=== PATIENT | female | born 1930 | race Caucasian/White ===

== ENCOUNTER 2018-01-15 10:01 | Inpatient (IN) | payer OTHER ==
--- NOTE | 2018-01-15 10:30 | PDOC ---
History of Present Illness - General History Source: Patient Exam Limitations: No Limitations - History of Present Illness Initial Comments: 01/15/18 12:36 The patient is a 87 year old female, with a significant PMH of lung cancer ( right lung removal 6 years ago) and HTN, who presents to the emergency department via EMS for evaluation of a fall that occurred this morning. The patient states she went to the bathroom when she hit a cart and fell forward landing on her right leg. The patient reports pain to the right leg and pain is exacerbated with movement. The patient denies hitting her head and LOC. She denies syncope, blurring vision, neck pain, numbness and tingling. Denies chest pain, shortness of breath, headache and dizziness. Denies fever, chills, nausea , vomit, diarrhea and constipation. Allergies: NKDA Past surgical history: Lung surgery Social history: None reported PCP: Magda Diaz <Temo Powers - Last Filed: 01/15/18 12:36> <Kings Singh - Last Filed: 01/15/18 14:14> - General Chief Complaint: Injury Stated Complaint: FALL Time Seen by Provider: 01/15/18 10:30 Past History <Temo Powers - Last Filed: 01/15/18 12:36> - Past Medical History Anemia: No Asthma: No Cancer: Yes (lung) Cardiac Disorders: No CVA: No COPD: No CHF: No Dementia: No Diabetes: No GI Disorders: Yes (loose stool) Disorders: No HTN: Yes Hypercholesterolemia: No Liver Disease: No Seizures: No Thyroid Disease: No - Surgical History Abdominal Surgery: No Appendectomy: No Cardiac Surgery: No Cholecystectomy: No Lung Surgery: Yes (right lung removal, 6 years ago) Neurologic Surgery: No Orthopedic Surgery: No - Suicide/Smoking/Psychosocial Hx Smoking History: Unknown if ever smoked Have you smoked in the past 12 months: No Number of Cigarettes Smoked Daily: 30 If you are a former smoker, when did you quit?: over 10 yrs ago Cigars Per Day: 0 Hx Alcohol Use: No Drug/Substance Use Hx: No Substance Use Type: None Hx Substance Use Treatment: No <Kings Singh - Last Filed: 01/15/18 14:14> - Past Medical History Allergies/Adverse Reactions: Allergies Allergy/AdvReac Type Severity Reaction Status Date / Time No Known Allergies Allergy Verified 01/15/18 10:36 Home Medications: Ambulatory Orders Losartan Potassium 50 mg PO DAILY 10/27/15 Zolpidem Tartrate [Ambien] 10 mg PO HS 10/27/15 Review of Systems - Review of Systems Able to Perform ROS?: Yes Comments:: 01/15/18 12:37 CONSTITUTIONAL: No fever, no chills, no fatigue EYES: No visual changes ENT: No ear pain, no sore throat CARDIOVASCULAR: No chest pain, no palpitations RESPIRATORY: No cough, no SOB GI: No abdominal pain, no nausea, no vomiting, no constipation, no diarrhea GENITOURINARY: No dysuria, no frequency, no hematuria MUSCULOSKELETAL: +Right leg pain SKIN: No rash NEURO: No headache <Temo Powers - Last Filed: 01/15/18 12:36> *Physical Exam - Vital Signs Last Vital Signs Temp Pulse Resp BP Pulse Ox 97.4 F L 87 17 124/79 99 01/15/18 10:25 01/15/18 10:25 01/15/18 10:25 01/15/18 10:25 01/15/18 10:25 <Temo Powers - Last Filed: 01/15/18 12:36> - Physical Exam Comments: 01/15/18 14:06 EXAMINATION CONSTITUTIONAL: Awake and alert, well-nourished; in no apparent distress HEAD: Normocephalic; atraumatic EYES: PERRL; EOM intact ENMT: External appears normal; normal oropharynx NECK: Supple; non-tender; no cervical lymphadenopathy CARD: Normal S1, S2; 2/6 syst murmurs, no rubs, or gallops RESP: Normal chest excursion with respiration; breath sounds clear and equal bilaterally; no wheezes, rhonchi, or rales ABD: Soft, non-distended; non-tender; no palpable organomegaly, no palpable hernias EXT: Right lower extremity is shortened and externally rotated; there is pain upon palpation of the proximal femur; there is large soft tissue swelling to the anterior and medial aspect of the right thigh, mildly tender to palpation; tibialis posterior is +1; unable to palpate dorsalis pedis; left lower extremity : no obvious deformity, full range of motion at the foot/ankle/knee/hip; tibialis posterior is +1; unable to palpate dorsalis pedis; SKIN: Warm, dry, no rash NEURO: Cranial nerves II through XII are grossly intact; motor is 5 of 54; no pronation drift; gait-deferred. <Kings Singh - Last Filed: 01/15/18 14:14> ED Treatment Course - LABORATORY CBC & Chemistry Diagram: 01/15/18 11:07 01/15/18 11:07 - ADDITIONAL ORDERS Additional order review: Laboratory Results 01/15/18 01/15/18 11:07 11:07 PT with INR 12.20 INR 1.03 Sodium 137 Potassium 4.6 Chloride 106 Carbon Dioxide 23 Anion Gap 8 BUN 22 H Creatinine 1.1 Creat Clearance w eGFR 47.21 Random Glucose 110 H Calcium 9.3 Total Bilirubin 0.9 AST 32 ALT 20 Alkaline Phosphatase 54 Total Protein 7.0 Albumin 3.5 01/15/18 11:07 RBC 3.74 MCV 89.8 MCHC 34.0 RDW 14.2 MPV 7.5 Neutrophils % 88.1 H D Lymphocytes % 6.4 L D Monocytes % 4.7 Eosinophils % 0.4 Basophils % 0.4 - Medications Given in the ED: ED Medications Discontinued Medications Generic Name Dose Route Start Last Admin Trade Name Freq PRN Reason Stop Dose Admin Morphine Sulfate 2 mg 01/15/18 10:46 01/15/18 11:17 Morphine Sulfate IVPUSH 01/15/18 10:47 2 mg ONCE ONE Administration <Temo Powers - Last Filed: 01/15/18 12:36> - LABORATORY CBC & Chemistry Diagram: 01/15/18 11:07 01/15/18 11:07 <Kings Singh - Last Filed: 01/15/18 14:14> *DC/Admit/Observation/Transfer - Attestations Scribe Attestion: 01/15/18 12:39 Documentation prepared by Temo Powers, acting as pesticide use medical coordinator for Kings Singh MD. <Temo Powers - Last Filed: 01/15/18 12:36> - Discharge Dispostion Decision to Admit order: Yes - Attestations Physician Attestion: 01/15/18 14:06 The documentation was prepared by the scribe under my direct supervision. I have reviewed the documentation which correctly represents the findings, medical decision-making and critical action taken by me. <Kings Singh - Last Filed: 01/15/18 14:14> Diagnosis at time of Disposition: Hip fracture, right Qualifiers: Encounter type: initial encounter Fracture type: closed Qualified Code(s): S72.001A - Fracture of unspecified part of neck of right femur, initial encounter for closed fracture - Discharge Dispostion Condition at time of disposition: Fair - Referrals Referrals: Magda Diaz MD [Primary Care Provider] - - Patient Instructions - Post Discharge Activity
[2018-01-15] MEDS ORDERED: MORPHINE SULFATE 2 MG/ML VIAL IVPUSH ONE ×2 (10:46→13:15)
[2018-01-15] MEDS ORDERED: MORPHINE SULFATE 2 MG/ML VIAL ONE ×2 (10:57→13:55)
[2018-01-15 11:19] LABS: BASO % 0.4 % (0-2.0); EOS % 0.4 % (0-4.5); HEMATOCRIT 33.6 % (32.4-45.2); HEMOGLOBIN 11.4 GM/dL (10.7-15.3); LYMPH % 6.4 % (8-40); MCH 30.6 pg (25.7-33.7); MEAN CELL VOLUME 89.8 fl (80-96); MEAN PLT VOLUME 7.5 fl (7.5-11.1); MONO % 4.7 % (3.8-10.2); NEUT % 88.1 % (42.8-82.8); PLATELET COUNT 184 K/MM3 (134-434); RBC 3.74 M/mm3 (3.60-5.2); RDW 14.2 % (11.6-15.6); WHITE BLOOD COUNT 8.9 K/mm3 (4.0-10.0)
[2018-01-15 11:30] LABS: INR 1.03 (0.83-1.09); PROTHROMBIN TIME (PATIENT) 12.2 SEC (9.7-13.0)
[2018-01-15 11:50] LABS: ALBUMIN 3.5 g/dl (3.4-5.0); ALK PHOS 54 U/L (45-117); ANION GAP 8 MMOL/L (8-16); BILIRUBIN,TOTAL 0.9 mg/dL (0.2-1); BLOOD UREA NITROGEN 22 mg/dL (7-18); CALCIUM 9.3 mg/dL (8.5-10.1); CHLORIDE 106 mmol/L (98-107); CO2 23 mmol/L (21-32); CREATININE 1.1 mg/dL (0.55-1.3); GLUCOSE,RANDOM 110 mg/dL (74-106); POTASSIUM 4.6 mmol/L (3.5-5.1); SGOT/AST 32 U/L (15-37); SGPT/ALT 20 U/L (13-61); SODIUM 137 mmol/L (136-145)
[2018-01-15] MEDS ORDERED: SODIUM CHLORIDE 500 ML IV STA (12:13)
[2018-01-15] MEDS ORDERED: morphine SULFATE 4 MG/ML VIAL IVPUSH ONE (13:20)
[2018-01-15] MEDS ORDERED: morphine SULFATE 4 MG/ML VIAL ONE (13:20)
[2018-01-15] MEDS ORDERED: SODIUM CHLORIDE 1,000 ML IV SCH (13:30)
[2018-01-15 13:59] LABS: URINE APPEARANCE CLEAR; URINE BILIRUBIN NEGATIVE (<2.0 mg/dL); URINE COLOR LTYELLOW; URINE GLUCOSE (UA) 1+ (NEGATIVE); URINE KETONE NEGATIVE (NEGATIVE); URINE LEUK ESTERASE NEGATIVE (NEGATIVE); URINE NITRITE NEGATIVE (NEGATIVE); URINE PROTEIN NEGATIVE (NEGATIVE); URINE UROBILINOGEN NEGATIVE mg/dL (0.2-1.0)
[2018-01-15 14:03] LABS: EPI CELLS RARE /HPF (FEW); URINE MUCUS RARE
--- NOTE | 2018-01-15 14:18 | PN ---
Progress Note (short form) - Note Progress Note: Pt seen and examined in ER. She is an 87 year old female pt who fell at home last night, c/o pain in the right hip and an inability to ambulate. She states she only has HTN, denies being on any anticoagulants. Her PMD is Dr Diaz. AVSS H/H stable PE RLE is mildly shortened and externally rotated + pain in the right hip and thigh with log rolling and axial load. RLE appears to be grossly NVI, good ROM at the right ankle, foot, toes Xrays Show a displaced 3 part right femur inter trochanteric hip fracture Imp 87 yo healthy female with an acute right hip IT fx Rec Admission. Medical clearance NPO after midnight tonight Surgery likely tomorrow, right IM/Gamma Nail Then DC planning
[2018-01-15] MEDS ORDERED: oxyCODONE HCL 5 MG TABLET PO PRN (14:24)
[2018-01-15] MEDS: ACETAMINOPHEN 325 MG TABLET (FP) PO SCH ×2 (14:41→21:30)
--- NOTE | 2018-01-15 15:22 | HP ---
CHIEF COMPLAINT: Right hip pain after fall. PCP: Dr. Magda Diaz HISTORY OF PRESENT ILLNESS: 87 year old female with a PMH significant for HTN, AAA, lung ca, presented to the ED s/p fall in her home. Patient reports tripped on a piece of furniture in her apartment this morning after using the restroom. She did not hit or head or lose consciousness. She managed to drag herself across the floor to the telephone to call the ambulance. Denies lightheadedness, dizzyness, chest pain, palpitations, n/v/d. Upon admission to the ED, patient was given Morphine 2 mg IVP. X-ray showed displaced, 3 part, right femur intertrochanteric hip fracture. Patient was seen by orthopedist Dr. Gaston who scheduled surgery for tomorrow. Recent Travel: No PAST MEDICAL HISTORY: Lung ca (s/p total resection of her right lung) HTN AAA PAST SURGICAL HISTORY: Right lung total resection Social History: , lives alone in an apartment in a building with an elevator in [place] Smoking: Former, quit over 10 years ago when diagnosed with cancer. Alcohol: None Drugs: Denies Family History: Mother: Emphysema, age 80 Father: [place], Brother: [place] Allergies No Known Allergies Allergy (Verified 01/15/18 10:36) HOME MEDICATIONS: Home Medications Medication Instructions Recorded Losartan Potassium 50 mg PO DAILY 10/27/15 Zolpidem Tartrate [Ambien] 10 mg PO HS 10/27/15 REVIEW OF SYSTEMS CONSTITUTIONAL: (+) loss of appetite, weight loss over the past 3 months, unsure of how many lbs Absent: fever, chills, diaphoresis, generalized weakness, malaise, HEENT: Absent: rhinorrhea, nasal congestion, throat pain, throat swelling, difficulty swallowing, mouth swelling, ear pain, eye pain, visual changes CARDIOVASCULAR: Absent: chest pain, syncope, palpitations, irregular heart rate, lightheadedness , peripheral edema RESPIRATORY: (+) shortness of breath chronic/intermittent s/p right lung resection, dyspnea with exertion Absent: cough, orthopnea, wheezing, stridor, hemoptysis GASTROINTESTINAL: (+) Constipation Absent: abdominal pain, abdominal distension, nausea, vomiting, diarrhea, melena , hematochezia GENITOURINARY: Absent: dysuria, frequency, urgency, hesitancy, hematuria, flank pain, genital pain MUSCULOSKELETAL: (+) ++++Right hip pain, lower back pain, chronic Absent: myalgia, arthralgia, joint swelling, neck pain SKIN: Absent: rash, itching, pallor HEMATOLOGIC/IMMUNOLOGIC: Absent: easy bleeding, easy bruising, lymphadenopathy, frequent infections ENDOCRINE: Absent: unexplained weight gain, unexplained weight loss, heat intolerance, cold intolerance NEUROLOGIC: Absent: headache, focal weakness or paresthesias, dizziness, unsteady gait, seizure, mental status changes, bladder or bowel incontinence PSYCHIATRIC: Absent: anxiety, depression, suicidal or homicidal ideation, hallucinations. PHYSICAL EXAMINATION Vital Signs - 24 hr 01/15/18 01/15/18 01/15/18 10:25 13:53 14:03 Temperature 97.4 F L Pulse Rate 87 Pulse Rate [ 82 Left] Respiratory 17 17 Rate Blood Pressure 124/79 Blood Pressure 135/75 [Right Arm] O2 Sat by Pulse 99 99 Oximetry (%) GENERAL: Awake, alert, and fully oriented, thin, appears uncomfortable d/t right hip pain. HEAD: Normal with no signs of trauma. EYES: Pupils equal, round and reactive to light, extraocular movements intact, sclera anicteric, conjunctiva clear. No lid lag. EARS, NOSE, THROAT: Nares patent, oropharynx clear without exudates. Moist mucous membranes. NECK: Normal range of motion, supple without lymphadenopathy, JVD, or masses. LUNGS: Breath sounds equal, clear to auscultation bilaterally. No wheezes, and no crackles. No accessory muscle use. HEART: Regular rate and rhythm, normal S1 and S2 without murmur, rub or gallop. ABDOMEN: Soft, nontender, not distended, normoactive bowel sounds, no guarding, no rebound, no masses. No hepatomegaly or splenomegaly. UPPER EXTREMITIES: 2+ pulses, warm, well-perfused. No cyanosis. No clubbing. No peripheral edema. LOWER EXTREMITIES: Right leg externally rotated, extremely TTP NEUROLOGICAL: No facial droop, tongue midline, normal speech. Normal gait. PSYCHIATRIC: Cooperative. Good eye contact. Appropriate mood and affect. SKIN: Warm, dry, normal turgor, no rashes or lesions noted, normal capillary refill. Laboratory Results - last 24 hr 01/15/18 01/15/18 01/15/18 11:07 11:07 11:07 WBC 8.9 RBC 3.74 Hgb 11.4 Hct 33.6 MCV 89.8 MCH 30.6 MCHC 34.0 RDW 14.2 Plt Count 184 MPV 7.5 Absolute Neuts (auto) 7.8 Neutrophils % 88.1 H D Lymphocytes % 6.4 L D Monocytes % 4.7 Eosinophils % 0.4 Basophils % 0.4 Nucleated RBC % 0 PT with INR 12.20 INR 1.03 Sodium 137 Potassium 4.6 Chloride 106 Carbon Dioxide 23 Anion Gap 8 BUN 22 H Creatinine 1.1 Creat Clearance w eGFR 47.21 Random Glucose 110 H Calcium 9.3 Total Bilirubin 0.9 AST 32 ALT 20 Alkaline Phosphatase 54 Total Protein 7.0 Albumin 3.5 Urine Color Urine Appearance Urine pH Ur Specific [place] Urine Protein Urine Glucose (UA) Urine Ketones Urine Blood Urine Nitrite Urine Bilirubin Urine Urobilinogen Ur Leukocyte Esterase Urine WBC (Auto) Urine RBC (Auto) Ur Epithelial Cells Urine Mucus Blood Type Antibody Screen 01/15/18 01/15/18 11:07 13:50 WBC RBC Hgb Hct MCV MCH MCHC RDW Plt Count MPV Absolute Neuts (auto) Neutrophils % Lymphocytes % Monocytes % Eosinophils % Basophils % Nucleated RBC % PT with INR INR Sodium Potassium Chloride Carbon Dioxide Anion Gap BUN Creatinine Creat Clearance w eGFR Random Glucose Calcium Total Bilirubin AST ALT Alkaline Phosphatase Total Protein Albumin Urine Color Ltyellow Urine Appearance Clear Urine pH 5.0 Ur Specific [place] 1.047 H Urine Protein Negative Urine Glucose (UA) 1+ H Urine Ketones Negative Urine Blood 1+ H Urine Nitrite Negative Urine Bilirubin Negative Urine Urobilinogen Negative Ur Leukocyte Esterase Negative Urine WBC (Auto) <1 Urine RBC (Auto) 1 Ur Epithelial Cells Rare Urine Mucus Rare Blood Type A POSITIVE Antibody Screen Negative CXR No acute change since last study on 10/27/15 CTA -Right intertrochanteric hip fracture extending to the proximal femoral shaft with extensive swelling of the right thigh muscles likely secondary to hematoma in the intermuscular planes but with no evidence of active extravasation of contrast or pseudoaneurysm to suggest arterial injury. -Fusiform AAA measuring up to 5.5 cm extending from the level of the renal arteries to the aortic bifurcation with normal caliber iliac arteries. Markedly tortuous and ectatic thoracic and suprarenal abdominal aorta measuring up to 3.8 cm. X-ray Right hip intertrochanteric fracture with avulsion of the lesser trochanter, normal relationship of the femoral head to the acetabulum. ASSESSMENT/PLAN: 87 year old female with a PMH significant for HTN, AAA, lung ca, presented to the ED s/p fall in her home. She was admitted for ORIF of right hip fracture. Right Hip Fracture -Seen by orthopedist Dr. Gaston -Scheduled for ORIF with Gamma nail tomorrow -NPO after midnight. -Pain management -Tylenol 650 mg q 6 hrs -Oxycodone 5 mg q 4 hrs PRN for pain 1 - 5 -Morphine 2 mg IVP q 4 hrs PRN for pain 6 -10 HTN -Continue home Losartan 50 mg -Monitor BP Insomnia -Hold home Ambien 10 mg while on narcotic pain medications. Constipation -Senna FEN -NS @ 42 cc/hr -Replete electrolytes as indicated -Regular diet, NPO after midnight DVT Prophylaxis -Mechanical only: SCD's. -Chemical: Consider starting post op Dispo: pt currently requires further inpatient care. FULL CODE Visit type - Emergency Visit Emergency Visit: Yes ED Registration Date: 01/15/18 Care time: The patient presented to the Emergency Department on the above date and was hospitalized for further evaluation of their emergent condition. - New Patient This patient is new to me today: No - Critical Care Critical Care patient: No
--- NOTE | 2018-01-15 15:36 | EKG ---
Test Reason : Blood Pressure : / mmHG Vent. Rate : 089 BPM Atrial Rate : 089 BPM P-R Int : 166 ms QRS Dur : 078 ms QT Int : 362 ms P-R-T Axes : 055 050 044 degrees QTc Int : 440 ms SINUS RHYTHM WITH PREMATURE VENTRICULAR COMPLEXES OR FUSION COMPLEXES NONSPECIFIC ST ABNORMALITY ABNORMAL ECG WHEN COMPARED WITH ECG OF 27-JUL-2014 10:51, FUSION COMPLEXES ARE NOW PRESENT PREMATURE VENTRICULAR COMPLEXES ARE NOW PRESENT PREMATURE ATRIAL COMPLEXES ARE NO LONGER PRESENT Confirmed by SARAH SAGE MD ([id number]) on 01/15/2018 3:36:33 PM Referred By: Confirmed By:SARAH SAGE MD
[2018-01-15] MEDS: SODIUM CHLORIDE 1,000 ML IV SCH (17:22)
[2018-01-15] MEDS ORDERED: SENNOSIDES 8.6MG TABLET (FP) PO SCH (22:00)
[2018-01-15 22:33] VITALS: BMI 21.1
[2018-01-15] MEDS: MORPHINE SULFATE 2 MG/ML VIAL IVPUSH PRN (22:48)
[2018-01-16] MEDS: ACETAMINOPHEN 325 MG TABLET (FP) PO SCH ×4 (02:59→21:00)
[2018-01-16] MEDS: MORPHINE SULFATE 2 MG/ML VIAL IVPUSH PRN ×2 (06:47→10:49)
[2018-01-16] MEDS ORDERED: LOSARTAN POTASSIUM 50 MG TABLET (FP) PO SCH (10:00)
--- NOTE | 2018-01-16 10:32 | PN ---
Progress Note (short form) - Note Progress Note: Pt seen, comfortable. NPO. The plan is to do the right hip Gamma Nail surgery today, pending final medical clearance. Keep NPO. Surgery scheduled for 3pm
[2018-01-16] MEDS: SODIUM CHLORIDE 1,000 ML IV SCH (14:04)
[2018-01-16] MEDS ORDERED: BUPIVACAINE HCL/PF 0.5% (5MG/ML) 10 ML VIAL ONE (16:00)
[2018-01-16] MEDS ORDERED: MIDAZOLAM HCL 2 MG/2 ML SINGLE DOSE VIAL ONE (16:07)
[2018-01-16] MEDS ORDERED: SODIUM CHLORIDE 0.9% P/F 10 ML VIAL IJ ONE ×2 (16:11→17:10)
[2018-01-16] MEDS ORDERED: ceFAZolin SODIUM 1 GM VIAL IVPB ONE ×2 (16:55)
[2018-01-16] MEDS ORDERED: KETAMINE HCL 200 MG/20 ML VIAL ONE (17:01)
[2018-01-16] MEDS ORDERED: PHENYLEPHRINE HCL 10 MG/1 ML SINGLE DOSE VIAL ONE (17:10)
--- NOTE | 2018-01-16 17:43 | OP ---
Operative Note - Note: Operative Date: 01/16/18 Pre-Operative Diagnosis: right femur inter trochanteric fracture Operation: right femur IM nail/Gamma Nail Implants: [place] G-3 Gamma Nail, 125 D, 85mm lag screw, 37.5 distal locking screw Surgeon: Ian Gaston Anesthesiologist/ROLLER INSPECTOR: Miguel A Mcnally Anesthesia: Spinal, MAC Estimated Blood Loss (mls): 100 Drains, Volume Out (mls): 0 Blood Volume Replaced (mls): 0 Fluid Volume Replaced (mls): 700 Operative Report Dictated: Yes
[2018-01-16] MEDS ORDERED: SODIUM CHLORIDE 1,000 ML IV SCH (18:01)
[2018-01-16] MEDS ORDERED: MORPHINE SULFATE 2 MG/ML VIAL IVPUSH PRN (18:01)
--- NOTE | 2018-01-16 19:22 | PN ---
Physical Exam: SUBJECTIVE: Patient seen and examined in her room. Patient reports her pain is better, though she was not able to sleep and has barely been able to eat. OBJECTIVE: Vital Signs Period Temp Pulse Resp BP Sys/Aguirre Pulse Ox Last 24 Hr 97.6 F-98.4 F 86-98 13-20 81-138/60-87 96-100 GENERAL: Awake, alert, and fully oriented, thin, appears uncomfortable d/t right hip pain, though slightly improved from yesterday. HEAD: Normal with no signs of trauma. EYES: Pupils equal, round and reactive to light, extraocular movements intact, sclera anicteric, conjunctiva clear. No lid lag. EARS, NOSE, THROAT: Nares patent, oropharynx clear without exudates. Moist mucous membranes. NECK: Normal range of motion, supple without lymphadenopathy, JVD, or masses. LUNGS: Breath sounds equal, clear to auscultation bilaterally. No wheezes, and no crackles. No accessory muscle use. HEART: Regular rate and rhythm, normal S1 and S2 without murmur, rub or gallop. ABDOMEN: Soft, nontender, not distended, normoactive bowel sounds, no guarding, no rebound, no masses. No hepatomegaly or splenomegaly. UPPER EXTREMITIES: 2+ pulses, warm, well-perfused. No cyanosis. No clubbing. No peripheral edema. LOWER EXTREMITIES: Right leg externally rotated, TTP NEUROLOGICAL: No facial droop, tongue midline, normal speech. Normal gait. PSYCHIATRIC: Cooperative. Good eye contact. Appropriate mood and affect. SKIN: Warm, dry, normal turgor, no rashes or lesions noted, normal capillary refill. Active Medications Generic Name Dose Route Start Last Admin Trade Name Freq PRN Reason Stop Dose Admin Acetaminophen 650 mg 01/16/18 20:30 Tylenol - PO Q6H [facility] Enoxaparin Sodium 30 mg 01/17/18 12:00 Lovenox - SQ DAILY [facility] Fentanyl 25 mcg 01/16/18 17:47 Sublimaze Injection - IVPUSH [id number] PRN PAIN-PACU ORDER X 4 DOSES ONLY Cefazolin Sodium 1 gm/ 50 mls @ 100 mls/hr 01/16/18 23:00 Dextrose IVPB 01/17/18 07:29 Q8H [facility] Sodium Chloride 1,000 mls @ 42 mls/hr 01/16/18 18:01 Normal Saline - IV ASDIR [facility] Losartan Potassium 50 mg 01/17/18 10:00 Cozaar - PO DAILY [facility] Morphine Sulfate 2 mg 01/16/18 18:01 Morphine Sulfate IVPUSH Q4H PRN PAIN LEVEL 6-10 Oxycodone HCl 5 mg 01/16/18 18:01 Roxicodone - PO Q4H PRN PAIN LEVEL 1-5 Senna 2 tab 01/16/18 22:00 Senna - PO HS [facility] ASSESSMENT/PLAN: 87 year old female with a PMH significant for HTN, AAA, lung ca, presented to the ED s/p fall in her home. She was admitted for ORIF of right hip fracture. Right Hip Fracture -Seen by orthopedist Dr. Gaston -Went for for ORIF with Gamma nail this afternoon -Pain management -Tylenol 650 mg q 6 hrs -Oxycodone 5 mg q 4 hrs PRN for pain 1 - 5 -Morphine 2 mg IVP q 4 hrs PRN for pain 6 -10 -PT -Will to be d/marga to subacute rehab. HTN -Continue home Losartan 50 mg -Monitor BP Insomnia -Hold home Ambien 10 mg while on narcotic pain medications. Constipation -Senna FEN -NS @ 42 cc/hr -Replete electrolytes as indicated -Regular diet DVT Prophylaxis -Mechanical only: SCD's. Dispo: pt currently requires further inpatient care. FULL CODE Visit type - Emergency Visit Emergency Visit: No - New Patient This patient is new to me today: No - Critical Care Critical Care patient: No
[2018-01-16] MEDS: SENNOSIDES 8.6MG TABLET (FP) PO SCH (21:14)
[2018-01-16] MEDS ORDERED: DEXTROSE 5%-WATER - 50 ML IVPB ONE (22:08)
[2018-01-16] MEDS ORDERED: ceFAZolin SODIUM 1 GM VIAL ONE (22:08)
[2018-01-16] MEDS: CEFAZOLIN 1 GM in DEXTROSE 5%-WATER - 50 ML IVPB SCH (22:45)
[2018-01-16] MEDS ORDERED: CEFAZOLIN 1 GM in DEXTROSE 5%-WATER - 50 ML IVPB SCH (23:00)
[2018-01-17] MEDS: oxyCODONE HCL 5 MG TABLET PO PRN ×2 (02:56→09:22)
[2018-01-17] MEDS: ACETAMINOPHEN 325 MG TABLET (FP) PO SCH ×4 (02:57→20:34)
[2018-01-17] MEDS ORDERED: DEXTROSE 5%-WATER - 50 ML IVPB ONE (05:30)
[2018-01-17] MEDS ORDERED: ceFAZolin SODIUM 1 GM VIAL ONE (05:30)
[2018-01-17] MEDS: CEFAZOLIN 1 GM in DEXTROSE 5%-WATER - 50 ML IVPB SCH (06:09)
--- NOTE | 2018-01-17 06:25 | SPEC ---
DATE OF OPERATION: DATE OF DICTATION: 01/16/2018 PREOPERATIVE DIAGNOSIS: Right hip intertrochanteric hip fracture. POSTOPERATIVE DIAGNOSIS: Right hip intertrochanteric hip fracture. PROCEDURE: Right hip intramedullary nail/Gamma nail. SURGEON: Ian Gaston MD ASSISTANTS: None. CLINIC SCHEDULER: Miguel A Mcnally CRNA ANESTHESIOLOGIST: Micah Grimaldo MD ANESTHESIA: Spinal anesthesia with sedation. DRAINS: None. COMPLICATIONS: None. BLOOD LOSS: 100 mL. BLOOD GIVEN: None. FLUID REPLACEMENT: PlasmaLyte, 1000 mL. INDICATIONS: This patient is an 87-year-old female with a preoperative diagnosis of a displaced right hip intertrochanteric fracture. After understanding the potential risks, complications, alternatives, and benefits of surgery versus nonsurgical treatment, the patient and the family elected to undergo this procedure. DESCRIPTION OF PROCEDURE: Patient was brought to the operating room. Peripheral IV placed, IV sedation given. One gram of IV Ancef was given. General anesthesia was induced. The patient had ample Webril placed around the peroneal post in both ankles. The patient was placed onto the fracture table with a slight longitudinal traction and internal rotation. X-rays were taken documenting excellent reduction of the fracture in the AP and lateral planes. Next, an incision was made over the proximal aspect of the greater trochanter. Subcutaneous hemostasis was achieved with a Bovie cautery, dissection done through the lateral fascia to the top of the greater trochanter. A Andrews elevator was used to take off the soft tissue from the starting point. Under direct visualization a partially threaded guide-wire was placed through the standard starting position, into the proximal femur, passed the fracture fragment into the medullary canal. It was documented to be in excellent position in AP, lateral and multiple oblique planes. Next, we used the proximal 17 mm cannulated reamer and put in a standard titanium Yoni titanium Gamma G3 125 degree, 180 mm trochanteric nail. This was put in cannulated fashion to appropriate depth and using the external guide in a standard fashion, first using external jig, using a threaded guide-wire, replaced the lag screw, guide pin to the lateral aspect of the femur. The prosthesis and up to the femoral neck and head, looked to be in excellent position in a center central position, perhaps slightly posterior and slightly inferior in both AP and lateral planes. We measured it at an 85 mm screw. The cannulated drill was used to drill it to this leg and then we put in an 85 mm titanium lag screw. We achieved excellent compression and overall the position of the hardware in the fracture fragments looked excellent. We locked it in place with a proximal set screw, we altered the external jig to the static position and using the standard technique put in a distal interlocking screw under direct visualization of 37.5 mm in length. This locked the nail distally. We removed the external jig. We repeated x-rays in AP, lateral and multiple oblique planes and overall I was quite happy with the position of the fracture reduction, the length of the screw, the position of the hardware. Final x-rays were taken. The area was copiously irrigated and washed out. The deep fascial layer was closed with 0 Vicryl sutures. The deep dermal layer was closed with 2-0 Vicryl. Final skin approximation was done with rafa. The area was then washed and dried, covered with Xeroform gauze, 4 x 4 gauze, ABD and tape. Patient was taken down off the fracture table in stable condition. There were no complications during the case. Total operative time was about 30 minutes. Tamiko [id number]
[2018-01-17] MEDS: LOSARTAN POTASSIUM 50 MG TABLET (FP) PO SCH (09:22)
[2018-01-17 09:50] LABS: ANION GAP 10 MMOL/L (8-16); BLOOD UREA NITROGEN 24 mg/dL (7-18); CALCIUM 8.2 mg/dL (8.5-10.1); CHLORIDE 108 mmol/L (98-107); CO2 21 mmol/L (21-32); GLUCOSE,RANDOM 88 mg/dL (74-106); SODIUM 138 mmol/L (136-145)
--- NOTE | 2018-01-17 10:10 | PN ---
Progress Note (short form) - Note Progress Note: Ortho Pt seen and examined s/p right IM gamma nail pod #1 Selected Entries 01/17/18 06:35 Temperature 98.4 F Pulse Rate 90 Respiratory 20 Rate Blood Pressure 103/61 Laboratory Tests 01/17/18 06:50 WBC Pending Hgb Pending Hct Pending Plt Count Pending dressing saturated, calf soft, nt nvi a/p dressing changed PT eval PWB dvt ppx pain control d/c planning
[2018-01-17 10:44] LABS: HEMATOCRIT 16.9 % (32.4-45.2); MCH 30.1 pg (25.7-33.7); MCHC 33.4 g/dl (32.0-36.0); MEAN CELL VOLUME 90.3 fl (80-96); MEAN PLT VOLUME 8.3 fl (7.5-11.1); PLATELET COUNT 127 K/MM3 (134-434); RBC 1.87 M/mm3 (3.60-5.2); RDW 14.4 % (11.6-15.6); WHITE BLOOD COUNT 8.2 K/mm3 (4.0-10.0)
[2018-01-17 10:57] LABS: HEMOGLOBIN 5.6 GM/dL (10.7-15.3)
[2018-01-17 11:38] LABS: HEMATOCRIT 16.1 % (32.4-45.2); MCHC 33.4 g/dl (32.0-36.0); MEAN CELL VOLUME 89.9 fl (80-96); MEAN PLT VOLUME 7.7 fl (7.5-11.1); PLATELET COUNT 108 K/MM3 (134-434); RDW 14.6 % (11.6-15.6); WHITE BLOOD COUNT 6.9 K/mm3 (4.0-10.0)
[2018-01-17 11:44] LABS: HEMOGLOBIN 5.4 GM/dL (10.7-15.3)
[2018-01-17] MEDS ORDERED: ENOXAPARIN NA (PORCINE) 40 MG/0.4 ML DISP.SYRIN SQ SCH (12:00)
[2018-01-17] MEDS ORDERED: ENOXAPARIN NA (PORCINE) 30 MG/0.3 ML DISP.SYRIN SQ SCH (12:00)
[2018-01-17] MEDS ORDERED: SODIUM CHLORIDE 0.9% 500 ML INFUS.BAG IV ONE ×2 (14:00→15:15)
--- NOTE | 2018-01-17 16:30 | PN ---
Physical Exam: SUBJECTIVE: Patient seen and examined in her room. Patient reports her pain is improved and she was able to eat some breakfast. OBJECTIVE: Vital Signs Period Temp Pulse Resp BP Sys/Aguirre Pulse Ox Last 24 Hr 97.6 F-98.4 F 76-101 13-20 76-131/47-79 96-100 GENERAL: Frail, thin, pale, fatigued, more confused than yesterday HEAD: Normal with no signs of trauma. EYES: Pupils equal, round and reactive to light, extraocular movements intact, sclera anicteric, conjunctiva clear. No lid lag. EARS, NOSE, THROAT: Nares patent, oropharynx clear without exudates. Moist mucous membranes. NECK: Normal range of motion, supple without lymphadenopathy, JVD, or masses. LUNGS: Breath sounds equal, clear to auscultation bilaterally. No wheezes, and no crackles. No accessory muscle use. HEART: Regular rate and rhythm, normal S1 and S2 without murmur, rub or gallop. ABDOMEN: Soft, nontender, not distended, normoactive bowel sounds, no guarding, no rebound, no masses. No hepatomegaly or splenomegaly. UPPER EXTREMITIES: 2+ pulses, warm, well-perfused. No cyanosis. No clubbing. No peripheral edema. LOWER EXTREMITIES: Surgicel along lateral hip no strike through, gauze clean dry intact, minor swelling to thigh NEUROLOGICAL: No facial droop, tongue midline, normal speech. Normal gait. PSYCHIATRIC: Cooperative. Good eye contact. Appropriate mood and affect. SKIN: Generalized warm, dry, normal turgor, no rashes or lesions noted, normal capillary refill. Laboratory Results - last 24 hr 01/15/18 01/17/18 01/17/18 11:07 06:50 06:50 WBC 8.2 RBC 1.87 L Hgb 5.6 L* Hct 16.9 L D MCV 90.3 MCH 30.1 MCHC 33.4 RDW 14.4 Plt Count 127 L D MPV 8.3 D Sodium 138 Potassium 4.0 Chloride 108 H Carbon Dioxide 21 Anion Gap 10 BUN 24 H Creatinine 1.0 Creat Clearance w eGFR 52.69 Random Glucose 88 Calcium 8.2 L Blood Type A POSITIVE Antibody Screen Negative Crossmatch See Detail 01/17/18 11:27 WBC 6.9 RBC 1.80 L Hgb 5.4 L* Hct 16.1 L MCV 89.9 MCH 30.0 MCHC 33.4 RDW 14.6 Plt Count 108 L MPV 7.7 Sodium Potassium Chloride Carbon Dioxide Anion Gap BUN Creatinine Creat Clearance w eGFR Random Glucose Calcium Blood Type Antibody Screen Crossmatch Active Medications Generic Name Dose Route Start Last Admin Trade Name Freq PRN Reason Stop Dose Admin Acetaminophen 650 mg 01/16/18 20:30 01/17/18 13:54 Tylenol - PO 650 mg Q6H EDMOND Administration Enoxaparin Sodium 30 mg 01/17/18 12:00 01/17/18 11:14 Lovenox - SQ Not Given DAILY [facility] Sodium Chloride 1,000 mls @ 100 mls/hr 01/17/18 13:41 Normal Saline - IV ASDIR EDMOND Losartan Potassium 50 mg 01/17/18 10:00 01/17/18 09:22 Cozaar - PO 50 mg DAILY EDMOND Administration Morphine Sulfate 2 mg 01/16/18 18:01 Morphine Sulfate IVPUSH Q4H PRN PAIN LEVEL 6-10 Oxycodone HCl 5 mg 01/16/18 18:01 01/17/18 09:22 Roxicodone - PO 5 mg Q4H PRN Administration PAIN LEVEL 1-5 Senna 2 tab 01/16/18 22:00 01/16/18 21:14 Senna - PO 2 tab HS EDMOND Administration ASSESSMENT/PLAN: 87 year old female with a PMH significant for HTN, AAA, lung ca, presented to the ED s/p fall in her home. She was admitted for ORIF of right hip fracture. Right Hip Fracture -1 day p/o ORIF with Gamma nail -Hgb 5.4 -2 units RPBC ordered -Left message with Dr. Gaston's answering service. -Pain management -Tylenol 650 mg q 6 hrs -Oxycodone 5 mg q 4 hrs PRN for pain 1 - 5 -Morphine 2 mg IVP q 4 hrs PRN for pain 6 -10 -PT -Will to be d/marga to subacute rehab. HTN -Improving since starting transfusion, but was very low in the 70s-80s/40s in the afternoon -NS 500 ml bolus x 3 -Continue to closely monitor BP -Hold Losartan 50 mg Insomnia -Hold home Ambien 10 mg while on narcotic pain medications. Constipation -Senna FEN -NS @ 100 cc/hr -Replete electrolytes as indicated -Regular diet DVT Prophylaxis --Hold Lovenox d/t low hemoglobin -Restart once Hgb normalized, will need to be on for 1 month post op Dispo: pt currently requires further inpatient care. FULL CODE Visit type - Emergency Visit Emergency Visit: No - New Patient This patient is new to me today: No - Critical Care Critical Care patient: No - Discharge Referral Referred to [facility] Med P.C.: No
[2018-01-17] MEDS: ZOLPIDEM TARTRATE 5 MG TABLET PO PRN (21:52)
[2018-01-17] MEDS: SENNOSIDES 8.6MG TABLET (FP) PO SCH (21:52)
[2018-01-18] MEDS: SODIUM CHLORIDE 1,000 ML IV SCH ×3 (01:45→20:00)
[2018-01-18] MEDS: ACETAMINOPHEN 325 MG TABLET (FP) PO SCH ×4 (02:17→21:19)
[2018-01-18 08:46] LABS: HEMATOCRIT 27.9 % (32.4-45.2); HEMOGLOBIN 10.1 GM/dL (10.7-15.3); MCH 32.5 pg (25.7-33.7); MCHC 36.2 g/dl (32.0-36.0); MEAN CELL VOLUME 89.7 fl (80-96); PLATELET COUNT 121 K/MM3 (134-434); RBC 3.11 M/mm3 (3.60-5.2); RDW 15.3 % (11.6-15.6); WHITE BLOOD COUNT 8.9 K/mm3 (4.0-10.0)
--- NOTE | 2018-01-18 09:39 | PN ---
Physical Exam: SUBJECTIVE: Patient seen and examined, denies chest pain or shortness of breath. in no acute distress. OBJECTIVE: s/p 2 units of prbc, hmg/hct stable POD #2 Vital Signs Period Temp Pulse Resp BP Sys/Aguirre Pulse Ox Last 24 Hr 97.9 F-98.7 F 88-101 16-20 76-137/47-69 96 GENERAL: awake, alert, in no acute distress. some pain of right hip relieved with oxycodone. HEAD: Normal with no signs of trauma. EYES: Pupils equal, round and reactive to light, extraocular movements intact, sclera anicteric, conjunctiva clear. No lid lag. EARS, NOSE, THROAT: Nares patent, oropharynx clear without exudates. Moist mucous membranes. NECK: Normal range of motion, supple without lymphadenopathy, JVD, or masses. LUNGS: Breath sounds equal, clear to auscultation bilaterally HEART: Regular rate and rhythm, normal S1 and S2 without murmur, rub or gallop. ABDOMEN: Soft, nontender, not distended, normoactive bowel sounds UPPER EXTREMITIES: 2+ pulses, warm, well-perfused. No cyanosis. No clubbing. No peripheral edema. LOWER EXTREMITIES: Surgicel along lateral hip, gauze cdi, minor swelling to thigh NEUROLOGICAL: normal speech. PSYCHIATRIC: Cooperative. Good eye contact. Appropriate mood and affect. Laboratory Results - last 24 hr 01/15/18 01/17/18 01/17/18 11:07 06:50 06:50 WBC 8.2 RBC 1.87 L Hgb 5.6 L* Hct 16.9 L D MCV 90.3 MCH 30.1 MCHC 33.4 RDW 14.4 Plt Count 127 L D MPV 8.3 D Sodium 138 Potassium 4.0 Chloride 108 H Carbon Dioxide 21 Anion Gap 10 BUN 24 H Creatinine 1.0 Creat Clearance w eGFR 52.69 Random Glucose 88 Calcium 8.2 L Blood Type A POSITIVE Antibody Screen Negative Crossmatch See Detail 01/17/18 01/18/18 11:27 08:00 WBC 6.9 8.9 RBC 1.80 L 3.11 L Hgb 5.4 L* 10.1 L Hct 16.1 L 27.9 L D MCV 89.9 89.7 MCH 30.0 32.5 MCHC 33.4 36.2 H RDW 14.6 15.3 Plt Count 108 L 121 L MPV 7.7 8.0 Sodium Potassium Chloride Carbon Dioxide Anion Gap BUN Creatinine Creat Clearance w eGFR Random Glucose Calcium Blood Type Antibody Screen Crossmatch Active Medications Generic Name Dose Route Start Last Admin Trade Name Freq PRN Reason Stop Dose Admin Acetaminophen 650 mg 01/16/18 20:30 01/18/18 02:17 Tylenol - PO 650 mg Q6H EDMOND Administration Enoxaparin Sodium 30 mg 01/17/18 12:00 01/17/18 11:14 Lovenox - SQ Not Given DAILY EDMOND Sodium Chloride 1,000 mls @ 100 mls/hr 01/17/18 13:41 01/18/18 01:45 Normal Saline - IV 100 mls/hr ASDIR EDMOND Administration Losartan Potassium 50 mg 01/17/18 10:00 01/17/18 09:22 Cozaar - PO 50 mg DAILY EDMOND Administration Morphine Sulfate 2 mg 01/16/18 18:01 Morphine Sulfate IVPUSH Q4H PRN PAIN LEVEL 6-10 Oxycodone HCl 5 mg 01/16/18 18:01 01/17/18 09:22 Roxicodone - PO 5 mg Q4H PRN Administration PAIN LEVEL 1-5 Senna 2 tab 01/16/18 22:00 01/17/18 21:52 Senna - PO 2 tab HS EDMOND Administration Zolpidem Tartrate 5 mg 01/17/18 20:14 01/17/18 21:52 Ambien - PO 5 mg HS PRN Administration INSOMNIA ASSESSMENT/PLAN: patient is a 87 year old female admitted on 01/15/2018 for ORIF of right hip fracture s/p fall at home (operative date 01/16/2018). Her past medical history include htn, AAA, lung cancer and insomnia. problem list: HTN AAA Lung cancer Insomnia s/p ORIF of right hip Right Hip Fracture, POD #2 with Gamma nail hmg 5.4 on 01/17, s/p 2 units of prbc, hmg/hct now stable. Pain managed with oxycodone stool softners incentive spirometer monitor daily labs d/c to sub acute rehab likely saturday HTN hypotensive yesterday 2/2 to acute blood loss. now stable. start Losartan 50mg daily with parameters fen oral intake sufficient monitor electrolytes encourage hydration, regular diet prophy lovenox x 1 month full code incentive spirometer disposition: d/c to rehab likely on saturday. will need repeat CBC outpatient @ facility. Visit type - Emergency Visit Emergency Visit: Yes ED Registration Date: 01/15/18 Care time: The patient presented to the Emergency Department on the above date and was hospitalized for further evaluation of their emergent condition. - New Patient This patient is new to me today: Yes Date on this admission: 01/18/18 - Critical Care Critical Care patient: No - Discharge Referral Referred to [facility] Med P.C.: No
[2018-01-18 09:51] LABS: ALBUMIN 2.4 g/dl (3.4-5.0); ALK PHOS 40 U/L (45-117); ANION GAP 9 MMOL/L (8-16); BILIRUBIN,TOTAL 2.3 mg/dL (0.2-1); BLOOD UREA NITROGEN 20 mg/dL (7-18); CALCIUM 7.9 mg/dL (8.5-10.1); CHLORIDE 110 mmol/L (98-107); CO2 21 mmol/L (21-32); CREATININE 0.7 mg/dL (0.55-1.3); GLUCOSE,RANDOM 79 mg/dL (74-106); POTASSIUM 4.1 mmol/L (3.5-5.1); SGOT/AST 36 U/L (15-37); SGPT/ALT 15 U/L (13-61); SODIUM 140 mmol/L (136-145); TOT PROT 4.9 g/dl (6.4-8.2)
[2018-01-18] MEDS: oxyCODONE HCL 5 MG TABLET PO PRN (10:26)
[2018-01-18] MEDS: LOSARTAN POTASSIUM 50 MG TABLET (FP) PO SCH (10:28)
[2018-01-18] MEDS: ENOXAPARIN NA (PORCINE) 30 MG/0.3 ML DISP.SYRIN SQ SCH (11:00)
[2018-01-18] MEDS ORDERED: ENOXAPARIN NA (PORCINE) 30 MG/0.3 ML DISP.SYRIN SQ SCH (12:00)
[2018-01-18 12:23] LABS: ANISOCYTOSIS 1+; MACROCYTOSIS 0; PLATELET ESTIMATE DECREASED
[2018-01-18] MEDS: DOCUSATE SODIUM 100 MG CAPSULE (FP) PO SCH ×2 (13:32→21:19)
[2018-01-18] MEDS: POLYETHYLENE GLYCOL 3350 119 GM BTL PO SCH (13:33)
[2018-01-18] MEDS: ZOLPIDEM TARTRATE 5 MG TABLET PO PRN (21:18)
[2018-01-18] MEDS: SENNOSIDES 8.6MG TABLET (FP) PO SCH (21:19)
[2018-01-19] MEDS: ACETAMINOPHEN 325 MG TABLET (FP) PO SCH ×4 (02:36→21:18)
[2018-01-19] MEDS: SODIUM CHLORIDE 1,000 ML IV SCH (05:48)
[2018-01-19] MEDS: DOCUSATE SODIUM 100 MG CAPSULE (FP) PO SCH ×3 (05:49→21:18)
[2018-01-19] MEDS: LOSARTAN POTASSIUM 50 MG TABLET (FP) PO SCH (09:03)
[2018-01-19] MEDS: POLYETHYLENE GLYCOL 3350 119 GM BTL PO SCH (09:03)
[2018-01-19 09:15] LABS: BASO % 0.3 % (0-2.0); EOS % 0.3 % (0-4.5); HEMATOCRIT 30.3 % (32.4-45.2); HEMOGLOBIN 10.8 GM/dL (10.7-15.3); LYMPH % 5.2 % (8-40); MCH 32.4 pg (25.7-33.7); MCHC 35.6 g/dl (32.0-36.0); MEAN CELL VOLUME 90.8 fl (80-96); MEAN PLT VOLUME 7.7 fl (7.5-11.1); MONO % 4.3 % (3.8-10.2); NEUT % 89.9 % (42.8-82.8); PLATELET COUNT 185 K/MM3 (134-434); RBC 3.33 M/mm3 (3.60-5.2); RDW 15.6 % (11.6-15.6); WHITE BLOOD COUNT 12.1 K/mm3 (4.0-10.0)
[2018-01-19 09:38] LABS: ALBUMIN 2.4 g/dl (3.4-5.0); ALK PHOS 54 U/L (45-117); ANION GAP 9 MMOL/L (8-16); BILIRUBIN,TOTAL 1.8 mg/dL (0.2-1); BLOOD UREA NITROGEN 13 mg/dL (7-18); CALCIUM 7.8 mg/dL (8.5-10.1); CHLORIDE 108 mmol/L (98-107); CO2 21 mmol/L (21-32); CREATININE 0.6 mg/dL (0.55-1.3); GLUCOSE,RANDOM 108 mg/dL (74-106); MAGNESIUM 1.6 mg/dL (1.8-2.4); POTASSIUM 3.6 mmol/L (3.5-5.1); SGOT/AST 46 U/L (15-37); SGPT/ALT 22 U/L (13-61); SODIUM 138 mmol/L (136-145); TOT PROT 5.2 g/dl (6.4-8.2)
[2018-01-19] MEDS ORDERED: MAGNESIUM OXIDE 400 MG TABLET (FP) PO ONE (09:41)
[2018-01-19] MEDS: ENOXAPARIN NA (PORCINE) 30 MG/0.3 ML DISP.SYRIN SQ SCH (10:33)
[2018-01-19] MEDS ORDERED: BISACODYL 10 MG SUPP.RECT PR PRN (12:41)
[2018-01-19] MEDS: oxyCODONE HCL 5 MG TABLET PO PRN ×2 (13:12→22:46)
--- NOTE | 2018-01-19 18:06 | PN ---
Physical Exam: SUBJECTIVE: Patient seen and examined at the bedside. Feels well in no acute distress. had PT today. OBJECTIVE: Vital Signs Period Temp Pulse Resp BP Sys/Aguirre Pulse Ox Last 24 Hr 97.7 F-98.2 F 77-90 16-18 107-136/70-78 95-96 GENERAL: awake, alert, in no acute distress. some pain of right hip relieved with oxycodone. HEAD: Normal with no signs of trauma. EYES: Pupils equal, round and reactive to light, extraocular movements intact, sclera anicteric, conjunctiva clear. No lid lag. EARS, NOSE, THROAT: Nares patent, oropharynx clear without exudates. Moist mucous membranes. NECK: Normal range of motion, supple without lymphadenopathy, JVD, or masses. LUNGS: Breath sounds equal, clear to auscultation bilaterally HEART: Regular rate and rhythm, normal S1 and S2 without murmur, rub or gallop. ABDOMEN: Soft, nontender, not distended, normoactive bowel sounds UPPER EXTREMITIES: 2+ pulses, warm, well-perfused. No cyanosis. No clubbing. No peripheral edema. LOWER EXTREMITIES: Surgicel along lateral hip, gauze cdi, minor swelling to thigh NEUROLOGICAL: normal speech. PSYCHIATRIC: Cooperative. Good eye contact. Appropriate mood and affect. Laboratory Results - last 24 hr 01/19/18 01/19/18 08:56 08:56 WBC 12.1 H RBC 3.33 L Hgb 10.8 Hct 30.3 L MCV 90.8 MCH 32.4 MCHC 35.6 RDW 15.6 Plt Count 185 D MPV 7.7 Absolute Neuts (auto) 10.9 H Neutrophils % 89.9 H Lymphocytes % 5.2 L Monocytes % 4.3 Eosinophils % 0.3 Basophils % 0.3 Nucleated RBC % 0 Sodium 138 Potassium 3.6 Chloride 108 H Carbon Dioxide 21 Anion Gap 9 BUN 13 Creatinine 0.6 Creat Clearance w eGFR > 60 Random Glucose 108 H Calcium 7.8 L Magnesium 1.6 L Total Bilirubin 1.8 H AST 46 H ALT 22 Alkaline Phosphatase 54 Total Protein 5.2 L Albumin 2.4 L Active Medications Generic Name Dose Route Start Last Admin Trade Name Freq PRN Reason Stop Dose Admin Acetaminophen 650 mg 01/16/18 20:30 01/19/18 14:30 Tylenol - PO Not Given Q6H EDMOND Bisacodyl 10 mg 01/19/18 12:41 Dulcolax Suppository - NM PRN PRN CONSTIPATION Docusate Sodium 100 mg 01/18/18 14:00 01/19/18 13:12 Colace - PO 100 mg TID EDMOND Administration Enoxaparin Sodium 30 mg 01/18/18 11:00 01/19/18 10:33 Lovenox - SQ 30 mg DAILY EDMOND Administration Losartan Potassium 50 mg 01/19/18 10:00 01/19/18 09:03 Cozaar - PO 50 mg DAILY EDMOND Administration Morphine Sulfate 2 mg 01/16/18 18:01 Morphine Sulfate IVPUSH Q4H PRN PAIN LEVEL 6-10 Oxycodone HCl 5 mg 01/16/18 18:01 01/19/18 13:12 Roxicodone - PO 5 mg Q4H PRN Administration PAIN LEVEL 1-5 Polyethylene Glycol 17 gm 01/18/18 13:15 01/19/18 09:03 Miralax (For Daily Use) - PO 17 gm DAILY EDMOND Administration Senna 2 tab 01/16/18 22:00 01/18/18 21:19 Senna - PO 2 tab HS EDMOND Administration Zolpidem Tartrate 5 mg 01/17/18 20:14 01/18/18 21:18 Ambien - PO 5 mg HS PRN Administration INSOMNIA ASSESSMENT/PLAN: patient is a 87 year old female admitted on 01/15/2018 for ORIF of right hip fracture s/p fall at home (operative date 01/16/2018). Her past medical history include htn, AAA, lung cancer and insomnia. problem list: HTN AAA Lung cancer Insomnia s/p ORIF of right hip Right Hip Fracture, POD #3 with Gamma nail hmg 5.4 on 01/17, s/p 2 units of prbc, hmg/hct now stable. Pain managed with oxycodone stool softners incentive spirometer monitor daily labs d/c to sub acute rehab likely saturday HTN hypotension, resolved. stop ivf start Losartan 50mg daily with parameters fen oral intake sufficient monitor electrolytes encourage hydration, regular diet prophy lovenox x 1 month full code incentive spirometer disposition: d/c to rehab likely on saturday. will need repeat CBC outpatient @ facility. Visit type - Emergency Visit Emergency Visit: Yes ED Registration Date: 01/15/18 Care time: The patient presented to the Emergency Department on the above date and was hospitalized for further evaluation of their emergent condition. - New Patient This patient is new to me today: No - Critical Care Critical Care patient: No - Discharge Referral Referred to [facility] Med P.C.: No
[2018-01-19] MEDS: SENNOSIDES 8.6MG TABLET (FP) PO SCH (21:18)
[2018-01-19] MEDS: ZOLPIDEM TARTRATE 5 MG TABLET PO PRN (22:46)
[2018-01-20] MEDS: ACETAMINOPHEN 325 MG TABLET (FP) PO SCH ×2 (02:39→08:30)
[2018-01-20 05:37] VITALS: BP 135/78; PULSE 76; TEMP 98.1
[2018-01-20] MEDS: DOCUSATE SODIUM 100 MG CAPSULE (FP) PO SCH (06:11)
--- NOTE | 2018-01-20 08:31 | PN ---
Progress Note (short form) - Note Progress Note: Ortho Pt seen and examined s/p right IM gamma nail Selected Entries 01/20/18 05:00 Temperature 98.1 F Pulse Rate 76 Respiratory 20 Rate Blood Pressure 135/78 Laboratory Tests 01/19/18 08:56 WBC 12.1 H Hgb 10.8 Hct 30.3 L Plt Count 185 D dressing with slight saturation in distal aquacel but not to borders, calf soft , nt nvi a/p PT PWB dvt ppx pain control d/c planning
[2018-01-20] MEDS ORDERED: PT OWN MED DRAWER 7, Y5N ONE (10:20)
[2018-01-20] MEDS: ENOXAPARIN NA (PORCINE) 30 MG/0.3 ML DISP.SYRIN SQ SCH (10:37)
[2018-01-20] MEDS: LOSARTAN POTASSIUM 50 MG TABLET (FP) PO SCH (10:37)
[2018-01-20] MEDS: POLYETHYLENE GLYCOL 3350 119 GM BTL PO SCH (10:38)
[2018-01-20 10:47] LABS: BASO % 0.3 % (0-2.0); EOS % 0.5 % (0-4.5); HEMATOCRIT 28.4 % (32.4-45.2); HEMOGLOBIN 10.2 GM/dL (10.7-15.3); LYMPH % 7.3 % (8-40); MCH 32.4 pg (25.7-33.7); MCHC 35.7 g/dl (32.0-36.0); MEAN CELL VOLUME 90.6 fl (80-96); MEAN PLT VOLUME 7.6 fl (7.5-11.1); NEUT % 85.9 % (42.8-82.8); PLATELET COUNT 224 K/MM3 (134-434); RBC 3.14 M/mm3 (3.60-5.2); RDW 15.7 % (11.6-15.6)
[2018-01-20] MEDS: oxyCODONE HCL 5 MG TABLET PO PRN (10:48)
[2018-01-20 11:19] LABS: ALBUMIN 2.4 g/dl (3.4-5.0); ALK PHOS 55 U/L (45-117); ANION GAP 11 MMOL/L (8-16); BILIRUBIN,TOTAL 1.5 mg/dL (0.2-1); BLOOD UREA NITROGEN 13 mg/dL (7-18); CALCIUM 8.1 mg/dL (8.5-10.1); CHLORIDE 104 mmol/L (98-107); CO2 23 mmol/L (21-32); CREATININE 0.6 mg/dL (0.55-1.3); GLUCOSE,RANDOM 106 mg/dL (74-106); POTASSIUM 3.7 mmol/L (3.5-5.1); SGOT/AST 39 U/L (15-37); SGPT/ALT 21 U/L (13-61); SODIUM 138 mmol/L (136-145); TOT PROT 5.2 g/dl (6.4-8.2)
--- NOTE | 2018-01-20 11:24 | DS ---
Physical Exam: SUBJECTIVE: Patient seen and examined at the bedside. feels well. no discomfort. OBJECTIVE: for rehab today. Vital Signs Period Temp Pulse Resp BP Sys/Aguirre Pulse Ox Last 24 Hr 98.1 F-98.4 F 76-90 16-20 107-135/74-78 96 PHYSICAL EXAM GENERAL: awake, alert, in no acute distress. some pain of right hip relieved with oxycodone. HEAD: Normal with no signs of trauma. EYES: Pupils equal, round and reactive to light, extraocular movements intact, sclera anicteric, conjunctiva clear. No lid lag. EARS, NOSE, THROAT: Nares patent, oropharynx clear without exudates. Moist mucous membranes. NECK: Normal range of motion, supple without lymphadenopathy, JVD, or masses. LUNGS: Breath sounds equal, clear to auscultation bilaterally HEART: Regular rate and rhythm, normal S1 and S2 without murmur, rub or gallop. ABDOMEN: Soft, nontender, not distended, normoactive bowel sounds UPPER EXTREMITIES: 2+ pulses, warm, well-perfused. No cyanosis. No clubbing. No peripheral edema. LOWER EXTREMITIES: Surgicel along lateral hip, gauze stained and intact. NEUROLOGICAL: normal speech. PSYCHIATRIC: Cooperative. Good eye contact. Appropriate mood and affect. LABS Laboratory Results - last 24 hr 01/20/18 01/20/18 09:40 09:40 WBC 8.0 RBC 3.14 L Hgb 10.2 L Hct 28.4 L MCV 90.6 MCH 32.4 MCHC 35.7 RDW 15.7 H Plt Count 224 D MPV 7.6 Absolute Neuts (auto) 6.9 Neutrophils % 85.9 H Lymphocytes % 7.3 L D Monocytes % 6.0 Eosinophils % 0.5 Basophils % 0.3 Nucleated RBC % 0 Sodium 138 Potassium 3.7 Chloride 104 Carbon Dioxide 23 Anion Gap 11 BUN 13 Creatinine 0.6 Creat Clearance w eGFR > 60 Random Glucose 106 Calcium 8.1 L Total Bilirubin 1.5 H AST 39 H ALT 21 Alkaline Phosphatase 55 Total Protein 5.2 L Albumin 2.4 L HOSPITAL COURSE: Patient is a 87 year old female admitted on 01/15/2018 for ORIF of right hip fracture s/p fall at home (operative date 01/16/2018). Her past medical history include htn, AAA, lung cancer and insomnia. She is s/p right hip surgical/ gamma nail on 01/16/2018. Hospitalization complicated when patient developed acute blood loss anemia and has been transfused with 2 units of prbc. Right Hip Fracture, POD #4 with Gamma nail hmg 5.4 on 01/17, s/p 2 units of prbc, hmg/hct now stable @ 10.2/28 Pain managed with oxycodone stool softners incentive spirometer monitor daily labs d/c to sub acute rehab today continue Lovenox 30mg until February 15, 2018. Heme: Acute blood loss anemia. s/p 2 units of prbc on 01/17/2018. hmg/hct stable. Repeat CBC as an outpatient. HTN hypotension, resolved. prophy lovenox x 1 month full code incentive spirometer disposition: d/c to rehab today. Date of Admission:01/15/18 Date of Discharge: 01/20/18 Minutes to complete discharge: 60 Discharge Summary Reason For Visit: FRACTURE OF RIGHT HIP Condition: Guarded - Instructions Diet, Activity, Other Instructions: Mrs Ordoñez: You were admitted on 01/15/2018 for right hip fracture and will be discharged to rehab today. Here are our recommendations. Right Hip Fracture with Gamma nail repair on January 16, 2018 continue to manage your pain with oxycodone Maintain bowel regimen continue incentive spirometer Monitor hmg/hct while on Lovenox Continue lovenox 30mg daily until February 15, 2018 continue physical therapy Please call with any questions that you may have. Referrals: Magda Diaz MD [Primary Care Provider] - Disposition: [facility]ILITY - Home Medications Comprehensive Discharge Medication List: Ambulatory Orders Losartan Potassium 50 mg PO DAILY 10/27/15 Zolpidem Tartrate [Ambien] 10 mg PO HS 10/27/15 This patient is new to me today: No Emergency Visit: Yes ED Registration Date: 01/15/18 Care time: The patient presented to the Emergency Department on the above date and was hospitalized for further evaluation of their emergent condition. Critical Care patient: No - Discharge Referral Referred to [facility] Med P.C.: No
== END 2018-01-20 15:26 | DRG 481 ==
LOC: JER 10:01 → JERBED 14:14 → J6S 21:31
PROVIDERS: ADMIT Internal Medicine; ATTEND Nurse Practitioner Family
PROC: 0QS606Z Reposition Right Upper Femur with Intramedullary Internal Fixation Device, Open Approach (ICD-10-PCS; principal; 2018-01-16 15:00)
PROC: 30233N1 Transfusion of Nonautologous Red Blood Cells into Peripheral Vein, Percutaneous Approach (ICD-10-PCS; 2018-01-17)
DX: S72.141A Displaced intertrochanteric fracture of right femur, initial encounter for closed fracture (principal); D62 Acute posthemorrhagic anemia; I10 Essential (primary) hypertension; Z85.118 Personal history of other malignant neoplasm of bronchus and lung; K59.00 Constipation, unspecified; G47.00 Insomnia, unspecified; W01.0XXA Fall on same level from slipping, tripping and stumbling without subsequent striking against object, initial encounter; Y93.89 Activity, other specified; Y92.098 Other place in other non-institutional residence as the place of occurrence of the external cause; Y99.8 Other external cause status; I95.81 Postprocedural hypotension
CPT/HCPCS: 36415; 36430; 71045-TC-FY; 73523-TC-FY; 73552-TC-RT-FY; 75635-TC; 76000-TC-FY; 80048; 80053; 81003; 81015; 83735; 85025; 85027; 85610; 86850; 86900; 86901; 86922; 87086; 93005; 93010; 94760; 97116-GP; 97162-GP; 99284-25; J7030; P9038; P9058

== ENCOUNTER 2018-08-14 11:33 | Inpatient (IN) | payer OTHER ==
--- NOTE | 2018-08-14 12:06 | PDOC ---
History of Present Illness - General Stated Complaint: Injury Time Seen by Provider: 08/14/18 12:06 - History of Present Illness Initial Comments: Kellee Ordoñez is an 88yo woman with a PMH of HTN, rt lung CA s/p resection who was BIBA from home following an unwitnessed fall. She reports that she was trying to replace the clock on the bathroom wall and fell onto the sink. Ms Ordoñez states that she was on the ground for only 30 minutes then got up to get an ice pack. However, she was noted to be soaked in urine and have several pressure ulcers on her left side on arrival, inconsistent with a down time of less than an hour. She reports that her neighbor called EMS. She denies any symptoms or pain currently. Past History - Past Medical History Allergies/Adverse Reactions: Allergies Allergy/AdvReac Type Severity Reaction Status Date / Time No Known Allergies Allergy Verified 01/15/18 10:36 Home Medications: Ambulatory Orders Losartan Potassium 50 mg PO DAILY 10/27/15 Zolpidem Tartrate [Ambien] 10 mg PO HS 10/27/15 Bisacodyl Suppository [Dulcolax Suppository -] 10 mg [place] PRN PRN supp.rect 01/20 Docusate Sodium [Colace -] 100 mg PO TID capsule 01/20/18 Enoxaparin [Lovenox -] 30 mg SQ DAILY disp.syrin 01/20/18 Polyethylene Glycol 3350 [Miralax 119 gm Btl -] 17 gm PO DAILY bottle 01/20/18 Sennosides [Senna -] 2 tab PO HS tablet 01/20/18 Anemia: No Asthma: No Cancer: Yes (lung) Cardiac Disorders: No CVA: No COPD: No CHF: No Dementia: No Diabetes: No GI Disorders: Yes (loose stool) Disorders: No HTN: Yes Hypercholesterolemia: No Liver Disease: No Seizures: No Thyroid Disease: No - Surgical History Abdominal Surgery: No Appendectomy: No Cardiac Surgery: No Cholecystectomy: No Lung Surgery: Yes (right lung removal, 6 years ago) Neurologic Surgery: No Orthopedic Surgery: No - Immunization History Immunization Up to Date: Yes - Suicide/Smoking/Psychosocial Hx Smoking History: Former smoker Have you smoked in the past 12 months: No Number of Cigarettes Smoked Daily: 30 If you are a former smoker, when did you quit?: over 12yrs ago Cigars Per Day: 0 Hx Alcohol Use: No Drug/Substance Use Hx: No Substance Use Type: None Hx Substance Use Treatment: No Review of Systems - Review of Systems Comments:: General: No fevers, no chills, no weight or appetite change, no malaise HEENT: No changes in vision, no changes in hearing, no congestion, no sore throat CV: No chest pain, no palpitations, no LE edema Pulm: No SOB, no cough, no wheezing. h/o lung CA s/p resection GI: No nausea or vomiting, no change in bowel habits, no melena : No frequency, no urgency, no dysuria Musc: See HPI, +fall, no current pain. h/o hip surgery Skin: No rash, no lesions, no erythema Endo: No excessive thirst, no heat/cold intolerance Heme: No unusual bruising or bleeding, no swollen glands Neuro: No syncope, no numbness/tingling, no focal weakness Vasc: No claudication Psych: No recent change in mood, no SI or HI *Physical Exam - Physical Exam Comments: General: Disheveled, smells of urine, appears stated age HEENT: Left face w/ significant bruising around eye, depressed wound v pressure ulcer measuring approximately 2x4cm on left mandaeism w/ imbedded hair. No active bleeding, wounds appear several days old. PERRL, EOMI. No wounds apparent on scalp or neck, no neck TTP Cards: RRR, no murmur appreciated Pulm: Comfortable on room air, clear to auscultation on left, no breath sounds on right Back: No midline or bony TTP. Yellow and purple bruise on left posterior thorax over ribs Abd: Soft, nontender, nondistended Rectal: No blood noted, no perianal lesions Ext: Left anterior shoulder with red-purple bruising. LUE with scattered bruising, severeal small abrasions with dried blood on left hand. Left superior iliac crest with 2x4cm stage 2 ulcer with surrounding erythema. Left knee with swelling, bruising, erythema. Moves all extremities Vasc: Distal extremities cool Neuro: A&Ox3, answers questions consistently but answers not compatible with observed injuries. CN grossly intact, mumbling and difficult to understand speech. Psych: Down-playing injuries, denies any significant problems or injuries ED Treatment Course - LABORATORY CBC & Chemistry Diagram: 08/14/18 13:09 08/14/18 13:09 Medical Decision Making - Medical Decision Making 08/14/18 12:50 Kellee Ordoñez is an 88yo woman with a PMH of HTN, rt lung CA s/p resection who was BIBA from home with multiple left-sided injuries following an unwitnessed fall. She was noted to smell strongly of urine, and her injuries are consistent with several days down on the floor. However, Ms Ordoñez maintains that she was only down for 30 minutes prior to being found by a neighbor. She report a mechanical fall. - Despite report of mechanical fall, pt's story does not match observed wounds or general condition on arrival. Likely to have been laying on the floor for at least 2-3 days - Hypotensive to 80/Hypothermic to 94.8 rectally, concerning for sepsis vs exposure. Malodorous strong urine smell, may have UTI. Sepsis set ordered including CBC, CMP, UA, UCx, blood Cx, lactate, trop - CPK to evaluate for rhabdo - Obvious injuries to left face, left shoulder, left arm/wrist/hand, left hip, left knee. CT head, c-spine, face, chest/abd/pelvis. Xrays of shoulder, wrist, hip, and knee - Alayna hugger for hypothermia - Glez catheter for I/O - Likely significantly dehydrated; 1L NS bolus then reassess - Empiric vanc/zosyn 08/14/18 15:06 - Labs reviewed. Notable for trop 10.5, CK 1779, lactate 3.8. - Also note WBC 13.8, Na 132, BUN/Cr 41/1.3 (baseline 10-13, 0.6), mildly elevated LFTs - EKG not yet completed. Asked to obtain immediately; will call cardiology when available - Needs to complete CTs to assess for injury 08/14/18 16:02 - Spoke to Dr Anglin, will come to evaluate. As trop may be elevated from an NC several days ago, will repeat troponin before any decision to anticoagulate - Repeat trop ordered - CT's completed. Large calcified AAA noted. No intracranial bleed, no intra- abdominal bleeding or acute injury. CT facial bones not yet uploaded. 08/14/18 17:54 - CT reads completed. Note acute left hip fracture. AAA increased from 5.5 to 5.7cm - Call placed to Dr Gaston regarding fracture 08/14/18 19:04 - Trop decreased to 9.49 - Dr Gaston called back, spoke to Dr Sosa, will see pt tomorrow - ICU paged; will come to evaluate - Hospitalist team paged. Waiting for page back 08/14/18 19:28 - Spoke to Dr Cardenas. Will admit to hospital on Dr service. ICU v telemetry to be determined after evaluation Seen and discussed with Dr Sosa. Jocelyn Stallings PGY1 *DC/Admit/Observation/Transfer Diagnosis at time of Disposition: Unwitnessed fall, Hypothermia, Hypotension, Hip fracture, left, Lactic acid acidosis, CHUY (acute kidney injury) - Discharge Dispostion Condition at time of disposition: Fair - Referrals - Patient Instructions - Post Discharge Activity
[2018-08-14] MEDS ORDERED: VANCOMYCIN 1 GM in D5W (PRE-DOCKED) 1,000 MG/250 ML IVPB ONE (12:48)
[2018-08-14] MEDS ORDERED: PIPERACILLIN/TAZOB 3.375 GM 3.375 GM in DEXTROSE 5%-WATER - 50 ML IVPB ONE (12:48)
[2018-08-14] MEDS ORDERED: SODIUM CHLORIDE 0.9% 500 ML INFUS.BAG IV ONE (12:48)
[2018-08-14 13:33] LABS: BASO % 0.2 % (0-2.0); HEMATOCRIT 36.5 % (32.4-45.2); HEMOGLOBIN 12.2 GM/dL (10.7-15.3); MCH 30.9 pg (25.7-33.7); MCHC 33.4 g/dl (32.0-36.0); MEAN CELL VOLUME 92.6 fl (80-96); MEAN PLT VOLUME 8.5 fl (7.5-11.1); MONO % 6.5 % (3.8-10.2); NEUT % 89.3 % (42.8-82.8); PLATELET COUNT 153 K/MM3 (134-434); RBC 3.94 M/mm3 (3.60-5.2); RDW 13.3 % (11.6-15.6); WHITE BLOOD COUNT 13.8 K/mm3 (4.0-10.0)
[2018-08-14 13:46] LABS: INR 1.09 (0.83-1.09); PROTHROMBIN TIME (PATIENT) 12.9 SEC (9.7-13.0)
[2018-08-14 13:49] LABS: ACTIVATED PTT 30.2 SECONDS (25.2-36.5)
[2018-08-14] MEDS ORDERED: PIPERACILLIN/TAZOB 4.5 GM 4.5 GM in DEXTROSE 5%-WATER 100 ML IVPB ONE (13:55)
[2018-08-14 14:33] LABS: BILIRUBIN,TOTAL 1.8 mg/dL (0.2-1); CALCIUM 10.4 mg/dL (8.5-10.1); CREATININE 1.3 mg/dL (0.55-1.3); POTASSIUM 4.3 mmol/L (3.5-5.1); TOT PROT 7.4 g/dl (6.4-8.2)
--- NOTE | 2018-08-14 14:38 | PDOC ---
Documentation entered by Trina Montejo SCRIBE, acting as scribe for Cuong Sosa MD. Cuong Sosa MD: This documentation has been prepared by the scribe, Trina Montejo SCRIBE, under my direction and personally reviewed by me in its entirety. I confirm that the documentation accurately reflects all work, treatment, procedures, and medical decision making performed by me. Attending Attestation - Resident Resident Name: HaylieJocelyn - ED Attending Attestation I have performed the following: I have examined & evaluated the patient, The case was reviewed & discussed with the resident, I agree w/resident's findings & plan, Exceptions are as noted - HPI HPI: 08/14/18 12:59 The patient is a 88 year old female with a past medical history significant for HTN and Lung CA s/p total right lung resection presents to the emergency department s/p an unwitnessed fall. The patient reports she was putting the bathroom clock back up on the wall when she suffered a fall. The patient reports hitting the sink during the fall. The patient reports loss of conscious for half an hour, before being found by her neighbor, who called EMS. Per the nurse, the patient was also noted to have urine-soaked clothing. Patient denies the use of AC or blood thinners. History is limited as pt seems confused. Medications: Losartan (50 mg x1 daily), Ferrous Sulfate Iron (325 mg BID), Ambien (10 mg x1 daily) (confirmed with pharmacy) Allergies: NKA Social history: Former smoker, no alcohol or drug use reported Surgical history: Right hip surgery (s/p a fall) and Lung Resection. PCP: Dr. Diaz. - Physicial Exam PE: 08/14/18 13:10 GENERAL: Awake, alert, oriented to name and hospital, in no acute distress HEAD: L face with dry pressure ulcer over temporal bone EYES: +No raccoon eyes. PERRLA, EOMI, sclera anicteric, conjunctiva clear ENT: Auricles normal inspection, hearing grossly normal, nares patent, oropharynx clear without exudates. Moist mucosa NECK: c-collar in place LUNGS: Clear BS to L lung, diminished R sided breath sounds. No wheezes, and no crackles HEART: Regular rate and rhythm, normal S1 and S2, no murmurs, rubs or gallops ABDOMEN: Soft, nontender, non distended. No guarding, no rebound. No masses : rectal temp 94.8 EXTREMITIES: +2x4 pressure ulcer to ASIS. +bruises to the left knee, with no open wound. +bruises to the wrist, shoulder and anterior axilla of the left upper extremity. Normal range of motion, no significant deformities noted. 2+ radial pulses and DP pulses b/l. BACK: +older appearing bruising to the left thoracic spine. No midline spinal tenderness in cervical/thoracic/lumbar region. No step offs or deformities NEUROLOGICAL: Normal speech, cranial nerves intact, moving all extremities spontaneously - Critical Care Time Total Critical Care Time: 90 Critical Care Statement: The care of this patient involved high complexity decision making to prevent further life threatening deterioration of the patient 's condition and/or to evaluate & treat vital organ system(s) failure or risk of failure. - Medical Decision Making 08/14/18 13:27 Call placed to [facility] at 12:35 pm. Med list confirmed 08/14/18 14:36 88yo F hx HTN, lung ca presents to the ED after a fall Pt states she was down for 30 mins with LOC, however the pressure ulcers on her exam are more consistent with a much longer down time Pt is hypotensive, likely due to minimal PO over the last day or so Unclear syncope or mechanical fall Pt is hypothermic to 94.8 - exposure vs sepsis Plan to due full sepsis and trauma work up, and admit HR 88, BP 100/68, 02 sat 99% 08/14/18 15:00 EKG with diffuse TWI in II, III, avf, V3 with TW flattening V4-V6. No AYANA Compared to EKG from 12/2017, TW changes are all new. 08/14/18 15:13 Trop 10.5, Call placed to Dr. Anglin ([phone]). EKG with AYANA Pt denies CP, SOB, dizziness Will hold off on ASA or other anticoagulation pending trauma w/u BP 104/80 after 1.5L NS 08/14/18 15:[address] Anglin, recommends 2nd trop for trend and he will eval pt Recommends we hold off on AC as trop likely 2/[address] 08/14/18 15:53 CT head on my read with no evidence of ICH CT reads pending 08/14/18 18:22 HR 77, BP 111/84, rectal temp 97 now Trauma w/u significant for acute L intertrochanteric fracture Otherwise, CTH, c-spine, chest, abd, pelvis w/ no acute findings Pt given 600mg rectal ASA Rpt trop pending Rpt EKG stable, NSR rate 80, normal axis, TWI II, III, avf, V3 and TW flattening V3-V6 Per Dr[address] Anglin, he believes first trop is 2/2 sepsis but if second trop is much higher, will consider further cardiac intervention 08/14/18 18:56 Second trop 9.49, downtrending. WIll admit pt here Case discussed with , ICU resident who will evaluate pt With regards to L hip fracture, case discussed with Dr. Gaston who will see pt tomorrow Hospitalist team has been microblogged for admission, awaiting call back
[2018-08-14] MEDS ORDERED: VANCOMYCIN 1 GRAM (PRE-DOCKED) 1,000 MG/250 ML BAG IVPB ONE (15:03)
[2018-08-14] MEDS ORDERED: PIPERACILLIN/TAZOB 4.5 GM 4.5 GM/100 ML BAG IVPB ONE (15:03)
[2018-08-14 15:38] LABS: EPI CELLS 19.4 /HPF (0-5/HPF); HYALINE CASTS 148 /lpf (0-8); URINE APPEARANCE TURBID; URINE BACTERIA 23.5 /hpf (NEGATIVE); URINE BILIRUBIN 2+ (NEGATIVE); URINE COLOR DK YELLOW; URINE GLUCOSE (UA) NEGATIVE (NEGATIVE); URINE KETONE TRACE (NEGATIVE); URINE LEUK ESTERASE TRACE (NEGATIVE); URINE NITRITE NEGATIVE (NEGATIVE); URINE PROTEIN 2+ (NEGATIVE); URINE RBC 2 /hpf (0-4); URINE WBC 6 /hpf (0-5)
--- NOTE | 2018-08-14 16:07 | CON.CARD ---
Consult Consult Specialty:: cardio - History of Present Illness Chief Complaint: fall, syncope History of Present Illness: 88 year old female here with unwitnessed fall/syncope. appears confused in ER. per her report to ER physician: she was putting the bathroom clock back up on the wall when she suffered a fall. The patient reports hitting the sink during the fall. The patient reports loss of conscious for half an hour, ultimately found by a neighbor--called EMS. pressure ulcers noted on exam in ER raising possibility she was on floor for prolonged period of time. Per the nurse, the patient was also noted to have urine-soaked clothing. in ER, noted to be hypotensive (80s syst), hypothermic. CK elevated, trop 10.--she c/o'd no cp or sob. CHUY, elevated LFTs, hyponatremia, lactic acidosis. + dirty UA CT spine/head/chest/abdomen ordered--pending PRESENTLY: pt states she cannot recall details of if she passed out or fell, and how. she states she used to see dr quintero as her pmd but thinks it's been a while-- has been seeing dr lopez (ortho) only for a while now. she denies any cp at home or here. feels her breathing is off, ? short, for "probably a couple weeks now". PMH: HTN lung Ca s/p right lung resectino - Alcohol/Substance Use Hx Alcohol Use: No - Smoking History Smoking history: Former smoker Have you smoked in the past 12 months: No Aproximately how many cigarettes per day: 30 If you are a former smoker, when did you quit?: over 12yrs ago Home Medications - Allergies Allergies/Adverse Reactions: Allergies Allergy/AdvReac Type Severity Reaction Status Date / Time No Known Allergies Allergy Verified 01/15/18 10:36 - Home Medications Home Medications: Ambulatory Orders Losartan Potassium 50 mg PO DAILY 10/27/15 Zolpidem Tartrate [Ambien] 10 mg PO HS 10/27/15 Bisacodyl Suppository [Dulcolax Suppository -] 10 mg NV PRN PRN supp.rect 01/20 Docusate Sodium [Colace -] 100 mg PO TID capsule 01/20/18 Enoxaparin [Lovenox -] 30 mg SQ DAILY disp.syrin 01/20/18 Polyethylene Glycol 3350 [Miralax 119 gm Btl -] 17 gm PO DAILY bottle 01/20/18 Sennosides [Senna -] 2 tab PO HS tablet 01/20/18 Review of Systems - Review of Systems Constitutional: denies: Chills, Fever Eyes: denies: Eye Pain HENT: denies: Nasal Congestion Neck: denies: Stiffness Cardiovascular: denies: Palpitations Respiratory: denies: Orthopnea, PND Gastrointestinal: denies: Diarrhea, Rectal Bleeding Genitourinary: denies: Burning, Hematuria Musculoskeletal: denies: Muscle Pain Integumentary: denies: Rash Neurological: denies: Numbness, Seizure Endocrine: denies: Excessive Sweating Hematology/Lymphatic: denies: Excessive Bleeding Vital Signs: Vital Signs Temperature 94.8 F L 08/14/18 12:39 Pulse Rate 82 08/14/18 12:39 Respiratory Rate 24 H 08/14/18 12:39 Blood Pressure 87/72 L 08/14/18 12:39 O2 Sat by Pulse Oximetry (%) 94 L 08/14/18 12:39 Constitutional: Yes: Well Nourished, No Distress, Other (ecchymosis L temporal region, L shoulder region) Eyes: No: Sclera Icterus HENT: No: Nasal Congestion Neck: No: Decreased ROM Respiratory: Yes: CTA Bilaterally. No: Accessory Muscle Use, Rales, Wheezes Gastrointestinal: Yes: Normal Bowel Sounds. No: Distention, Hepatomegaly, Palpable Mass, Tenderness Cardiovascular: Yes: Regular Rate and Rhythm JVD: No Carotid Bruit: No PMI: Non-Displaced Heart Sounds: Yes: S1 (distant sounds but audible), S2. No: Gallop Murmur: No: Systolic Murmur, Diastolic Murmur Musculoskeletal: Yes: Other (No kyphosis) Extremities: No: Cool Edema: No Peripheral Pulses: 2+ Left Carotid, 2+ Right Carotid, 2+ Left Doralis Pedis, 2+ Right Dorsalis Pedis Integumentary: No: Jaundice Neurological: Yes: Alert. No: Seizure Psychiatric: No: Agitated - Other Data Labs, Other Data: CBC, BMP 08/14/18 13:09 08/14/18 13:09 INR, PTT INR 1.09 (0.83-1.09) 08/14/18 13:09 Troponin, BNP 08/14/18 13:09 Troponin I 10.50 H* Troponin, BNP 08/14/18 13:09 Troponin I 10.50 H* Laboratory Tests 08/14/18 08/14/18 08/14/18 13:09 13:09 13:09 WBC 13.8 H Hgb 12.2 Plt Count 153 D INR 1.09 Sodium 132 L Potassium 4.3 Carbon Dioxide 23 BUN 41 H Creatinine 1.3 Est GFR (CKD-EPI)NonAf 37.12 Lactic Acid AST 305 H ALT 202 H Creatine Kinase 1779 H Troponin I 08/14/18 08/14/18 13:09 13:09 WBC Hgb Plt Count INR Sodium Potassium Carbon Dioxide BUN Creatinine Est GFR (CKD-EPI)NonAf Lactic Acid 3.8 H* AST ALT Creatine Kinase Troponin I 10.50 H* Assessment/Plan ECG: NSR, long QT. 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 new, diffuse/deep TWIs CT head: no acute pathology CT chest/abdomen: pending syncope, hypotension, NSTEMI, septic shock: -first troponin 10 -new diffuse/deep TWIs with long QT without ST elevation or depression, and no new Qs vs 01/02--probably ischemic given the troponin, though these changes can be seen in setting of incr ICP as well (e.g. post-seizure, [employer] bleed) -CT head pending -no heart block here--monitor tele -no signs CHF, JVD -check echo -trend troponins -if she remains entirely asymptomatic from angina standpoint, with no chf, will not treat with intensive anti-thrombotic/AC meds given murky clinical picture with multiple other active problems (e.g. this may all be Type II MN sec to supply/demand or sepsis) and unknown timing of event -defer BB given hyoptension presently -will plan ischemia evaluation (pharm MPI vs cath) at some point prior to discharge--TBD by clinical course -cont aggressive fluid repletion for now, monitor BP--if MAP <60, will plan to start vasopressors. in that case, would avoid positive chronotropes/inotropes given possibility of high risk myocardial ischemic substrate--prefer vasopressin -suspect septic shock with hypothermia, leucocytosis, elev lactate, dirty UA-- follow up urine cx, blood cx and clement-CT imaging CHUY: -likely prerenal, ? UTI -IVF as doing abnormal LFTs: -? shock liver -per hospitalist est time spent in data review, pt exam, formulating mgmt plan of potentially life threatening medical problems = 38 min
--- NOTE | 2018-08-14 19:45 | CONSULT ---
Consultation: REQUESTING PROVIDER:ED team Dr Eladio Melissa CONSULT REQUEST: We have been asked to medically evaluate this patient for ( sepsis ). HISTORY OF PRESENT ILLNESS: pt is poor historian , history is taking from medical records Kellee Ordoñez is an 88yo woman with a PMH of HTN, rt lung CA s/p resection who was BIBA from home following an unwitnessed fall. She reports that she was trying to replace the clock on the bathroom wall and fell onto the sink. Ms Ordoñez states that she was on the ground for only 30 minutes then got up to get an ice pack. However, she was noted to be soaked in urine and have several pressure ulcers on her left side on arrival, inconsistent with a down time of less than an hour. She reports that her neighbor called EMS. She denies any symptoms or pain currently. Recent Travel: No PAST MEDICAL HISTORY: Lung ca (s/p total resection of her right lung) HTN AAA PAST SURGICAL HISTORY: Right lung total resection Social History: , lives alone in an apartment in a building with an elevator in [place] Smoking: Former, quit over 10 years ago when diagnosed with cancer. Alcohol: None Drugs: Denies Family History: Mother: Emphysema, age 80 Father: RI, Brother: RI REVIEW OF SYSTEMS: not able to obtain PHYSICAL EXAMINATION Vital Signs - 24 hr 08/14/18 08/14/18 08/14/18 12:00 12:36 12:39 Temperature 94.8 F L Pulse Rate 90 78 Pulse Rate [ 82 Left Radial] Respiratory 28 H 24 H 24 H Rate Blood Pressure 87/72 L Blood Pressure 87/72 L [Left Arm] O2 Sat by Pulse 92 L 94 L Oximetry (%) 08/14/18 08/14/18 17:35 18:33 Temperature 97.7 F Pulse Rate Pulse Rate [ 83 Left Radial] Respiratory 21 H Rate Blood Pressure Blood Pressure 111/84 [Left Arm] O2 Sat by Pulse Oximetry (%) GENERAL: AAOx1 to person only , did not know place or year HEAD: left facial deep ulcer on zigomatic bone area EYES: RYDER on left , non reactive on right , extraocular movements intact, sclera anicteric, EARS, NOSE, THROAT: Ears normal, nares patent, oropharynx clear without exudates. dry mucous membranes.poor dentition. NECK: Normal range of motion, supple. LUNGS: decrease breath sound at right side . cleat to auscultation on left side , No wheezes, and no crackles. No accessory muscle use. HEART: Regular rate and rhythm, normal S1 and S2 without murmur, rub or gallop. ABDOMEN: Soft, nontender, not distended, normoactive bowel sounds, LOWER EXTREMITIES: 2+ pulses, warm, well-perfused. No calf tenderness. No peripheral edema. left leg limited ROM due to pain NEUROLOGICAL: Cranial nerves II-XII intact. Normal speech. strenth 5/5 upper ext , sensation intact , LLE sensation intact +2 DP, limited ROM due to pain , RLE sensation intact , + DP, FROM . PSYCHIATRIC: Cooperative. SKIN: Warm, dry, left arm echymosis , left hip stage 2 ulcer , left eye echymosis , left facial bone stage 2 ulcer without fx Laboratory Results - last 24 hr 08/14/18 08/14/18 08/14/18 13:09 13:09 13:09 WBC 13.8 H RBC 3.94 Hgb 12.2 Hct 36.5 D MCV 92.6 MCH 30.9 MCHC 33.4 RDW 13.3 D Plt Count 153 D MPV 8.5 D Absolute Neuts (auto) 12.3 H Neutrophils % 89.3 H Lymphocytes % 4.0 L D Monocytes % 6.5 Eosinophils % 0.0 D Basophils % 0.2 Nucleated RBC % 0 PT with INR 12.90 INR 1.09 PTT (Actin FS) 30.2 Sodium 132 L Potassium 4.3 Chloride 96 L Carbon Dioxide 23 Anion Gap 13 BUN 41 H Creatinine 1.3 Est GFR (CKD-EPI)AfAm 43.02 Est GFR (CKD-EPI)NonAf 37.12 Random Glucose 127 H Lactic Acid Calcium 10.4 H Total Bilirubin 1.8 H AST 305 H ALT 202 H Alkaline Phosphatase 66 Creatine Kinase 1779 H Creatine Kinase Index 6.4 H* CK-MB (CK-2) 114.2 H Troponin I Total Protein 7.4 Albumin 4.0 Urine Color Urine Appearance Urine pH Ur Specific [place] Urine Protein Urine Glucose (UA) Urine Ketones Urine Blood Urine Nitrite Urine Bilirubin Urine Urobilinogen Ur Leukocyte Esterase Urine WBC (Auto) Urine RBC (Auto) Urine Casts (Auto) U Epithel Cells (Auto) Urine Bacteria (Auto) Blood Type Antibody Screen 08/14/18 08/14/18 08/14/18 13:09 13:09 13:09 WBC RBC Hgb Hct MCV MCH MCHC RDW Plt Count MPV Absolute Neuts (auto) Neutrophils % Lymphocytes % Monocytes % Eosinophils % Basophils % Nucleated RBC % PT with INR INR PTT (Actin FS) Sodium Potassium Chloride Carbon Dioxide Anion Gap BUN Creatinine Est GFR (CKD-EPI)AfAm Est GFR (CKD-EPI)NonAf Random Glucose Lactic Acid 3.8 H* Calcium Total Bilirubin AST ALT Alkaline Phosphatase Creatine Kinase Creatine Kinase Index CK-MB (CK-2) Troponin I 10.50 H* Total Protein Albumin Urine Color Urine Appearance Urine pH Ur Specific [place] Urine Protein Urine Glucose (UA) Urine Ketones Urine Blood Urine Nitrite Urine Bilirubin Urine Urobilinogen Ur Leukocyte Esterase Urine WBC (Auto) Urine RBC (Auto) Urine Casts (Auto) U Epithel Cells (Auto) Urine Bacteria (Auto) Blood Type Cancelled Antibody Screen Cancelled 08/14/18 08/14/18 08/14/18 15:26 17:04 17:42 WBC RBC Hgb Hct MCV MCH MCHC RDW Plt Count MPV Absolute Neuts (auto) Neutrophils % Lymphocytes % Monocytes % Eosinophils % Basophils % Nucleated RBC % PT with INR INR PTT (Actin FS) Sodium Potassium Chloride Carbon Dioxide Anion Gap BUN Creatinine Est GFR (CKD-EPI)AfAm Est GFR (CKD-EPI)NonAf Random Glucose Lactic Acid 1.3 Calcium Total Bilirubin AST ALT Alkaline Phosphatase Creatine Kinase Creatine Kinase Index CK-MB (CK-2) Troponin I 9.49 H* Total Protein Albumin Urine Color Dk yellow Urine Appearance Turbid Urine pH 5.0 Ur Specific [place] 1.022 Urine Protein 2+ H Urine Glucose (UA) Negative Urine Ketones Trace H Urine Blood 3+ H Urine Nitrite Negative Urine Bilirubin 2+ H Urine Urobilinogen 1.0 Ur Leukocyte Esterase Trace Urine WBC (Auto) 6 Urine RBC (Auto) 2 Urine Casts (Auto) 148 U Epithel Cells (Auto) 19.4 Urine Bacteria (Auto) 23.5 Blood Type Antibody Screen CBC, BMP 08/14/18 13:09 08/14/18 13:09 CT Cervical spine No acute fracture is identified. Moderate chronic T4 vertebral body compression fracture with minimal bony retropulsion. Advanced multilevel degenerative disc and facet joint changes. There appears to be subcutaneous edema along the left posterolateral aspect of the mid to lower neck. Possible subcutaneous edema is seen within the left supraclavicular fossa. CT A/P acute left hip fracture is seen. In comparison to a previous CT exam of 2014 there is equivocal interval development of minimal subtle minimal to mild interstitial pulmonary vascular congestion. No CT evidence of acute intrathoracic injury. There appears to be interval development of subcutaneous edema along the left supraclavicular region. Interval development of several bilateral rib fractures is noted which appear to be chronic at this time. Status post right pneumonectomy as on the prior exam. A moderate amount of right-sided pleural fluid is again seen within the pneumonectomy space. A fusiform infrarenal aortic aneurysm is noted with a 5.7 cm maximum diameter, previously 5.5 cm. Surgical consultation is suggested. Mild bilateral flank subcutaneous edema which may be mildly increased ASSESSMENT/PLAN: # Sepsis # lactic acidosis , resolved # hypotension in term of sepsis , resolved with fluids , hold BP meds for now # ELevated trop , : peaked , tred , repeat EKG , Dr Anglin consulted , Echocardiogram in AM # Rhabdomyolysis , repeat CK till below 1000 , cont IV fluids #S.P FAll , fall precautions # Intratrocuar fx , images reviwed , orthopedics Dr Gaston consulted , recommendation appreciated # CHUY from sepsis- pre renal , repeat lab after hydration , avoid nephrotoxic agents # Hyponatremia , mild started on NS , repeat BMP in AM # malnuriched , high calorie diet , diet consult # Intrarenal AA 5.7 cm compare to 5.5 cm in previous visit , consider consult vascular surgery # T4 compression fx, chronic # transaminities , trend , likely due to hypoperfusion . Plan * BP, secured entrance monitor * clement cx * IV fluids bolus and maintenance * maintain Bp , Map > 65 * maintain o2 sat > 90 * Abx started in ED cont Vanc/zosyn * skeletal survey * Rehab inpatient and upon DC * ABG * Head Ct negative for acute pathology , no acute fx * ct chest with chronic rib fx , 5.7 cm #FEN * NS @ 75 CC /hr * Replete electrolytes as indicated * Regular diet, NPO after midnight #DVT Prophylaxis * Mechanical only: SCD's. * Chemical: Consider starting post op # Dispo : monitor icu Dispo: We will continue to follow the patient. Thank you for this consultative opportunity. Visit type - Emergency Visit Emergency Visit: Yes ED Registration Date: 08/14/18 Care time: The patient presented to the Emergency Department on the above date and was hospitalized for further evaluation of their emergent condition. - New Patient This patient is new to me today: Yes Date on this admission: 08/14/18 - Critical Care Critical Care patient: Yes Total Critical Care Time (in minutes): 45 Critical Care Statement: The care of this patient involved high complexity decision making to prevent further life threatening deterioration of the patient 's condition and/or to evaluate & treat vital organ system(s) failure or risk of failure.
--- NOTE | 2018-08-14 20:11 | PN ---
Teaching Attending Note Name of Resident: Merrill Cardenas ATTENDING PHYSICIAN STATEMENT I saw and evaluated the patient. I reviewed the resident's note and discussed the case with the resident. I agree with the resident's findings and plan as documented. SUBJECTIVE: Patient is a 88 year old woman with PMH of HTN, right hip surgery (s/p fall) and Lung CA s/p total right lung resection brought to the ER after an unwitnessed fall. The patient reports she was putting the bathroom clock back up on the wall when she suffered a fall. The patient reports hitting the sink during the fall with loss of conscious for half an hour, before being found by her neighbor, who called EMS. On arrival in the ER she was noted to have urine- soaked clothing, was hypotensive and hypothermic. Patient denies the use of any blood thinners. Patient is a former smoker, but denies alcohol use or use of illicit drugs. OBJECTIVE: Alert Vital Signs Period Temp Pulse Resp BP Sys/Aguirre Pulse Ox Last 24 Hr 94.8 F-97.7 F 78-90 21-28 87-111/72-84 92-94 HEENT: No Jaundice, eye redness or discharge, PERRLA, EOMI. Left face with bruising around eye; wound on left temble with embedded hair. Normocephalic. External ears are normal and hearing is grossly intact. No nasal discharge. Neck: Supple, nontender. No palpable adenopathy or thyromegaly. No JVD Chest: Good effort. Bruising on left posterior chest wall. Clear to auscultation and percussion. Heart: Regular. No S3, rub or murmur Abdomen: Not distended, soft, nontender and no HSM. No rebound or guarding. Normal bowel sounds. Ext: Peripheral pulses intact. No leg edema. Bruising on left anterior shoulder , LUE; abrasions on left hand. Left superior iliac crest stage 2 ulcer with surrounding erythema. Left knee with swelling, bruising, erythema. Skin: Warm and dry. No petechiae, rash or ecchymosis. Neuro: Alert. Oriented to person and time. Moves all limbs. CN 2-12 grossly intact. Sensation grossly intact in all four extremities and DTR are symmetric. Psych: Appropriate mood and affect. Good insight. Current Medications Generic Name Dose Route Start Last Admin Trade Name Freq PRN Reason Stop Dose Admin Docusate Sodium 100 mg 08/14/18 22:00 Colace - PO TID [facility] Heparin Sodium (Porcine) 5,000 unit 08/14/18 22:00 Heparin - SQ TID EDMOND Sodium Chloride 500 mls @ 500 mls/hr 08/14/18 20:51 08/14/18 21:13 Normal Saline - IV 08/14/18 21:50 500 mls/hr ASDIR STA Administration Sodium Chloride 1,000 mls @ 75 mls/hr 08/14/18 21:00 08/14/18 21:13 Normal Saline - IV 75 mls/hr ASDIR EDMOND Administration Losartan Potassium 50 mg 08/15/18 10:00 Cozaar - PO DAILY [facility] Polyethylene Glycol 17 gm 08/15/18 10:00 Miralax (For Daily Use) - PO DAILY [facility] Senna 2 tab 08/14/18 22:00 Senna - PO HS [facility] Home Medications Medication Instructions Recorded Losartan Potassium 50 mg PO DAILY 10/27/15 Zolpidem Tartrate [Ambien] 10 mg PO HS 10/27/15 Bisacodyl Suppository [Dulcolax 10 mg [place] PRN PRN supp.rect 01/20/18 Suppository -] Docusate Sodium [Colace -] 100 mg PO TID capsule 01/20/18 Enoxaparin [Lovenox -] 30 mg SQ DAILY disp.syrin 01/20/18 Polyethylene Glycol 3350 [Miralax 17 gm PO DAILY bottle 01/20/18 119 gm Btl -] Sennosides [Senna -] 2 tab PO HS tablet 01/20/18 Abnormal Lab Results 08/14/18 08/14/18 08/14/18 13:09 13:09 13:09 WBC 13.8 H Absolute Neuts (auto) 12.3 H Neutrophils % 89.3 H Lymphocytes % 4.0 L D Sodium 132 L Chloride 96 L BUN 41 H Random Glucose 127 H Lactic Acid 3.8 H* Calcium 10.4 H Total Bilirubin 1.8 H AST 305 H ALT 202 H Creatine Kinase 1779 H Creatine Kinase Index 6.4 H* CK-MB (CK-2) 114.2 H Troponin I Urine Protein Urine Ketones Urine Blood Urine Bilirubin 08/14/18 08/14/18 08/14/18 13:09 15:26 17:42 WBC Absolute Neuts (auto) Neutrophils % Lymphocytes % Sodium Chloride BUN Random Glucose Lactic Acid Calcium Total Bilirubin AST ALT Creatine Kinase Creatine Kinase Index CK-MB (CK-2) Troponin I 10.50 H* 9.49 H* Urine Protein 2+ H Urine Ketones Trace H Urine Blood 3+ H Urine Bilirubin 2+ H ASSESSMENT AND PLAN: 1. Fall and Sequelae of fall - Unclear is she had a syncopal episode. CT head and facial bone didnot show any acute abnormality. CT chest/abdomen/pelvis showed left hip fracture, pulmonary vascular congestion, bilateral ?old rib fractures, right pneumonectomy, right pleural effusion and an infrarenal aortic aneurysm. Patient is on lovenox at home - will repeat head CT in 24 hours or get brain MRI if she fails to return to her baseline. Ortho consult for left hip fracture. Patient has findings consistent with sepsis, but there is no obvious source of sepsis. Sepsis workup done and her BP responded to the initial treatment with IV saline. Patient is being treated with IV vancomycin and zosyn; will continue IV NS for sepsis and rhabdomyolysis. Elevated LFTs likely due to hypotension and mild hypercalcemia likely associated with rhabdomyolysis. Will trend CPK, LFTs, calcium and lactic acid and monitor her overnight in the ICU. Diagnostic tap of right pleural effusion. Troponin is elevated and EKG shows T-wave inversion in II, III, avf, V1, V3 with T-wave flattening in V4-V6, suggesting NSTEMI. Cardiology was consulted and the recommendation is to withhold anticoagulation for now since findings may signal demand ischemia. Will trend troponin, monitor EKG and get ECHO. 2. CHUY and Hematuria - Likely related to rhabdomyolysis. Being hydrated. Will monitor BMP, UA and urine output. Check phosphate level. Adjust subsequent doses of vancomycin or discontinue vancomycin propmtly once blood cultures are negative. Will avoid nephrotoxic agents such as NSAIDS, aminoglycosides, contrast dyes and certain Alternative medicine products. 3. Hypertension - Restart outpatient antihypertensive drugs when clinically appropriate. Nonpharmacologic measures to control hypertension like weight loss , salt restriction and exercise discussed. 4. DVT prophylaxis - Heparin 5000u sq tid. 5. Advance directives - Full code
[2018-08-14] MEDS ORDERED: SODIUM CHLORIDE 1,000 ML IV SCH ×2 (20:30→21:00)
[2018-08-14] MEDS ORDERED: SODIUM CHLORIDE 500 ML IV STA (20:51)
--- NOTE | 2018-08-14 21:09 | HP ---
CHIEF COMPLAINT: s/p fall HISTORY OF PRESENT ILLNESS: 88 year old female with a past medical history of hypertension and right sided lung cancer status post resection, AAA was brought in by ambulance after being found on the ground allegedly by the neighbor. Patient stated to the emergency room that she was down for 30 minutes, however she reported to me that she fell 2 days ago in her bathroom. Patient is unable to tell me the nature of her fall and whether there was any loss of consciousness. She states that she has a mild pain on her right hip but denies chest pain and shortness of breath, nausea, vomiting, diarrhea, fevers, chills. Patient is unable to provide any more of a detailed history due to poor mental status. ER course was notable for: (1) Trop 10 (2) Hypotensive 87/72 (3) elevated AST/ALT (4) Abd Pelvis CT showing acute L hip fracture and increasing size of AAA (5) Lactate 3.8 (6) Ca 10.4 Recent Travel: unknown PAST MEDICAL HISTORY: HTN, Lung Ca s/p resection, AAA PAST SURGICAL HISTORY: R lung CA resection, R hip repair after fracture Social History: Smoking: former, quit 11 years ago Alcohol: unknown Drugs: none Family History: mother with emphysema, father and brothers with [place] Allergies No Known Allergies Allergy (Verified 01/15/18 10:36) HOME MEDICATIONS: Home Medications Medication Instructions Recorded Losartan Potassium 50 mg PO DAILY 10/27/15 Zolpidem Tartrate [Ambien] 10 mg PO HS 10/27/15 Bisacodyl Suppository [Dulcolax 10 mg [place] PRN PRN supp.rect 01/20/18 Suppository -] Docusate Sodium [Colace -] 100 mg PO TID capsule 01/20/18 Enoxaparin [Lovenox -] 30 mg SQ DAILY disp.syrin 01/20/18 Polyethylene Glycol 3350 [Miralax 17 gm PO DAILY bottle 01/20/18 119 gm Btl -] Sennosides [Senna -] 2 tab PO HS tablet 01/20/18 REVIEW OF SYSTEMS CONSTITUTIONAL: Absent: fever, chills, diaphoresis, generalized weakness, malaise, loss of appetite, weight change HEENT: Absent: rhinorrhea, nasal congestion, throat pain, throat swelling, difficulty swallowing, mouth swelling, ear pain, eye pain, visual changes CARDIOVASCULAR: Absent: chest pain, syncope, palpitations, irregular heart rate, lightheadedness , peripheral edema RESPIRATORY: Absent: cough, shortness of breath, dyspnea with exertion, orthopnea, wheezing, stridor, hemoptysis GASTROINTESTINAL: Absent: abdominal pain, abdominal distension, nausea, vomiting, diarrhea, constipation, melena, hematochezia GENITOURINARY: Absent: dysuria, frequency, urgency, hesitancy, hematuria, flank pain, genital pain MUSCULOSKELETAL: Absent: myalgia, arthralgia, joint swelling, back pain, neck pain SKIN: Absent: rash, itching, pallor HEMATOLOGIC/IMMUNOLOGIC: Absent: easy bleeding, easy bruising, lymphadenopathy, frequent infections ENDOCRINE: Absent: unexplained weight gain, unexplained weight loss, heat intolerance, cold intolerance NEUROLOGIC: Absent: headache, focal weakness or paresthesias, dizziness, unsteady gait, seizure, mental status changes, bladder or bowel incontinence PSYCHIATRIC: Absent: anxiety, depression, suicidal or homicidal ideation, hallucinations. PHYSICAL EXAMINATION Vital Signs - 24 hr 08/14/18 08/14/18 08/14/18 12:00 12:36 12:39 Temperature 94.8 F L Pulse Rate 90 78 Pulse Rate [ 82 Left Radial] Respiratory 28 H 24 H 24 H Rate Blood Pressure 87/72 L Blood Pressure 87/72 L [Left Arm] O2 Sat by Pulse 92 L 94 L Oximetry (%) 08/14/18 08/14/18 17:35 18:33 Temperature 97.7 F Pulse Rate Pulse Rate [ 83 Left Radial] Respiratory 21 H Rate Blood Pressure Blood Pressure 111/84 [Left Arm] O2 Sat by Pulse Oximetry (%) GENERAL: A&Ox2, no acute distress, smells of urine, patient is cachectic EYES: PERRLA, EOMI ENT: Dry mucus membranes NECK: No JVD noted on exam LUNGS: CTA L side, diminished/absent on R side, no wheezes or rhales HEART: tachycardic, no murmurs ABDOMEN: Soft, nontender, BS present MUSCULOSKELETAL: patient has multiple ecchymosis and ulcerations: b/l anterior knees, L eye, L maxillary process, L hip, L shoulder and arm EXTREMITIES: 2+ pulses, no edema. NEUROLOGICAL: Unable to fully assess due to mental status Laboratory Results - last 24 hr 08/14/18 08/14/18 08/14/18 13:09 13:09 13:09 WBC 13.8 H RBC 3.94 Hgb 12.2 Hct 36.5 D MCV 92.6 MCH 30.9 MCHC 33.4 RDW 13.3 D Plt Count 153 D MPV 8.5 D Absolute Neuts (auto) 12.3 H Neutrophils % 89.3 H Lymphocytes % 4.0 L D Monocytes % 6.5 Eosinophils % 0.0 D Basophils % 0.2 Nucleated RBC % 0 PT with INR 12.90 INR 1.09 PTT (Actin FS) 30.2 Sodium 132 L Potassium 4.3 Chloride 96 L Carbon Dioxide 23 Anion Gap 13 BUN 41 H Creatinine 1.3 Est GFR (CKD-EPI)AfAm 43.02 Est GFR (CKD-EPI)NonAf 37.12 Random Glucose 127 H Lactic Acid Calcium 10.4 H Total Bilirubin 1.8 H AST 305 H ALT 202 H Alkaline Phosphatase 66 Creatine Kinase 1779 H Creatine Kinase Index 6.4 H* CK-MB (CK-2) 114.2 H Troponin I Total Protein 7.4 Albumin 4.0 Urine Color Urine Appearance Urine pH Ur Specific [place] Urine Protein Urine Glucose (UA) Urine Ketones Urine Blood Urine Nitrite Urine Bilirubin Urine Urobilinogen Ur Leukocyte Esterase Urine WBC (Auto) Urine RBC (Auto) Urine Casts (Auto) U Epithel Cells (Auto) Urine Bacteria (Auto) Blood Type Antibody Screen 08/14/18 08/14/18 08/14/18 13:09 13:09 13:09 WBC RBC Hgb Hct MCV MCH MCHC RDW Plt Count MPV Absolute Neuts (auto) Neutrophils % Lymphocytes % Monocytes % Eosinophils % Basophils % Nucleated RBC % PT with INR INR PTT (Actin FS) Sodium Potassium Chloride Carbon Dioxide Anion Gap BUN Creatinine Est GFR (CKD-EPI)AfAm Est GFR (CKD-EPI)NonAf Random Glucose Lactic Acid 3.8 H* Calcium Total Bilirubin AST ALT Alkaline Phosphatase Creatine Kinase Creatine Kinase Index CK-MB (CK-2) Troponin I 10.50 H* Total Protein Albumin Urine Color Urine Appearance Urine pH Ur Specific [place] Urine Protein Urine Glucose (UA) Urine Ketones Urine Blood Urine Nitrite Urine Bilirubin Urine Urobilinogen Ur Leukocyte Esterase Urine WBC (Auto) Urine RBC (Auto) Urine Casts (Auto) U Epithel Cells (Auto) Urine Bacteria (Auto) Blood Type Cancelled Antibody Screen Cancelled 08/14/18 08/14/18 08/14/18 15:26 17:04 17:42 WBC RBC Hgb Hct MCV MCH MCHC RDW Plt Count MPV Absolute Neuts (auto) Neutrophils % Lymphocytes % Monocytes % Eosinophils % Basophils % Nucleated RBC % PT with INR INR PTT (Actin FS) Sodium Potassium Chloride Carbon Dioxide Anion Gap BUN Creatinine Est GFR (CKD-EPI)AfAm Est GFR (CKD-EPI)NonAf Random Glucose Lactic Acid 1.3 Calcium Total Bilirubin AST ALT Alkaline Phosphatase Creatine Kinase Creatine Kinase Index CK-MB (CK-2) Troponin I 9.49 H* Total Protein Albumin Urine Color Dk yellow Urine Appearance Turbid Urine pH 5.0 Ur Specific [place] 1.022 Urine Protein 2+ H Urine Glucose (UA) Negative Urine Ketones Trace H Urine Blood 3+ H Urine Nitrite Negative Urine Bilirubin 2+ H Urine Urobilinogen 1.0 Ur Leukocyte Esterase Trace Urine WBC (Auto) 6 Urine RBC (Auto) 2 Urine Casts (Auto) 148 U Epithel Cells (Auto) 19.4 Urine Bacteria (Auto) 23.5 Blood Type Antibody Screen ASSESSMENT/PLAN: 88 year old female with a past medical history of hypertension and right sided lung cancer status post resection, AAA was brought in by ambulance after being found on the ground allegedly by the neighbor. #Fall: Based on the history that the patient provided, it is unclear as of yet whether this fall was mechanical in nature vs. syncopal/seizure related. From her physical exam, we pieced together the story of her falling onto her knees ( given the ecchymoses on the anterior knees b/l) and hitting her left side (with the diffuse patchy L sided ecchymotic and ulcerated areas on her arms, hip and face) and not being able to get up for what appears to be multiple days given the severity of her skin abnormalities -will need cardiac monitoring to assess for overt arrhythmias -echocardiogram to examine cardiac function and valvular abnormalities -carotid dopplers -head CT was negative for any acute abnormalities -EKG did show new T wave inversions compared to the EKG from December 2017 -patient had a troponinemia of 10.5, trended to 9.5 -elevated CK likely from the fall and prolonged state of being down on the ground -Lactic acidosis #Hypovolemic Vs. Septic Shock: patient likely has hypovolemic shock vs septic shock given rapid improvement in BP from 87/72 to 111/84 after fluid resuscitation. However, patient did present hypothermic with a lactic acidosis, and so sepsis workup was initiated -blood/urine cultures drawn -UA without signs of urinary tract infection -chest CT did not elucidate pneumonia as a source of sepsis -vancomycin/zosyn was given in the ED -will start antibiotic therapy -> re-evaluate need for antibiotics in the AM -continue fluid resuscitation with normal saline -monitor fluid status -will place in ICU overnight for hemodynamic monitoring #Troponinemia: initial troponin of 10.5 that trended down to 9.5, concerning for NSTEMI initially given the new EKG changes of T wave inversions -EKG showed T wave inversions in leads II, III, aVF, aVR, aVL, V3-V6 -since troponins trended down, will repeat 1 more -cardiology consultation #Transaminitis: LFTs were elevated, could be a result of hypotension and shock liver -will get RUQ US -will trend CMP -will get direct bili #Hyperbilirubinemia: 1.8 on admission, questionable heme lysis vs shock -will get RUQ US -will trend CMP -will get direct bili #Lactic Acidemia: likely secondary to hypovolemic shock and peripheral hypoperfusion, lactic acid 3.8 on admission, improved to 1.3 on repeat after fluid resuscitation -no need to trend lactate any longer -continue fluids #Elevated CK/Early Rhabdomyolysis: patient had an elevated CK ~1700 on admission with a UA showing 3+ blood and 2 RBCs, however creatinine remained normal. There was an elevated BUN/Creatinine ratio likely secondary to prerenal azotemia, but no overt signs of kidney injury secondary to a rhabdomyolysis -continue fluid resuscitation -monitor BMP in the morning #Hyponatremia: possibly secondary to poor PO intake from being on the ground -continue fluids -monitor BMP in AM #L Hip Fracture: found on CT abdomen/pelvis -Dr. Gaston consulted, will evaluate patient in AM #Abdominal Aortic Aneurysm: current size on CT is 5.7cm, up from 5.3 -unlikely a surgical candidate at the moment given comorbidities -will consult Dr. Mejia for evaluation #Hypercalcemia: likely 2/2 to her being immobile on the ground, albumin normal -will get CMP in the morning #FEN -continue fluids with normal saline at 100cc/hr -replete lytes as necessary -full liquid diet and reassess mental status in the morning #Prophylaxis -heparin prophylaxis #Disposition -admit to ICU for hemodynamic monitoring Visit type - Emergency Visit Emergency Visit: Yes ED Registration Date: 08/14/18 Care time: The patient presented to the Emergency Department on the above date and was hospitalized for further evaluation of their emergent condition. - New Patient This patient is new to me today: Yes Date on this admission: 08/14/18 - Critical Care Critical Care patient: Yes Total Critical Care Time (in minutes): 80 Critical Care Statement: The care of this patient involved high complexity decision making to prevent further life threatening deterioration of the patient 's condition and/or to evaluate & treat vital organ system(s) failure or risk of failure.
[2018-08-14 21:32] LABS: ARTERIAL BLOOD GAS BASE EXCESS -3.6 meq/l (-2-2); ARTERIAL BLOOD GAS PCO2 30.1 mmHg (35-45); ARTERIAL BLOOD GAS pH 7.43 (7.35-7.45); CARBOXYHEMOGLOBIN 1.2 % (0-2)
[2018-08-14 21:38] LABS: ALLENS TEST POSITIVE
[2018-08-14] MEDS ORDERED: VANCOMYCIN 1,000 MG in DEXTROSE 5%-WATER - 250 ML IVPB SCH (22:00)
[2018-08-14] MEDS ORDERED: SENNOSIDES 8.6MG TABLET (FP) PO SCH (22:00)
[2018-08-14] MEDS ORDERED: VANCOMYCIN 1 GRAM (PRE-DOCKED) 1,000 MG/250 ML BAG IVPB SCH (22:15)
[2018-08-14] MEDS: DOCUSATE SODIUM 100 MG CAPSULE (FP) PO SCH (22:50)
[2018-08-14] MEDS: HEPARIN NA (PORCINE) 5,000 UNITS/ML 1ML VIAL SQ SCH (22:50)
[2018-08-14] MEDS ORDERED: DOCUSATE SODIUM 100 MG CAPSULE (FP) PO ONE (23:06)
[2018-08-14] MEDS ORDERED: HEPARIN NA (PORCINE) 5,000 UNITS/ML 1ML VIAL ONE (23:07)
[2018-08-14 23:54] LABS: VENOUS PC02 40.1 mmHg (41-51); VENOUS PH 7.35 (7.31-7.41); VENOUS PO2 22.5 mmHg (30-40)
[2018-08-15] MEDS ORDERED: VANCOMYCIN 1 GRAM (PRE-DOCKED) 1,000 MG/250 ML BAG IVPB ONE (00:40)
[2018-08-15 00:41] LABS: BILIRUBIN,DIRECT 0.4 mg/dL (0.0-0.2); MAGNESIUM 2.2 mg/dL (1.8-2.4)
[2018-08-15] MEDS ORDERED: DOCUSATE SODIUM 100 MG CAPSULE (FP) PO ONE (00:56)
[2018-08-15] MEDS ORDERED: DEXTROSE 5%-WATER - 50 ML IVPB ONE ×4 (03:31→22:11)
[2018-08-15] MEDS ORDERED: PIPERACILLIN/TAZOBACTAM 2.25 GM VIAL IVPB ONE ×4 (03:31→22:11)
[2018-08-15] MEDS: PIPERACILLIN/TAZOB 2.25 GM 2.25 GM in DEXTROSE 5%-WATER - 50 ML IVPB SCH ×5 (03:35→22:13)
[2018-08-15] MEDS ORDERED: ADENOSINE 6 MG/2 ML VIAL IVPUSH ONE (05:50)
[2018-08-15] MEDS ORDERED: VASOPRESSIN 20 UNITS/ML VIAL IV ONE (05:56)
[2018-08-15] MEDS ORDERED: VASOPRESSIN 50 UNITS in SODIUM CHLORIDE 97.5 ML IVPB SCH (06:00)
[2018-08-15] MEDS ORDERED: DEXMEDETOMIDINE HCL 200 MCG in SODIUM CHLORIDE 48 ML IVPB SCH (06:00)
--- NOTE | 2018-08-15 06:01 | RAPID ---
Physical Examination Vital Signs: Vital Signs Temperature 97.8 F 08/15/18 02:30 Pulse Rate 89 08/15/18 02:30 Respiratory Rate 23 H 08/15/18 05:10 Blood Pressure 112/90 08/15/18 02:30 O2 Sat by Pulse Oximetry (%) 100 08/15/18 05:10 Findings/Remarks: Code 99 called at 5:28. Patient became bradycardic and then went to asystole. Compressions started. Rosc achieved, patient in SVT, adenosine given 3 x. Patient in Vtach, shocked once. Intubated and on vent. Please see code sheet for further details. Plan; discuss with ED for line placement, differ to day team Vasopressin for pressure Versed for sedation f/u ekg, r/u repeat troponin f/u CXR Labs: CBC, BMP 08/14/18 13:09 08/14/18 13:09
[2018-08-15] MEDS ORDERED: MIDAZOLAM HCL 2 MG/2 ML SINGLE DOSE VIAL ONE ×2 (06:07→07:05)
--- NOTE | 2018-08-15 06:13 | PN ---
Progress Note (short form) - Note Progress Note: Anesthesia note, CODE 99 Called for code 99. ACLS on going. Bag mask. Non responsive. DL stanford 3 ,cords seen, suctioned clear intra tracheal. ETT#7. BBS. + ETCO2. Secured at 22 cm at lips. continued care by ICU team.
[2018-08-15] MEDS ORDERED: PROPOFOL 1,000,000 MCG/100 ML VIAL IVPB SCH (06:30)
[2018-08-15] MEDS: MIDAZOLAM HCL 5 MG/1 ML Single Dose Vial IVPUSH ONE ×2 (06:30→12:53)
[2018-08-15 06:42] LABS: BASO % 0.3 % (0-2.0); EOS % 0.1 % (0-4.5); HEMATOCRIT 35.4 % (32.4-45.2); LYMPH % 4.4 % (8-40); MCH 31.4 pg (25.7-33.7); MCHC 33.9 g/dl (32.0-36.0); MEAN CELL VOLUME 92.6 fl (80-96); MEAN PLT VOLUME 8.6 fl (7.5-11.1); MONO % 7.2 % (3.8-10.2); PLATELET COUNT 159 K/MM3 (134-434); RBC 3.83 M/mm3 (3.60-5.2); RDW 13.8 % (11.6-15.6); WHITE BLOOD COUNT 16.4 K/mm3 (4.0-10.0)
[2018-08-15 07:05] LABS: ALBUMIN 3.3 g/dl (3.4-5.0); BILIRUBIN,TOTAL 1.3 mg/dL (0.2-1); CALCIUM 9.1 mg/dL (8.5-10.1); POTASSIUM 4.3 mmol/L (3.5-5.1); TOT PROT 6.4 g/dl (6.4-8.2)
[2018-08-15] MEDS ORDERED: NOREPINEPHRINE BITARTRATE 4 MG/4 ML ML IV ONE ×2 (07:23→14:47)
--- NOTE | 2018-08-15 07:29 | PDOC ---
*Physical Exam - Vital Signs Last Vital Signs Temp Pulse Resp BP Pulse Ox 98.2 F 102 H 17 98/78 100 08/15/18 06:00 08/15/18 06:00 08/15/18 06:02 08/15/18 06:00 08/15/18 05:10 ED Treatment Course - LABORATORY CBC & Chemistry Diagram: 08/15/18 05:20 08/15/18 05:20 - ADDITIONAL ORDERS Additional order review: 08/14/18 13:09 RBC 3.94 MCV 92.6 MCHC 33.4 RDW 13.3 D MPV 8.5 D Neutrophils % 89.3 H Lymphocytes % 4.0 L D Monocytes % 6.5 Eosinophils % 0.0 D Basophils % 0.2 - Medications Given in the ED: ED Medications Discontinued Medications Generic Name Dose Route Start Last Admin Trade Name Freq PRN Reason Stop Dose Admin Piperacillin Sod/Tazobactam 50 mls @ 100 mls/hr 08/14/18 12:48 08/14/18 16:37 Sod 3.375 gm/ Dextrose IVPB 08/14/18 13:17 Not Given ONCE ONE Protocol Piperacillin Sod/Tazobactam 100 mls @ 200 mls/hr 08/14/18 13:55 08/14/18 15: 20 Sod 4.5 gm/ Dextrose IVPB 08/14/18 14:24 200 mls/hr ONCE ONE Administration Protocol Sodium Chloride 1,000 mls @ 83 mls/hr 08/14/18 20:30 08/14/18 21:14 Normal Saline - IV 08/16/18 08:33 Not Given ASDIR EDMOND Sodium Chloride 500 mls @ 500 mls/hr 08/14/18 20:51 08/14/18 21:13 Normal Saline - IV 08/14/18 21:50 500 mls/hr ASDIR STA Administration Sodium Chloride 1,000 ml 08/14/18 12:48 08/14/18 13:51 Normal Saline - IV 08/14/18 12:49 1,000 ml ONCE ONE Administration Vancomycin HCl 1,000 mg 08/14/18 12:48 08/14/18 15:30 Vancomycin (Pre-Docked) IVPB 08/14/18 12:49 1,000 mg ONCE ONE Administration Protocol Medical Decision Making - Medical Decision Making 08/15/18 07:28 Called for stat central line done under sterile technique. Pt tolerated procedure well. L IJ triple lumen placed with good blood flow and return. CXR pending. *DC/Admit/Observation/Transfer Diagnosis at time of Disposition: Unwitnessed fall, Hypothermia, Hypotension, Hip fracture, left, Lactic acid acidosis, CHUY (acute kidney injury) - Discharge Dispostion Condition at time of disposition: Fair - Referrals - Patient Instructions - Post Discharge Activity Procedures - Central Line Central Line Lumen: triple Central Line Position: internal jugular (L) Anesthesia: 1% Lidocaine Amount of anesthesia (ccs): 1 Complications: none Post Central Line Insertion: sutured, good blood return
--- NOTE | 2018-08-15 07:53 | PN ---
Physical Exam: SUBJECTIVE: Patient seen and examined at bedside. Overnight, code 99 called, patient was unresponsive and bradycardic she then went into asystole. Compressions were started 0528, given 3 rounds of epi, patient went into SVT, given 6mg adenosine then 12mg then another 12 mg. Anesthesia intubated patient. Patient went into Vtach, shocked with 200J and converted into sinus rhythm with low BP. Central line placed by ED resident in L IJ. Please see nursing note. Patient may have achieved ROSC at 0534 but became pulseless again. Pulses palpated and sinus tachycardia after approximately 20 minutes of resuscitation. OBJECTIVE: Vital Signs Period Temp Pulse Resp BP Sys/Aguirre Pulse Ox Last 24 Hr 94.8 F-99.5 F 78-102 15-28 87-112/72-90 92-100 GENERAL: The patient is sedated. HEAD: 4cm pressure ulcer on L cheek, no skull trauma. EYES: PERRL, sclera anicteric, conjunctiva clear. LUNGS: Rhonchi and wheezing, mechanically ventilated. HEART: Tachycardic, S1, S2 without murmur, rub or gallop. ABDOMEN: Soft, nontender, nondistended, normoactive bowel sounds, no guarding, no rebound, no hepatosplenomegaly, no masses. EXTREMITIES: 1+ pulses, cold, no edema. NEUROLOGICAL: Sedated. SKIN: Multiple eccymosis, cold to the touch, dry. Laboratory Results - last 24 hr 08/14/18 08/14/18 08/14/18 13:09 13:09 13:09 WBC 13.8 H RBC 3.94 Hgb 12.2 Hct 36.5 D MCV 92.6 MCH 30.9 MCHC 33.4 RDW 13.3 D Plt Count 153 D MPV 8.5 D Absolute Neuts (auto) 12.3 H Neutrophils % 89.3 H Lymphocytes % 4.0 L D Monocytes % 6.5 Eosinophils % 0.0 D Basophils % 0.2 Nucleated RBC % 0 PT with INR 12.90 INR 1.09 PTT (Actin FS) 30.2 Anticoagulation Therapy Puncture Site ABG pH ABG pCO2 at Pt Temp ABG pO2 at Pt Temp ABG HCO3 ABG O2 Sat (Measured) ABG O2 Content ABG Base Excess Jeevan Test VBG pH POC VBG pCO2 POC VBG pO2 VBG HCO3 VBG O2 Sat (Gwendolyn) VBG Base Excess Carboxyhemoglobin Methemoglobin O2 Delivery Device Oxygen Flow Rate Vent Mode Vent Rate Mechanical Rate Pressure Support Vent Sodium 132 L Potassium 4.3 Chloride 96 L Carbon Dioxide 23 Anion Gap 13 BUN 41 H Creatinine 1.3 Est GFR (CKD-EPI)AfAm 43.02 Est GFR (CKD-EPI)NonAf 37.12 Random Glucose 127 H Hemoglobin A1c % Lactic Acid Calcium 10.4 H Magnesium Total Bilirubin 1.8 H Direct Bilirubin AST 305 H ALT 202 H Alkaline Phosphatase 66 Creatine Kinase 1779 H Creatine Kinase Index 6.4 H* CK-MB (CK-2) 114.2 H Troponin I Total Protein 7.4 Albumin 4.0 Triglycerides Cholesterol Total LDL Cholesterol HDL Cholesterol TSH Urine Color Urine Appearance Urine pH Ur Specific [place] Urine Protein Urine Glucose (UA) Urine Ketones Urine Blood Urine Nitrite Urine Bilirubin Urine Urobilinogen Ur Leukocyte Esterase Urine WBC (Auto) Urine RBC (Auto) Urine Casts (Auto) U Epithel Cells (Auto) Urine Bacteria (Auto) Blood Type Antibody Screen 08/14/18 08/14/18 08/14/18 13:09 13:09 13:09 WBC RBC Hgb Hct MCV MCH MCHC RDW Plt Count MPV Absolute Neuts (auto) Neutrophils % Lymphocytes % Monocytes % Eosinophils % Basophils % Nucleated RBC % PT with INR INR PTT (Actin FS) Anticoagulation Therapy Puncture Site ABG pH ABG pCO2 at Pt Temp ABG pO2 at Pt Temp ABG HCO3 ABG O2 Sat (Measured) ABG O2 Content ABG Base Excess Jeevan Test VBG pH POC VBG pCO2 POC VBG pO2 VBG HCO3 VBG O2 Sat (Gwendolyn) VBG Base Excess Carboxyhemoglobin Methemoglobin O2 Delivery Device Oxygen Flow Rate Vent Mode Vent Rate Mechanical Rate Pressure Support Vent Sodium Potassium Chloride Carbon Dioxide Anion Gap BUN Creatinine Est GFR (CKD-EPI)AfAm Est GFR (CKD-EPI)NonAf Random Glucose Hemoglobin A1c % Lactic Acid 3.8 H* Calcium Magnesium Total Bilirubin Direct Bilirubin AST ALT Alkaline Phosphatase Creatine Kinase Creatine Kinase Index CK-MB (CK-2) Troponin I 10.50 H* Total Protein Albumin Triglycerides Cholesterol Total LDL Cholesterol HDL Cholesterol TSH Urine Color Urine Appearance Urine pH Ur Specific [place] Urine Protein Urine Glucose (UA) Urine Ketones Urine Blood Urine Nitrite Urine Bilirubin Urine Urobilinogen Ur Leukocyte Esterase Urine WBC (Auto) Urine RBC (Auto) Urine Casts (Auto) U Epithel Cells (Auto) Urine Bacteria (Auto) Blood Type Cancelled Antibody Screen Cancelled 08/14/18 08/14/18 08/14/18 15:26 17:04 17:42 WBC RBC Hgb Hct MCV MCH MCHC RDW Plt Count MPV Absolute Neuts (auto) Neutrophils % Lymphocytes % Monocytes % Eosinophils % Basophils % Nucleated RBC % PT with INR INR PTT (Actin FS) Anticoagulation Therapy Puncture Site ABG pH ABG pCO2 at Pt Temp ABG pO2 at Pt Temp ABG HCO3 ABG O2 Sat (Measured) ABG O2 Content ABG Base Excess Jeevan Test VBG pH POC VBG pCO2 POC VBG pO2 VBG HCO3 VBG O2 Sat (Gwendolyn) VBG Base Excess Carboxyhemoglobin Methemoglobin O2 Delivery Device Oxygen Flow Rate Vent Mode Vent Rate Mechanical Rate Pressure Support Vent Sodium Potassium Chloride Carbon Dioxide Anion Gap BUN Creatinine Est GFR (CKD-EPI)AfAm Est GFR (CKD-EPI)NonAf Random Glucose Hemoglobin A1c % Lactic Acid 1.3 Calcium Magnesium Total Bilirubin Direct Bilirubin AST ALT Alkaline Phosphatase Creatine Kinase 1707 H Creatine Kinase Index 6.1 H* CK-MB (CK-2) 105.6 H Troponin I 9.49 H* Total Protein Albumin Triglycerides Cholesterol Total LDL Cholesterol HDL Cholesterol TSH Urine Color Dk yellow Urine Appearance Turbid Urine pH 5.0 Ur Specific [place] 1.022 Urine Protein 2+ H Urine Glucose (UA) Negative Urine Ketones Trace H Urine Blood 3+ H Urine Nitrite Negative Urine Bilirubin 2+ H Urine Urobilinogen 1.0 Ur Leukocyte Esterase Trace Urine WBC (Auto) 6 Urine RBC (Auto) 2 Urine Casts (Auto) 148 U Epithel Cells (Auto) 19.4 Urine Bacteria (Auto) 23.5 Blood Type Antibody Screen 08/14/18 08/14/18 08/14/18 21:10 23:33 23:33 WBC RBC Hgb Hct MCV MCH MCHC RDW Plt Count MPV Absolute Neuts (auto) Neutrophils % Lymphocytes % Monocytes % Eosinophils % Basophils % Nucleated RBC % PT with INR INR PTT (Actin FS) Anticoagulation Therapy No Result Required. Puncture Site Right radial ABG pH 7.43 ABG pCO2 at Pt Temp 30.1 L ABG pO2 at Pt Temp 86.0 ABG HCO3 19.4 L ABG O2 Sat (Measured) 97.0 ABG O2 Content 16.3 ABG Base Excess -3.6 L Jeevan Test Positive VBG pH 7.35 POC VBG pCO2 40.1 L POC VBG pO2 22.5 L VBG HCO3 21.5 L VBG O2 Sat (Gwendolyn) 29.6 L VBG Base Excess -3.3 L Carboxyhemoglobin 1.2 Methemoglobin 0.3 O2 Delivery Device No Result Required. Oxygen Flow Rate Room air Vent Mode No Result Required. Vent Rate No Result Required. Mechanical Rate No Result Required. Pressure Support Vent No Result Required. Sodium Potassium Chloride Carbon Dioxide Anion Gap BUN Creatinine Est GFR (CKD-EPI)AfAm Est GFR (CKD-EPI)NonAf Random Glucose Hemoglobin A1c % Lactic Acid Calcium Magnesium 2.2 Total Bilirubin Direct Bilirubin 0.4 H AST ALT Alkaline Phosphatase Creatine Kinase Cancelled Creatine Kinase Index CK-MB (CK-2) Troponin I 8.95 H* Total Protein Albumin Triglycerides Cholesterol Total LDL Cholesterol HDL Cholesterol TSH Urine Color Urine Appearance Urine pH Ur Specific [place] Urine Protein Urine Glucose (UA) Urine Ketones Urine Blood Urine Nitrite Urine Bilirubin Urine Urobilinogen Ur Leukocyte Esterase Urine WBC (Auto) Urine RBC (Auto) Urine Casts (Auto) U Epithel Cells (Auto) Urine Bacteria (Auto) Blood Type Antibody Screen 08/15/18 08/15/18 08/15/18 05:20 05:20 05:20 WBC 16.4 H RBC 3.83 Hgb 12.0 Hct 35.4 MCV 92.6 MCH 31.4 MCHC 33.9 RDW 13.8 Plt Count 159 MPV 8.6 Absolute Neuts (auto) 14.4 H Neutrophils % 88.0 H Lymphocytes % 4.4 L Monocytes % 7.2 Eosinophils % 0.1 D Basophils % 0.3 Nucleated RBC % 0 PT with INR INR PTT (Actin FS) Anticoagulation Therapy Puncture Site ABG pH ABG pCO2 at Pt Temp ABG pO2 at Pt Temp ABG HCO3 ABG O2 Sat (Measured) ABG O2 Content ABG Base Excess Jeevan Test VBG pH POC VBG pCO2 POC VBG pO2 VBG HCO3 VBG O2 Sat (Gwendolyn) VBG Base Excess Carboxyhemoglobin Methemoglobin O2 Delivery Device Oxygen Flow Rate Vent Mode Vent Rate Mechanical Rate Pressure Support Vent Sodium 134 L Potassium 4.3 Chloride 103 Carbon Dioxide 19 L Anion Gap 12 BUN 38 H Creatinine 1.0 Est GFR (CKD-EPI)AfAm 59.08 Est GFR (CKD-EPI)NonAf 50.97 Random Glucose 114 H Hemoglobin A1c % 5.2 Lactic Acid Calcium 9.1 Magnesium Total Bilirubin 1.3 H Direct Bilirubin AST 217 H ALT 141 H Alkaline Phosphatase 59 Creatine Kinase Creatine Kinase Index CK-MB (CK-2) Troponin I Total Protein 6.4 Albumin 3.3 L Triglycerides 77 Cholesterol 161 Total LDL Cholesterol 72 HDL Cholesterol 66 H TSH 2.29 Urine Color Urine Appearance Urine pH Ur Specific [place] Urine Protein Urine Glucose (UA) Urine Ketones Urine Blood Urine Nitrite Urine Bilirubin Urine Urobilinogen Ur Leukocyte Esterase Urine WBC (Auto) Urine RBC (Auto) Urine Casts (Auto) U Epithel Cells (Auto) Urine Bacteria (Auto) Blood Type Antibody Screen Active Medications Generic Name Dose Route Start Last Admin Trade Name Freq PRN Reason Stop Dose Admin Docusate Sodium 100 mg 08/14/18 22:00 08/14/18 22:50 Colace - PO 100 mg TID EDMOND Administration Heparin Sodium (Porcine) 5,000 unit 08/14/18 22:00 08/14/18 22:50 Heparin - SQ 5,000 unit TID EDMOND Administration Sodium Chloride 1,000 mls @ 75 mls/hr 08/14/18 21:00 08/14/18 21:13 Normal Saline - IV 75 mls/hr ASDIR EDMOND Administration Vancomycin HCl 1,000 mg/ 250 mls @ 166.667 mls/hr 08/14/18 22:00 Dextrose IVPB Q12H EDMOND Protocol Piperacillin Sod/Tazobactam 50 mls @ 100 mls/hr 08/15/18 03:00 Sod 2.25 gm/ Dextrose IVPB Q6H-IV EDMOND Protocol Vancomycin HCl 1,000 mg in 250 mls @ 166.667 mls/hr 08/14/18 22:15 08/15/18 00:39 Vancomycin (Pre-Docked) IVPB 08/15/18 11:44 166.667 mls/hr Q12H EDMOND Administration Protocol Piperacillin Sod/Tazobactam 50 mls @ 100 mls/hr 08/15/18 03:00 08/15/18 03:35 Sod 2.25 gm/ Dextrose IVPB 08/15/18 21:29 100 mls/hr Q6H-IV EDMOND Administration Protocol Dexmedetomidine HCl 200 mcg/ 50 mls @ 2.41 mls/hr 08/15/18 06:00 Sodium Chloride IVPB TITR EDMOND 0.2 MCG/KG/HR Vasopressin 50 units/ Sodium 100 mls @ 4 mls/hr 08/15/18 06:00 Chloride IVPB ASDIR EDMOND Protocol 2 UNITS/HR Propofol 1,000,000 mcg in 100 mls @ 1.447 mls/hr 08/15/18 06:00 Diprivan - IVPB TITR EDMOND Protocol 5 MCG/KG/MIN Propofol 1,000,000 mcg in 100 mls @ 2.893 mls/hr 08/15/18 06:30 Diprivan - IVPB TITR EDMOND Protocol 10 MCG/KG/MIN Polyethylene Glycol 17 gm 08/15/18 10:00 Miralax (For Daily Use) - PO DAILY EDMOND Senna 2 tab 08/14/18 22:00 08/15/18 01:11 Senna - PO 2 tab HS EDMOND Administration ASSESSMENT/PLAN: 88yo F with PMH of R Lung Ca s/p R pneumonectomy, HTN presenting to ED s/p fall , found to be hypothermic, hypotensive with pressure ulcers and multiple bruises. #NEURO -S/p unwitnessed fall; syncope v. seizure v. CT -Down time for multiple days based on pressure ulcers -CT head and facial bones negative for bleed and fractures -Per previous notes, patient was awake and alert -Now intubated and sedated, try weaning tomorrow if stable -Propofol gtt #CARDIO/VASC -H/o HTN, AAA, atherosclerotic disease -S/p cardiac arrest with bradycardia to asystole to SVT to Vtach to sinus tach after approximately 20min -Trop 10 on admission, trending down -New diffuse/deep TWIs with long QT without ST elevation or depression -Ischemia > demand; trop trending down -Evidence of multiple atherosclerotic changes in vasculature on previous CTA -AAA 5.7 cm (from 5.5cm); 5.8 on US with extensive thrombus, vascular consulted -Not ruptured, will monitor BP and for signs of hemodynamic instability -Not on any statins -Home med list includes Lovenox and losartan, cannot confirm if patient had been taking meds -Will start heparin gtt, will monitor for signs of bleeding -TTM -Echo today -Cardiology consulting (Dr. Anlgin) -Hold BP meds for now -Levophed gtt and vasopressin gtt (will titer down) -MAP goal >65 -CVP 8-12 #PULM -H/o Lung Ca s/p R pneumonectomy -Intubated, day 1 -Vent settings: 14/350/100/5 -CT showing R sided small effusion which was seen on previous CT -Duonebs -SpO2 >90 #ID -WBC 13 upon arrival, hypothermic, hypotensive -Lactic acid elevated, was trending down, now elevated -ABG shows acidosis likely metabolic 2/2 lactic acid -BP intially responded to fluids -Vanc, Zosyn day 2 -ID consulting -Blood culture pending #MSK -H/o multiple falls, multiple vertebral compression fractures, R hip fracture -New L intertrochanteric hip fracture -Dr. Gaston consulted -Rhabdomyolysis, getting fluids -CPK trending down #RENAL -CHUY likely 2/2 rhabdo, dehydration -Standing fluids @75ml/hr -Monitor function -I's/O's #GI -Elevated LFTs likely 2/2 hypotension -Monitor function -Abdominal US #WOUND CARE -Ulcerations and bruising on face and left side of body -Does not appear to be infected -ID consulting -Wound care consulted #FEN -NPO -Standing fluids -Monitor and replete lytes as necessary #PPX -Heparin gtt -Protonix IV Dispo: Will continue to monitor in ICU. Next of kin (sister in law) notified wants everything to be done. Full code. Visit type - Emergency Visit Emergency Visit: Yes ED Registration Date: 08/14/18 Care time: The patient presented to the Emergency Department on the above date and was hospitalized for further evaluation of their emergent condition. - New Patient This patient is new to me today: Yes Date on this admission: 08/15/18 - Critical Care Critical Care patient: Yes Total Critical Care Time (in minutes): 40 Critical Care Statement: The care of this patient involved high complexity decision making to prevent further life threatening deterioration of the patient 's condition and/or to evaluate & treat vital organ system(s) failure or risk of failure.
[2018-08-15 07:56] LABS: MAGNESIUM 2.3 mg/dL (1.8-2.4); PHOSPHOROUS 3.7 mg/dL (2.5-4.9)
[2018-08-15 08:10] LABS: HEMATOCRIT 34.2 % (32.4-45.2); HEMOGLOBIN 11.3 GM/dL (10.7-15.3); MCH 31.3 pg (25.7-33.7); MCHC 32.9 g/dl (32.0-36.0); MEAN CELL VOLUME 95.3 fl (80-96); PLATELET COUNT 138 K/MM3 (134-434); RBC 3.59 M/mm3 (3.60-5.2); RDW 13.9 % (11.6-15.6); WHITE BLOOD COUNT 13.2 K/mm3 (4.0-10.0)
--- NOTE | 2018-08-15 08:11 | CON.ID ---
Consult Consult Specialty:: infectious disease Referred by:: hospitalist service Reason for Consultation:: possible sepsis - History of Present Illness Chief Complaint: loss of consciousness and fall at home History of Present Illness: 88 yo female lives alone brought in by EMS SHe apparently felll when replacing the clock in her bathroom, unclear down time neighbor called EMS she had multiple brusises and was hypothermic alert and speaking but a little confused in the ED unclear how long she was on the ground at home she had multiple ct scans notable for moderate right pleural effusion ( she is s /p right total lung resection), chronic right rib fractures, multelevel vertebral body compression fractures, AAA, acute left hip fracture she had elevated troponin, lactic acid, and cpk she was started on vanco/zosyn for possible sepsis this am she became asystolic and code 99 was called- she was resuscitated and intubated currently on vasopressin - History Source History Provided By: Patient Limitations to Obtaining History: Clinical Condition - Past Medical History Cardio/Vascular: Yes: Aneurysm, HTN ...: No Heme/Onc: Yes: Cancer (lung cancer) Musculoskeletal: Yes: Other (right hip fracture 2018) - Past Surgical History Additional Surgical History: gamma nail right hip 2018, right lung resection for lung cancer - Alcohol/Substance Use Hx Alcohol Use: No - Smoking History Smoking history: Former smoker Have you smoked in the past 12 months: No Aproximately how many cigarettes per day: 30 If you are a former smoker, when did you quit?: over 12yrs ago - Social History Usual Living Arrangement: Alone ADL: Support Services Place of : [facility] History of Recent Travel: No Home Medications - Allergies Allergies/Adverse Reactions: Allergies Allergy/AdvReac Type Severity Reaction Status Date / Time No Known Allergies Allergy Verified 01/15/18 10:36 - Home Medications Home Medications: Ambulatory Orders Losartan Potassium 50 mg PO DAILY 10/27/15 Zolpidem Tartrate [Ambien] 10 mg PO HS 10/27/15 Bisacodyl Suppository [Dulcolax Suppository -] 10 mg MI PRN PRN supp.rect 01/20 Docusate Sodium [Colace -] 100 mg PO TID capsule 01/20/18 Enoxaparin [Lovenox -] 30 mg SQ DAILY disp.syrin 01/20/18 Polyethylene Glycol 3350 [Miralax 119 gm Btl -] 17 gm PO DAILY bottle 01/20/18 Sennosides [Senna -] 2 tab PO HS tablet 01/20/18 Family Disease History - Family Disease History Family History: Unable to Obtain Review of Systems Unable to obtain ROS, reason: unable to obtain Physical Exam Vital Signs: Vital Signs Temperature 98.2 F 08/15/18 06:00 Pulse Rate 116 H 08/15/18 06:04 Respiratory Rate 08/15/18 06:04 Blood Pressure 117/85 08/15/18 06:04 O2 Sat by Pulse Oximetry (%) 100 08/15/18 05:10 Constitutional: Yes: Thin HENT: Yes: Other ( large chronic wound left side of face- 4 by 1 .5 cm- left zygoma-no erythema) Neck: Yes: Supple, Trachea Midline Cardiovascular: Yes: Regular Rate and Rhythm Respiratory: Yes: Diminished Gastrointestinal: Yes: Other (firm, nt +BA) ...Rectal Exam: Yes: Deferred Edema: No Peripheral Pulses WNL: No (toes are cyanotic) Integumentary: Yes: Bruising (both knees, 3 by 3 cm ulcer left groin-clean no erythema) Labs: CBC, BMP 08/15/18 05:20 08/15/18 05:20 blood cultures pending Imaging - Results Chest X-ray: Report Reviewed, Image Reviewed Cat Scan: Report Reviewed (per HPI--ct scan findings noted) Problem List - Problems (1) Sudden cardiac arrest Code(s): I46.9 - CARDIAC ARREST, CAUSE UNSPECIFIED (2) Unwitnessed fall Code(s): R29.6 - REPEATED FALLS (3) Hip fracture, left Code(s): S72.002A - FRACTURE OF UNSP PART OF NECK OF LEFT FEMUR, INIT (4) Sepsis Code(s): A41.9 - SEPSIS, UNSPECIFIED ORGANISM (5) Rhabdomyolysis Code(s): M62.82 - RHABDOMYOLYSIS (6) Elevated troponin Code(s): R74.8 - ABNORMAL LEVELS OF OTHER SERUM ENZYMES Assessment/Plan s/p arrest cannot r/o sepsis but suspect this is a cardiac event s/p fall (unwitnessed) acute hip fracture positive troponins overall prognosis is guarded agree with broad spectrum antibiotics continue vancomycin and zosyn f/u cultures f/u with cardiology ICU management d/w ICU service overall 40 minutes spent in the care of this critically ill ICU patient
[2018-08-15 08:17] LABS: CREATININE 1.2 mg/dL (0.55-1.3); POTASSIUM 3.8 mmol/L (3.5-5.1)
[2018-08-15 08:18] LABS: ALBUMIN 2.9 g/dl (3.4-5.0); BILIRUBIN,TOTAL 1.1 mg/dL (0.2-1); CALCIUM 8.2 mg/dL (8.5-10.1); MAGNESIUM 2.3 mg/dL (1.8-2.4); PHOSPHOROUS 5.2 mg/dL (2.5-4.9); TOT PROT 5.7 g/dl (6.4-8.2)
[2018-08-15 08:21] LABS: ARTERIAL BLOOD GAS pH 7.27 (7.35-7.45)
[2018-08-15 08:22] LABS: ALLENS TEST POSITIVE; ARTERIAL BLD GAS O2 SATURATION 99.4 % (95-98); ARTERIAL BLOOD GAS BASE EXCESS -10.8 meq/l (-2-2); ARTERIAL BLOOD GAS PO2 260 mmHg (80-105)
[2018-08-15] MEDS: NOREPINEPHRINE BITARTRATE 8,000 MCG in DEXTROSE 5%-WATER - 492 ML IV SCH ×2 (08:40→22:18)
[2018-08-15] MEDS: PROPOFOL 1,000,000 MCG/100 ML VIAL IVPB SCH ×2 (08:40→09:55)
[2018-08-15 09:05] LABS: INR 1.16 (0.83-1.09); PROTHROMBIN TIME (PATIENT) 13.7 SEC (9.7-13.0)
--- NOTE | 2018-08-15 09:05 | PN ---
Progress Note, Physician Chief Complaint: events noted. TELE: strips reviewed. Now on vasopressin and intubated. Pupild reactive TELE: Currently NSR - Current Medication List Current Medications: Active Medications Docusate Sodium (Colace -) 100 mg PO TID EDMOND Last Admin: 08/14/18 22:50 Dose: 100 mg Heparin Sodium (Porcine) (Heparin -) 5,000 unit SQ TID EDMOND Last Admin: 08/14/18 22:50 Dose: 5,000 unit Sodium Chloride (Normal Saline -) 1,000 mls @ 75 mls/hr IV ASDIR EDMOND Last Admin: 08/14/18 21:13 Dose: 75 mls/hr Piperacillin Sod/Tazobactam (Sod 2.25 gm/ Dextrose) 50 mls @ 100 mls/hr IVPB Q6H-IV EDMOND; Protocol Piperacillin Sod/Tazobactam (Sod 2.25 gm/ Dextrose) 50 mls @ 100 mls/hr IVPB Q6H-IV EDMOND; Protocol Stop: 08/15/18 21:29 Last Admin: 08/15/18 03:35 Dose: 100 mls/hr Dexmedetomidine HCl 200 mcg/ (Sodium Chloride) 50 mls @ 2.41 mls/hr IVPB TITR EDMOND Vasopressin 50 units/ Sodium (Chloride) 100 mls @ 4 mls/hr IVPB ASDIR EDMOND; Protocol Propofol (Diprivan -) 1,000,000 mcg in 100 mls @ 1.447 mls/hr IVPB TITR EDMOND; Protocol Propofol (Diprivan -) 1,000,000 mcg in 100 mls @ 2.893 mls/hr IVPB TITR EDMOND; Protocol Vancomycin HCl 1,000 mg/ (Dextrose) 250 mls @ 200 mls/hr IVPB Q24H EDMOND; Protocol Polyethylene Glycol (Miralax (For Daily Use) -) 17 gm PO DAILY EDMOND Senna (Senna -) 2 tab PO HS EDMOND Last Admin: 08/15/18 01:11 Dose: 2 tab - Objective Vital Signs: Vital Signs Temperature 98.2 F 08/15/18 06:00 Pulse Rate 116 H 08/15/18 06:04 Respiratory Rate 28 H 08/15/18 08:36 Blood Pressure 117/85 08/15/18 06:04 O2 Sat by Pulse Oximetry (%) 100 08/15/18 05:10 Constitutional: Yes: Other (intubated) Eyes: Yes: Conjunctiva Clear Cardiovascular: Yes: Regular Rate and Rhythm Respiratory: Yes: Rhonchi Gastrointestinal: Yes: Soft Edema: No Neurological: Yes: Other (on vent) Labs: CBC, BMP 08/15/18 06:25 08/15/18 07:47 INR, PTT INR 1.09 (0.83-1.09) 08/14/18 13:09 - ....Imaging Chest X-ray: Image Reviewed EKG: Image Reviewed Assessment/Plan IMP: NSTEMI Cardiac arrest ?Sepsis Left hip fracture AAA REC: 1. Pressors to maintain MAP 60, tele in ICU 2. ASA 3. Cultures and abx as per ID 4. Vent support. 5. Echo 6. Attempts to reach family by ICU staff have not been successful. Goals of care to be determined. At this time, patient's baseline functional status, compliance with medical f/u and social support unknown. Advanced Directives also unclear. Will need to clarify above prior to any decision re transfer or cath etc. D/W ICU team
[2018-08-15] MEDS ORDERED: LOSARTAN POTASSIUM 50 MG TABLET (FP) PO SCH (10:00)
[2018-08-15] MEDS ORDERED: HEPARIN NA (PORCINE) 5,000 UNITS/ML 1ML VIAL IVPUSH PRN ×2 (10:23)
--- NOTE | 2018-08-15 10:45 | PN ---
Teaching Attending Note Name of Resident: Nona Robles ATTENDING PHYSICIAN STATEMENT I saw and evaluated the patient. I reviewed the resident's note and discussed the case with the resident. I agree with the resident's findings and plan as documented. SUBJECTIVE: Patient seen and examined in the ICU. Events noted. CP arrest with ROSC apparently after 20 minutes (?). Intubated and poorly responsive but withdraws to pain. Vasopressin @ 6 units per hour for hemodynamic support. Remains in shock despite pressors. CXR: ETT in the right mainstem. NOK was reached and wants all efforts to continue. Intake & Output 08/12/18 08/13/18 08/14/18 08/15/18 23:59 23:59 23:59 23:59 Weight 106 lb 4.8 oz 106 lb 4.8 oz Last Vital Signs Temp Pulse Resp BP Pulse Ox 98.2 F 84 28 H 116/92 100 08/15/18 06:00 08/15/18 09:30 08/15/18 08:36 08/15/18 09:30 08/15/18 05:10 Active Medications Albuterol/Ipratropium (Duoneb -) 1 amp NEB RQID EDMOND Docusate Sodium (Colace -) 100 mg PO TID EDMOND Last Admin: 08/14/18 22:50 Dose: 100 mg Heparin Sodium (Porcine) (Heparin -) 1,000 unit IVPUSH PRN PRN PRN Reason: Heparin Heparin Sodium (Porcine) (Heparin -) 5,000 unit IVPUSH PRN PRN PRN Reason: Heparin Sodium Chloride (Normal Saline -) 1,000 mls @ 75 mls/hr IV ASDIR EDMOND Last Admin: 08/14/18 21:13 Dose: 75 mls/hr Piperacillin Sod/Tazobactam (Sod 2.25 gm/ Dextrose) 50 mls @ 100 mls/hr IVPB Q6H-IV EDMOND; Protocol Last Admin: 08/15/18 10:05 Dose: 100 mls/hr Dexmedetomidine HCl 200 mcg/ (Sodium Chloride) 50 mls @ 2.41 mls/hr IVPB TITR EDMOND Vasopressin 50 units/ Sodium (Chloride) 100 mls @ 4 mls/hr IVPB ASDIR EDMOND; Protocol Last Titration: 08/15/18 09:30 Dose: 2 units/hr, 4 mls/hr Propofol (Diprivan -) 1,000,000 mcg in 100 mls @ 1.447 mls/hr IVPB TITR EDMOND; Protocol Last Admin: 08/15/18 09:55 Dose: 5 mcg/kg/min, 1.447 mls/hr Propofol (Diprivan -) 1,000,000 mcg in 100 mls @ 2.893 mls/hr IVPB TITR EDMOND; Protocol Vancomycin HCl (Vancomycin (Pre-Docked)) 1,000 mg in 250 mls @ 200 mls/hr IVPB Q24H EDMOND; Protocol Heparin Sodium (Porcine) 25, (000 unit/ Sodium Chloride) 500 mls @ 16 mls/hr IV TITR EDMOND; Protocol Norepinephrine Bitartrate 8, (000 mcg/ Dextrose) 500 mls @ 18.75 mls/hr IV TITR EDMOND; Protocol Pantoprazole Sodium (Protonix Iv) 40 mg IVPUSH DAILY EDMOND Polyethylene Glycol (Miralax (For Daily Use) -) 17 gm PO DAILY EDMOND Senna (Senna -) 2 tab PO HS EDMOND Last Admin: 08/15/18 01:11 Dose: 2 tab GENERAL: Intubated, poorly responsive, withdraws all 4 extremities to pain HEAD: left facial hematoma on zygomatic area EYES: reactive pupil on the left , non reactive on right , sclera anicteric, EARS, NOSE, THROAT: orally intubated NECK: Normal range of motion, supple. LUNGS: intubated, vented, decrease breath sound at right side, (+) expiratory wheeze and scattered rhonchi on the left. HEART: Regular rate and rhythm, normal S1 and S2 without murmur, rub or gallop. ABDOMEN: Soft, not distended, (+) bowel sounds, LOWER EXTREMITIES: (+) pulses, warm, well-perfused. NEUROLOGICAL: poorly responsive, withdraws to pain LLE sensation intact +2 DP, limited ROM due to pain , RLE sensation intact , + DP, FROM . SKIN: Warm, echymosis , left hip stage 2 ulcer Laboratory Results - last 24 hr 08/14/18 08/14/18 08/14/18 13:09 13:09 13:09 WBC 13.8 H RBC 3.94 Hgb 12.2 Hct 36.5 D MCV 92.6 MCH 30.9 MCHC 33.4 RDW 13.3 D Plt Count 153 D MPV 8.5 D Absolute Neuts (auto) 12.3 H Neutrophils % 89.3 H Lymphocytes % 4.0 L D Monocytes % 6.5 Eosinophils % 0.0 D Basophils % 0.2 Nucleated RBC % 0 PT with INR 12.90 INR 1.09 PTT (Actin FS) 30.2 Sodium 132 L Potassium 4.3 Chloride 96 L Carbon Dioxide 23 Anion Gap 13 BUN 41 H Creatinine 1.3 Est GFR (CKD-EPI)AfAm 43.02 Est GFR (CKD-EPI)NonAf 37.12 Random Glucose 127 H Lactic Acid Calcium 10.4 H Total Bilirubin 1.8 H AST 305 H ALT 202 H Alkaline Phosphatase 66 Creatine Kinase 1779 H Creatine Kinase Index 6.4 H* CK-MB (CK-2) 114.2 H Troponin I Total Protein 7.4 Albumin 4.0 Urine Color Urine Appearance Urine pH Ur Specific [place] Urine Protein Urine Glucose (UA) Urine Ketones Urine Blood Urine Nitrite Urine Bilirubin Urine Urobilinogen Ur Leukocyte Esterase Urine WBC (Auto) Urine RBC (Auto) Urine Casts (Auto) U Epithel Cells (Auto) Urine Bacteria (Auto) Blood Type Antibody Screen 08/14/18 08/14/18 08/14/18 13:09 13:09 13:09 WBC RBC Hgb Hct MCV MCH MCHC RDW Plt Count MPV Absolute Neuts (auto) Neutrophils % Lymphocytes % Monocytes % Eosinophils % Basophils % Nucleated RBC % PT with INR INR PTT (Actin FS) Sodium Potassium Chloride Carbon Dioxide Anion Gap BUN Creatinine Est GFR (CKD-EPI)AfAm Est GFR (CKD-EPI)NonAf Random Glucose Lactic Acid 3.8 H* Calcium Total Bilirubin AST ALT Alkaline Phosphatase Creatine Kinase Creatine Kinase Index CK-MB (CK-2) Troponin I 10.50 H* Total Protein Albumin Urine Color Urine Appearance Urine pH Ur Specific [place] Urine Protein Urine Glucose (UA) Urine Ketones Urine Blood Urine Nitrite Urine Bilirubin Urine Urobilinogen Ur Leukocyte Esterase Urine WBC (Auto) Urine RBC (Auto) Urine Casts (Auto) U Epithel Cells (Auto) Urine Bacteria (Auto) Blood Type Cancelled Antibody Screen Cancelled 08/14/18 08/14/18 08/14/18 15:26 17:04 17:42 WBC RBC Hgb Hct MCV MCH MCHC RDW Plt Count MPV Absolute Neuts (auto) Neutrophils % Lymphocytes % Monocytes % Eosinophils % Basophils % Nucleated RBC % PT with INR INR PTT (Actin FS) Sodium Potassium Chloride Carbon Dioxide Anion Gap BUN Creatinine Est GFR (CKD-EPI)AfAm Est GFR (CKD-EPI)NonAf Random Glucose Lactic Acid 1.3 Calcium Total Bilirubin AST ALT Alkaline Phosphatase Creatine Kinase Creatine Kinase Index CK-MB (CK-2) Troponin I 9.49 H* Total Protein Albumin Urine Color Dk yellow Urine Appearance Turbid Urine pH 5.0 Ur Specific [place] 1.022 Urine Protein 2+ H Urine Glucose (UA) Negative Urine Ketones Trace H Urine Blood 3+ H Urine Nitrite Negative Urine Bilirubin 2+ H Urine Urobilinogen 1.0 Ur Leukocyte Esterase Trace Urine WBC (Auto) 6 Urine RBC (Auto) 2 Urine Casts (Auto) 148 U Epithel Cells (Auto) 19.4 Urine Bacteria (Auto) 23.5 Blood Type Antibody Screen ASSESSMENT/PLAN: Cardiopulmonary arrest (?) Etiology primary cardiac R/O Sepsis: No clear source of infection R/O PNA Acute Bronchospasm Lactic acidosis Shock: most likely cardiogenic Elevated CPK 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
[2018-08-15] MEDS: DOCUSATE SODIUM 100 MG CAPSULE (FP) PO SCH ×2 (11:04→18:42)
[2018-08-15] MEDS: POLYETHYLENE GLYCOL 3350 119 GM BTL PO SCH (11:07)
[2018-08-15] MEDS: HEPARIN NA (PORCINE) 5,000 UNITS/ML 1ML VIAL SQ SCH (11:10)
[2018-08-15] MEDS: ALBUTEROL SO4 2.5/IPRATROPIUM 0.5 INH SOL 3 ML VIAL.NEB. NEB SCH ×3 (11:15→21:08)
[2018-08-15] MEDS ORDERED: PT OWN MED DRAWER 7, Y5N ONE ×2 (11:59→18:13)
[2018-08-15] MEDS: PANTOPRAZOLE SODIUM 40 MG VIAL IVPUSH SCH (12:09)
[2018-08-15] MEDS: HEPARIN - 25,000 UNIT in SODIUM CHLORIDE 495 ML IV SCH (12:18)
[2018-08-15] MEDS ORDERED: MIDAZOLAM HCL 2 MG/2 ML SINGLE DOSE VIAL IVPUSH ONE (13:04)
--- NOTE | 2018-08-15 13:51 | PN ---
Progress Note (short form) - Note Progress Note: Vascular Surgery CT abd and pelvis reviewed from this admission. CT done in [address] done on this admission shows 5.7cm. Not a big change. Medical management. Richardson Mejia DO
--- NOTE | 2018-08-15 14:28 | PN ---
Teaching Attending Note Name of Resident: Ronnell Joyner ATTENDING PHYSICIAN STATEMENT I saw and evaluated the patient. I reviewed the resident's note and discussed the case with the resident. I agree with the resident's findings and plan as documented. SUBJECTIVE: Cardiac arrest on events last night OBJECTIVE: NAD, sedated , intubated, responds to pain. round equal reactive pupils. scabbed lesion on L face CV: RRR Lungs: CTAB anteriorly Abd: soft , NT, ND , hypoactive BS Ext: bruises on L upper and lower extremities. and knees. ASSESSMENT AND PLAN: 88 y/o lady with h/o HTN, Lung carcinoma s/p R lung resection who presented after a fall/? syncope . she was found to have L hip Fx ,hypothermia, NSTEMI, and rhabdo. hospital course was cmplicated with cardiac arrest on day of admission 1- NSTEMI 2- Shock, likely cardiogentic shock 3- CArdiac arrest, likely due to NSTEMI 4- L hip Fx 5- AAA 5.8 c, 6- Rhabdo 7- T4 compression fx 8-Transaminitis : likely due to shock 9- Possible syncope Plan: - cont vent management, sedation and pressors - Abx pending cultures - heparin gtt - will d/w cardiology - follow renal and liver function - when acute issues resolve, will address L hip Fx and AAA - CT scans , abd US , CUS all reviewed. - IV PPI - hold home BP meds Dispo : ICU level of care. will address goals of care with family if reachable Critical Care Total Critical Care Time (in minutes): 50 Critical Care Statement: The care of this patient involved high complexity decision making to prevent further life threatening deterioration of the patient 's condition and/or to evaluate & treat vital organ system(s) failure or risk of failure.
--- NOTE | 2018-08-15 14:37 | CON.ORTH ---
Consult Reason for Consultation:: left hip fx - Past Medical History Cardio/Vascular: Yes: Aneurysm, HTN ...: No Musculoskeletal: Yes: Other (right hip fracture 2018) - Past Surgical History Additional Surgical History: gamma nail right hip 2018, right lung resection for lung cancer - Alcohol/Substance Use Hx Alcohol Use: No - Smoking History Smoking history: Former smoker Have you smoked in the past 12 months: No Aproximately how many cigarettes per day: 30 If you are a former smoker, when did you quit?: over 12yrs ago - Social History Usual Living Arrangement: Alone ADL: Support Services History of Recent Travel: No Home Medications - Allergies Allergies/Adverse Reactions: Allergies Allergy/AdvReac Type Severity Reaction Status Date / Time No Known Allergies Allergy Verified 01/15/18 10:36 - Home Medications Home Medications: Ambulatory Orders Losartan Potassium 50 mg PO DAILY 10/27/15 Zolpidem Tartrate [Ambien] 10 mg PO HS 10/27/15 Bisacodyl Suppository [Dulcolax Suppository -] 10 mg PA PRN PRN supp.rect 01/20 Docusate Sodium [Colace -] 100 mg PO TID capsule 01/20/18 Enoxaparin [Lovenox -] 30 mg SQ DAILY disp.syrin 01/20/18 Polyethylene Glycol 3350 [Miralax 119 gm Btl -] 17 gm PO DAILY bottle 01/20/18 Sennosides [Senna -] 2 tab PO HS tablet 01/20/18 Ferrous Sulfate 325 mg PO BID 08/15/18 Physical Exam for Ortho Vital Signs: Vital Signs Temperature 97.9 F 08/15/18 08:00 Pulse Rate 85 08/15/18 11:45 Respiratory Rate 20 08/15/18 11:50 Blood Pressure 105/71 08/15/18 11:45 O2 Sat by Pulse Oximetry (%) 100 08/15/18 11:20 Labs: CBC, BMP 08/15/18 06:25 08/15/18 07:47 INR, PTT INR 1.16 (0.83-1.09) H 08/15/18 06:25 - Lower Extremity Hip: Yes: Left, Leg Externally Rotated, Leg Shortened, Pain Imaging - Results X-ray: Report Reviewed, Image Reviewed Cat Scan: Report Reviewed, Image Reviewed Assessment/Plan 88yo woman with a PMH of HTN, rt lung CA s/p resection who was BIBA from home following an unwitnessed fall. She reported that she was trying to replace the clock on the bathroom wall and fell onto the sink. Ms Ordoñez stated that she was on the ground for only 30 minutes then got up to get an ice pack. However, she was noted to be soaked in urine and have several pressure ulcers on her left side on arrival, inconsistent with a down time of less than an hour. She reported that her neighbor called EMS. She denied any symptoms or pain currently. Pt coded earlier today and is currently intubated and on pressors. a/p- left IT fx Pt is currently intubated and on pressors If pt becomes medically stable will proceed with surgery otherwise, pain control, nwb re-consult if pt becomes medically stable d/w Dr. Quinteros
--- NOTE | 2018-08-15 14:51 | PN ---
Physical Exam: SUBJECTIVE: Patient seen and examined this AM. Cardiac arrest noted overnight, Intubated and sedated OBJECTIVE: Vital Signs Period Temp Pulse Resp BP Sys/Aguirre Pulse Ox Last 24 Hr 97.7 F-99.5 F 80-154 15-28 49-117/26-104 92-100 GEN: Intubated and sedated HEENT: Dry mucus membranes, ET tube in place, Crusted over ulcer on left face 3cm X 6 cm, non draining HEART: RRR, no murmurs noted LUNGS: Diffuse wheezes, mechanical breath sounds ABDOMEN: Mildly distended, normoactive bowel sounds EXTREMITIES: diffuse petechiae worse on LUE and LLE, LLE shortened and externally rotated, erythema/purpura around left shoulder NEURO: pupillary reflex in tact, gag reflex, hyper reflexive UEs b/l Laboratory Results - last 24 hr 08/14/18 08/14/18 08/14/18 13:09 13:09 13:09 WBC RBC Hgb Hct MCV MCH MCHC RDW Plt Count MPV Absolute Neuts (auto) Neutrophils % Lymphocytes % Monocytes % Eosinophils % Basophils % Nucleated RBC % PT with INR INR Anticoagulation Therapy Puncture Site ABG pH ABG pCO2 at Pt Temp ABG pO2 at Pt Temp ABG HCO3 ABG O2 Sat (Measured) ABG O2 Content ABG Base Excess Jeevan Test VBG pH POC VBG pCO2 POC VBG pO2 VBG HCO3 VBG O2 Sat (Gwendolyn) VBG Base Excess Carboxyhemoglobin Methemoglobin O2 Delivery Device Oxygen Flow Rate Vent Mode Vent Rate Mechanical Rate Pressure Support Vent Sodium Potassium Chloride Carbon Dioxide Anion Gap BUN Creatinine Est GFR (CKD-EPI)AfAm Est GFR (CKD-EPI)NonAf Random Glucose Hemoglobin A1c % Lactic Acid 3.8 H* Calcium Phosphorus Magnesium Total Bilirubin Direct Bilirubin AST ALT Alkaline Phosphatase Creatine Kinase Creatine Kinase Index 6.4 H* CK-MB (CK-2) 114.2 H Troponin I 10.50 H* Total Protein Albumin Triglycerides Cholesterol Total LDL Cholesterol HDL Cholesterol TSH Urine Color Urine Appearance Urine pH Ur Specific [place] Urine Protein Urine Glucose (UA) Urine Ketones Urine Blood Urine Nitrite Urine Bilirubin Urine Urobilinogen Ur Leukocyte Esterase Urine WBC (Auto) Urine RBC (Auto) Urine Casts (Auto) U Epithel Cells (Auto) Urine Bacteria (Auto) 08/14/18 08/14/18 08/14/18 15:26 17:04 17:42 WBC RBC Hgb Hct MCV MCH MCHC RDW Plt Count MPV Absolute Neuts (auto) Neutrophils % Lymphocytes % Monocytes % Eosinophils % Basophils % Nucleated RBC % PT with INR INR Anticoagulation Therapy Puncture Site ABG pH ABG pCO2 at Pt Temp ABG pO2 at Pt Temp ABG HCO3 ABG O2 Sat (Measured) ABG O2 Content ABG Base Excess Jeevan Test VBG pH POC VBG pCO2 POC VBG pO2 VBG HCO3 VBG O2 Sat (Gwendolyn) VBG Base Excess Carboxyhemoglobin Methemoglobin O2 Delivery Device Oxygen Flow Rate Vent Mode Vent Rate Mechanical Rate Pressure Support Vent Sodium Potassium Chloride Carbon Dioxide Anion Gap BUN Creatinine Est GFR (CKD-EPI)AfAm Est GFR (CKD-EPI)NonAf Random Glucose Hemoglobin A1c % Lactic Acid 1.3 Calcium Phosphorus Magnesium Total Bilirubin Direct Bilirubin AST ALT Alkaline Phosphatase Creatine Kinase 1707 H Creatine Kinase Index 6.1 H* CK-MB (CK-2) 105.6 H Troponin I 9.49 H* Total Protein Albumin Triglycerides Cholesterol Total LDL Cholesterol HDL Cholesterol TSH Urine Color Dk yellow Urine Appearance Turbid Urine pH 5.0 Ur Specific [place] 1.022 Urine Protein 2+ H Urine Glucose (UA) Negative Urine Ketones Trace H Urine Blood 3+ H Urine Nitrite Negative Urine Bilirubin 2+ H Urine Urobilinogen 1.0 Ur Leukocyte Esterase Trace Urine WBC (Auto) 6 Urine RBC (Auto) 2 Urine Casts (Auto) 148 U Epithel Cells (Auto) 19.4 Urine Bacteria (Auto) 23.5 08/14/18 08/14/18 08/14/18 21:10 23:33 23:33 WBC RBC Hgb Hct MCV MCH MCHC RDW Plt Count MPV Absolute Neuts (auto) Neutrophils % Lymphocytes % Monocytes % Eosinophils % Basophils % Nucleated RBC % PT with INR INR Anticoagulation Therapy No Result Required. Puncture Site Right radial ABG pH 7.43 ABG pCO2 at Pt Temp 30.1 L ABG pO2 at Pt Temp 86.0 ABG HCO3 19.4 L ABG O2 Sat (Measured) 97.0 ABG O2 Content 16.3 ABG Base Excess -3.6 L Jeevan Test Positive VBG pH 7.35 POC VBG pCO2 40.1 L POC VBG pO2 22.5 L VBG HCO3 21.5 L VBG O2 Sat (Gwendolyn) 29.6 L VBG Base Excess -3.3 L Carboxyhemoglobin 1.2 Methemoglobin 0.3 O2 Delivery Device No Result Required. Oxygen Flow Rate Room air Vent Mode No Result Required. Vent Rate No Result Required. Mechanical Rate No Result Required. Pressure Support Vent No Result Required. Sodium Potassium Chloride Carbon Dioxide Anion Gap BUN Creatinine Est GFR (CKD-EPI)AfAm Est GFR (CKD-EPI)NonAf Random Glucose Hemoglobin A1c % Lactic Acid Calcium Phosphorus Magnesium 2.2 Total Bilirubin Direct Bilirubin 0.4 H AST ALT Alkaline Phosphatase Creatine Kinase Cancelled Creatine Kinase Index CK-MB (CK-2) Troponin I 8.95 H* Total Protein Albumin Triglycerides Cholesterol Total LDL Cholesterol HDL Cholesterol TSH Urine Color Urine Appearance Urine pH Ur Specific [place] Urine Protein Urine Glucose (UA) Urine Ketones Urine Blood Urine Nitrite Urine Bilirubin Urine Urobilinogen Ur Leukocyte Esterase Urine WBC (Auto) Urine RBC (Auto) Urine Casts (Auto) U Epithel Cells (Auto) Urine Bacteria (Auto) 08/15/18 08/15/18 08/15/18 05:20 05:20 05:20 WBC 16.4 H RBC 3.83 Hgb 12.0 Hct 35.4 MCV 92.6 MCH 31.4 MCHC 33.9 RDW 13.8 Plt Count 159 MPV 8.6 Absolute Neuts (auto) 14.4 H Neutrophils % 88.0 H Lymphocytes % 4.4 L Monocytes % 7.2 Eosinophils % 0.1 D Basophils % 0.3 Nucleated RBC % 0 PT with INR INR Anticoagulation Therapy Puncture Site ABG pH ABG pCO2 at Pt Temp ABG pO2 at Pt Temp ABG HCO3 ABG O2 Sat (Measured) ABG O2 Content ABG Base Excess Jeevan Test VBG pH POC VBG pCO2 POC VBG pO2 VBG HCO3 VBG O2 Sat (Gwendolyn) VBG Base Excess Carboxyhemoglobin Methemoglobin O2 Delivery Device Oxygen Flow Rate Vent Mode Vent Rate Mechanical Rate Pressure Support Vent Sodium 134 L Potassium 4.3 Chloride 103 Carbon Dioxide 19 L Anion Gap 12 BUN 38 H Creatinine 1.0 Est GFR (CKD-EPI)AfAm 59.08 Est GFR (CKD-EPI)NonAf 50.97 Random Glucose 114 H Hemoglobin A1c % 5.2 Lactic Acid Calcium 9.1 Phosphorus 3.7 Magnesium 2.3 Total Bilirubin 1.3 H Direct Bilirubin AST 217 H ALT 141 H Alkaline Phosphatase 59 Creatine Kinase 1103 H Creatine Kinase Index 6.1 H* CK-MB (CK-2) 67.9 H Troponin I 7.64 H* Total Protein 6.4 Albumin 3.3 L Triglycerides 77 Cholesterol 161 Total LDL Cholesterol 72 HDL Cholesterol 66 H TSH 2.29 Urine Color Urine Appearance Urine pH Ur Specific [place] Urine Protein Urine Glucose (UA) Urine Ketones Urine Blood Urine Nitrite Urine Bilirubin Urine Urobilinogen Ur Leukocyte Esterase Urine WBC (Auto) Urine RBC (Auto) Urine Casts (Auto) U Epithel Cells (Auto) Urine Bacteria (Auto) 08/15/18 08/15/18 08/15/18 06:25 06:25 06:25 WBC 13.2 H RBC 3.59 L Hgb 11.3 Hct 34.2 MCV 95.3 MCH 31.3 MCHC 32.9 RDW 13.9 Plt Count 138 MPV 9.0 Absolute Neuts (auto) Neutrophils % Lymphocytes % Monocytes % Eosinophils % Basophils % Nucleated RBC % PT with INR 13.70 H INR 1.16 H Anticoagulation Therapy Puncture Site ABG pH ABG pCO2 at Pt Temp ABG pO2 at Pt Temp ABG HCO3 ABG O2 Sat (Measured) ABG O2 Content ABG Base Excess Jeevan Test VBG pH POC VBG pCO2 POC VBG pO2 VBG HCO3 VBG O2 Sat (Gwendolyn) VBG Base Excess Carboxyhemoglobin Methemoglobin O2 Delivery Device Oxygen Flow Rate Vent Mode Vent Rate Mechanical Rate Pressure Support Vent Sodium Potassium Chloride Carbon Dioxide Anion Gap BUN Creatinine Est GFR (CKD-EPI)AfAm Est GFR (CKD-EPI)NonAf Random Glucose Hemoglobin A1c % Lactic Acid 4.8 H* Calcium Phosphorus Magnesium Total Bilirubin Direct Bilirubin AST ALT Alkaline Phosphatase Creatine Kinase Creatine Kinase Index CK-MB (CK-2) Troponin I Total Protein Albumin Triglycerides Cholesterol Total LDL Cholesterol HDL Cholesterol TSH Urine Color Urine Appearance Urine pH Ur Specific [place] Urine Protein Urine Glucose (UA) Urine Ketones Urine Blood Urine Nitrite Urine Bilirubin Urine Urobilinogen Ur Leukocyte Esterase Urine WBC (Auto) Urine RBC (Auto) Urine Casts (Auto) U Epithel Cells (Auto) Urine Bacteria (Auto) 08/15/18 08/15/18 07:47 08:13 WBC RBC Hgb Hct MCV MCH MCHC RDW Plt Count MPV Absolute Neuts (auto) Neutrophils % Lymphocytes % Monocytes % Eosinophils % Basophils % Nucleated RBC % PT with INR INR Anticoagulation Therapy No Result Required. Puncture Site Left femoral ABG pH 7.27 L ABG pCO2 at Pt Temp 33.0 L ABG pO2 at Pt Temp 260 H ABG HCO3 14.7 L ABG O2 Sat (Measured) 99.4 H ABG O2 Content 13.3 L ABG Base Excess -10.8 L Jeevan Test Positive VBG pH POC VBG pCO2 POC VBG pO2 VBG HCO3 VBG O2 Sat (Gwendolyn) VBG Base Excess Carboxyhemoglobin Methemoglobin O2 Delivery Device No Result Required. Oxygen Flow Rate Yes Vent Mode No Result Required. Vent Rate No Result Required. Mechanical Rate No Result Required. Pressure Support Vent No Result Required. Sodium 136 Potassium 3.8 Chloride 106 Carbon Dioxide 17 L Anion Gap 13 BUN 38 H Creatinine 1.2 Est GFR (CKD-EPI)AfAm 47.39 Est GFR (CKD-EPI)NonAf 40.89 Random Glucose 190 H Hemoglobin A1c % Lactic Acid Calcium 8.2 L Phosphorus 5.2 H Magnesium 2.3 Total Bilirubin 1.1 H Direct Bilirubin AST 215 H ALT 144 H Alkaline Phosphatase 60 Creatine Kinase Creatine Kinase Index CK-MB (CK-2) Troponin I Total Protein 5.7 L Albumin 2.9 L Triglycerides Cholesterol Total LDL Cholesterol HDL Cholesterol TSH Urine Color Urine Appearance Urine pH Ur Specific [place] Urine Protein Urine Glucose (UA) Urine Ketones Urine Blood Urine Nitrite Urine Bilirubin Urine Urobilinogen Ur Leukocyte Esterase Urine WBC (Auto) Urine RBC (Auto) Urine Casts (Auto) U Epithel Cells (Auto) Urine Bacteria (Auto) Active Medications Generic Name Dose Route Start Last Admin Trade Name Freq PRN Reason Stop Dose Admin Albuterol/Ipratropium 1 amp 08/15/18 12:00 08/15/18 11:15 Duoneb - NEB 1 amp RQID EDMOND Administration Heparin Sodium (Porcine) 1,000 unit 08/15/18 10:23 Heparin - IVPUSH PRN PRN Heparin Heparin Sodium (Porcine) 5,000 unit 08/15/18 10:23 Heparin - IVPUSH PRN PRN Heparin Sodium Chloride 1,000 mls @ 75 mls/hr 08/14/18 21:00 08/14/18 21:13 Normal Saline - IV 75 mls/hr ASDIR EDMOND Administration Piperacillin Sod/Tazobactam 50 mls @ 100 mls/hr 08/15/18 09:30 08/15/18 10:05 Sod 2.25 gm/ Dextrose IVPB 100 mls/hr Q6H-IV EDMOND Administration Protocol Dexmedetomidine HCl 200 mcg/ 50 mls @ 2.41 mls/hr 08/15/18 06:00 08/15/18 12: 09 Sodium Chloride IVPB Not Given TITR EDMOND 0.2 MCG/KG/HR Vasopressin 50 units/ Sodium 100 mls @ 4 mls/hr 08/15/18 06:00 08/15/18 11:45 Chloride IVPB 0 units/hr ASDIR EDMOND 0 mls/hr Titration Protocol 2 UNITS/HR Propofol 1,000,000 mcg in 100 mls @ 1.447 mls/hr 08/15/18 06:00 08/15/18 12: 00 Diprivan - IVPB 10 mcg/kg/min TITR EDMOND 2.893 mls/hr Titration Protocol 5 MCG/KG/MIN Propofol 1,000,000 mcg in 100 mls @ 2.893 mls/hr 08/15/18 06:30 08/15/18 11: 06 Diprivan - IVPB Not Given TITR EDMOND Protocol 10 MCG/KG/MIN Vancomycin HCl 1,000 mg in 250 mls @ 200 mls/hr 08/16/18 00:00 Vancomycin (Pre-Docked) IVPB Q24H EDMOND Protocol Heparin Sodium (Porcine) 25, 500 mls @ 16 mls/hr 08/15/18 10:30 08/15/18 12: 18 000 unit/ Sodium Chloride IV 800 unit/hr TITR EDMOND 16 mls/hr Administration Protocol 800 UNIT/HR Norepinephrine Bitartrate 8, 500 mls @ 18.75 mls/hr 08/15/18 10:30 08/15/18 08:50 000 mcg/ Dextrose IV 20 mcg/min TITR EDMOND 75 mls/hr Titration Protocol 5 MCG/MIN Pantoprazole Sodium 40 mg 08/15/18 10:30 08/15/18 12:09 Protonix Iv IVPUSH 40 mg DAILY ED[facility] Administration Polyethylene Glycol 17 gm 08/15/18 10:00 08/15/18 11:07 Miralax (For Daily Use) - PO Not Given DAILY ED[facility]D Senna 8.8 mg 08/15/18 22:00 Senna Oral Solution - GT HS EDMOND ASSESSMENT/PLAN: 88 year old female with a past medical history of hypertension and right sided lung cancer status post resection, AAA was brought in by ambulance after being found on the ground allegedly by the neighbor, s/p Cardiac arrest overnight, intubated and sedated in ICU on pressors. Cardiogenic shock likely secondary to NSTEMI -s/p cardiac arrest -Currently on pressors -Cardiology consult appreciated and case discussed -remains intubated and sedated -avoid dopamine/dobutamine if possible as pt is very high risk for VT and cardiac arrest -Troponin downtrending -less likely septic shock with no signs of infectious etiology, cultures pending. Left Hip Fracture -Seen by ortho -no surgical management at this time, pt too unstable -will reconsult for possible repair if stabilizes AAA 5.7 cm -slight increase from prior records -Seen by vascular surgery who recommends f/u if pt becomes more stable HTN -currenty hypotensive on pressors Rhabdomyolysis -CK > 1000 -Fluid resuscitation, cautiously with shock primarily being cardiogenic with acute systolic failure noted on Echo Transaminitis -likely secondary to shock and cardiac arrest -Trend FEN -cautious fluid resuscitation, echo noted -monitor and replete -NPO DVT Prophylaxis -Heparin drip Disposition ICU, continue goals of care discussion with sister in law, remains full code at this time Visit type - Emergency Visit Emergency Visit: Yes ED Registration Date: 08/14/18 Care time: The patient presented to the Emergency Department on the above date and was hospitalized for further evaluation of their emergent condition. - New Patient This patient is new to me today: Yes Date on this admission: 08/15/18 - Critical Care Critical Care patient: Yes Total Critical Care Time (in minutes): 75 Critical Care Statement: The care of this patient involved high complexity decision making to prevent further life threatening deterioration of the patient 's condition and/or to evaluate & treat vital organ system(s) failure or risk of failure.
--- NOTE | 2018-08-15 14:55 | ECHO ---
Name: KRYSTLE BANKS Exam:Adult Echocardiogram Study Date: 08/15/2018 12:50 PM Age: 88 yrs Reason For Study: KS HX LOBECTOMY Height: 64 in Weight: 90 lb BSA: 1.4 m2 BP: 96/71 mmHg MMode/2D Measurements & Calculations IVSd: 0.99 cm Ao root diam: 2.6 cm LVIDd: 4.3 cm LA dimension: 2.4 cm LVIDs: 3.1 cm LVPWd: 0.82 cm EDV(Teich): 83.7 ml LVOT diam: 2.0 cm ESV(Teich): 39.2 ml Doppler Measurements & Calculations MV E max luis: 26.0 cm/sec Ao V2 max: 157.1 cm/sec MV A max luis: 79.7 cm/sec Ao max P.9 mmHg MV E/A: 0.33 Ao V2 mean: 105.4 cm/sec MV dec time: 0.14 sec Ao mean P.2 mmHg Ao V2 VTI: 25.2 cm DONTE(I,D): 2.1 cm2 AI P1/2t: 437.2 msec DONTE(V,D): 2.2 cm2 AI max luis: 300.2 cm/sec LV V1 max P.0 mmHg AI max P.2 mmHg LV V1 mean P.2 mmHg AI dec slope: 201.1 cm/sec2 LV V1 max: 111.3 cm/sec LV V1 mean: 68.6 cm/sec LV V1 VTI: 16.9 cm SV(LVOT): 53.4 ml TR max luis: 185.6 cm/sec TR max P.0 mmHg PI end-d luis: 112.1 cm/sec Med Peak E' Luis: 8.5 cm/sec Med E/e': 3.1 Lat Peak E' Luis: 1.9 cm/sec Lat E/e': 13.7 Left Ventricle Left ventricular systolic function is severely reduced. Ejection Fraction = 25-30%. The transmitral s pectral Doppler flow pattern is suggestive of impaired LV relaxation. There is akinesis of the mid anterosept um and apical anterior wall. There is severe global hypokinesis of the left ventricle. Right Ventricle The right ventricle is borderline dilated. The right ventricular systolic function is mildly reduced. Atria Normal left and right atrial size and function. Mitral Valve The mitral valve is normal in structure and function. There is moderate mitral annular calcification. There is no mitral valve stenosis. There is trace mitral regurgitation. Tricuspid Valve The tricuspid valve is normal in structure and function. There is mild tricuspid regurgitation. Aortic Valve There is mild to moderate aortic sclerosis.;. No hemodynamically significant valvular aortic stenosis . Mild aortic regurgitation. Pulmonic Valve The pulmonic valve is not well seen, but is grossly normal. There is no pulmonic valvular stenosis. M ild pulmonic valvular regurgitation. Great Vessels The aortic root is normal size. Pericardium/Pleura There is no pericardial effusion. Interpretation Summary Left ventricular systolic function is severely reduced. Ejection Fraction = 25-30%. There is akinesis of the mid anteroseptum and apical anterior wall. There is severe global hypokinesis of the left ventricle. The right ventricle is borderline dilated. The right ventricular systolic function is mildly reduced. There is moderate mitral annular calcification. There is mild tricuspid regurgitation. There is mild to moderate aortic sclerosis.; Mild aortic regurgitation. There is no pericardial effusion. MD Kessler *David 08/15/2018 02:55 PM
--- NOTE | 2018-08-15 15:04 | EKG ---
Test Reason : Blood Pressure : / mmHG Vent. Rate : 085 BPM Atrial Rate : 085 BPM P-R Int : 132 ms QRS Dur : 090 ms QT Int : 372 ms P-R-T Axes : 049 021 -57 degrees QTc Int : 442 ms SINUS RHYTHM WITH FUSION COMPLEXES POSSIBLE ANTEROLATERAL INFARCT (CITED ON OR BEFORE 14-AUG-2018) T WAVE ABNORMALITY, CONSIDER INFERIOR ISCHEMIA ABNORMAL ECG Confirmed by DESIRAE BURRELL MD ([id number]) on 08/15/2018 3:04:07 PM Referred By: BRIAN GILL Confirmed By:DESIRAE BURRELL MD
--- NOTE | 2018-08-15 15:10 | EKG ---
Test Reason : Blood Pressure : / mmHG Vent. Rate : 089 BPM Atrial Rate : 089 BPM P-R Int : 128 ms QRS Dur : 080 ms QT Int : 394 ms P-R-T Axes : 060 018 -70 degrees QTc Int : 479 ms SINUS RHYTHM WITH OCCASIONAL PREMATURE VENTRICULAR COMPLEXES AND PREMATURE ATRIAL COMPLEXES cannot CANNOT RULE OUT ANTERIOR INFARCT , AGE UNDETERMINED T WAVE ABNORMALITY, CONSIDER INFERIOR ISCHEMIA ABNORMAL ECG Confirmed by DESIRAE BURRELL MD ([id number]) on 08/15/2018 3:10:01 PM Referred By: Confirmed By:DESIRAE BURRELL MD
--- NOTE | 2018-08-15 15:19 | EKG ---
Test Reason : Blood Pressure : / mmHG Vent. Rate : 080 BPM Atrial Rate : 080 BPM P-R Int : 142 ms QRS Dur : 084 ms QT Int : 462 ms P-R-T Axes : 057 025 -76 degrees QTc Int : 532 ms SINUS RHYTHM WITH OCCASIONAL PREMATURE VENTRICULAR COMPLEXES ANTEROLATERAL INFARCT (CITED ON OR BEFORE 14-AUG-2018) T WAVE ABNORMALITY, CONSIDER INFERIOR ISCHEMIA PROLONGED QT ABNORMAL ECG WHEN COMPARED WITH ECG OF 14-AUG-2018 14:58, PREMATURE VENTRICULAR COMPLEXES ARE NOW PRESENT PREMATURE SUPRAVENTRICULAR COMPLEXES ARE NO LONGER PRESENT Confirmed by DESIRAE BURRELL MD ([id number]) on 08/15/2018 3:18:44 PM Referred By: Confirmed By:DESIRAE BURRELL MD
[2018-08-15] MEDS: SODIUM CHLORIDE 1,000 ML IV SCH ×2 (17:08→22:16)
[2018-08-15] MEDS ORDERED: DOPAMINE 400 MG/D5W - 400,000 MCG/250 ML INFUS.BAG IVPB SCH (18:00)
[2018-08-15] MEDS: SENNOSIDES 8.8 MG/5 ML BULK BOTTLE GT SCH (22:09)
[2018-08-16] MEDS: VANCOMYCIN 1 GRAM (PRE-DOCKED) 1,000 MG/250 ML BAG IVPB SCH (00:16)
[2018-08-16] MEDS: PIPERACILLIN/TAZOB 2.25 GM 2.25 GM in DEXTROSE 5%-WATER - 50 ML IVPB SCH ×4 (03:30→21:59)
[2018-08-16] MEDS ORDERED: PIPERACILLIN/TAZOBACTAM 2.25 GM VIAL IVPB ONE ×4 (04:08→21:58)
[2018-08-16] MEDS ORDERED: DEXTROSE 5%-WATER - 50 ML IVPB ONE ×4 (04:08→21:58)
[2018-08-16] MEDS: PROPOFOL 1,000,000 MCG/100 ML VIAL IVPB SCH ×2 (04:12→09:50)
[2018-08-16 06:10] LABS: BASO % 0.1 % (0-2.0); EOS % 0.1 % (0-4.5); HEMOGLOBIN 9.5 GM/dL (10.7-15.3); LYMPH % 4.8 % (8-40); MCH 31.3 pg (25.7-33.7); MCHC 33.8 g/dl (32.0-36.0); MEAN CELL VOLUME 92.7 fl (80-96); MEAN PLT VOLUME 8.6 fl (7.5-11.1); MONO % 6.6 % (3.8-10.2); NEUT % 88.4 % (42.8-82.8); PLATELET COUNT 127 K/MM3 (134-434); RBC 3.03 M/mm3 (3.60-5.2); RDW 13.5 % (11.6-15.6); WHITE BLOOD COUNT 15.7 K/mm3 (4.0-10.0)
[2018-08-16 06:53] LABS: ALBUMIN 2.4 g/dl (3.4-5.0); CALCIUM 7.8 mg/dL (8.5-10.1); MAGNESIUM 1.9 mg/dL (1.8-2.4); PHOSPHOROUS 2.4 mg/dL (2.5-4.9)
--- NOTE | 2018-08-16 07:33 | PN ---
Progress Note (short form) - Note Progress Note: Pulm/CCM SUBJECTIVE: Patient seen and examined in the ICU. Events noted. 24HR: -vasopressors down trending -Troponin downtrending -holding sedation this am to access mental status, on PS 12 taking good tidal volume. CXR: s/p R pneumonectomy, L without infiltrate, no pneumothorax NOK was reached and wants all efforts to continue at this time per report Vital Signs Temp 99.9 F H 08/16/18 02:00 Pulse 76 08/16/18 06:00 Resp 18 08/16/18 06:50 BP 86/62 L 08/16/18 06:00 Pulse Ox 100 08/15/18 21:07 Intake & Output 08/15/18 08/15/18 08/16/18 11:59 23:59 11:59 Intake Total 1714 1318 Output Total 550 450 Balance 1164 868 Weight 48.217 kg 52.163 kg Intake: IV 1714 1318 DIPRIVAN - 1,000,000 mcg 25 35 In 100 ml @ 10 MCG/KG/MIN 2.893 mls/hr IVPB TITR [facility]MON[facility] Rx#:[id number] Heparin - 25,000 Unit In 90 173 Normal Saline - 495 ml @ 800 UNIT/HR 16 mls/hr IV TITR [facility] Rx#:[id number] Levophed - 8,000 Mcg In 745 439 D5w - 492 ml @ 5 MCG/MIN 18.75 mls/hr IV TITR [facility] Rx#:[id number] Normal Saline - 1,000 ml 671 @ 42 mls/hr IV ASDIR [facility]MON[facility] Rx#:[id number] Pitressin - 50 Units In 48 Normal Saline - 97.5 ml @ 2 UNITS/HR 4 mls/hr IVPB ASDIR [facility]MOND Rx#: [id number] SL 806 Output: Urine 550 450 Glez 550 450 Other: Voiding Method Indwelling Catheter Indwelling Catheter Bowel Movement No No # Bowel Movements 0 Weight Measurement Method Built in Bedscale Built in Bedscale Active Medications Albuterol/Ipratropium (Duoneb -) 1 amp NEB RQID [facility] Last Admin: 08/15/18 21:08 Dose: 1 amp Heparin Sodium (Porcine) (Heparin -) 1,000 unit IVPUSH PRN PRN PRN Reason: Heparin Heparin Sodium (Porcine) (Heparin -) 5,000 unit IVPUSH PRN PRN PRN Reason: Heparin Piperacillin Sod/Tazobactam (Sod 2.25 gm/ Dextrose) 50 mls @ 100 mls/hr IVPB Q6H-IV EDMOND; Protocol Last Admin: 08/16/18 03:30 Dose: 100 mls/hr Propofol (Diprivan -) 1,000,000 mcg in 100 mls @ 1.447 mls/hr IVPB TITR [facility]MOND; Protocol Last Titration: 08/16/18 05:31 Dose: 20 mcg/kg/min, 5.786 mls/hr Vancomycin HCl (Vancomycin (Pre-Docked)) 1,000 mg in 250 mls @ 200 mls/hr IVPB Q24H [facility]MON[facility]; Protocol Last Admin: 08/16/18 00:16 Dose: 200 mls/hr Heparin Sodium (Porcine) 25, (000 unit/ Sodium Chloride) 500 mls @ 16 mls/hr IV TITR EDMOND; Protocol Last Titration: 08/16/18 07:10 Dose: 750 unit/hr, 15 mls/hr Norepinephrine Bitartrate 8, (000 mcg/ Dextrose) 500 mls @ 18.75 mls/hr IV TITR EDMOND; Protocol Last Titration: 08/16/18 05:30 Dose: 8 mcg/min, 30 mls/hr Sodium Chloride (Normal Saline -) 1,000 mls @ 42 mls/hr IV ASDIR [facility]MOND Last Admin: 08/15/18 22:16 Dose: 42 mls/hr Pantoprazole Sodium (Protonix Iv) 40 mg IVPUSH DAILY [facility]MOND Last Admin: 08/15/18 12:09 Dose: 40 mg Polyethylene Glycol (Miralax (For Daily Use) -) 17 gm PO DAILY EDMOND Last Admin: 08/15/18 11:07 Dose: Not Given Senna (Senna Oral Solution -) 8.8 mg GT HS EDMOND Last Admin: 08/15/18 22:09 Dose: Not Given GENERAL:lightly sedated, grimaces to noxious stimuli, HEAD: left facial hematoma on zygomatic area appears old, dry EYES: reactive pupil on the left , non reactive on right EARS, NOSE, THROAT: orally intubated NECK: Normal range of motion, supple. LUNGS: intubated, vented, near absent R, clear L HEART: Regular rate and rhythm, normal S1 and S2 without murmur, rub or gallop. ABDOMEN: Soft, not distended, (+) bowel sounds, LOWER EXTREMITIES: (+) pulses, cool, cap refill 2sec NEUROLOGICAL: poorly responsive, withdraws to pain SKIN: Warm, echymosis , left hip stage 2 ulcer CBC, BMP 08/16/18 05:30 08/16/18 05:30 ASSESSMENT/PLAN: Cardiopulmonary arrest (?) Etiology primary cardiac R/O Sepsis: No clear source of infection R/O PNA Acute Bronchospasm Lactic acidosis Shock: most likely cardiogenic Elevated CPK AAA 5.7 cm Left hip fracture Multiple ribs fractures: possibly old History of Lung CA S/P Right Pneumonectomy COPD Transaminitis hold sedation, push opiates for pain control not surgical candidate at this time for hip fx IVF Follow CVP Empiric ABX per ID Strict I & O f/u ECHO results Follow cultures Requires ICU monitoring Dedrick ACNP [id number]
[2018-08-16] MEDS ORDERED: NAPH,MB-DB/K PH,MBDB POWDER PACKET NGT ONE (07:34)
--- NOTE | 2018-08-16 08:22 | PN ---
Teaching Attending Note Name of Resident: Darwin Ponce ATTENDING PHYSICIAN STATEMENT I saw and evaluated the patient. I reviewed the resident's note and discussed the case with the resident. I agree with the resident's findings and plan as documented. SUBJECTIVE: unable to obtain hx. no events over night OBJECTIVE: NAD, intubated, awake, round equal reactive pupils. scabbed lesion on L face CV: RRR Lungs: CTAB anteriorly, minimal fine crackles at L base posteriorly Abd: soft, NT, ND, hypoactive BS Ext: bruises on L upper and lower extremities. and knees. eschar on L anterior hip ASSESSMENT AND PLAN: 88 y/o lady with h/o HTN, Lung carcinoma s/p R lung resection who presented after a fall/? syncope . she was found to have L hip Fx ,hypothermia, NSTEMI, and rhabdo. hospital course was cmplicated with cardiac arrest on day of admission 1- NSTEMI 2- Shock, likely cardiogentic shock 3- CArdiac arrest 4- L hip Fx 5- AAA 5.8 cm, 6- Rhabdo 7- T4 compression fx 8-Transaminitis : likely due to shock 9- Possible syncope 10- r/o sepsis 11- hypophosphatemia Plan: - weaning trial today. wean off sedation . d/w ICU staff - Abx pending cultures - vanco trough before 4th dose - cont levophed - Cont heparin gtt - follow renal and liver function - when acute issues resolve, will address L hip Fx - medical management of AAA - IV PPI - hold home BP meds Dispo : ICU level of care. Full code per sister in law ( only living relative )
[2018-08-16] MEDS: ALBUTEROL SO4 2.5/IPRATROPIUM 0.5 INH SOL 3 ML VIAL.NEB. NEB SCH ×4 (08:23→21:06)
[2018-08-16] MEDS ORDERED: MIDAZOLAM HCL 2 MG/2 ML SINGLE DOSE VIAL ONE ×2 (09:14→16:32)
[2018-08-16] MEDS ORDERED: AMIODARONE IN DEXTROSE,ISO-OSM 150 MG/100 ML BAG IVPB ONE (09:14)
[2018-08-16] MEDS ORDERED: MIDAZOLAM HCL 2 MG/2 ML SINGLE DOSE VIAL IVPUSH ONE ×2 (09:14→18:55)
[2018-08-16] MEDS ORDERED: AMIODARONE HCL 150 MG/3 ML VIAL ONE (09:17)
[2018-08-16] MEDS: PANTOPRAZOLE SODIUM 40 MG VIAL IVPUSH SCH (09:47)
[2018-08-16] MEDS ORDERED: AMIODARONE IN DEXTROSE,ISO-OSM 360 MG/200 ML BAG IVPB ONE (09:56)
[2018-08-16] MEDS ORDERED: AMIODARONE IN DEXTROSE,ISO-OSM 360 MG/200 ML BAG IVPB SCH ×2 (10:00→17:00)
--- NOTE | 2018-08-16 10:38 | PN ---
Progress Note (short form) - Note Progress Note: remains intubated Vital Signs Period Temp Pulse Resp BP Sys/Aguirre Pulse Ox Last 24 Hr 98.5 F-99.9 F 74-121 13-21 71-108/53-79 100-100 cor-rrr lungs decreased bs at bases abd soft,nt ext trace edema ecchymoses and wounds unchanged CBC, BMP 08/16/18 05:30 08/16/18 05:30 Microbiology 08/14/18 13:07 Blood - Peripheral Venous Blood Culture - Preliminary NO GROWTH OBTAINED AFTER 24 HOURS, INCUBATION TO CONTINUE FOR 4 DAYS. 08/14/18 13:09 Blood - Peripheral Venous Blood Culture - Preliminary NO GROWTH OBTAINED AFTER 24 HOURS, INCUBATION TO CONTINUE FOR 4 DAYS. 08/14/18 15:26 Urine - Urine Glez Urine Culture - Final NO GROWTH OBTAINED Current Medications Albuterol/Ipratropium (Duoneb -) 1 amp NEB RQID EDMOND Last Admin: 08/16/18 08:23 Dose: 1 amp Fentanyl (Sublimaze Injection -) 50 mcg IVPUSH Q1H PRN PRN Reason: PAIN Stop: 08/17/18 08:59 Last Admin: 08/16/18 09:04 Dose: 50 mcg Heparin Sodium (Porcine) (Heparin -) 1,000 unit IVPUSH PRN PRN PRN Reason: Heparin Heparin Sodium (Porcine) (Heparin -) 5,000 unit IVPUSH PRN PRN PRN Reason: Heparin Piperacillin Sod/Tazobactam (Sod 2.25 gm/ Dextrose) 50 mls @ 100 mls/hr IVPB Q6H-IV [facility]MON[facility]; Protocol Last Admin: 08/16/18 09:47 Dose: 100 mls/hr Propofol (Diprivan -) 1,000,000 mcg in 100 mls @ 1.447 mls/hr IVPB TITR [facility]; Protocol Last Admin: 08/16/18 09:50 Dose: Not Given Vancomycin HCl (Vancomycin (Pre-Docked)) 1,000 mg in 250 mls @ 200 mls/hr IVPB Q24H [facility]; Protocol Last Admin: 08/16/18 00:16 Dose: 200 mls/hr Heparin Sodium (Porcine) 25, (000 unit/ Sodium Chloride) 500 mls @ 16 mls/hr IV TITR [facility]; Protocol Last Admin: 08/16/18 11:47 Dose: 750 unit/hr, 15 mls/hr Norepinephrine Bitartrate 8, (000 mcg/ Dextrose) 500 mls @ 18.75 mls/hr IV TITR [facility]; Protocol Last Titration: 08/16/18 09:34 Dose: 10 mcg/min, 37.5 mls/hr Sodium Chloride (Normal Saline -) 1,000 mls @ 42 mls/hr IV ASDIR [facility] Last Admin: 08/15/18 22:16 Dose: 42 mls/hr Amiodarone HCl/Dextrose (Nexterone 360 Mg/200 Ml Bag) 360 mg in 200 mls @ 33.333 mls/hr IVPB ONCE ONE; Protocol Stop: 08/16/18 15:55 Last Admin: 08/16/18 10:52 Dose: 33.333 mls/hr Amiodarone HCl/Dextrose (Nexterone 360 Mg/200 Ml Bag) 360 mg in 200 mls @ 16.667 mls/hr IVPB ASDIR [facility]; Protocol Pantoprazole Sodium (Protonix Iv) 40 mg IVPUSH DAILY [facility] Last Admin: 08/16/18 09:47 Dose: 40 mg Polyethylene Glycol (Miralax (For Daily Use) -) 17 gm PO DAILY [facility] Last Admin: 08/15/18 11:07 Dose: Not Given Senna (Senna Oral Solution -) 8.8 mg GT HS [facility] Last Admin: 08/15/18 22:09 Dose: Not Given a/p s/p arrest GA ?sepsis continue antibiotics vancomycin/zosyn pending final culture results Problem List - Problems (1) Sudden cardiac arrest Code(s): I46.9 - CARDIAC ARREST, CAUSE UNSPECIFIED (2) Unwitnessed fall Code(s): R29.6 - REPEATED FALLS (3) Hip fracture, left Code(s): S72.002A - FRACTURE OF UNSP PART OF NECK OF LEFT FEMUR, INIT (4) Sepsis Code(s): A41.9 - SEPSIS, UNSPECIFIED ORGANISM (5) Rhabdomyolysis Code(s): M62.82 - RHABDOMYOLYSIS (6) Elevated troponin Code(s): R74.8 - ABNORMAL LEVELS OF OTHER SERUM ENZYMES
--- NOTE | 2018-08-16 10:39 | PN ---
Progress Note, Physician History of Present Illness: Episode of AFib with RVR Started on Amio with bolus and converted back to NSR - Current Medication List Current Medications: Active Medications Albuterol/Ipratropium (Duoneb -) 1 amp NEB RQID [facility] Last Admin: 08/16/18 08:23 Dose: 1 amp Fentanyl (Sublimaze Injection -) 50 mcg IVPUSH Q1H PRN PRN Reason: PAIN Stop: 08/17/18 08:59 Last Admin: 08/16/18 09:04 Dose: 50 mcg Heparin Sodium (Porcine) (Heparin -) 1,000 unit IVPUSH PRN PRN PRN Reason: Heparin Heparin Sodium (Porcine) (Heparin -) 5,000 unit IVPUSH PRN PRN PRN Reason: Heparin Piperacillin Sod/Tazobactam (Sod 2.25 gm/ Dextrose) 50 mls @ 100 mls/hr IVPB Q6H-IV [facility]; Protocol Last Admin: 08/16/18 09:47 Dose: 100 mls/hr Propofol (Diprivan -) 1,000,000 mcg in 100 mls @ 1.447 mls/hr IVPB TITR [facility]; Protocol Last Admin: 08/16/18 09:50 Dose: Not Given Vancomycin HCl (Vancomycin (Pre-Docked)) 1,000 mg in 250 mls @ 200 mls/hr IVPB Q24H [facility]; Protocol Last Admin: 08/16/18 00:16 Dose: 200 mls/hr Heparin Sodium (Porcine) 25, (000 unit/ Sodium Chloride) 500 mls @ 16 mls/hr IV TITR [facility]; Protocol Last Titration: 08/16/18 07:10 Dose: 750 unit/hr, 15 mls/hr Norepinephrine Bitartrate 8, (000 mcg/ Dextrose) 500 mls @ 18.75 mls/hr IV TITR [facility]; Protocol Last Titration: 08/16/18 09:34 Dose: 10 mcg/min, 37.5 mls/hr Sodium Chloride (Normal Saline -) 1,000 mls @ 42 mls/hr IV ASDIR [facility] Last Admin: 08/15/18 22:16 Dose: 42 mls/hr Amiodarone HCl/Dextrose (Nexterone 360 Mg/200 Ml Bag) 360 mg in 200 mls @ 16.667 mls/hr IVPB ASDIR [facility]; Protocol Amiodarone HCl/Dextrose (Nexterone 360 Mg/200 Ml Bag) 360 mg in 200 mls @ 33.333 mls/hr IVPB ONCE ONE; Protocol Stop: 08/16/18 15:55 Pantoprazole Sodium (Protonix Iv) 40 mg IVPUSH DAILY [facility] Last Admin: 08/16/18 09:47 Dose: 40 mg Polyethylene Glycol (Miralax (For Daily Use) -) 17 gm PO DAILY [facility] Last Admin: 08/15/18 11:07 Dose: Not Given Senna (Senna Oral Solution -) 8.8 mg GT HS [facility] Last Admin: 08/15/18 22:09 Dose: Not Given - Objective Vital Signs: Vital Signs Temperature 98.5 F 08/16/18 10:00 Pulse Rate 77 08/16/18 10:00 Respiratory Rate 13 08/16/18 10:00 Blood Pressure 92/62 08/16/18 10:00 O2 Sat by Pulse Oximetry (%) 100 08/16/18 08:22 Constitutional: Yes: Other (Intubated and sedated) Eyes: Yes: WNL Neck: Yes: Supple Cardiovascular: Yes: Regular Rate and Rhythm Respiratory: Yes: CTA Bilaterally Gastrointestinal: Yes: Normal Bowel Sounds Edema: No (Warm) Labs: CBC, BMP 08/16/18 05:30 08/16/18 05:30 INR, PTT INR 1.16 (0.83-1.09) H 08/15/18 06:25 Assessment/Plan NSTEMI Cardiac arrest ?Sepsis Left hip fracture AAA At this time seems to be stabalizing from CV perspective. Her Troponin and lactate are trending down She is requiring IV pressors for BP support which was chosen over inotropes with concerns for arrhythmia ECG today without ST elevations. Now on Amio for Afib and starting IV UFH for AF and ACS Echo with severe LV dysfunction worse in LAD territory Would start Asa 81mg daily and Atorva 80mg daily Continue to treat sepsis with IV abx as per critical care team Supportive care for now for hip fracture
[2018-08-16] MEDS: HEPARIN - 25,000 UNIT in SODIUM CHLORIDE 495 ML IV SCH (11:47)
--- NOTE | 2018-08-16 13:32 | PN ---
Physical Exam: SUBJECTIVE: Patient seen and examined. pt intubate. off sedation. awake and follows command on norepi of 8 on cpap spo2 100, fio2 40 peep 0f 5 and pressure support of 5 acevedo cath in situ have clear urine OBJECTIVE: Vital Signs Period Temp Pulse Resp BP Sys/Aguirre Pulse Ox Last 24 Hr 98.5 F-99.9 F 74-121 13-24 71-112/53-79 100-100 GENERAL: The patient is awake, HEAD: face has pressure ulcer of left side EYES: PERRL, ENT: ET tube present, on ventilator support NECK: Trachea midline, full range of motion, supple. LUNGS: Breath sounds equal, clear to auscultation bilaterally, no wheezes, HEART: Regular rate and rhythm, S1, S2 normal ABDOMEN: Soft, nontender, distended bs + EXTREMITIES: warm, well-perfused, no edema. NEUROLOGICAL: Cranial nerves II through XII grossly intact. Normal speech, gait not observed. PSYCH: Normal mood, normal affect. SKIN: Warm, dry, Laboratory Results - last 24 hr 08/15/18 08/15/18 08/15/18 14:10 14:10 18:25 WBC RBC Hgb Hct MCV MCH MCHC RDW Plt Count MPV Absolute Neuts (auto) Neutrophils % Lymphocytes % Monocytes % Eosinophils % Basophils % Nucleated RBC % PTT (Actin FS) 50.7 H Sodium Potassium Chloride Carbon Dioxide Anion Gap BUN Creatinine Est GFR (CKD-EPI)AfAm Est GFR (CKD-EPI)NonAf Random Glucose Lactic Acid 1.9 Calcium Phosphorus Magnesium Total Bilirubin AST ALT Alkaline Phosphatase Troponin I 5.37 H* Total Protein Albumin 08/16/18 08/16/18 08/16/18 05:30 05:30 05:30 WBC 15.7 H RBC 3.03 L Hgb 9.5 L Hct 28.0 L D MCV 92.7 MCH 31.3 MCHC 33.8 RDW 13.5 Plt Count 127 L MPV 8.6 Absolute Neuts (auto) 13.9 H Neutrophils % 88.4 H Lymphocytes % 4.8 L Monocytes % 6.6 Eosinophils % 0.1 Basophils % 0.1 Nucleated RBC % 0 PTT (Actin FS) 82.7 H Sodium 132 L Potassium 4.0 Chloride 103 Carbon Dioxide 19 L Anion Gap 10 BUN 29 H Creatinine 1.0 Est GFR (CKD-EPI)AfAm 59.08 Est GFR (CKD-EPI)NonAf 50.97 Random Glucose 171 H Lactic Acid Calcium 7.8 L Phosphorus 2.4 L Magnesium 1.9 Total Bilirubin 1.0 AST 103 H ALT 116 H Alkaline Phosphatase 55 Troponin I 2.44 H* Total Protein 5.0 L Albumin 2.4 L Active Medications Generic Name Dose Route Start Last Admin Trade Name Freq PRN Reason Stop Dose Admin Albuterol/Ipratropium 1 amp 08/15/18 12:00 08/16/18 11:15 Duoneb - NEB 1 amp RQID EDMOND Administration Fentanyl 50 mcg 08/16/18 08:54 08/16/18 09:04 Sublimaze Injection - IVPUSH 08/17/18 08:59 50 mcg Q1H PRN Administration PAIN Heparin Sodium (Porcine) 1,000 unit 08/15/18 10:23 Heparin - IVPUSH PRN PRN Heparin Heparin Sodium (Porcine) 5,000 unit 08/15/18 10:23 Heparin - IVPUSH PRN PRN Heparin Piperacillin Sod/Tazobactam 50 mls @ 100 mls/hr 08/15/18 09:30 08/16/18 09:47 Sod 2.25 gm/ Dextrose IVPB 100 mls/hr Q6H-IV [facility] Administration Protocol Propofol 1,000,000 mcg in 100 mls @ 1.447 mls/hr 08/15/18 06:00 08/16/18 09: 50 Diprivan - IVPB Not Given TITR EDMON[facility] Protocol 5 MCG/KG/MIN Vancomycin HCl 1,000 mg in 250 mls @ 200 mls/hr 08/16/18 00:00 08/16/18 00:16 Vancomycin (Pre-Docked) IVPB 200 mls/hr Q24H [facility] Administration Protocol Heparin Sodium (Porcine) 25, 500 mls @ 16 mls/hr 08/15/18 10:30 08/16/18 11: 47 000 unit/ Sodium Chloride IV 750 unit/hr TITR EDMON[facility] 15 mls/hr Administration Protocol 800 UNIT/HR Norepinephrine Bitartrate 8, 500 mls @ 18.75 mls/hr 08/15/18 10:30 08/16/18 12:45 000 mcg/ Dextrose IV 9 mcg/min TITR EDMON[facility] 33.75 mls/hr Titration Protocol 5 MCG/MIN Sodium Chloride 1,000 mls @ 42 mls/hr 08/15/18 16:42 08/15/18 22:16 Normal Saline - IV 42 mls/hr ASDIR EDMOND Administration Amiodarone HCl/Dextrose 360 mg in 200 mls @ 33.333 mls/hr 08/16/18 09:56 04/05 10:52 Nexterone 360 Mg/200 Ml Bag IVPB 08/16/18 15:55 33.333 mls/hr ONCE ONE Administration Protocol 1 MG/MIN Amiodarone HCl/Dextrose 360 mg in 200 mls @ 16.667 mls/hr 08/16/18 17:00 Nexterone 360 Mg/200 Ml Bag IVPB ASDIR EDMON[facility] Protocol 0.5 MG/MIN Pantoprazole Sodium 40 mg 08/15/18 10:30 08/16/18 09:47 Protonix Iv IVPUSH 40 mg DAILY EDMON[facility] Administration Polyethylene Glycol 17 gm 08/15/18 10:00 08/15/18 11:07 Miralax (For Daily Use) - PO Not Given DAILY EDMON[facility] Senna 8.8 mg 08/15/18 22:00 08/15/18 22:09 Senna Oral Solution - GT Not Given HS EMDOND ASSESSMENT/PLAN: 88 y/o lady with h/o HTN, Lung carcinoma s/p R lung resection who presented after a fall/? syncope . she was found to have L hip Fx , hypothermia, NSTEMI, and rhabdo. hospital course was cmplicated with cardiac arrest on day of admission Cardiogenic shock likely secondary to NSTEMI -s/p cardiac arrest -Currently on pressors nor epi of 8 -Cardiology consult appreciated -remains intubated off sedation -avoid dopamine/dobutamine if possible as pt is very high risk for VT and cardiac arrest -Troponin downtrending -pt has few runs of afib with rvr in icu pt got amio bolus and was started on amio drip - heparin drip - on antibiotics vanc and zosyn for emperic coverage. Left Hip Fracture - ortho consult: no surgical management at this time, pt too unstable -will reconsult for possible repair if stabilizes AAA 5.7 cm -slight increase from prior records -Seen by vascular surgery who recommends f/u if pt becomes more stable h/o HTN -currenty hypotensive on pressors Rhabdomyolysis -CK > 1000 getting better -Fluid resuscitation, cautiously with shock primarily being cardiogenic with acute systolic failure noted on Echo - on fluid 42 ml/hr Transaminitis -likely secondary to shock and cardiac arrest -Trend FEN -cautious fluid resuscitation, echo noted on fluid 42ml/hr -monitor and replete -npo DVT Prophylaxis -Heparin drip Disposition ICU, continue goals of care discussion with sister in law, remains full code at this time Visit type - Emergency Visit Emergency Visit: Yes ED Registration Date: 08/14/18 Care time: The patient presented to the Emergency Department on the above date and was hospitalized for further evaluation of their emergent condition. - New Patient This patient is new to me today: Yes Date on this admission: 08/17/18 - Critical Care Critical Care patient: No
[2018-08-16] MEDS: MIDAZOLAM HCL 2 MG/2 ML SINGLE DOSE VIAL IVPUSH ONE ×2 (16:30→19:01)
[2018-08-16] MEDS: NOREPINEPHRINE BITARTRATE 8,000 MCG in DEXTROSE 5%-WATER - 492 ML IV SCH (17:00)
[2018-08-16] MEDS ORDERED: levETIRAcetam 500 MG/5 ML INJECTION VIAL IVPB ONE (17:15)
[2018-08-16] MEDS ORDERED: ASPIRIN 300 MG SUPP.RECT PR ONE ×2 (17:25→19:15)
[2018-08-16] MEDS ORDERED: ASPIRIN 81 MG CHEWABLE TABLETS PO ONE (17:28)
--- NOTE | 2018-08-16 17:57 | CONSULT ---
Consult - text type - Consultation Consultation Note: NEUROLOGY CONSULTATION is greatly appreciated: Events reviewed and discussed with Chika Tse NP. Patient examined. This 88 yo woman apparently lives alone. in NH? PMH sig for HTN resection of lung CA, possible "dementia." On losartan, zolpidem. Admitted after fall with physical findings suggesting prolonged down time. Adm. [id number] IU. Was alert and communicative in the ER. Admission CT (reviewed): shows diffuse atrophy and microvascular changes. On Day #2 developed bradycardia, cardiorespiratory arrest. Intubated, resuscitated. Determined to have CT. Started on Heparin. This afternoon had witnessed seizure in the ICU. Repeat CT of head: unchanged. No heme. Exam: Diffuse bruises, especially left face and left side. Cor Reg. No bruits. NEURO: Lethargic. Poorly arousable. Opens eyes to sternal pressure. (Pt did not receive sedatives) + spontaneous respirations. Full EOM's to doll's head. Decreased left corneal suggesting left facial weakness. No response to visual threat. No limb mov'ts. Areflexic. B/L Bab[place]is. No limb response to pinch. IMP: Severe B/L cerebral dysfunction. Post-ictal. ? Anoxic. Possible right cerebral accentuation. New onset seizures. SUGGEST: Load with Levetiracetam IV 1 gm now. Then 500 mg IV q [address] of head (C-) tomorrow Avoid sedative-hypnotics. Prognosis guarded. Thank you very much, Gustavo Degroot MD
[2018-08-16] MEDS ORDERED: PROPOFOL 200 MG/20 ML VIAL IVPUSH ONE (18:54)
[2018-08-16] MEDS: POLYETHYLENE GLYCOL 3350 119 GM BTL PO SCH (19:03)
[2018-08-16] MEDS: SODIUM CHLORIDE 1,000 ML IV SCH (20:07)
[2018-08-16] MEDS: SENNOSIDES 8.8 MG/5 ML BULK BOTTLE GT SCH (22:00)
[2018-08-16] MEDS: ATORVASTATIN CA 80 MG TABLET (FP) PO SCH (22:00)
[2018-08-17] MEDS: VANCOMYCIN 1 GRAM (PRE-DOCKED) 1,000 MG/250 ML BAG IVPB SCH
[2018-08-17] MEDS ORDERED: DEXTROSE 5%-WATER - 50 ML IVPB ONE ×4 (03:22→21:39)
[2018-08-17] MEDS ORDERED: PIPERACILLIN/TAZOBACTAM 2.25 GM VIAL IVPB ONE ×4 (03:22→21:39)
[2018-08-17] MEDS: PIPERACILLIN/TAZOB 2.25 GM 2.25 GM in DEXTROSE 5%-WATER - 50 ML IVPB SCH ×4 (03:29→21:48)
[2018-08-17 05:59] LABS: RBC 2.93 M/mm3 (3.60-5.2); WHITE BLOOD COUNT 14.5 K/mm3 (4.0-10.0)
[2018-08-17 06:00] LABS: BASO % 0.1 % (0-2.0); HEMATOCRIT 26.9 % (32.4-45.2); HEMOGLOBIN 9.2 GM/dL (10.7-15.3); LYMPH % 4.2 % (8-40); MCH 31.4 pg (25.7-33.7); MCHC 34.2 g/dl (32.0-36.0); MEAN CELL VOLUME 91.8 fl (80-96); MEAN PLT VOLUME 8.4 fl (7.5-11.1); MONO % 6.7 % (3.8-10.2); PLATELET COUNT 148 K/MM3 (134-434); RDW 13.5 % (11.6-15.6)
[2018-08-17] MEDS: PROPOFOL 1,000,000 MCG/100 ML VIAL IVPB SCH (06:20)
[2018-08-17 07:14] LABS: ALBUMIN 2.2 g/dl (3.4-5.0); BILIRUBIN,TOTAL 0.9 mg/dL (0.2-1); CALCIUM 7.9 mg/dL (8.5-10.1); POTASSIUM 3.6 mmol/L (3.5-5.1); TOT PROT 4.8 g/dl (6.4-8.2)
--- NOTE | 2018-08-17 07:57 | PN ---
Progress Note (short form) - Note Progress Note: Pulm/CCM SUBJECTIVE: Patient seen and examined in the ICU. Events noted. 24HR: -extubated, did well initially, then sz and reintubated -CT head negative, loaded with keppra, no further sz -coming back down on pressors CXR: s/p R pneumonectomy, L without infiltrate, no pneumothorax NOK was reached and wants all efforts to continue at this time per report Vital Signs Temp 99.7 F H 08/17/18 06:00 Pulse 75 08/17/18 06:00 Resp 20 08/17/18 06:44 BP 102/70 08/17/18 06:00 Pulse Ox 100 08/16/18 22:50 Intake & Output 08/16/18 08/16/18 08/17/18 11:59 23:59 11:59 Intake Total 1318 1940 1615 Output Total 450 770 600 Balance 868 1170 1015 Weight 52.163 kg 52.163 kg 52.617 kg Intake: IV 1318 1640 1315 DIPRIVAN - 1,000,000 mcg 35 In 100 ml @ 10 MCG/KG/MIN 2.893 mls/hr IVPB TITR [facility] Rx#:[id number] Heparin - 25,000 Unit In 173 161 163 Normal Saline - 495 ml @ 800 UNIT/HR 16 mls/hr IV TITR [facility] Rx#:[id number] Levophed - 8,000 Mcg In 439 510 532 D5w - 492 ml @ 5 MCG/MIN 18.75 mls/hr IV TITR [facility] Rx#:[id number] Normal Saline - 1,000 ml 671 660 420 @ 42 mls/hr IV ASDIR [facility] Rx#:[id number] amiodarone- 200 ml @ 33. 309 200 33 mL/hr IV IVPB 300 300 Output: Urine 450 770 600 Glez 450 770 600 Other: Voiding Method Indwelling Catheter Indwelling Catheter Bowel Movement No No No Height 5 ft 4 in Body Mass Index (BMI) 19.7 Weight Measurement [facility] Current Medications Albuterol/Ipratropium (Duoneb -) 1 amp NEB RQID [facility] Last Admin: 08/16/18 21:06 Dose: 1 amp Aspirin (Asa -) 81 mg PO DAILY [facility] Atorvastatin Calcium (Lipitor -) 80 mg PO HS [facility] Last Admin: 08/16/18 22:00 Dose: Not Given Fentanyl (Sublimaze Injection -) 50 mcg IVPUSH Q1H PRN PRN Reason: PAIN Stop: 08/17/18 08:59 Last Admin: 08/16/18 20:01 Dose: 50 mcg Heparin Sodium (Porcine) (Heparin -) 1,000 unit IVPUSH PRN PRN PRN Reason: Heparin Heparin Sodium (Porcine) (Heparin -) 5,000 unit IVPUSH PRN PRN PRN Reason: Heparin Piperacillin Sod/Tazobactam (Sod 2.25 gm/ Dextrose) 50 mls @ 100 mls/hr IVPB Q6H-IV [facility]; Protocol Last Admin: 08/17/18 03:29 Dose: 100 mls/hr Propofol (Diprivan -) 1,000,000 mcg in 100 mls @ 1.447 mls/hr IVPB TITR [facility]MON[facility]; Protocol Last Admin: 08/17/18 06:20 Dose: Not Given Vancomycin HCl (Vancomycin (Pre-Docked)) 1,000 mg in 250 mls @ 200 mls/hr IVPB Q24H [facility]; Protocol Last Admin: 08/17/18 00:00 Dose: 200 mls/hr Heparin Sodium (Porcine) 25, (000 unit/ Sodium Chloride) 500 mls @ 16 mls/hr IV TITR [facility]MON[facility]; Protocol Last Titration: 08/16/18 18:24 Dose: 750 unit/hr, 15 mls/hr Norepinephrine Bitartrate 8, (000 mcg/ Dextrose) 500 mls @ 18.75 mls/hr IV TITR [facility]MON[facility]; Protocol Last Titration: 08/16/18 22:41 Dose: 13 mcg/min, 48.75 mls/hr Sodium Chloride (Normal Saline -) 1,000 mls @ 42 mls/hr IV ASDIR [facility] Last Admin: 08/16/18 20:07 Dose: 42 mls/hr Amiodarone HCl/Dextrose (Nexterone 360 Mg/200 Ml Bag) 360 mg in 200 mls @ 16.667 mls/hr IVPB ASDIR [facility]; Protocol Last Admin: 08/16/18 18:05 Dose: 16.667 mls/hr Levetiracetam (Keppra Injection -) 500 mg IVPB BID [facility] Pantoprazole Sodium (Protonix Iv) 40 mg IVPUSH DAILY [facility] Last Admin: 08/16/18 09:47 Dose: 40 mg Polyethylene Glycol (Miralax (For Daily Use) -) 17 gm PO DAILY [facility] Last Admin: 08/16/18 19:03 Dose: Not Given Senna (Senna Oral Solution -) 8.8 mg GT HS [facility] Last Admin: 08/16/18 22:00 Dose: Not Given GENERAL:lightly sedated, grimaces to noxious stimuli, HEAD: left facial hematoma on zygomatic area appears old, dry EYES: reactive bilaterally EARS, NOSE, THROAT: orally intubated NECK: Normal range of motion, supple. LUNGS: intubated, vented, near absent R, clear L HEART: Regular rate and rhythm, normal S1 and S2 without murmur, rub or gallop. ABDOMEN: Soft, not distended, (+) bowel sounds, LOWER EXTREMITIES: (+) pulses, cool, cap refill 2sec NEUROLOGICAL: some facial myoclonus but no further sz, withdraws bilaterally SKIN: Warm, echymosis , left hip stage 2 ulcer CBC, BMP 08/17/18 05:35 08/17/18 05:35 ASSESSMENT/PLAN: Cardiopulmonary arrest (?) Etiology primary cardiac R/O Sepsis: No clear source of infection R/O PNA Acute Bronchospasm Lactic acidosis Shock: most likely cardiogenic Elevated CPK AAA 5.7 cm Left hip fracture Multiple ribs fractures: possibly old History of Lung CA S/P Right Pneumonectomy COPD Transaminitis full vent support for now, mental status will have to improve if to be extubated fentanyl pushes for pain control wean pressors for MAP 60-65, diuresis once improved amio oral today, has been loaded. Though no furhter RVR, can discuss with cards if want to hold off keppra, consider EEG, repeat CT head today, Dr Degroot following, recs appreciated not surgical candidate at this time for hip fx IVF Follow CVP Empiric ABX per ID Strict I & O Follow cultures Requires ICU monitoring Will attempt to have Dedrick ACNP [phone]
[2018-08-17] MEDS: ALBUTEROL SO4 2.5/IPRATROPIUM 0.5 INH SOL 3 ML VIAL.NEB. NEB SCH ×4 (08:04→19:50)
--- NOTE | 2018-08-17 08:43 | PN ---
Progress Note (short form) - Note Progress Note: Subjective: No events over night. yesterday events notable for seizure and A fib with RVR. Extubationadn re-intubation Objective: Vital Signs: Last Vital Signs Temp Pulse Resp BP Pulse Ox 99.7 F H 74 20 99/69 100 08/17/18 06:00 08/17/18 08:02 08/17/18 08:25 08/17/18 08:00 08/17/18 08:25 Laboratory Results - last 24 hr 08/17/18 08/17/18 08/17/18 05:35 05:35 05:35 WBC 14.5 H RBC 2.93 L Hgb 9.2 L Hct 26.9 L MCV 91.8 MCH 31.4 MCHC 34.2 RDW 13.5 Plt Count 148 MPV 8.4 Absolute Neuts (auto) 12.9 H Neutrophils % 89.0 H Lymphocytes % 4.2 L Monocytes % 6.7 Eosinophils % 0.0 D Basophils % 0.1 Nucleated RBC % 0 PTT (Actin FS) 64.3 H Sodium 132 L Potassium 3.6 Chloride 103 Carbon Dioxide 19 L Anion Gap 11 BUN 20 H Creatinine 1.0 Est GFR (CKD-EPI)AfAm 59.08 Est GFR (CKD-EPI)NonAf 50.97 Random Glucose 206 H Calcium 7.9 L Total Bilirubin 0.9 AST 72 H ALT 99 H Alkaline Phosphatase 55 Troponin I 1.30 H* Total Protein 4.8 L Albumin 2.2 L Physical Exam: NAD, intubated, sedated. round equal reactive pupils. eschar on L face . twitching in L sided body CV: RRR Lungs: course breath sounds anteriorly Abd: soft, NT, ND, hypoactive BS Ext: bruises on L upper and lower extremities. and knees. eschar on L anterior hip ASSESSMENT AND PLAN: 88 y/o lady with h/o HTN, Lung carcinoma s/p R lung resection who presented after a fall/? syncope . she was found to have L hip Fx ,hypothermia, NSTEMI, and rhabdo. hospital course was complicated with cardiac arrest on day of admission, also A fib with RVR and new onset seizures 1- NSTEMI 2- Shock, likely cardiogentic shock 3- Cardiac arrest 4- Acute hypoxic resp failure 5- New onset Seizures 6- New onset A fib with RVR 7- T4 compression fx 8- Transaminitis : likely due to shock 9- Possible syncope 10- r/o sepsis 11- hypophosphatemia 12- Rhabdo 13- AAA 5.8 cm 14- L hip Fx 15- possible anoxic brain injury Plan: - cont mechanical ventilation and pressors - received amio infusion yesterday and over night ( 0.5 mg/min x 6 hr, then 0.5 mg/minx 18 hr). ? oral amio needed. card eval - Abx pending cultures - vanco trough this evenig - Cont heparin gtt - cont keppra. still having intermittent seizures ( 30 second L sided twitching witnessed during exam ) . defer to neuro - repeat head CT today - follow renal and liver function - when acute issues resolve, will address L hip Fx - medical management of AAA - IV PPI - hold home BP meds Dispo : ICU level of care. Full code Visit type - Emergency Visit Emergency Visit: Yes ED Registration Date: 08/14/18 Care time: The patient presented to the Emergency Department on the above date and was hospitalized for further evaluation of their emergent condition. - New Patient This patient is new to me today: No - Critical Care Critical Care patient: Yes Total Critical Care Time (in minutes): 30 Critical Care Statement: The care of this patient involved high complexity decision making to prevent further life threatening deterioration of the patient 's condition and/or to evaluate & treat vital organ system(s) failure or risk of failure.
[2018-08-17] MEDS ORDERED: INSULIN (NOVOLOG) ASPART 100 UNITS/ML 10ML VIAL ONE (08:57)
[2018-08-17] MEDS: PANTOPRAZOLE SODIUM 40 MG VIAL IVPUSH SCH (10:08)
[2018-08-17] MEDS: levETIRAcetam 500 MG/5 ML INJECTION VIAL IVPB SCH ×2 (10:08→21:48)
[2018-08-17] MEDS: POLYETHYLENE GLYCOL 3350 119 GM BTL PO SCH (10:09)
[2018-08-17] MEDS: ASPIRIN 81 MG CHEWABLE TABLETS PO SCH (10:14)
--- NOTE | 2018-08-17 11:47 | PN ---
Progress Note, Physician History of Present Illness: No CV events overnight Remains on pressors (weaning) and amio No further AF - Current Medication List Current Medications: Active Medications Albuterol/Ipratropium (Duoneb -) 1 amp NEB RQID EDMOND Last Admin: 08/17/18 08:04 Dose: 1 amp Aspirin (Asa -) 81 mg PO DAILY EDMOND Last Admin: 08/17/18 10:14 Dose: 81 mg Atorvastatin Calcium (Lipitor -) 80 mg PO HS EDMOND Last Admin: 08/16/18 22:00 Dose: Not Given Heparin Sodium (Porcine) (Heparin -) 1,000 unit IVPUSH PRN PRN PRN Reason: Heparin Heparin Sodium (Porcine) (Heparin -) 5,000 unit IVPUSH PRN PRN PRN Reason: Heparin Piperacillin Sod/Tazobactam (Sod 2.25 gm/ Dextrose) 50 mls @ 100 mls/hr IVPB Q6H-IV EDMOND; Protocol Last Admin: 08/17/18 08:43 Dose: 100 mls/hr Propofol (Diprivan -) 1,000,000 mcg in 100 mls @ 1.447 mls/hr IVPB TITR EDMOND; Protocol Last Admin: 08/17/18 06:20 Dose: Not Given Vancomycin HCl (Vancomycin (Pre-Docked)) 1,000 mg in 250 mls @ 200 mls/hr IVPB Q24H EDMOND; Protocol Last Admin: 08/17/18 00:00 Dose: 200 mls/hr Heparin Sodium (Porcine) 25, (000 unit/ Sodium Chloride) 500 mls @ 16 mls/hr IV TITR EDMOND; Protocol Last Titration: 08/16/18 18:24 Dose: 750 unit/hr, 15 mls/hr Norepinephrine Bitartrate 8, (000 mcg/ Dextrose) 500 mls @ 18.75 mls/hr IV TITR EDMOND; Protocol Last Titration: 08/17/18 07:00 Dose: 10 mcg/min, 37.5 mls/hr Sodium Chloride (Normal Saline -) 1,000 mls @ 42 mls/hr IV ASDIR EDMOND Last Admin: 08/16/18 20:07 Dose: 42 mls/hr Amiodarone HCl/Dextrose (Nexterone 360 Mg/200 Ml Bag) 360 mg in 200 mls @ 16.667 mls/hr IVPB ASDIR EDMOND; Protocol Last Admin: 08/16/18 18:05 Dose: 16.667 mls/hr Levetiracetam (Keppra Injection -) 500 mg IVPB BID [facility] Last Admin: 08/17/18 10:08 Dose: 500 mg Pantoprazole Sodium (Protonix Iv) 40 mg IVPUSH DAILY [facility] Last Admin: 08/17/18 10:08 Dose: 40 mg Polyethylene Glycol (Miralax (For Daily Use) -) 17 gm PO DAILY [facility] Last Admin: 08/17/18 10:09 Dose: Not Given Senna (Senna Oral Solution -) 8.8 mg GT HS [facility] Last Admin: 08/16/18 22:00 Dose: Not Given - Objective Vital Signs: Vital Signs Temperature 99.6 F 08/17/18 10:00 Pulse Rate 75 08/17/18 10:00 Respiratory Rate 26 H 08/17/18 10:22 Blood Pressure 98/67 08/17/18 10:00 O2 Sat by Pulse Oximetry (%) 100 08/17/18 08:25 Constitutional: Yes: No Distress (Intubated, open eyes) Eyes: Yes: WNL Cardiovascular: Yes: Regular Rate and Rhythm Respiratory: Yes: CTA Bilaterally Gastrointestinal: Yes: Normal Bowel Sounds Musculoskeletal: Yes: WNL Edema: No (Warm extremities) Labs: CBC, BMP 08/17/18 05:35 08/17/18 05:35 INR, PTT INR 1.16 (0.83-1.09) H 08/15/18 06:25 Assessment/Plan 88 yo female with prior right hip fx, hypertension presents after syncopal episode in ED with ?sepsis, left hip fracture and (+) troponin. 1) (+) troponin -Trop peaked to 4.8 now down and ECG without infarct pattern or ongoing ischemia -LV function is severe with akinetic anterospetal segment, unclear chronicity of this finding. She is perfusing on exam (warm extremities) and good UOP suggesting this may be a septic or mixed septic/cardiogenic picture -Given her other co-morbidities (hip fx and sepsis) would continue to treat this as a Type II MS (demand) -Continue Aspirin, now started on IV UFH, high intensity statin -Hold on Clopidogrel until determined if ortho wants to fix hip 2) Syncope -Unclear details surrounding this, but may be related to infectious process or arrhythmogenic given her LV -Would continue to treat sepsis with Abx and monitor on Tele 3) Sepsis -As per ICU care with ABX -Weaning pressors (levophed down to 10 today) 4) Afib -Transient episode and converted with Amio, LFTs trending down now -Could start Beta crispin once BP more stablized -On UFH
[2018-08-17] MEDS: NOREPINEPHRINE BITARTRATE 8,000 MCG in DEXTROSE 5%-WATER - 492 ML IV SCH (15:12)
[2018-08-17] MEDS: HEPARIN - 25,000 UNIT in SODIUM CHLORIDE 495 ML IV SCH (15:13)
[2018-08-17] MEDS: SODIUM CHLORIDE 1,000 ML IV SCH (15:14)
--- NOTE | 2018-08-17 15:15 | EKG ---
Test Reason : Blood Pressure : / mmHG Vent. Rate : 115 BPM Atrial Rate : 070 BPM P-R Int : 000 ms QRS Dur : 096 ms QT Int : 312 ms P-R-T Axes : 000 017 008 degrees QTc Int : 431 ms ATRIAL FIBRILLATION WITH RAPID VENTRICULAR RESPONSE POSSIBLE INFERIOR INFARCT , AGE UNDETERMINED POSSIBLE ANTEROLATERAL INFARCT (CITED ON OR BEFORE 14-AUG-2018) ABNORMAL ECG WHEN COMPARED WITH ECG OF 15-AUG-2018 09:49, ATRIAL FIBRILLATION HAS REPLACED SINUS RHYTHM NONSPECIFIC T WAVE ABNORMALITY HAS REPLACED INVERTED T WAVES IN INFERIOR LEADS Confirmed by RUDOLPH MUSTAFA MD ([id number]) on 08/17/2018 3:15:33 PM Referred By: Confirmed By:RUDOLPH MUSTAFA MD
--- NOTE | 2018-08-17 15:37 | EKG ---
Test Reason : Blood Pressure : / mmHG Vent. Rate : 085 BPM Atrial Rate : 085 BPM P-R Int : 136 ms QRS Dur : 086 ms QT Int : 444 ms P-R-T Axes : 055 024 -60 degrees QTc Int : 528 ms SINUS RHYTHM WITH PREMATURE SUPRAVENTRICULAR COMPLEXES ANTEROLATERAL INFARCT , AGE UNDETERMINED T WAVE ABNORMALITY, CONSIDER INFERIOR ISCHEMIA PROLONGED QT ABNORMAL ECG WHEN COMPARED WITH ECG OF 15-JAN-2018 13:20, PVC NO LONGER SEEN, INFERIOR T WAVE INVERSIONS NOW SEEN Confirmed by RUDOLPH MUSTAFA MD ([id number]) on 08/17/2018 3:37:10 PM Referred By: Confirmed By:RUDOLPH MUSTAFA MD
[2018-08-17] MEDS ORDERED: LORazepam 2 MG/ML SDV VIAL ONE (16:28)
[2018-08-17] MEDS ORDERED: LORazepam 2 MG/ML SDV VIAL IVPUSH PRN (16:34)
--- NOTE | 2018-08-17 17:15 | PN ---
Progress Note (short form) - Note Progress Note: remains intubated extubated yesterday, had seizure and reintubated remains on levophed Vital Signs Period Temp Pulse Resp BP Sys/Aguirre Pulse Ox Last 24 Hr 98.9 F-99.7 F 70-98 14-26 95-128/63-78 100-100 cor-rrr lungs decrased bs on right abd soft,nt ext no edema ecchymoses unchanged CBC, BMP 08/17/18 05:35 08/17/18 05:35 Microbiology 08/14/18 13:07 Blood - Peripheral Venous Blood Culture - Preliminary NO GROWTH OBTAINED AFTER 72 HOURS, INCUBATION TO CONTINUE FOR 2 DAYS. 08/14/18 13:09 Blood - Peripheral Venous Blood Culture - Preliminary NO GROWTH OBTAINED AFTER 72 HOURS, INCUBATION TO CONTINUE FOR 2 DAYS. 08/14/18 15:26 Urine - Urine Glez Urine Culture - Final NO GROWTH OBTAINED a/p s/p arrest [place] ?sepsis continue antibiotics zosyn will d/c vancomycin no MRSA isolated Problem List - Problems (1) Sudden cardiac arrest Code(s): I46.9 - CARDIAC ARREST, CAUSE UNSPECIFIED (2) Unwitnessed fall Code(s): R29.6 - REPEATED FALLS (3) Hip fracture, left Code(s): S72.002A - FRACTURE OF UNSP PART OF NECK OF LEFT FEMUR, INIT (4) Sepsis Code(s): A41.9 - SEPSIS, UNSPECIFIED ORGANISM (5) Rhabdomyolysis Code(s): M62.82 - RHABDOMYOLYSIS (6) Elevated troponin Code(s): R74.8 - ABNORMAL LEVELS OF OTHER SERUM ENZYMES
[2018-08-17] MEDS ORDERED: PT OWN MED DRAWER 7, Y5N ONE (21:40)
[2018-08-17] MEDS: ATORVASTATIN CA 80 MG TABLET (FP) PO SCH (21:48)
[2018-08-17] MEDS: SENNOSIDES 8.8 MG/5 ML BULK BOTTLE GT SCH (21:49)
[2018-08-18] MEDS ORDERED: VANCOMYCIN 1 GM in D5W (PRE-DOCKED) 1,000 MG/250 ML IVPB SCH ×2 (01:00→13:00)
[2018-08-18] MEDS ORDERED: DEXTROSE 5%-WATER - 50 ML IVPB ONE ×4 (01:45→21:01)
[2018-08-18] MEDS ORDERED: PIPERACILLIN/TAZOBACTAM 2.25 GM VIAL IVPB ONE ×4 (01:45→21:01)
[2018-08-18] MEDS: PIPERACILLIN/TAZOB 2.25 GM 2.25 GM in DEXTROSE 5%-WATER - 50 ML IVPB SCH ×4 (02:14→21:16)
[2018-08-18] MEDS ORDERED: NOREPINEPHRINE BITARTRATE 4 MG/4 ML ML IV ONE (03:27)
[2018-08-18 06:23] LABS: BASO % 0.2 % (0-2.0); EOS % 0.1 % (0-4.5); HEMATOCRIT 26.6 % (32.4-45.2); LYMPH % 5.7 % (8-40); MCHC 33.7 g/dl (32.0-36.0); MEAN CELL VOLUME 92.2 fl (80-96); MONO % 8.4 % (3.8-10.2); NEUT % 85.6 % (42.8-82.8); PLATELET COUNT 193 K/MM3 (134-434); RBC 2.89 M/mm3 (3.60-5.2); RDW 13.6 % (11.6-15.6); WHITE BLOOD COUNT 12.8 K/mm3 (4.0-10.0)
[2018-08-18 06:48] LABS: BILIRUBIN,TOTAL 1.2 mg/dL (0.2-1); MAGNESIUM 1.9 mg/dL (1.8-2.4); PHOSPHOROUS 1.9 mg/dL (2.5-4.9); POTASSIUM 3.7 mmol/L (3.5-5.1); TOT PROT 4.6 g/dl (6.4-8.2)
[2018-08-18] MEDS: PROPOFOL 1,000,000 MCG/100 ML VIAL IVPB SCH (07:41)
[2018-08-18] MEDS: ALBUTEROL SO4 2.5/IPRATROPIUM 0.5 INH SOL 3 ML VIAL.NEB. NEB SCH ×4 (08:18→21:10)
--- NOTE | 2018-08-18 08:22 | PN ---
Physical Exam: SUBJECTIVE: Patient seen and examined at bedside this morning. Currently off sedation, no acute distress. Moving both arms spontaneously. Currently in sinus rhythm, no Afib noted upon telemtery overnight. No seizure activity noted overnight. Discussed with sister in law at bedside who requests all resuscitative measures to be taken. OBJECTIVE: Vital Signs Period Temp Pulse Resp BP Sys/Aguirre Pulse Ox Last 24 Hr 98.7 F-99.6 F 60-98 13-26 73-128/48-80 100-100 GENERAL: The patient is currently off sedation. HEENT: Normocephalic, lesion noted along left sided face. PERRL, sclera anicteric, conjunctiva clear. Dry mucous membranes. NECK: Trachea midline, full range of motion, supple. LUNGS: Mechanical breath sounds equal, clear to auscultation bilaterally. no wheezes, no crackles. HEART: Regular rate and rhythm, S1, S2 without murmur, rub or gallop. ABDOMEN: Soft, nontender, nondistended, normoactive bowel sounds, no guarding, no rebound tenderness. EXTREMITIES: 1+ radial, dorsalis pedis pulses bilaterally, cool extremities. NEUROLOGICAL: Currently not sedated. Grimaces to sternal rub. SKIN: Cool skin at extremities. Left groin skin lesion. Left sided facial lesion. Laboratory Results - last 24 hr 08/17/18 08/18/18 08/18/18 23:30 05:30 05:30 WBC 12.8 H RBC 2.89 L Hgb 9.0 L Hct 26.6 L MCV 92.2 MCH 31.0 MCHC 33.7 RDW 13.6 Plt Count 193 D MPV 8.0 Absolute Neuts (auto) 11.0 H Neutrophils % 85.6 H Lymphocytes % 5.7 L D Monocytes % 8.4 Eosinophils % 0.1 D Basophils % 0.2 Nucleated RBC % 0 PTT (Actin FS) 48.6 H Sodium Potassium Chloride Carbon Dioxide Anion Gap BUN Creatinine Est GFR (CKD-EPI)AfAm Est GFR (CKD-EPI)NonAf Random Glucose Calcium Phosphorus Magnesium Total Bilirubin AST ALT Alkaline Phosphatase Total Protein Albumin Vancomycin Pre-Dose 8.5 L 08/18/18 05:30 WBC RBC Hgb Hct MCV MCH MCHC RDW Plt Count MPV Absolute Neuts (auto) Neutrophils % Lymphocytes % Monocytes % Eosinophils % Basophils % Nucleated RBC % PTT (Actin FS) Sodium 134 L Potassium 3.7 Chloride 103 Carbon Dioxide 22 Anion Gap 9 BUN 16 Creatinine 1.0 Est GFR (CKD-EPI)AfAm 59.08 Est GFR (CKD-EPI)NonAf 50.97 Random Glucose 146 H Calcium 8.0 L Phosphorus 1.9 L Magnesium 1.9 Total Bilirubin 1.2 H AST 57 H ALT 86 H Alkaline Phosphatase 70 Total Protein 4.6 L Albumin 2.0 L Vancomycin Pre-Dose Active Medications Generic Name Dose Route Start Last Admin Trade Name Freq PRN Reason Stop Dose Admin Albuterol/Ipratropium 1 amp 08/15/18 12:00 08/18/18 08:18 Duoneb - NEB 1 amp RQID EDMOND Administration Aspirin 81 mg 08/17/18 10:00 08/17/18 10:14 Asa - PO 81 mg DAILY EDMODN Administration Atorvastatin Calcium 80 mg 08/16/18 22:00 08/17/18 21:48 Lipitor - PO 80 mg HS EDMOND Administration Fentanyl 50 mcg 08/17/18 16:33 08/18/18 00:23 Sublimaze Injection - IVPUSH 50 mcg Q1H PRN Administration PAIN Heparin Sodium (Porcine) 1,000 unit 08/15/18 10:23 08/18/18 07:47 Heparin - IVPUSH 1,000 unit PRN PRN Administration Heparin Heparin Sodium (Porcine) 5,000 unit 08/15/18 10:23 Heparin - IVPUSH PRN PRN Heparin Piperacillin Sod/Tazobactam 50 mls @ 100 mls/hr 08/15/18 09:30 08/18/18 02:14 Sod 2.25 gm/ Dextrose IVPB 100 mls/hr Q6H-IV EDMOND Administration Protocol Propofol 1,000,000 mcg in 100 mls @ 1.447 mls/hr 08/15/18 06:00 08/18/18 07: 41 Diprivan - IVPB Not Given TITR EDMOND Protocol 5 MCG/KG/MIN Heparin Sodium (Porcine) 25, 500 mls @ 16 mls/hr 08/15/18 10:30 08/18/18 07: 48 000 unit/ Sodium Chloride IV 850 unit/hr TITR EDMOND 17 mls/hr Titration Protocol 800 UNIT/HR Norepinephrine Bitartrate 8, 500 mls @ 18.75 mls/hr 08/15/18 10:30 08/18/18 01:00 000 mcg/ Dextrose IV 12 mcg/min TITR EDMOND 45 mls/hr Titration Protocol 5 MCG/MIN Levetiracetam 500 mg 08/17/18 10:00 08/17/18 21:48 Keppra Injection - IVPB 500 mg BID EDMOND Administration Lorazepam 1 mg 08/17/18 16:34 Ativan Injection - IVPUSH Q4H PRN AGITATION Pantoprazole Sodium 40 mg 08/15/18 10:30 08/17/18 10:08 Protonix Iv IVPUSH 40 mg DAILY EDMOND Administration Polyethylene Glycol 17 gm 08/15/18 10:00 08/17/18 10:09 Miralax (For Daily Use) - PO Not Given DAILY EDMOND Senna 8.8 mg 08/15/18 22:00 08/17/18 21:49 Senna Oral Solution - GT 8.8 mg HS EDMOND Administration ASSESSMENT/PLAN: Patient is an 88 year old female with history of lung cancer s/p right lung resection, hypertension, presents after syncopal event. She had cardiac arrest at time of admission, with new onset seizures upon extubation attempts, and new onset Afib. 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 Reverted to sinus rhythm with Amiodarone. -Currently on Norepinepherine at 10. Titrate to maintain MAP greater than 65. -Heparin drip. Follow PTT -Aspirin 81mg PO daily -Atorvastatin 80mg PO HS -Cardiology recommendations appreciated. Will hold off on inotropes, as patient 's clinical picture not consistent with pure cardiogenic shock. -Monitor BP closely in medical management of AAA. CVP monitoring. Pulmonary -Intubated, on AC mode ventilation. -Ventilator settings: RR 14, tidal volume 350, FiO2 40%, PEEP 5. Gastrointestinal -Transaminitis improving. Likely secondary to shock. However, Bilirubin increased to 1.2. Will trend. -Tube feeds Jevity 1.5 -Protonix 40mg IV daily Infectious disease -Currently on empiric Zosyn 2.25grams IV Q6H (day #4). Vancomycin discontinued -Blood cultures negative for growth at 96 hours -Urine cultures negative for growth -Chest radiograph not impressive for acute infiltrates -ID recommendations appreciated Musculoskeletal -Left hip fracture to be treated once patient stable, per orthopedic surgery. -Orthopedic surgery recommendations appreciated. FEN -No IV fluids indicated. -Follow CMP. Replete as necessary. Hypophosphatemia repleted. -Jevity 1.5 tube feeds Prophylaxis -Patient is on Heparin drip -Protonix 40mg IV daily Disposition: Continue care in ICU Palliative care consult. Visit type - Emergency Visit Emergency Visit: Yes ED Registration Date: 08/14/18 Care time: The patient presented to the Emergency Department on the above date and was hospitalized for further evaluation of their emergent condition. - New Patient This patient is new to me today: Yes Date on this admission: 08/18/18 - Critical Care Critical Care patient: Yes Total Critical Care Time (in minutes): 35 Critical Care Statement: The care of this patient involved high complexity decision making to prevent further life threatening deterioration of the patient 's condition and/or to evaluate & treat vital organ system(s) failure or risk of failure. - Discharge Referral Referred to [facility] Med P.C.: No
[2018-08-18] MEDS: levETIRAcetam 500 MG/5 ML INJECTION VIAL IVPB SCH ×2 (10:03→21:16)
[2018-08-18] MEDS: PANTOPRAZOLE SODIUM 40 MG VIAL IVPUSH SCH (10:04)
[2018-08-18] MEDS: ASPIRIN 81 MG CHEWABLE TABLETS PO SCH (10:07)
--- NOTE | 2018-08-18 10:19 | PN ---
Progress Note (short form) - Note Progress Note: remains intubated remains on levophed opens eyes, squeezed hand to command Vital Signs Period Temp Pulse Resp BP Sys/Aguirre Pulse Ox Last 24 Hr 98.7 F-99.6 F 60-98 13-26 73-128/48-80 100-100 cor-rrr lungs decreased bs at bases abd soft,nt ext bilateral hand edema CBC, BMP 08/18/18 05:30 08/18/18 05:30 Microbiology 08/14/18 13:07 Blood - Peripheral Venous Blood Culture - Preliminary NO GROWTH OBTAINED AFTER 72 HOURS, INCUBATION TO CONTINUE FOR 2 DAYS. 08/14/18 13:09 Blood - Peripheral Venous Blood Culture - Preliminary NO GROWTH OBTAINED AFTER 72 HOURS, INCUBATION TO CONTINUE FOR 2 DAYS. 08/14/18 15:26 Urine - Urine Glez Urine Culture - Final NO GROWTH OBTAINED a/p s/p arrest [place] ?sepsis left hip fracture continue zosyn day #4 Problem List - Problems (1) Sudden cardiac arrest Code(s): I46.9 - CARDIAC ARREST, CAUSE UNSPECIFIED (2) Unwitnessed fall Code(s): R29.6 - REPEATED FALLS (3) Hip fracture, left Code(s): S72.002A - FRACTURE OF UNSP PART OF NECK OF LEFT FEMUR, INIT (4) Sepsis Code(s): A41.9 - SEPSIS, UNSPECIFIED ORGANISM (5) Rhabdomyolysis Code(s): M62.82 - RHABDOMYOLYSIS (6) Elevated troponin Code(s): R74.8 - ABNORMAL LEVELS OF OTHER SERUM ENZYMES
[2018-08-18] MEDS: HEPARIN - 25,000 UNIT in SODIUM CHLORIDE 495 ML IV SCH ×2 (11:42→21:18)
[2018-08-18] MEDS: NOREPINEPHRINE BITARTRATE 8,000 MCG in DEXTROSE 5%-WATER - 492 ML IV SCH ×2 (11:43→21:19)
[2018-08-18] MEDS: POLYETHYLENE GLYCOL 3350 119 GM BTL PO SCH (12:09)
--- NOTE | 2018-08-18 12:11 | PN ---
Teaching Attending Note Name of Resident: aLyo Rubi ATTENDING PHYSICIAN STATEMENT I saw and evaluated the patient. I reviewed the resident's note and discussed the case with the resident. I agree with the resident's findings and plan as documented. SUBJECTIVE: Patient seen and examined in the ICU. Events from yesterday noted. Remains intubated and sedated. NE @ 10 mcq for hemodynamic support. No seizure activity noted. Intake & Output 08/15/18 08/16/18 08/17/18 08/18/18 23:59 23:59 23:59 23:59 Intake Total 1714 3258 2151 1529 Output Total 550 1220 1450 400 Balance 1164 2038 701 1129 Weight 106 lb 4.8 oz 115 lb 116 lb 117 lb 3.2 oz Last Vital Signs Temp Pulse Resp BP Pulse Ox 98.8 F 63 21 H 95/65 100 08/18/18 08:00 08/18/18 08:00 08/18/18 10:52 08/18/18 08:00 08/18/18 09:00 Active Medications Albuterol/Ipratropium (Duoneb -) 1 amp NEB RQID EDMOND Last Admin: 08/18/18 11:39 Dose: 1 amp Aspirin (Asa -) 81 mg PO DAILY EDMOND Last Admin: 08/18/18 10:07 Dose: 81 mg Atorvastatin Calcium (Lipitor -) 80 mg PO HS EDMOND Last Admin: 08/17/18 21:48 Dose: 80 mg Fentanyl (Sublimaze Injection -) 50 mcg IVPUSH Q1H PRN PRN Reason: PAIN Last Admin: 08/18/18 00:23 Dose: 50 mcg Heparin Sodium (Porcine) (Heparin -) 1,000 unit IVPUSH PRN PRN PRN Reason: Heparin Last Admin: 08/18/18 07:47 Dose: 1,000 unit Heparin Sodium (Porcine) (Heparin -) 5,000 unit IVPUSH PRN PRN PRN Reason: Heparin Piperacillin Sod/Tazobactam (Sod 2.25 gm/ Dextrose) 50 mls @ 100 mls/hr IVPB Q6H-IV EDMOND; Protocol Last Admin: 08/18/18 08:55 Dose: 100 mls/hr Propofol (Diprivan -) 1,000,000 mcg in 100 mls @ 1.447 mls/hr IVPB TITR EDMOND; Protocol Last Admin: 08/18/18 07:41 Dose: Not Given Heparin Sodium (Porcine) 25, (000 unit/ Sodium Chloride) 500 mls @ 16 mls/hr IV TITR EDMOND; Protocol Last Admin: 08/18/18 11:42 Dose: Not Given Norepinephrine Bitartrate 8, (000 mcg/ Dextrose) 500 mls @ 18.75 mls/hr IV TITR [facility]; Protocol Last Admin: 08/18/18 11:43 Dose: Not Given Levetiracetam (Keppra Injection -) 500 mg IVPB BID EDMOND Last Admin: 08/18/18 10:03 Dose: 500 mg Lorazepam (Ativan Injection -) 1 mg IVPUSH Q4H PRN PRN Reason: AGITATION Pantoprazole Sodium (Protonix Iv) 40 mg IVPUSH DAILY [facility] Last Admin: 08/18/18 10:04 Dose: 40 mg Polyethylene Glycol (Miralax (For Daily Use) -) 17 gm PO DAILY EDMOND Last Admin: 08/17/18 10:09 Dose: Not Given Senna (Senna Oral Solution -) 8.8 mg GT HS EDMOND Last Admin: 08/17/18 21:49 Dose: 8.8 mg GENERAL: Intubated, poorly responsive, withdraws all 4 extremities to pain HEAD: left facial hematoma on zygomatic area EYES: reactive pupil on the left , non reactive on right , sclera anicteric, EARS, NOSE, THROAT: orally intubated NECK: Normal range of motion, supple. LUNGS: intubated, vented, decrease breath sound at right side, (+) expiratory wheeze and scattered rhonchi on the left. HEART: Regular rate and rhythm, normal S1 and S2 without murmur, rub or gallop. ABDOMEN: Soft, not distended, (+) bowel sounds, LOWER EXTREMITIES: (+) pulses, warm, well-perfused. NEUROLOGICAL: poorly responsive, withdraws to pain LLE sensation intact +2 DP, limited ROM due to pain , RLE sensation intact , + DP, FROM . SKIN: Warm, echymosis , left hip stage 2 ulcer Laboratory Results - last 24 hr 08/17/18 08/18/18 08/18/18 23:30 05:30 05:30 WBC 12.8 H RBC 2.89 L Hgb 9.0 L Hct 26.6 L MCV 92.2 MCH 31.0 MCHC 33.7 RDW 13.6 Plt Count 193 D MPV 8.0 Absolute Neuts (auto) 11.0 H Neutrophils % 85.6 H Lymphocytes % 5.7 L D Monocytes % 8.4 Eosinophils % 0.1 D Basophils % 0.2 Nucleated RBC % 0 PTT (Actin FS) 48.6 H Sodium Potassium Chloride Carbon Dioxide Anion Gap BUN Creatinine Est GFR (CKD-EPI)AfAm Est GFR (CKD-EPI)NonAf Random Glucose Calcium Phosphorus Magnesium Total Bilirubin AST ALT Alkaline Phosphatase Total Protein Albumin Vancomycin Pre-Dose 8.5 L 08/18/18 05:30 WBC RBC Hgb Hct MCV MCH MCHC RDW Plt Count MPV Absolute Neuts (auto) Neutrophils % Lymphocytes % Monocytes % Eosinophils % Basophils % Nucleated RBC % PTT (Actin FS) Sodium 134 L Potassium 3.7 Chloride 103 Carbon Dioxide 22 Anion Gap 9 BUN 16 Creatinine 1.0 Est GFR (CKD-EPI)AfAm 59.08 Est GFR (CKD-EPI)NonAf 50.97 Random Glucose 146 H Calcium 8.0 L Phosphorus 1.9 L Magnesium 1.9 Total Bilirubin 1.2 H AST 57 H ALT 86 H Alkaline Phosphatase 70 Total Protein 4.6 L Albumin 2.0 L Vancomycin Pre-Dose ASSESSMENT/PLAN: Cardiopulmonary arrest (?) Etiology primary cardiac R/O Sepsis: No clear source of infection suspect Cardiogenic shock Low clinical suspicion of PNA Acute Bronchospasm Lactic acidosis Shock: most likely cardiogenic Elevated CPK AAA 5.7 cm Left hip fracture Multiple ribs fractures: possibly old History of Lung CA S/P Right Pneumonectomy COPD Transaminitis To D/W Cardiology use of Inotropes IVF Follow CVP Empiric ABX per ID Strict I & O Follow labs Requires ICU monitoring Need further discussions regarding BOC with MITCHELL Dooley Critical care time spent in reviewing chart, evaluating patient and formulating plan - 36 minutes.
--- NOTE | 2018-08-18 12:32 | PN ---
Teaching Attending Note Name of Resident: Rubens Olivier ATTENDING PHYSICIAN STATEMENT I saw and evaluated the patient. I reviewed the resident's note and discussed the case with the resident. I agree with the resident's findings and plan as documented. SUBJECTIVE: Unable to obtain hx as intubated. no events over night OBJECTIVE NAD, intubated, awake, fllows commands . CV: RRR Lungs: course breath sounds anteriorly Abd: soft, NT, ND, hypoactive BS Ext: bruises on L upper and lower extremities. and knees. L anterior hip ulcer with slough ASSESSMENT AND PLAN: 88 y/o lady with h/o HTN, Lung carcinoma s/p R lung resection who presented after a fall/? syncope . she was found to have L hip Fx ,hypothermia, NSTEMI, and rhabdo. hospital course was complicated with cardiac arrest on day of admission, also A fib with RVR and new onset seizures 1- NSTEMI 2- Shock, likely cardiogentic shock 3- Cardiac arrest 4- Acute hypoxic resp failure 5- New onset Seizures 6- New onset A fib with RVR 7- T4 compression fx 8- Transaminitis : likely due to shock 9- Possible syncope 10- r/o sepsis 11- hypophosphatemia 12- Rhabdo 13- AAA 5.8 cm 14- L hip Fx 15- possible anoxic brain injury Plan: - cont mechanical ventilation , weaning trials - cont pressors - Card input on need for po amio - cont zosyn - Cont heparin gtt - cont keppra. - follow renal and liver function - when acute issues resolve, will address L hip Fx - medical management of AAA - IV PPI - hold home BP meds - replete electrolytes Dispo : ICU level of care. Full code Critical Care Total Critical Care Time (in minutes): 30 Critical Care Statement: The care of this patient involved high complexity decision making to prevent further life threatening deterioration of the patient 's condition and/or to evaluate & treat vital organ system(s) failure or risk of failure.
--- NOTE | 2018-08-18 13:21 | PN ---
Physical Exam: SUBJECTIVE: Patient seen and examined at bedside. No seizure activity overnight. Remains intubated. OBJECTIVE: Vital Signs Period Temp Pulse Resp BP Sys/Aguirre Pulse Ox Last 24 Hr 98.7 F-99.6 F 60-92 11-24 73-117/48-80 100-100 GENERAL: Awake, intubated. NAD. HEAD: Left facial pressure ulcer. Nonoozing. Dry, EYES: PERRL, EOMI NECK: Trachea midline, full range of motion, supple. LUNGS: Coarse BS BL Anteriorly. HEART: RRR nL S1S2. ABDOMEN: Soft, no facial grimacing to palpation. No guarding or rigidity. EXTREMITIES: No CCE. Upper extremities 2+ edema b/l. NEUROLOGICAL: PERRL. Moves upper/lower extremities upon command. SKIN: Warm, dry, normal turgor, no rashes or lesions noted Laboratory Results - last 24 hr 08/17/18 08/18/18 08/18/18 23:30 05:30 05:30 WBC 12.8 H RBC 2.89 L Hgb 9.0 L Hct 26.6 L MCV 92.2 MCH 31.0 MCHC 33.7 RDW 13.6 Plt Count 193 D MPV 8.0 Absolute Neuts (auto) 11.0 H Neutrophils % 85.6 H Lymphocytes % 5.7 L D Monocytes % 8.4 Eosinophils % 0.1 D Basophils % 0.2 Nucleated RBC % 0 PTT (Actin FS) 48.6 H Sodium Potassium Chloride Carbon Dioxide Anion Gap BUN Creatinine Est GFR (CKD-EPI)AfAm Est GFR (CKD-EPI)NonAf Random Glucose Calcium Phosphorus Magnesium Total Bilirubin AST ALT Alkaline Phosphatase Total Protein Albumin Vancomycin Pre-Dose 8.5 L 08/18/18 05:30 WBC RBC Hgb Hct MCV MCH MCHC RDW Plt Count MPV Absolute Neuts (auto) Neutrophils % Lymphocytes % Monocytes % Eosinophils % Basophils % Nucleated RBC % PTT (Actin FS) Sodium 134 L Potassium 3.7 Chloride 103 Carbon Dioxide 22 Anion Gap 9 BUN 16 Creatinine 1.0 Est GFR (CKD-EPI)AfAm 59.08 Est GFR (CKD-EPI)NonAf 50.97 Random Glucose 146 H Calcium 8.0 L Phosphorus 1.9 L Magnesium 1.9 Total Bilirubin 1.2 H AST 57 H ALT 86 H Alkaline Phosphatase 70 Total Protein 4.6 L Albumin 2.0 L Vancomycin Pre-Dose Active Medications Generic Name Dose Route Start Last Admin Trade Name Freq PRN Reason Stop Dose Admin Albuterol/Ipratropium 1 amp 08/15/18 12:00 08/18/18 11:39 Duoneb - NEB 1 amp RQID EDMOND Administration Aspirin 81 mg 08/17/18 10:00 08/18/18 10:07 Asa - PO 81 mg DAILY EDMOND Administration Atorvastatin Calcium 80 mg 08/16/18 22:00 08/17/18 21:48 Lipitor - PO 80 mg HS EDMOND Administration Collagenase 1 applic 08/18/18 13:00 Santyl - TP DAILY EDMOND Protocol Fentanyl 50 mcg 08/17/18 16:33 08/18/18 00:23 Sublimaze Injection - IVPUSH 50 mcg Q1H PRN Administration PAIN Heparin Sodium (Porcine) 1,000 unit 08/15/18 10:23 08/18/18 07:47 Heparin - IVPUSH 1,000 unit PRN PRN Administration Heparin Heparin Sodium (Porcine) 5,000 unit 08/15/18 10:23 Heparin - IVPUSH PRN PRN Heparin Piperacillin Sod/Tazobactam 50 mls @ 100 mls/hr 08/15/18 09:30 08/18/18 08:55 Sod 2.25 gm/ Dextrose IVPB 100 mls/hr Q6H-IV EDMOND Administration Protocol Propofol 1,000,000 mcg in 100 mls @ 1.447 mls/hr 08/15/18 06:00 08/18/18 07: 41 Diprivan - IVPB Not Given TITR EDMOND Protocol 5 MCG/KG/MIN Heparin Sodium (Porcine) 25, 500 mls @ 16 mls/hr 08/15/18 10:30 08/18/18 11: 42 000 unit/ Sodium Chloride IV Not Given TITR EDMOND Protocol 800 UNIT/HR Norepinephrine Bitartrate 8, 500 mls @ 18.75 mls/hr 08/15/18 10:30 08/18/18 12:00 000 mcg/ Dextrose IV 8 mcg/min TITR EDMOND 30 mls/hr Titration Protocol 5 MCG/MIN Levetiracetam 500 mg 08/17/18 10:00 08/18/18 10:03 Keppra Injection - IVPB 500 mg BID EDMOND Administration Lorazepam 1 mg 08/17/18 16:34 Ativan Injection - IVPUSH Q4H PRN AGITATION Pantoprazole Sodium 40 mg 08/15/18 10:30 08/18/18 10:04 Protonix Iv IVPUSH 40 mg DAILY EDMOND Administration Polyethylene Glycol 17 gm 08/15/18 10:00 08/18/18 12:09 Miralax (For Daily Use) - PO 17 gm DAILY EDMOND Administration Senna 8.8 mg 08/15/18 22:00 08/17/18 21:49 Senna Oral Solution - GT 8.8 mg HS EDMOND Administration ASSESSMENT/PLAN: 88 year old female with a past medical history of hypertension and right sided lung cancer status post resection, AAA BIBA s/p being found on the ground allegedly by the neighbor, s/p Cardiac arrest overnight, intubated and sedated in ICU on pressors. #Cardiogenic shock 2/2 NSTEMI -s/p cardiac arrest -Levophed 12 MCGs. Titrated up from 10 as BP in hypotensive range yesterday (08/17). -Cardiology on board. Recieved Amiodorone infusion ( 0.5 mg/min x 6 hr, then 0.5 mg/minx 18 hr). Will discuss with cardiology today to determine whether pt should be placed on amio PO as well as Ionotropes. -Remains intubated. Rate 14, TV 350, PEEP 5, FiO2 40%. -Troponin 08/17/18--> 1.5. Down from 10.3. -less likely septic shock with no signs of infectious etiology, cultures negatiove. Treating empirically with Zosyn. #New onset Seizures -Neurology on board -Mary #Left Hip Fracture -Seen by ortho -no surgical management at this time, pt too unstable -will reconsult for possible repair if stabilizes #Hypophosphatemia -Phosphate 1.9. Repleated with potassium phosphate. Trend in am. #AAA 5.7 cm -slight increase from prior records -Seen by vascular surgery who recommends f/u if pt becomes more stable #HTN -currently hypotensive on pressors #Rhabdomyolysis -CK 1779 on admission. Trended down to 1103. No Fluids as Ejection Fraction 25- 30%. #Transaminitis -likely secondary to shock and cardiac arrest. AST/ALT 57/86 respectively. Down from 72/99 yesterday (08/17/18) -Trend #FEN -No Fluids -Monitor Electrolytes -NPO #DVT PPX -Heparin drip #Disposition ICU Visit type - Emergency Visit Emergency Visit: Yes ED Registration Date: 08/14/18 Care time: The patient presented to the Emergency Department on the above date and was hospitalized for further evaluation of their emergent condition. - New Patient This patient is new to me today: Yes Date on this admission: 08/18/18 - Critical Care Critical Care patient: Yes Total Critical Care Time (in minutes): 35 Critical Care Statement: The care of this patient involved high complexity decision making to prevent further life threatening deterioration of the patient 's condition and/or to evaluate & treat vital organ system(s) failure or risk of failure. - Discharge Referral Referred to [facility] Med P.C.: No
[2018-08-18] MEDS ORDERED: POTASSIUM PHOSPHATE 30 MM in SODIUM CHLORIDE 250 ML IVPB ONE (13:27)
--- NOTE | 2018-08-18 14:51 | PN ---
Progress Note (short form) - Note Progress Note: s: intubated, opens eyes to voice Current Medications Albuterol/Ipratropium (Duoneb -) 1 amp NEB RQID EDMOND Last Admin: 08/18/18 11:39 Dose: 1 amp Aspirin (Asa -) 81 mg PO DAILY EDMOND Last Admin: 08/18/18 10:07 Dose: 81 mg Atorvastatin Calcium (Lipitor -) 80 mg PO HS EDMOND Last Admin: 08/17/18 21:48 Dose: 80 mg Collagenase (Santyl -) 1 applic TP DAILY EDMOND; Protocol Fentanyl (Sublimaze Injection -) 50 mcg IVPUSH Q1H PRN PRN Reason: PAIN Last Admin: 08/18/18 00:23 Dose: 50 mcg Heparin Sodium (Porcine) (Heparin -) 1,000 unit IVPUSH PRN PRN PRN Reason: Heparin Last Admin: 08/18/18 07:47 Dose: 1,000 unit Heparin Sodium (Porcine) (Heparin -) 5,000 unit IVPUSH PRN PRN PRN Reason: Heparin Piperacillin Sod/Tazobactam (Sod 2.25 gm/ Dextrose) 50 mls @ 100 mls/hr IVPB Q6H-IV EDMOND; Protocol Last Admin: 08/18/18 08:55 Dose: 100 mls/hr Propofol (Diprivan -) 1,000,000 mcg in 100 mls @ 1.447 mls/hr IVPB TITR EDMOND; Protocol Last Admin: 08/18/18 07:41 Dose: Not Given Heparin Sodium (Porcine) 25, (000 unit/ Sodium Chloride) 500 mls @ 16 mls/hr IV TITR EDMOND; Protocol Last Admin: 08/18/18 11:42 Dose: Not Given Norepinephrine Bitartrate 8, (000 mcg/ Dextrose) 500 mls @ 18.75 mls/hr IV TITR EDMOND; Protocol Last Titration: 08/18/18 12:00 Dose: 8 mcg/min, 30 mls/hr Potassium Phosphate 30 mm/ (Sodium Chloride) 260 mls @ 62.5 mls/hr IVPB ONCE ONE Stop: 08/18/18 17:36 Levetiracetam (Keppra Injection -) 500 mg IVPB BID EDMOND Last Admin: 08/18/18 10:03 Dose: 500 mg Lorazepam (Ativan Injection -) 1 mg IVPUSH Q4H PRN PRN Reason: AGITATION Pantoprazole Sodium (Protonix Iv) 40 mg IVPUSH DAILY [facility] Last Admin: 08/18/18 10:04 Dose: 40 mg Polyethylene Glycol (Miralax (For Daily Use) -) 17 gm PO DAILY [facility] Last Admin: 08/18/18 12:09 Dose: 17 gm Senna (Senna Oral Solution -) 8.8 mg GT HS [facility] Last Admin: 08/17/18 21:49 Dose: 8.8 mg Vital Signs Period Temp Pulse Resp BP Sys/Aguirre Pulse Ox Last 24 Hr 98.7 F-99.6 F 60-92 11-24 73-117/48-80 100-100 Constitutional: Yes: No Distress (Intubated, open eyes) Eyes: Yes: WNL Cardiovascular: Yes: Regular Rate and Rhythm, no JVD Respiratory: Yes: CTA Bilaterally Gastrointestinal: Yes: Normal Bowel Sounds Edema: None no jaundice not agitated warm extremities tele: sinus Assessment/Plan 88 yo female with prior right hip fx, hypertension presents after syncopal episode in ED with ?sepsis, left hip fracture and (+) troponin. 1) (+) troponin -Trop peaked to 4.8 now down and ECG without infarct pattern or ongoing ischemia -LV function is severe with akinetic anterospetal segment, unclear chronicity of this finding -on exam she is euvolemic with warm extremities, adequate urine output - less consistent with cardiogenic shock -BP stable on levophed, although have had difficulty with weaning - would continue -likely demand ischemia - continue heparin gtt, aspirin, statin -Hold on Clopidogrel until determined if ortho wants to fix hip 2) Syncope -Unclear details surrounding this, but may be related to infectious process or arrhythmogenic given her LV -monitoring on tele 3) Sepsis -As per ICU care with ABX - source not identified -cont levophed, wean as tolerated - less consistent with cardiogenic shock picture as above 4) Afib -Transient episode and converted with Amio, LFTs trending down now -Could start Beta crispin once BP more stablized -amiodarone dc'ed, patient in sinus - can hold amio for now -On UFH
[2018-08-18] MEDS: COLLAGENASE CLOSTRIDIUM HIST. 30 GRAMS TUBE TP SCH (17:37)
[2018-08-18] MEDS ORDERED: PT OWN MED DRAWER 7, Y5N ONE (20:15)
--- NOTE | 2018-08-18 21:10 | PN ---
Progress Note (short form) - Note Progress Note: NEUROLOGY PROGRESS: Events reviewed, Patient examined. No further seizures on Levetiracetam 500 mg q12 hrs. Intubated but awake, alert. ++Spontaneous respirations Follows commands with symmetrical grasps. Mild left eye closure weakness but full reynolds and full EOM's. Moves all fours well. Decreased LE reflexes. Toes downgoing. Feels touch all 4's. IMP:Doing well. Non-focal neurological exam Cannot fully assess cognition but a significant anoxic encephalopathy is NOT present. Seizures- well-controlled on AED SUGGEST: Levetiracetam 500 mg IV -> PO q 12 hrs. Wean as possible. Neuro f/u when extubated or if any changes occur. Thank you very much, Gustavo Degroot MD
[2018-08-18] MEDS: ATORVASTATIN CA 80 MG TABLET (FP) PO SCH (21:16)
[2018-08-18] MEDS: CHLORHEXIDINE GLUCONATE 0.12% 15ML CUP MM SCH (21:17)
[2018-08-18] MEDS: SENNOSIDES 8.8 MG/5 ML BULK BOTTLE GT SCH (22:08)
[2018-08-19] MEDS ORDERED: DEXTROSE 5%-WATER - 50 ML IVPB ONE ×4 (02:24→20:17)
[2018-08-19] MEDS ORDERED: PIPERACILLIN/TAZOBACTAM 2.25 GM VIAL IVPB ONE ×4 (02:24→20:17)
[2018-08-19] MEDS: PIPERACILLIN/TAZOB 2.25 GM 2.25 GM in DEXTROSE 5%-WATER - 50 ML IVPB SCH ×4 (02:29→21:39)
[2018-08-19] MEDS: PROPOFOL 1,000,000 MCG/100 ML VIAL IVPB SCH (06:12)
[2018-08-19 06:30] LABS: HEMATOCRIT 26.4 % (32.4-45.2); MCH 31.7 pg (25.7-33.7); MCHC 34.3 g/dl (32.0-36.0); MEAN CELL VOLUME 92.4 fl (80-96); MEAN PLT VOLUME 7.7 fl (7.5-11.1); PLATELET COUNT 213 K/MM3 (134-434); RBC 2.86 M/mm3 (3.60-5.2)
[2018-08-19 06:58] LABS: BILIRUBIN,TOTAL 1.1 mg/dL (0.2-1); CREATININE 0.9 mg/dL (0.55-1.3); MAGNESIUM 1.9 mg/dL (1.8-2.4); PHOSPHOROUS 2.9 mg/dL (2.5-4.9); TOT PROT 4.6 g/dl (6.4-8.2)
--- NOTE | 2018-08-19 07:07 | PN ---
Physical Exam: SUBJECTIVE: Patient seen and examined at bedside this morning. Patient tolerated weaning trial with CPAP, RSBI of 28. Patient was extubated, saturating well on face mask. OBJECTIVE: Vital Signs Period Temp Pulse Resp BP Sys/Aguirre Pulse Ox Last 24 Hr 98.7 F-99.3 F 55-92 11-24 90-116/44-71 98-100 GENERAL: The patient is awake, alert to person, place. No apparent distress HEENT: Normocephalic, lesion noted along left sided face. PERRL, sclera anicteric, conjunctiva clear. Dry mucous membranes. NECK: Trachea midline, full range of motion, supple. LUNGS: Good inspiratory effort, breath sounds equal, clear to auscultation bilaterally. no wheezes, no crackles. HEART: Regular rate and rhythm, S1, S2 without murmur, rub or gallop. ABDOMEN: Soft, nontender, nondistended, normoactive bowel sounds, no guarding, no rebound tenderness. EXTREMITIES: 1+ radial, dorsalis pedis pulses bilaterally, cool extremities. NEUROLOGICAL: Following commands. Squeezes fingers equally bilaterally, and moving her lower extremities. SKIN: Cool skin at extremities. Left groin skin lesion. Left sided facial lesion. Laboratory Results - last 24 hr 08/18/18 08/19/18 08/19/18 13:45 06:00 06:00 WBC 11.0 H RBC 2.86 L Hgb 9.0 L Hct 26.4 L MCV 92.4 MCH 31.7 MCHC 34.3 RDW 14.0 Plt Count 213 MPV 7.7 PTT (Actin FS) 59.0 H 54.8 H Sodium Potassium Chloride Carbon Dioxide Anion Gap BUN Creatinine Est GFR (CKD-EPI)AfAm Est GFR (CKD-EPI)NonAf Random Glucose Calcium Phosphorus Magnesium Total Bilirubin AST ALT Alkaline Phosphatase Total Protein Albumin 08/19/18 06:00 WBC RBC Hgb Hct MCV MCH MCHC RDW Plt Count MPV PTT (Actin FS) Sodium 135 L Potassium 4.0 Chloride 106 Carbon Dioxide 23 Anion Gap 6 L BUN 14 Creatinine 0.9 Est GFR (CKD-EPI)AfAm 67.10 Est GFR (CKD-EPI)NonAf 57.90 Random Glucose 157 H Calcium 8.0 L Phosphorus 2.9 Magnesium 1.9 Total Bilirubin 1.1 H AST 46 H ALT 73 H Alkaline Phosphatase 77 Total Protein 4.6 L Albumin 2.0 L Active Medications Generic Name Dose Route Start Last Admin Trade Name Freq PRN Reason Stop Dose Admin Albuterol/Ipratropium 1 amp 08/15/18 12:00 08/18/18 21:10 Duoneb - NEB 1 amp RQID EDMOND Administration Aspirin 81 mg 08/17/18 10:00 08/18/18 10:07 Asa - PO 81 mg DAILY EDMOND Administration Atorvastatin Calcium 80 mg 08/16/18 22:00 08/18/18 21:16 Lipitor - PO 80 mg HS EDMOND Administration Chlorhexidine Gluconate 15 ml 08/18/18 22:00 08/18/18 21:17 Peridex - MM 15 ml BID EDMOND Administration Collagenase 1 applic 08/18/18 13:00 08/18/18 17:37 Santyl - TP 1 applic DAILY EDMOND Administration Protocol Fentanyl 50 mcg 08/17/18 16:33 08/18/18 21:18 Sublimaze Injection - IVPUSH 50 mcg Q1H PRN Administration PAIN Heparin Sodium (Porcine) 1,000 unit 08/15/18 10:23 08/18/18 07:47 Heparin - IVPUSH 1,000 unit PRN PRN Administration Heparin Heparin Sodium (Porcine) 5,000 unit 08/15/18 10:23 Heparin - IVPUSH PRN PRN Heparin Piperacillin Sod/Tazobactam 50 mls @ 100 mls/hr 08/15/18 09:30 08/19/18 02:29 Sod 2.25 gm/ Dextrose IVPB 100 mls/hr Q6H-IV EDMOND Administration Protocol Propofol 1,000,000 mcg in 100 mls @ 1.447 mls/hr 08/15/18 06:00 08/19/18 06: 12 Diprivan - IVPB Not Given TITR EDMOND Protocol 5 MCG/KG/MIN Heparin Sodium (Porcine) 25, 500 mls @ 16 mls/hr 08/15/18 10:30 08/18/18 21: 18 000 unit/ Sodium Chloride IV 850 unit/hr TITR EDMOND 17 mls/hr Administration Protocol 800 UNIT/HR Norepinephrine Bitartrate 8, 500 mls @ 18.75 mls/hr 08/15/18 10:30 08/18/18 21:19 000 mcg/ Dextrose IV 8 mcg/min TITR EDMOND 30 mls/hr Administration Protocol 5 MCG/MIN Levetiracetam 500 mg 08/17/18 10:00 08/18/18 21:16 Keppra Injection - IVPB 500 mg BID EDMOND Administration Lorazepam 1 mg 08/17/18 16:34 Ativan Injection - IVPUSH Q4H PRN AGITATION Pantoprazole Sodium 40 mg 08/15/18 10:30 08/18/18 10:04 Protonix Iv IVPUSH 40 mg DAILY EDMOND Administration Polyethylene Glycol 17 gm 08/15/18 10:00 08/18/18 12:09 Miralax (For Daily Use) - PO 17 gm DAILY EDMOND Administration Senna 8.8 mg 08/15/18 22:00 08/18/18 22:08 Senna Oral Solution - GT 8.8 mg HS EDMOND Administration ASSESSMENT/PLAN: Patient is an 88 year old female with history of lung cancer s/p right lung resection, hypertension, presents after syncopal event. She had cardiac arrest at time of admission, with new onset seizures upon extubation attempts, and new onset Afib. Neurological -Bilateral cerebral injury -New onset seizures; Keppra 500mg PO BID -Neurology recommendations appreciated. Significant anoxic encephalopathy not present. -Currently not on sedation -Grimaces to sternal rub Cardiac -NSTEMI -Cardiogenic shock -EF 20-25% -AAA at 5.8cm -New onset Afib with RVR. Reverted to sinus rhythm with Amiodarone. -Currently on Norepinepherine at 4. Titrate to maintain MAP greater than 65. -Heparin drip. Follow PTT -Aspirin 81mg PO daily -Atorvastatin 80mg PO HS -Cardiology recommendations appreciated. Will hold off on inotropes, as patient 's clinical picture not consistent with pure cardiogenic shock. -Monitor BP closely in medical management of AAA. CVP monitoring. Pulmonary -Patient extubated 08/19/2018 -Saturating well on face mask. Ensure oxygen saturation greater than 90%. Gastrointestinal -Transaminitis improving. Likely secondary to shock. However, Bilirubin decreased to 1.1 Will trend. -Speech and swallow consult regarding diet and consistency. -Protonix 40mg IV daily Infectious disease -Currently on empiric Zosyn 2.25grams IV Q6H (day #5). Vancomycin discontinued -Blood cultures negative for growth at 96 hours -Urine cultures negative for growth -Chest radiograph not impressive for acute infiltrates -ID recommendations appreciated Musculoskeletal -Left hip fracture to be treated once patient stable, per orthopedic surgery. -Orthopedic surgery recommendations appreciated. FEN -No IV fluids indicated. -Follow CMP. Replete as necessary. -Trial of puree diet. 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 Prophylaxis -Patient is on Heparin drip -Protonix 40mg IV daily Disposition: Continue care in ICU Palliative care consult. Visit type - Emergency Visit Emergency Visit: Yes ED Registration Date: 08/14/18 Care time: The patient presented to the Emergency Department on the above date and was hospitalized for further evaluation of their emergent condition. - New Patient This patient is new to me today: No - Critical Care Critical Care patient: Yes Total Critical Care Time (in minutes): 35 Critical Care Statement: The care of this patient involved high complexity decision making to prevent further life threatening deterioration of the patient 's condition and/or to evaluate & treat vital organ system(s) failure or risk of failure. - Discharge Referral Referred to [facility] Med P.C.: No
[2018-08-19] MEDS: ALBUTEROL SO4 2.5/IPRATROPIUM 0.5 INH SOL 3 ML VIAL.NEB. NEB SCH ×4 (08:00→21:21)
[2018-08-19] MEDS: PANTOPRAZOLE SODIUM 40 MG VIAL IVPUSH SCH (10:03)
[2018-08-19] MEDS: levETIRAcetam 500 MG/5 ML INJECTION VIAL IVPB SCH (10:03)
[2018-08-19] MEDS: HEPARIN - 25,000 UNIT in SODIUM CHLORIDE 495 ML IV SCH (10:04)
[2018-08-19] MEDS: POLYETHYLENE GLYCOL 3350 119 GM BTL PO SCH (10:06)
[2018-08-19] MEDS: ASPIRIN 81 MG CHEWABLE TABLETS PO SCH (10:07)
[2018-08-19] MEDS: CHLORHEXIDINE GLUCONATE 0.12% 15ML CUP MM SCH ×2 (10:09→21:39)
--- NOTE | 2018-08-19 10:19 | PN ---
Progress Note (short form) - Note Progress Note: s: intubated, responding to commands Current Medications Albuterol/Ipratropium (Duoneb -) 1 amp NEB RQID EDMOND Last Admin: 08/18/18 21:10 Dose: 1 amp Aspirin (Asa -) 81 mg PO DAILY [facility]MOND Last Admin: 08/19/18 10:07 Dose: 81 mg Atorvastatin Calcium (Lipitor -) 80 mg PO HS EDMOND Last Admin: 08/18/18 21:16 Dose: 80 mg Chlorhexidine Gluconate (Peridex -) 15 ml MM BID EDMOND Last Admin: 08/19/18 10:09 Dose: 15 ml Collagenase (Santyl -) 1 applic TP DAILY EDMOND; Protocol Last Admin: 08/18/18 17:37 Dose: 1 applic Fentanyl (Sublimaze Injection -) 50 mcg IVPUSH Q1H PRN PRN Reason: PAIN Last Admin: 08/18/18 21:18 Dose: 50 mcg Heparin Sodium (Porcine) (Heparin -) 1,000 unit IVPUSH PRN PRN PRN Reason: Heparin Last Admin: 08/18/18 07:47 Dose: 1,000 unit Heparin Sodium (Porcine) (Heparin -) 5,000 unit IVPUSH PRN PRN PRN Reason: Heparin Piperacillin Sod/Tazobactam (Sod 2.25 gm/ Dextrose) 50 mls @ 100 mls/hr IVPB Q6H-IV EDMOND; Protocol Last Admin: 08/19/18 08:53 Dose: 100 mls/hr Propofol (Diprivan -) 1,000,000 mcg in 100 mls @ 1.447 mls/hr IVPB TITR EDMOND; Protocol Last Admin: 08/19/18 06:12 Dose: Not Given Heparin Sodium (Porcine) 25, (000 unit/ Sodium Chloride) 500 mls @ 16 mls/hr IV TITR EDMOND; Protocol Last Admin: 08/19/18 10:04 Dose: Not Given Norepinephrine Bitartrate 8, (000 mcg/ Dextrose) 500 mls @ 18.75 mls/hr IV TITR EDMOND; Protocol Last Admin: 08/18/18 21:19 Dose: 8 mcg/min, 30 mls/hr Levetiracetam (Keppra Injection -) 500 mg IVPB BID EDMOND Last Admin: 08/19/18 10:03 Dose: 500 mg Lorazepam (Ativan Injection -) 1 mg IVPUSH Q4H PRN PRN Reason: AGITATION Pantoprazole Sodium (Protonix Iv) 40 mg IVPUSH DAILY [facility] Last Admin: 08/19/18 10:03 Dose: 40 mg Polyethylene Glycol (Miralax (For Daily Use) -) 17 gm PO DAILY [facility] Last Admin: 08/19/18 10:06 Dose: 17 gm Senna (Senna Oral Solution -) 8.8 mg GT HS [facility] Last Admin: 08/18/18 22:08 Dose: 8.8 mg Vital Signs Period Temp Pulse Resp BP Sys/Aguirre Pulse Ox Last 24 Hr 98.7 F-99.3 F 55-72 14-21 90-116/44-71 98-100 Constitutional: Yes: No Distress (Intubated, open eyes) Eyes: Yes: WNL Cardiovascular: Yes: Regular Rate and Rhythm, no JVD Respiratory: Yes: CTA Bilaterally Gastrointestinal: Yes: Normal Bowel Sounds Edema: None no jaundice not agitated warm extremities tele: sinus Assessment/Plan 88 yo female with prior right hip fx, hypertension presents after syncopal episode in ED with ?sepsis, left hip fracture and (+) troponin. 1) (+) troponin -Trop peaked to 4.8 now down and ECG without infarct pattern or ongoing ischemia -LV function is severe with akinetic anterospetal segment, unclear chronicity of this finding -on exam she is euvolemic with warm extremities, adequate urine output - less consistent with cardiogenic shock - wean levophed as tolerated -likely demand ischemia - continue aspirin, statin -Hold on Clopidogrel until determined if ortho wants to fix hip 2) Syncope -Unclear details surrounding this, but may be related to infectious process or arrhythmogenic given her LV -monitoring on tele 3) Sepsis -As per ICU care with ABX - source not identified -cont levophed, wean as tolerated - less consistent with cardiogenic shock picture as above 4) Afib -Transient episode and converted with Amio, LFTs trending down now -Could start Beta crispin once BP more stablized -amiodarone dc'ed, patient in sinus - can hold amio for now - continue heparin gtt
[2018-08-19] MEDS: COLLAGENASE CLOSTRIDIUM HIST. 30 GRAMS TUBE TP SCH (10:35)
[2018-08-19] MEDS: NOREPINEPHRINE BITARTRATE 8,000 MCG in DEXTROSE 5%-WATER - 492 ML IV SCH (10:35)
--- NOTE | 2018-08-19 12:00 | PN ---
Teaching Attending Note Name of Resident: Layo Rubi ATTENDING PHYSICIAN STATEMENT I saw and evaluated the patient. I reviewed the resident's note and discussed the case with the resident. I agree with the resident's findings and plan as documented. SUBJECTIVE: Patient seen and examined in the ICU. Remains intubated and awake. Able to follow commands. Tolerated CPAP wean. Remains on NE @ 8 mcq for hemodynamic support. No seizure activity noted. Intake & Output 08/16/18 08/17/18 08/18/18 08/19/18 23:59 23:59 23:59 23:59 Intake Total 3258 2151 2869 1755 Output Total 1220 1450 1750 400 Balance 2038 701 1119 1355 Weight 115 lb 116 lb 117 lb 3.2 oz 123 lb 6 oz Last Vital Signs Temp Pulse Resp BP Pulse Ox 98.8 F 74 16 98/58 L 95 08/19/18 10:00 08/19/18 11:48 08/19/18 11:13 08/19/18 10:00 08/19/18 11:48 Active Medications Albuterol/Ipratropium (Duoneb -) 1 amp NEB RQID [facility] Last Admin: 08/19/18 08:00 Dose: 1 amp Aspirin (Asa -) 81 mg PO DAILY [facility] Last Admin: 08/19/18 10:07 Dose: 81 mg Atorvastatin Calcium (Lipitor -) 80 mg PO HS [facility] Last Admin: 08/18/18 21:16 Dose: 80 mg Chlorhexidine Gluconate (Peridex -) 15 ml MM BID [facility] Last Admin: 08/19/18 10:09 Dose: 15 ml Collagenase (Santyl -) 1 applic TP DAILY [facility]; Protocol Last Admin: 08/19/18 10:35 Dose: 1 applic Fentanyl (Sublimaze Injection -) 50 mcg IVPUSH Q1H PRN PRN Reason: PAIN Last Admin: 08/18/18 21:18 Dose: 50 mcg Heparin Sodium (Porcine) (Heparin -) 1,000 unit IVPUSH PRN PRN PRN Reason: Heparin Last Admin: 08/18/18 07:47 Dose: 1,000 unit Heparin Sodium (Porcine) (Heparin -) 5,000 unit IVPUSH PRN PRN PRN Reason: Heparin Piperacillin Sod/Tazobactam (Sod 2.25 gm/ Dextrose) 50 mls @ 100 mls/hr IVPB Q6H-IV [facility]; Protocol Last Admin: 08/19/18 08:53 Dose: 100 mls/hr Propofol (Diprivan -) 1,000,000 mcg in 100 mls @ 1.447 mls/hr IVPB TITR [facility]; Protocol Last Admin: 08/19/18 06:12 Dose: Not Given Heparin Sodium (Porcine) 25, (000 unit/ Sodium Chloride) 500 mls @ 16 mls/hr IV TITR [facility]; Protocol Last Admin: 08/19/18 10:04 Dose: Not Given Norepinephrine Bitartrate 8, (000 mcg/ Dextrose) 500 mls @ 18.75 mls/hr IV TITR [facility]; Protocol Last Admin: 08/19/18 10:35 Dose: Not Given Levetiracetam (Keppra Injection -) 500 mg IVPB BID [facility] Last Admin: 08/19/18 10:03 Dose: 500 mg Lorazepam (Ativan Injection -) 1 mg IVPUSH Q4H PRN PRN Reason: AGITATION Pantoprazole Sodium (Protonix Iv) 40 mg IVPUSH DAILY [facility] Last Admin: 08/19/18 10:03 Dose: 40 mg Polyethylene Glycol (Miralax (For Daily Use) -) 17 gm PO DAILY [facility] Last Admin: 08/19/18 10:06 Dose: 17 gm Senna (Senna Oral Solution -) 8.8 mg GT HS [facility] Last Admin: 08/18/18 22:08 Dose: 8.8 mg GENERAL: Intubated, awake and able to follow HEAD: left facial hematoma on zygomatic area EYES: reactive pupil on the left , non reactive on right , sclera anicteric, EARS, NOSE, THROAT: orally intubated NECK: Normal range of motion, supple. LUNGS: intubated, vented, decrease breath sound at right side, (+) scattered rhonchi HEART: Regular rate and rhythm, normal S1 and S2 without murmur, rub or gallop. ABDOMEN: Soft, not distended, (+) bowel sounds, LOWER EXTREMITIES: (+) pulses, warm, well-perfused. NEUROLOGICAL: poorly responsive, withdraws to pain LLE sensation intact +2 DP, limited ROM due to pain , RLE sensation intact , + DP, FROM . SKIN: Warm, echymosis , left hip stage 2 ulcer Laboratory Results - last 24 hr 08/18/18 08/19/18 08/19/18 13:45 06:00 06:00 WBC 11.0 H RBC 2.86 L Hgb 9.0 L Hct 26.4 L MCV 92.4 MCH 31.7 MCHC 34.3 RDW 14.0 Plt Count 213 MPV 7.7 PTT (Actin FS) 59.0 H 54.8 H Sodium Potassium Chloride Carbon Dioxide Anion Gap BUN Creatinine Est GFR (CKD-EPI)AfAm Est GFR (CKD-EPI)NonAf Random Glucose Calcium Phosphorus Magnesium Total Bilirubin AST ALT Alkaline Phosphatase Total Protein Albumin 08/19/18 06:00 WBC RBC Hgb Hct MCV MCH MCHC RDW Plt Count MPV PTT (Actin FS) Sodium 135 L Potassium 4.0 Chloride 106 Carbon Dioxide 23 Anion Gap 6 L BUN 14 Creatinine 0.9 Est GFR (CKD-EPI)AfAm 67.10 Est GFR (CKD-EPI)NonAf 57.90 Random Glucose 157 H Calcium 8.0 L Phosphorus 2.9 Magnesium 1.9 Total Bilirubin 1.1 H AST 46 H ALT 73 H Alkaline Phosphatase 77 Total Protein 4.6 L Albumin 2.0 L ASSESSMENT/PLAN: Cardiopulmonary arrest (?) Etiology primary cardiac R/O Sepsis: No clear source of infection suspect Cardiogenic shock Low clinical suspicion of PNA Acute Bronchospasm Lactic acidosis Shock: most likely cardiogenic Elevated CPK AAA 5.7 cm Left hip fracture Multiple ribs fractures: possibly old History of Lung CA S/P Right Pneumonectomy COPD Transaminitis Wean NE, My impression is that the patient may require pressors IVF Follow CVP ABX per ID Strict I & O BD TX AC Wean to extubate Requires ICU monitoring Dr Dooley Critical care time spent in reviewing chart, evaluating patient and formulating plan - 36 minutes.
--- NOTE | 2018-08-19 12:35 | PN ---
Physical Exam: SUBJECTIVE: Patient seen and examined at bedside. No acute events overnight. OBJECTIVE: Vital Signs Period Temp Pulse Resp BP Sys/Aguirre Pulse Ox Last 24 Hr 98.7 F-99.3 F 55-74 14-21 90-116/44-71 95-100 GENERAL: Awake, NAD. HEAD: Left facial pressure ulcer. Nonoozing. Dry EYES: PERRL, EOMI NECK: Trachea midline, full range of motion, supple. LUNGS: CTAB anteriorly HEART: RRR nL S1S2. ABDOMEN: Soft, no facial grimacing to palpation. No guarding or rigidity. EXTREMITIES: No CCE. Upper extremities 2+ edema b/l. NEUROLOGICAL: PERRL. Moves upper/lower extremities upon command. SKIN: Warm, dry, normal turgor, no rashes or lesions noted Laboratory Results - last 24 hr 08/18/18 08/19/18 08/19/18 13:45 06:00 06:00 WBC 11.0 H RBC 2.86 L Hgb 9.0 L Hct 26.4 L MCV 92.4 MCH 31.7 MCHC 34.3 RDW 14.0 Plt Count 213 MPV 7.7 PTT (Actin FS) 59.0 H 54.8 H Sodium Potassium Chloride Carbon Dioxide Anion Gap BUN Creatinine Est GFR (CKD-EPI)AfAm Est GFR (CKD-EPI)NonAf Random Glucose Calcium Phosphorus Magnesium Total Bilirubin AST ALT Alkaline Phosphatase Total Protein Albumin 08/19/18 06:00 WBC RBC Hgb Hct MCV MCH MCHC RDW Plt Count MPV PTT (Actin FS) Sodium 135 L Potassium 4.0 Chloride 106 Carbon Dioxide 23 Anion Gap 6 L BUN 14 Creatinine 0.9 Est GFR (CKD-EPI)AfAm 67.10 Est GFR (CKD-EPI)NonAf 57.90 Random Glucose 157 H Calcium 8.0 L Phosphorus 2.9 Magnesium 1.9 Total Bilirubin 1.1 H AST 46 H ALT 73 H Alkaline Phosphatase 77 Total Protein 4.6 L Albumin 2.0 L Active Medications Generic Name Dose Route Start Last Admin Trade Name Freq PRN Reason Stop Dose Admin Albuterol/Ipratropium 1 amp 08/15/18 12:00 08/19/18 08:00 Duoneb - NEB 1 amp RQID [facility] Administration Aspirin 81 mg 08/17/18 10:00 08/19/18 10:07 Asa - PO 81 mg DAILY [facility] Administration Atorvastatin Calcium 80 mg 08/16/18 22:00 08/18/18 21:16 Lipitor - PO 80 mg HS [facility] Administration Chlorhexidine Gluconate 15 ml 08/18/18 22:00 08/19/18 10:09 Peridex - MM 15 ml BID [facility] Administration Collagenase 1 applic 08/18/18 13:00 08/19/18 10:35 Santyl - TP 1 applic DAILY [facility] Administration Protocol Fentanyl 50 mcg 08/17/18 16:33 08/18/18 21:18 Sublimaze Injection - IVPUSH 50 mcg Q1H PRN Administration PAIN Heparin Sodium (Porcine) 1,000 unit 08/15/18 10:23 08/18/18 07:47 Heparin - IVPUSH 1,000 unit PRN PRN Administration Heparin Heparin Sodium (Porcine) 5,000 unit 08/15/18 10:23 Heparin - IVPUSH PRN PRN Heparin Piperacillin Sod/Tazobactam 50 mls @ 100 mls/hr 08/15/18 09:30 08/19/18 08:53 Sod 2.25 gm/ Dextrose IVPB 100 mls/hr Q6H-IV [facility] Administration Protocol Propofol 1,000,000 mcg in 100 mls @ 1.447 mls/hr 08/15/18 06:00 08/19/18 06: 12 Diprivan - IVPB Not Given TITR [facility] Protocol 5 MCG/KG/MIN Heparin Sodium (Porcine) 25, 500 mls @ 16 mls/hr 08/15/18 10:30 08/19/18 10: 04 000 unit/ Sodium Chloride IV Not Given TITR [facility] Protocol 800 UNIT/HR Norepinephrine Bitartrate 8, 500 mls @ 18.75 mls/hr 08/15/18 10:30 08/19/18 10:35 000 mcg/ Dextrose IV Not Given TITR [facility] Protocol 5 MCG/MIN Levetiracetam 500 mg 08/17/18 10:00 08/19/18 10:03 Keppra Injection - IVPB 500 mg BID [facility] Administration Lorazepam 1 mg 08/17/18 16:34 Ativan Injection - IVPUSH Q4H PRN AGITATION Pantoprazole Sodium 40 mg 08/15/18 10:30 08/19/18 10:03 Protonix Iv IVPUSH 40 mg DAILY [facility] Administration Polyethylene Glycol 17 gm 08/15/18 10:00 08/19/18 10:06 Miralax (For Daily Use) - PO 17 gm DAILY [facility] Administration Senna 8.8 mg 08/15/18 22:00 08/18/18 22:08 Senna Oral Solution - GT 8.8 mg HS [facility] Administration ASSESSMENT/PLAN: 88 year old female with a past medical history of hypertension and right sided lung cancer status post resection, AAA BIBA s/p being found on the ground allegedly by the neighbor, s/p Cardiac arrest overnight, intubated and sedated in ICU on pressors. #Cardiogenic shock 2/2 NSTEMI -s/p cardiac arrest --Pt has been titrated down to Norepinepherine at 4. Titrate to maintain MAP greater than 65. -Cardiology on board. Pt now in sinus rhythm. Cardiology does not recommend any ionotropes or further amiodorone in light of increased VT risk with reduced EF of 25-30%. -Extubated today, 08/19/18 -Troponin 08/17/18--> 1.5. Down from 10.3. -less likely septic shock with no signs of infectious etiology, cultures negatiove. Treating empirically with Zosyn. #New onset Seizures -Neurology on board -Jairon #Left Hip Fracture -Seen by ortho -no surgical management at this time, pt too unstable -will reconsult for possible repair if stabilizes #AAA 5.7 cm -slight increase from prior records -Seen by vascular surgery who recommends f/u if pt becomes more stable #HTN -currently hypotensive on pressors #Rhabdomyolysis -CK 1779 on admission. Trended down to 1103. No Fluids as Ejection Fraction 25- 30%. #Transaminitis -likely secondary to shock and cardiac arrest. AST/ALT 46/73 respectively, trending downwards. -Trend #FEN -No Fluids -Monitor Electrolytes -NPO #DVT PPX -Heparin drip #Disposition ICU Visit type - Emergency Visit Emergency Visit: Yes ED Registration Date: 08/14/18 Care time: The patient presented to the Emergency Department on the above date and was hospitalized for further evaluation of their emergent condition. - New Patient This patient is new to me today: No - Critical Care Critical Care patient: Yes Total Critical Care Time (in minutes): 35 Critical Care Statement: The care of this patient involved high complexity decision making to prevent further life threatening deterioration of the patient 's condition and/or to evaluate & treat vital organ system(s) failure or risk of failure. - Discharge Referral Referred to [facility] Med P.C.: No
--- NOTE | 2018-08-19 13:32 | PN ---
Progress Note (short form) - Note Progress Note: awake and alert extubated still on pressors moist cough Vital Signs Period Temp Pulse Resp BP Sys/Aguirre Pulse Ox Last 24 Hr 98.7 F-99.3 F 55-74 14-21 90-116/44-71 95-100 cor-rrr lungs bilateral rhonchi abd soft,nt ext +edema CBC, BMP 08/19/18 06:00 08/19/18 06:00 Microbiology 08/14/18 13:07 Blood - Peripheral Venous Blood Culture - Final NO GROWTH AFTER 5 DAYS INCUBATION 08/14/18 13:09 Blood - Peripheral Venous Blood Culture - Final NO GROWTH AFTER 5 DAYS INCUBATION 08/14/18 15:26 Urine - Urine Glez Urine Culture - Final NO GROWTH OBTAINED a/p extubated s/p arrest UT ?sepsis left hip fracture continue zosyn day #5- plan to d/c antibiotics in am Problem List - Problems (1) Sudden cardiac arrest Code(s): I46.9 - CARDIAC ARREST, CAUSE UNSPECIFIED (2) Unwitnessed fall Code(s): R29.6 - REPEATED FALLS (3) Hip fracture, left Code(s): S72.002A - FRACTURE OF UNSP PART OF NECK OF LEFT FEMUR, INIT (4) Sepsis Code(s): A41.9 - SEPSIS, UNSPECIFIED ORGANISM (5) Rhabdomyolysis Code(s): M62.82 - RHABDOMYOLYSIS (6) Elevated troponin Code(s): R74.8 - ABNORMAL LEVELS OF OTHER SERUM ENZYMES
--- NOTE | 2018-08-19 14:39 | PN ---
Teaching Attending Note Name of Resident: Rubens Olivier ATTENDING PHYSICIAN STATEMENT I saw and evaluated the patient. I reviewed the resident's note and discussed the case with the resident. I agree with the resident's findings and plan as documented. SUBJECTIVE: No events over night OBJECTIVE: NAD, intubated, awake, follows commands . CV: RRR Lungs: course breath sounds anteriorly Abd: soft, NT, ND, hypoactive BS Ext: bruises on L upper and lower extremities. and knees. L anterior hip ulcer with slough ASSESSMENT AND PLAN: 88 y/o lady with h/o HTN, Lung carcinoma s/p R lung resection who presented after a fall/? syncope . she was found to have L hip Fx ,hypothermia, NSTEMI, and rhabdo. hospital course was complicated with cardiac arrest on day of admission, also A fib with RVR and new onset seizures 1- NSTEMI 2- Shock, likely cardiogentic shock 3- Cardiac arrest 4- Acute hypoxic resp failure 5- New onset Seizures 6- New onset A fib with RVR 7- T4 compression fx 8- Transaminitis : likely due to shock 9- Possible syncope 10- r/o sepsis 11- hypophosphatemia 12- Rhabdo 13- AAA 5.8 cm 14- L hip Fx 15- possible anoxic brain injury Plan: - weaning trial today - cont pressors - cont zosyn. o dc abx tomorrow as cx ar eneg. appreciates ID input - Cont heparin gtt - cont keppra. can switch to oral if extubated and can swallow safely - follow renal and liver function - when acute issues resolve, will address L hip Fx - medical management of AAA - IV PPI . switch to po when extubated - hold home BP meds Dispo : ICU level of care. Full code Critical Care Total Critical Care Time (in minutes): 30 Critical Care Statement: The care of this patient involved high complexity decision making to prevent further life threatening deterioration of the patient 's condition and/or to evaluate & treat vital organ system(s) failure or risk of failure.
[2018-08-19] MEDS ORDERED: PT OWN MED DRAWER 7, Y5N ONE (20:17)
[2018-08-19] MEDS: levETIRAcetam 500 MG TABLET (FP) PO SCH (21:39)
[2018-08-19] MEDS: ATORVASTATIN CA 80 MG TABLET (FP) PO SCH (21:39)
[2018-08-19] MEDS: SENNOSIDES 8.8 MG/5 ML BULK BOTTLE GT SCH (21:40)
[2018-08-20] MEDS ORDERED: PIPERACILLIN/TAZOBACTAM 2.25 GM VIAL IVPB ONE (01:08)
[2018-08-20] MEDS ORDERED: DEXTROSE 5%-WATER - 50 ML IVPB ONE (01:08)
[2018-08-20] MEDS: PIPERACILLIN/TAZOB 2.25 GM 2.25 GM in DEXTROSE 5%-WATER - 50 ML IVPB SCH (02:21)
[2018-08-20 06:30] LABS: HEMATOCRIT 23.6 % (32.4-45.2); HEMOGLOBIN 8.1 GM/dL (10.7-15.3); MCH 31.4 pg (25.7-33.7); MCHC 34.3 g/dl (32.0-36.0); MEAN CELL VOLUME 91.8 fl (80-96); MEAN PLT VOLUME 7.4 fl (7.5-11.1); PLATELET COUNT 215 K/MM3 (134-434); RBC 2.57 M/mm3 (3.60-5.2); RDW 13.6 % (11.6-15.6); WHITE BLOOD COUNT 9.6 K/mm3 (4.0-10.0)
[2018-08-20] MEDS: PROPOFOL 1,000,000 MCG/100 ML VIAL IVPB SCH (06:40)
[2018-08-20 06:56] LABS: ALBUMIN 2.1 g/dl (3.4-5.0); BILIRUBIN,TOTAL 1.5 mg/dL (0.2-1); CALCIUM 8.4 mg/dL (8.5-10.1); MAGNESIUM 1.7 mg/dL (1.8-2.4); PHOSPHOROUS 2.7 mg/dL (2.5-4.9); POTASSIUM 3.8 mmol/L (3.5-5.1); TOT PROT 4.7 g/dl (6.4-8.2)
[2018-08-20] MEDS: ALBUTEROL SO4 2.5/IPRATROPIUM 0.5 INH SOL 3 ML VIAL.NEB. NEB SCH (08:32)
--- NOTE | 2018-08-20 08:36 | PN ---
Physical Exam: SUBJECTIVE: Patient seen and examined at bedside this morning. She denies acute complaints. Saturating well on room air. Patient remains on Norepinepherine at 5mcg/ hour. Denies subjective fevers, chills, shortness of breath, chest pain, palpitations, abdominal pain, nausea, vomiting. OBJECTIVE: Vital Signs Period Temp Pulse Resp BP Sys/Aguirre Pulse Ox Last 24 Hr 98.2 F-98.9 F 64-89 15-24 78-126/46-73 94-100 GENERAL: The patient is awake, alert to person, place. No apparent distress HEENT: Normocephalic, lesion noted along left sided face. PERRL, sclera anicteric, conjunctiva clear. Dry mucous membranes. NECK: Trachea midline, full range of motion, supple. LUNGS: Good inspiratory effort, breath sounds equal, clear to auscultation bilaterally. no wheezes, no crackles. HEART: Regular rate and rhythm, S1, S2 without murmur, rub or gallop. ABDOMEN: Soft, nontender, nondistended, normoactive bowel sounds, no guarding, no rebound tenderness. EXTREMITIES: 1+ radial, dorsalis pedis pulses bilaterally, cool extremities. Left lower extremity motion limited due to left hip fracture. NEUROLOGICAL: Following commands. Squeezes fingers equally bilaterally, and moving her lower extremities. SKIN: Cool skin at extremities. Left groin skin lesion. Left sided facial lesion. Laboratory Results - last 24 hr 08/19/18 08/20/18 08/20/18 11:10 06:00 06:00 WBC 9.6 RBC 2.57 L Hgb 8.1 L Hct 23.6 L MCV 91.8 MCH 31.4 MCHC 34.3 RDW 13.6 Plt Count 215 MPV 7.4 L Sodium 139 Potassium 3.8 Chloride 106 Carbon Dioxide 25 Anion Gap 7 L BUN 13 Creatinine 1.0 Est GFR (CKD-EPI)AfAm 59.08 Est GFR (CKD-EPI)NonAf 50.97 Random Glucose 113 H Calcium 8.4 L Phosphorus 2.7 Magnesium 1.7 L Total Bilirubin 1.5 H AST 49 H ALT 64 H Alkaline Phosphatase 65 Total Protein 4.7 L Albumin 2.1 L Stool Occult Blood Negative Active Medications Generic Name Dose Route Start Last Admin Trade Name Freq PRN Reason Stop Dose Admin Albuterol/Ipratropium 1 amp 08/15/18 12:00 08/20/18 08:32 Duoneb - NEB 1 amp RQID [facility] Administration Aspirin 81 mg 08/17/18 10:00 08/19/18 10:07 Asa - PO 81 mg DAILY [facility] Administration Atorvastatin Calcium 80 mg 08/16/18 22:00 08/19/18 21:39 Lipitor - PO 80 mg HS [facility] Administration Chlorhexidine Gluconate 15 ml 08/18/18 22:00 08/19/18 21:39 Peridex - MM Not Given BID [facility] Collagenase 1 applic 08/18/18 13:00 08/19/18 10:35 Santyl - TP 1 applic DAILY [facility] Administration Protocol Fentanyl 50 mcg 08/17/18 16:33 08/19/18 22:28 Sublimaze Injection - IVPUSH 50 mcg Q1H PRN Administration PAIN Heparin Sodium (Porcine) 1,000 unit 08/15/18 10:23 08/18/18 07:47 Heparin - IVPUSH 1,000 unit PRN PRN Administration Heparin Heparin Sodium (Porcine) 5,000 unit 08/15/18 10:23 Heparin - IVPUSH PRN PRN Heparin Propofol 1,000,000 mcg in 100 mls @ 1.447 mls/hr 08/15/18 06:00 08/20/18 06: 40 Diprivan - IVPB Not Given TITR [facility] Protocol 5 MCG/KG/MIN Heparin Sodium (Porcine) 25, 500 mls @ 16 mls/hr 08/15/18 10:30 08/19/18 10: 04 000 unit/ Sodium Chloride IV Not Given TITR [facility] Protocol 800 UNIT/HR Norepinephrine Bitartrate 8, 500 mls @ 18.75 mls/hr 08/15/18 10:30 08/19/18 18:00 000 mcg/ Dextrose IV 6 mcg/min TITR [facility] 22.5 mls/hr Titration Protocol 5 MCG/MIN Levetiracetam 500 mg 08/19/18 22:00 08/19/18 21:39 Keppra - PO 500 mg BID [facility] Administration Lorazepam 1 mg 08/17/18 16:34 Ativan Injection - IVPUSH Q4H PRN AGITATION Pantoprazole Sodium 40 mg 08/20/18 10:00 Protonix - PO DAILY [facility] Polyethylene Glycol 17 gm 08/15/18 10:00 08/19/18 10:06 Miralax (For Daily Use) - PO 17 gm DAILY [facility] Administration Senna 8.8 mg 08/15/18 22:00 08/19/18 21:40 Senna Oral Solution - GT Not Given HS [facility] ASSESSMENT/PLAN: Patient is an 88 year old female with history of lung cancer s/p right lung resection, hypertension, presents after syncopal event. She had cardiac arrest at time of admission, with new onset seizures upon extubation attempts, and new onset Afib. Neurological -Patient is awake, alert, oriented. Currently not on sedation -Bilateral cerebral injury -New onset seizures; Keppra 500mg PO BID -Neurology recommendations appreciated. Significant anoxic encephalopathy not present. 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 Reverted to sinus rhythm with Amiodarone. -Currently on Norepinepherine at 3. Titrate to maintain MAP greater than 65. -Heparin drip. Follow PTT -Aspirin 81mg PO daily -Atorvastatin 80mg PO HS -Cardiology recommendations appreciated. Will hold off on inotropes, as patient 's clinical picture not consistent with pure cardiogenic shock. -Monitor BP closely in medical management of AAA. CVP monitoring. -Duplex bilateral lower extremities to evaluate for DVT Pulmonary -Patient extubated 08/19/2018 -Saturating well on room air. Ensure oxygen saturation greater than 90%. Gastrointestinal -Transaminitis improving. Likely secondary to shock. However, Bilirubin increased to 1.5, direct bilirubin 0.6. -Speech and swallow consult regarding diet and consistency. -Protonix 40mg IV daily Hematology -Hb 8.1, Hct 23.6 (decreased from 9.0/26.4 yesterday) -Stool for occult blood negative -Reticulocyte count 3.26, suggestive of compensation -Follow repeat Hb, Hct Infectious disease -Patient completed five days of empiric Zosyn. Vancomycin discontinued -Blood cultures negative for growth after 5 days -Urine cultures negative for growth -Chest radiograph not impressive for acute infiltrates -ID recommendations (Dr. Bray) appreciated Musculoskeletal -Left hip fracture to be treated once patient stable, per orthopedic surgery. -Orthopedic surgery recommendations appreciated. FEN -No IV fluids indicated. -Follow CMP. Replete as necessary. -Trial of puree diet. Speech swallow, home service technician evaluation. Prophylaxis -Patient is on Heparin drip -Protonix 40mg IV daily Disposition: Continue care in ICU Patient is DNR/DNI. Health care proxy assigned as sister in law (Katy Brownlee) . Signed paperwork in patient's chart. Visit type - Emergency Visit Emergency Visit: Yes ED Registration Date: 08/14/18 Care time: The patient presented to the Emergency Department on the above date and was hospitalized for further evaluation of their emergent condition. - New Patient This patient is new to me today: No - Critical Care Critical Care patient: Yes Total Critical Care Time (in minutes): 35 Critical Care Statement: The care of this patient involved high complexity decision making to prevent further life threatening deterioration of the patient 's condition and/or to evaluate & treat vital organ system(s) failure or risk of failure. - Discharge Referral Referred to [facility] Med P.C.: No
[2018-08-20 08:51] LABS: BILIRUBIN,DIRECT 0.6 mg/dL (0.0-0.2)
[2018-08-20 08:56] LABS: RETICULOCYTES 3.26 % (0.5-1.5)
[2018-08-20] MEDS: ASPIRIN 81 MG CHEWABLE TABLETS PO SCH (09:02)
[2018-08-20] MEDS: levETIRAcetam 500 MG TABLET (FP) PO SCH ×2 (09:02→22:16)
[2018-08-20] MEDS: PANTOPRAZOLE 40 MG TABLET (FP) PO SCH (09:02)
[2018-08-20] MEDS: POLYETHYLENE GLYCOL 3350 119 GM BTL PO SCH (09:03)
[2018-08-20] MEDS: CHLORHEXIDINE GLUCONATE 0.12% 15ML CUP MM SCH ×2 (09:03→22:16)
[2018-08-20] MEDS ORDERED: MAGNESIUM OXIDE 400 MG TABLET (FP) PO ONE (09:15)
[2018-08-20] MEDS: COLLAGENASE CLOSTRIDIUM HIST. 30 GRAMS TUBE TP SCH (09:24)
--- NOTE | 2018-08-20 10:15 | PN ---
Progress Note (short form) - Note Progress Note: awake and alert extubated still on pressors moist cough no compliants of pain no fevers Vital Signs Period Temp Pulse Resp BP Sys/Aguirre Pulse Ox Last 24 Hr 98.2 F-98.9 F 64-89 15-24 78-131/46-78 94-100 cor-rrr lngs bilateral rhonchi abd soft,nt ext left leg shorter then right CBC, BMP 08/20/18 06:00 08/20/18 06:00 Microbiology 08/14/18 13:07 Blood - Peripheral Venous Blood Culture - Final NO GROWTH AFTER 5 DAYS INCUBATION 08/14/18 13:09 Blood - Peripheral Venous Blood Culture - Final NO GROWTH AFTER 5 DAYS INCUBATION 08/14/18 15:26 Urine - Urine Glez Urine Culture - Final NO GROWTH OBTAINED Current Medications Albuterol/Ipratropium (Duoneb -) 1 amp NEB RQID [facility] Last Admin: 08/20/18 08:32 Dose: 1 amp Aspirin (Asa -) 81 mg PO DAILY [facility] Last Admin: 08/20/18 09:02 Dose: 81 mg Atorvastatin Calcium (Lipitor -) 80 mg PO HS [facility] Last Admin: 08/19/18 21:39 Dose: 80 mg Chlorhexidine Gluconate (Peridex -) 15 ml MM BID [facility] Last Admin: 08/20/18 09:03 Dose: 15 ml Collagenase (Santyl -) 1 applic TP DAILY [facility]; Protocol Last Admin: 08/20/18 09:24 Dose: 1 applic Fentanyl (Sublimaze Injection -) 50 mcg IVPUSH Q1H PRN PRN Reason: PAIN Last Admin: 08/19/18 22:28 Dose: 50 mcg Heparin Sodium (Porcine) (Heparin -) 1,000 unit IVPUSH PRN PRN PRN Reason: Heparin Last Admin: 08/18/18 07:47 Dose: 1,000 unit Heparin Sodium (Porcine) (Heparin -) 5,000 unit IVPUSH PRN PRN PRN Reason: Heparin Propofol (Diprivan -) 1,000,000 mcg in 100 mls @ 1.447 mls/hr IVPB TITR [facility]; Protocol Last Admin: 08/20/18 06:40 Dose: Not Given Heparin Sodium (Porcine) 25, (000 unit/ Sodium Chloride) 500 mls @ 16 mls/hr IV TITR [facility]; Protocol Last Admin: 08/19/18 10:04 Dose: Not Given Norepinephrine Bitartrate 8, (000 mcg/ Dextrose) 500 mls @ 18.75 mls/hr IV TITR [facility]; Protocol Last Titration: 08/19/18 18:00 Dose: 6 mcg/min, 22.5 mls/hr Levetiracetam (Keppra -) 500 mg PO BID [facility] Last Admin: 08/20/18 09:02 Dose: 500 mg Lorazepam (Ativan Injection -) 1 mg IVPUSH Q4H PRN PRN Reason: AGITATION Pantoprazole Sodium (Protonix -) 40 mg PO DAILY [facility] Last Admin: 08/20/18 09:02 Dose: 40 mg Polyethylene Glycol (Miralax (For Daily Use) -) 17 gm PO DAILY [facility] Last Admin: 08/20/18 09:03 Dose: Not Given Senna (Senna Oral Solution -) 8.8 mg GT HS [facility] Last Admin: 08/19/18 21:40 Dose: Not Given a/p extubated s/p arrest ND-low EF ?sepsis hypotension- remains on levophed left hip fracture anemia d/c zosyn check cortisol level Problem List - Problems (1) Sudden cardiac arrest Code(s): I46.9 - CARDIAC ARREST, CAUSE UNSPECIFIED (2) Unwitnessed fall Code(s): R29.6 - REPEATED FALLS (3) Hip fracture, left Code(s): S72.002A - FRACTURE OF UNSP PART OF NECK OF LEFT FEMUR, INIT (4) Sepsis Code(s): A41.9 - SEPSIS, UNSPECIFIED ORGANISM (5) Rhabdomyolysis Code(s): M62.82 - RHABDOMYOLYSIS (6) Elevated troponin Code(s): R74.8 - ABNORMAL LEVELS OF OTHER SERUM ENZYMES
--- NOTE | 2018-08-20 10:28 | PN ---
Progress Note (short form) - Note Progress Note: s: extubated. no chest pain, palps, dizziness, lightheadedness Current Medications Albuterol/Ipratropium (Duoneb -) 1 amp NEB RQID [facility] Last Admin: 08/20/18 08:32 Dose: 1 amp Aspirin (Asa -) 81 mg PO DAILY [facility] Last Admin: 08/20/18 09:02 Dose: 81 mg Atorvastatin Calcium (Lipitor -) 80 mg PO HS [facility] Last Admin: 08/19/18 21:39 Dose: 80 mg Chlorhexidine Gluconate (Peridex -) 15 ml MM BID [facility] Last Admin: 08/20/18 09:03 Dose: 15 ml Collagenase (Santyl -) 1 applic TP DAILY [facility]; Protocol Last Admin: 08/20/18 09:24 Dose: 1 applic Fentanyl (Sublimaze Injection -) 50 mcg IVPUSH Q1H PRN PRN Reason: PAIN Last Admin: 08/19/18 22:28 Dose: 50 mcg Heparin Sodium (Porcine) (Heparin -) 1,000 unit IVPUSH PRN PRN PRN Reason: Heparin Last Admin: 08/18/18 07:47 Dose: 1,000 unit Heparin Sodium (Porcine) (Heparin -) 5,000 unit IVPUSH PRN PRN PRN Reason: Heparin Propofol (Diprivan -) 1,000,000 mcg in 100 mls @ 1.447 mls/hr IVPB TITR [facility]; Protocol Last Admin: 08/20/18 06:40 Dose: Not Given Heparin Sodium (Porcine) 25, (000 unit/ Sodium Chloride) 500 mls @ 16 mls/hr IV TITR [facility]; Protocol Last Admin: 08/19/18 10:04 Dose: Not Given Norepinephrine Bitartrate 8, (000 mcg/ Dextrose) 500 mls @ 18.75 mls/hr IV TITR [facility]; Protocol Last Titration: 08/19/18 18:00 Dose: 6 mcg/min, 22.5 mls/hr Levetiracetam (Keppra -) 500 mg PO BID [facility] Last Admin: 08/20/18 09:02 Dose: 500 mg Lorazepam (Ativan Injection -) 1 mg IVPUSH Q4H PRN PRN Reason: AGITATION Pantoprazole Sodium (Protonix -) 40 mg PO DAILY [facility] Last Admin: 08/20/18 09:02 Dose: 40 mg Polyethylene Glycol (Miralax (For Daily Use) -) 17 gm PO DAILY [facility] Last Admin: 08/20/18 09:03 Dose: Not Given Senna (Senna Oral Solution -) 8.8 mg GT HS [facility] Last Admin: 08/19/18 21:40 Dose: Not Given Vital Signs Period Temp Pulse Resp BP Sys/Aguirre Pulse Ox Last 24 Hr 98.2 F-98.9 F 64-89 15-24 78-131/46-78 94-100 Constitutional: Yes: No Distress (Intubated, open eyes) Eyes: Yes: WNL Cardiovascular: Yes: Regular Rate and Rhythm, no JVD Respiratory: Yes: CTA Bilaterally Gastrointestinal: Yes: Normal Bowel Sounds Edema: None no jaundice not agitated warm extremities tele: sinus Assessment/Plan 88 yo female with prior right hip fx, hypertension presents after syncopal episode in ED with ?sepsis, left hip fracture and (+) troponin. 1) (+) troponin -Trop peaked to 4.8 now down and ECG without infarct pattern or ongoing ischemia -LV function is severe with akinetic anterospetal segment, unclear chronicity of this finding -on exam she is euvolemic with warm extremities, adequate urine output - less consistent with cardiogenic shock -weaning levophed -likely demand ischemia - continue aspirin, statin -Hold on Clopidogrel until determined if ortho wants to fix hip 2) Syncope -Unclear details surrounding this, but may be related to infectious process or arrhythmogenic given her LV -monitoring on tele 3) Sepsis -As per ICU care with ABX - source not identified -weaning levophed as tolerated - less consistent with cardiogenic shock picture as above 4) Afib -Transient episode and converted with Amio, LFTs trending down now -Could start Beta crispin once BP more stablized -amiodarone dc'ed, patient in sinus - can hold amio for now - continue heparin gtt
--- NOTE | 2018-08-20 11:27 | CONSULT ---
Admitting History and Physical - Primary Care Physician PCP: Shun Sarkar - Admission History of Present Illness: 88 y/o lady with h/o HTN, Lung carcinoma s/p R lung resection who presented after a fall/? syncope . she was found to have L hip Fx ,hypothermia, NSTEMI, and rhabdo. hospital course was complicated with cardiac arrest on day of admission, also A fib with RVR and new onset seizures Intubated on 08/15/ extubated yesterday, started on Regular,pureed diet, thin liquids. This is my first consult with this pt. Th History Source: Patient, Medical Record - Past Medical History Cardiovascular: Yes: Aneurysm, HTN ...: No Heme/Onc: Yes: Cancer (lung cancer) Musculoskeletal: Yes: Other (right hip fracture 2018) - Smoking History Smoking history: Former smoker Have you smoked in the past 12 months: No Aproximately how many cigarettes per day: 30 If you are a former smoker, when did you quit?: over 12yrs ago - Alcohol/Substance Use Hx Alcohol Use: No - Social History ADL: Support Services History of Recent Travel: No History - Admission Reason For Visit: HYPOTHERMIA,SYNCOPE AND COLLAPSE,FALL - Diagnostics X-ray: Report Reviewed CT Scan: Report Reviewed MRI: Report Reviewed - General Mental Status: Awake and Alert, Able to Follow Commands Attention: Intact Ability to Follow Directions: Excellent Head/Neck Control: WFL - Hearing Hearing: Normal Hearing Aide: No Speech Evaluation - Communication Primary Language: FRENCH Communication: Yes: Within Normal Limits Oral Expression Ability: Yes: No Impairment - Speech Production Able to Make Needs Known: Yes: WNL Intelligibility: Yes: WNL - Speech Characteristics Voice Loudness: Normal Voice Pitch: Yes: Normal Voice Phonatory-based Quality: Yes: Normal (fairly euphonic) Speech Pattern: Normal Speech Clarity: < 100% Nasal Resonance: Normal Articulation: Yes: Precise Rate of Speech: Intact - Language/Auditory Comprehension Follows: Yes: 1 Stage Simple Commands Observation: Able to respond to yes/no queries: Yes, Yes/No Confusion: No, Comprehends Conversational Speech: Yes - Language/Verbal Expression Able to Respond to Simple Queries: Yes: WNL Able to Communicate Wants and Needs: Yes: WNL Functional Communication Status: Yes: WNL - Swallow Evaluation/Bedside Assessment Current Nutritional Intake: Other (Regular Pureed diet. Pt reported scrambled eggs "got stuck" in her throat.) Oral Secretions: Yes: WFL Dentition: Yes: Edentulous (only a couple of teeth) Facial Symmetry at Rest: Symmetrical Facial Symmetry on Retraction: Symmetrical Against Resistance Opening: Normal Against Resistance Closing: Normal Pucker Lips: Normal Smile: Normal Lingual Movement: Normal, Symmetric Lingual Speed of Movement: Normal Lingual Movement Strgth Against Opposition: Normal Lingual Movement Characteristics: Normal Velopharyngeal Movement: Normal Laryngeal Elevation: WFL Laryngeal Movement: Able to Palpate Rate of Intake: WFL Labial Seal: WFL Chewing: Impaired Timing of Swallow: Delayed Coughing/Throat Clear: Yes (without PO intake. Extubated yesterday) Recommendations - Speech Evaluation, Impression/Plan Impression: Fairly euphonic voice. Delayed swallow onset, fairly brisk once triggered. Reported that eggs "got stuck" nut denied diificulty with puree/thin liquids. Pt has a cough but does not cough responsively with thin water. - Dysphagia Impressions/Plan Dysphagia Impressions: Mild Impairment, Risk of Aspiration *Silent aspiration: cannot be R/O at bedside Dysphagia Treatment Plan: Small Bites, Chin Tuck/Down, Clear Pocket Food, Safe Rate, 1/2 tsp. at a time, Elevate HOB during feed, Other (Tell pt to swallow "hard,with effort" to improve pharyngeal clearance.) Recommendations: Modified Barium Swallow (if cough, congestion, fever) - Recommendations Diet Consistency: Dysphagia Pureed Medication Administration: Crushed with applesauce Liquids: Thin Liquids Supplement: Magic Cup, Ensure Pudding
[2018-08-20] MEDS ORDERED: SODIUM CHLORIDE 500 ML IV STA (11:34)
--- NOTE | 2018-08-20 12:11 | PN ---
Teaching Attending Note Name of Resident: Layo Rubi ATTENDING PHYSICIAN STATEMENT I saw and evaluated the patient. I reviewed the resident's note and discussed the case with the resident. I agree with the resident's findings and plan as documented. SUBJECTIVE: Pt seen and examined in the ICU. Extubated yesterday, remains on levophed gtt but lower dose. Denies chest pain or shortness of breath. No fevers recorded. OBJECTIVE: Vital Signs Period Temp Pulse Resp BP Sys/Aguirre Pulse Ox Last 24 Hr 98.1 F-98.9 F 64-89 15-24 78-131/46-78 94-96 Intake & Output 08/17/18 08/18/18 08/19/18 08/20/18 23:59 23:59 23:59 23:59 Intake Total 2151 2869 2149 624 Output Total 1450 1750 2000 500 Balance 701 1119 149 124 Weight 52.617 kg 53.161 kg 55.962 kg 54.8 kg Gen: NAD at rest Heart: RRR Lung: decreased breath sounds right base Abd: soft, nontender Ext: no edema, left leg short, externally rotated CBC, BMP 08/20/18 06:00 08/20/18 06:00 Active Medications Aspirin (Asa -) 81 mg PO DAILY [facility] Last Admin: 08/20/18 09:02 Dose: 81 mg Atorvastatin Calcium (Lipitor -) 80 mg PO HS [facility] Last Admin: 08/19/18 21:39 Dose: 80 mg Chlorhexidine Gluconate (Peridex -) 15 ml MM BID [facility] Last Admin: 08/20/18 09:03 Dose: 15 ml Collagenase (Santyl -) 1 applic TP DAILY [facility]; Protocol Last Admin: 08/20/18 09:24 Dose: 1 applic Fentanyl (Sublimaze Injection -) 50 mcg IVPUSH Q1H PRN PRN Reason: PAIN Last Admin: 08/19/18 22:28 Dose: 50 mcg Heparin Sodium (Porcine) (Heparin -) 1,000 unit IVPUSH PRN PRN PRN Reason: Heparin Last Admin: 08/18/18 07:47 Dose: 1,000 unit Heparin Sodium (Porcine) (Heparin -) 5,000 unit IVPUSH PRN PRN PRN Reason: Heparin Heparin Sodium (Porcine) 25, (000 unit/ Sodium Chloride) 500 mls @ 16 mls/hr IV TITR [facility]; Protocol Last Admin: 08/19/18 10:04 Dose: Not Given Norepinephrine Bitartrate 8, (000 mcg/ Dextrose) 500 mls @ 18.75 mls/hr IV TITR [facility]; Protocol Last Titration: 08/19/18 18:00 Dose: 6 mcg/min, 22.5 mls/hr Sodium Chloride (Normal Saline -) 500 mls @ 500 mls/hr IV ASDIR STA Stop: 08/20/18 12:33 Levetiracetam (Keppra -) 500 mg PO BID [facility] Last Admin: 08/20/18 09:02 Dose: 500 mg Lorazepam (Ativan Injection -) 1 mg IVPUSH Q4H PRN PRN Reason: AGITATION Pantoprazole Sodium (Protonix -) 40 mg PO DAILY [facility] Last Admin: 08/20/18 09:02 Dose: 40 mg Polyethylene Glycol (Miralax (For Daily Use) -) 17 gm PO DAILY [facility] Last Admin: 08/20/18 09:03 Dose: Not Given Senna (Senna Oral Solution -) 8.8 mg GT HS [facility] Last Admin: 08/19/18 21:40 Dose: Not Given ASSESSMENT AND PLAN: s/p Cardiopulmonary Arrest Shock of unclear etiology +Troponins/NSTEMI/Demand Ischemia Lactic Acidosis Elevated LFTs Likely Ischemic Injury Paroxysmal Atrial Fibrillation now in sinus Left Hip Fracture Rhabdomyolysis COPD h/o Lung Ca s/p R Pneumonectomy - s/p antibiotics - IVF boluses - taper pressors to maintain MAP >65 - monitor urine output, creatinine - rate controlled - anticoagulation per cardiology - will need hip repair once off pressors - will likely need cardiac work up when stable - PO as tolerated - DVT/GI prophylaxis - continue ICU monitoring critical care time spent in reviewing chart, evaluating patient and formulating plan 35 min
[2018-08-20] MEDS: HEPARIN - 25,000 UNIT in SODIUM CHLORIDE 495 ML IV SCH (13:34)
[2018-08-20 15:32] LABS: BASO % 0.4 % (0-2.0); EOS % 0.4 % (0-4.5); HEMATOCRIT 24.5 % (32.4-45.2); HEMOGLOBIN 8.1 GM/dL (10.7-15.3); LYMPH % 7.1 % (8-40); MCH 31.1 pg (25.7-33.7); MCHC 33.2 g/dl (32.0-36.0); MEAN CELL VOLUME 93.7 fl (80-96); MEAN PLT VOLUME 7.4 fl (7.5-11.1); MONO % 9.6 % (3.8-10.2); NEUT % 82.5 % (42.8-82.8); PLATELET COUNT 234 K/MM3 (134-434); RBC 2.61 M/mm3 (3.60-5.2); WHITE BLOOD COUNT 8.2 K/mm3 (4.0-10.0)
--- NOTE | 2018-08-20 17:24 | PN ---
Physical Exam: SUBJECTIVE: Patient seen and examined at bedside. No acute events overnight. Eating breakfast. OBJECTIVE: Vital Signs Period Temp Pulse Resp BP Sys/Aguirre Pulse Ox Last 24 Hr 98.0 F-98.9 F 64-89 15-24 78-131/46-86 94-96 GENERAL: Awake Alert No acute distress. Responds appropriately to questioning. HEAD: Left facial ulcer. Nonoozing. Dry EYES: PERRL, EOMI NECK: Trachea midline, full range of motion, supple. LUNGS: CTAB anteriorly HEART: RRR nL S1S2. ABDOMEN: Soft, NDnT EXTREMITIES: No CCE lower extremities. Upper extremities 2+ edema b/l. NEUROLOGICAL: PERRL. CN 2-12 intact. SKIN: Warm, dry, normal turgor, no rashes or lesions noted Laboratory Results - last 24 hr 08/20/18 08/20/18 08/20/18 06:00 06:00 06:00 WBC 9.6 RBC 2.57 L Hgb 8.1 L Hct 23.6 L MCV 91.8 MCH 31.4 MCHC 34.3 RDW 13.6 Plt Count 215 MPV 7.4 L Absolute Neuts (auto) Neutrophils % Lymphocytes % Monocytes % Eosinophils % Basophils % Nucleated RBC % Retic Count 3.26 H PTT (Actin FS) 81.7 H Sodium 139 Potassium 3.8 Chloride 106 Carbon Dioxide 25 Anion Gap 7 L BUN 13 Creatinine 1.0 Est GFR (CKD-EPI)AfAm 59.08 Est GFR (CKD-EPI)NonAf 50.97 Random Glucose 113 H Calcium 8.4 L Phosphorus 2.7 Magnesium 1.7 L Total Bilirubin 1.5 H Direct Bilirubin 0.6 H AST 49 H ALT 64 H Alkaline Phosphatase 65 LD Total 225 Total Protein 4.7 L Albumin 2.1 L 08/20/18 14:45 WBC 8.2 RBC 2.61 L Hgb 8.1 L Hct 24.5 L MCV 93.7 MCH 31.1 MCHC 33.2 RDW 14.0 Plt Count 234 MPV 7.4 L Absolute Neuts (auto) 6.7 Neutrophils % 82.5 Lymphocytes % 7.1 L D Monocytes % 9.6 Eosinophils % 0.4 D Basophils % 0.4 Nucleated RBC % 0 Retic Count PTT (Actin FS) Sodium Potassium Chloride Carbon Dioxide Anion Gap BUN Creatinine Est GFR (CKD-EPI)AfAm Est GFR (CKD-EPI)NonAf Random Glucose Calcium Phosphorus Magnesium Total Bilirubin Direct Bilirubin AST ALT Alkaline Phosphatase LD Total Total Protein Albumin Active Medications Generic Name Dose Route Start Last Admin Trade Name Kamronq PRN Reason Stop Dose Admin Aspirin 81 mg 08/17/18 10:00 08/20/18 09:02 Asa - PO 81 mg DAILY [facility] Administration Atorvastatin Calcium 80 mg 08/16/18 22:00 08/19/18 21:39 Lipitor - PO 80 mg HS [facility] Administration Chlorhexidine Gluconate 15 ml 08/18/18 22:00 08/20/18 09:03 Peridex - MM 15 ml BID [facility] Administration Collagenase 1 applic 08/18/18 13:00 08/20/18 09:24 Santyl - TP 1 applic DAILY [facility] Administration Protocol Fentanyl 50 mcg 08/17/18 16:33 08/19/18 22:28 Sublimaze Injection - IVPUSH 50 mcg Q1H PRN Administration PAIN Heparin Sodium (Porcine) 1,000 unit 08/15/18 10:23 08/18/18 07:47 Heparin - IVPUSH 1,000 unit PRN PRN Administration Heparin Heparin Sodium (Porcine) 5,000 unit 08/15/18 10:23 Heparin - IVPUSH PRN PRN Heparin Heparin Sodium (Porcine) 25, 500 mls @ 16 mls/hr 08/15/18 10:30 08/20/18 13: 34 000 unit/ Sodium Chloride IV Not Given TITR [facility] Protocol 800 UNIT/HR Norepinephrine Bitartrate 8, 500 mls @ 18.75 mls/hr 08/15/18 10:30 08/19/18 18:00 000 mcg/ Dextrose IV 6 mcg/min TITR [facility] 22.5 mls/hr Titration Protocol 5 MCG/MIN Levetiracetam 500 mg 08/19/18 22:00 08/20/18 09:02 Keppra - PO 500 mg BID [facility] Administration Pantoprazole Sodium 40 mg 08/20/18 10:00 08/20/18 09:02 Protonix - PO 40 mg DAILY [facility] Administration Polyethylene Glycol 17 gm 08/15/18 10:00 08/20/18 09:03 Miralax (For Daily Use) - PO Not Given DAILY [facility] Senna 8.8 mg 08/15/18 22:00 08/19/18 21:40 Senna Oral Solution - GT Not Given HS [facility] ASSESSMENT/PLAN: 88 year old female with a past medical history of hypertension and right sided lung cancer status post resection, AAA BIBA s/p being found on the ground allegedly by the neighbor, s/p Cardiac arrest overnight, intubated and sedated in ICU on pressors. #Cardiogenic shock 2/2 NSTEMI -s/p cardiac arrest --Pt has been titrated down to Norepipnephrine of 3. Titrate to maintain MAP greater than 65. -Cardiology on board. Pt now in sinus rhythm. Cardiology does not recommend any ionotropes or further amiodorone in light of increased VT risk with reduced EF of 25-30%. -Extubated 08/19/18 -Troponin 08/17/18--> 1.5. Down from 10.3. -less likely septic shock with no signs of infectious etiology, cultures negatiove. Treating empirically with Zosyn. #New onset Seizures -Neurology on board -[facility] #Left Hip Fracture -Seen by ortho -no surgical management at this time, pt too unstable -will reconsult for possible repair if stabilizes #AAA 5.7 cm -slight increase from prior records -Seen by vascular surgery who recommends f/u if pt becomes more stable #HTN -currently hypotensive on pressors #Rhabdomyolysis -CK 1779 on admission. Trended down to 1103. No Fluids as Ejection Fraction 25- 30%. #Transaminitis -likely secondary to shock and cardiac arrest. AST/ALT 49/64 today 08/20/18. -Trend #FEN -No Fluids -Monitor Electrolytes -NPO #DVT PPX -Heparin drip #Disposition ICU Patient is DNR/DNI. Health care proxy assigned as sister in law (Katy Brownlee) . Signed paperwork in patient's chart. Visit type - Emergency Visit Emergency Visit: Yes ED Registration Date: 08/14/18 Care time: The patient presented to the Emergency Department on the above date and was hospitalized for further evaluation of their emergent condition. - New Patient This patient is new to me today: No - Critical Care Critical Care patient: Yes Total Critical Care Time (in minutes): 35 Critical Care Statement: The care of this patient involved high complexity decision making to prevent further life threatening deterioration of the patient 's condition and/or to evaluate & treat vital organ system(s) failure or risk of failure. - Discharge Referral Referred to [facility] No
--- NOTE | 2018-08-20 18:38 | PN ---
Teaching Attending Note Name of Resident: Ronnell Pyle ATTENDING PHYSICIAN STATEMENT I saw and evaluated the patient. I reviewed the resident's note and discussed the case with the resident. I agree with the resident's findings and plan as documented. SUBJECTIVE: Pt is in the ICU. s/p extubation yesterday, on levophed gtt . Denies chest pain or shortness of breath. OBJECTIVE: Vital Signs Temperature 97.6 F 08/20/18 18:00 Pulse Rate 104 H 08/20/18 18:00 Respiratory Rate 18 08/20/18 18:00 Blood Pressure 137/98 08/20/18 18:00 O2 Sat by Pulse Oximetry (%) 96 08/20/18 07:30 GENERAL: The patient is comfortable , in no acute distress. HEAD: Normal with no signs of trauma. EYES: PERRL, extraocular movements intact, sclera anicteric, conjunctiva clear. left facial ulcer,non infected ENT: Ears normal, oropharynx clear without exudates, moist mucous membranes. NECK: Trachea midline, full range of motion, supple. LUNGS: Breath sounds equal, clear to auscultation bilaterally, no wheezes, no crackles, no accessory muscle use. HEART: tachycardic , S1, S2 positive with ADAN 2/6, no rub or gallop. ABDOMEN: Soft, nontender, nondistended, normoactive bowel sounds, no guarding, no rebound, no hepatosplenomegaly, no masses. EXTREMITIES: 2+ pulses, warm, well-perfused, no edema. NEUROLOGICAL: Cranial nerves II through XII grossly intact. Normal speech, gait not observed. SKIN: Warm, dry, normal turgor. CBCD WBC 8.2 K/mm3 (4.0-10.0) 08/20/18 14:45 RBC 2.61 M/mm3 (3.60-5.2) L 08/20/18 14:45 Hgb 8.1 GM/dL (10.7-15.3) L 08/20/18 14:45 Hct 24.5 % (32.4-45.2) L 08/20/18 14:45 MCV 93.7 fl (80-96) 08/20/18 14:45 MCHC 33.2 g/dl (32.0-36.0) 08/20/18 14:45 RDW 14.0 % (11.6-15.6) 08/20/18 14:45 Plt Count 234 K/MM3 (134-434) 08/20/18 14:45 MPV 7.4 fl (7.5-11.1) L 08/20/18 14:45 CMP Sodium 139 mmol/L (136-145) 08/20/18 06:00 Potassium 3.8 mmol/L (3.5-5.1) 08/20/18 06:00 Chloride 106 mmol/L (98-107) 08/20/18 06:00 Carbon Dioxide 25 mmol/L (21-32) 08/20/18 06:00 Anion Gap 7 MMOL/L (8-16) L 08/20/18 06:00 BUN 13 mg/dL (7-18) 08/20/18 06:00 Creatinine 1.0 mg/dL (0.55-1.3) 08/20/18 06:00 Random Glucose 113 mg/dL (74-106) H 08/20/18 06:00 Calcium 8.4 mg/dL (8.5-10.1) L 08/20/18 06:00 Total Bilirubin 1.5 mg/dL (0.2-1) H 08/20/18 06:00 AST 49 U/L (15-37) H 08/20/18 06:00 ALT 64 U/L (13-61) H 08/20/18 06:00 Alkaline Phosphatase 65 U/L (45-117) 08/20/18 06:00 Total Protein 4.7 g/dl (6.4-8.2) L 08/20/18 06:00 Albumin 2.1 g/dl (3.4-5.0) L 08/20/18 06:00 CARDIAC ENZYMES Creatine Kinase 1103 U/L (26-192) H 08/15/18 05:20 Troponin I 1.30 ng/ml (0.00-0.05) H* 08/17/18 05:35 ASSESSMENT AND PLAN: Patient is a 88yo female with PMHx of HTN, Lung carcinoma s/p R lung resection who presented after a fall/syncope . she was found to have L hip Fx , hypothermia, NSTEMI, and rhabdo. hospital course was complicated with cardiac arrest on day of admission, also A fib with RVR and new onset seizures # NSTEMI with positive Troponins/NSTEMI/Demand Ischemia, s/p Cardiopulmonary Arrest # Shock of unclear etiology most likely due to cardiogentic shock # s/p Cardiac arrest with Rhabdomyolysis # Acute hypoxic resp failure s/p intubation/extubation now # New onset Seizures # New onset A fib with RVR ; paroxysmal fib # T4 compression fx with left hip fracture # Transaminitis : likely due to shock # AAA 5.8 cm # Hx of COPD with hx of h/o Lung Ca s/p R Pneumonectomy critical care time of 35 min. evaluating patient Dispo : ICU level of care. Full code
[2018-08-20] MEDS: NOREPINEPHRINE BITARTRATE 8,000 MCG in DEXTROSE 5%-WATER - 492 ML IV SCH (18:45)
[2018-08-20] MEDS ORDERED: LORazepam 2 MG/ML SDV VIAL IVPUSH PRN (21:10)
[2018-08-20] MEDS: SENNOSIDES 8.8 MG/5 ML BULK BOTTLE GT SCH (22:16)
[2018-08-20] MEDS: ATORVASTATIN CA 80 MG TABLET (FP) PO SCH (22:16)
[2018-08-21 06:39] LABS: HEMATOCRIT 24.8 % (32.4-45.2); HEMOGLOBIN 8.4 GM/dL (10.7-15.3); MCH 31.7 pg (25.7-33.7); MCHC 33.9 g/dl (32.0-36.0); MEAN CELL VOLUME 93.3 fl (80-96); MEAN PLT VOLUME 7.7 fl (7.5-11.1); PLATELET COUNT 231 K/MM3 (134-434); RBC 2.65 M/mm3 (3.60-5.2); RDW 13.8 % (11.6-15.6); WHITE BLOOD COUNT 8.4 K/mm3 (4.0-10.0)
[2018-08-21 06:45] LABS: ALBUMIN 2.2 g/dl (3.4-5.0); BILIRUBIN,TOTAL 1.2 mg/dL (0.2-1); CALCIUM 8.5 mg/dL (8.5-10.1); CREATININE 0.8 mg/dL (0.55-1.3); MAGNESIUM 1.9 mg/dL (1.8-2.4); PHOSPHOROUS 3.1 mg/dL (2.5-4.9); TOT PROT 4.9 g/dl (6.4-8.2)
--- NOTE | 2018-08-21 08:32 | PN ---
Physical Exam: SUBJECTIVE: Patient seen and examined at bedside. Patient has been off Norepinepherne for over past 12 hours. She was confused, agitated overnight, and received 1mg Ativan. This morning, patient is minimally communicative. Grimaces, and withdraws to sternal rub. OBJECTIVE: Vital Signs Period Temp Pulse Resp BP Sys/Aguirre Pulse Ox Last 24 Hr 97.0 F-98.3 F 79-105 16-22 96-137/52-98 100 GENERAL: The patient is awake, minimally communicative. Grimace and withdraws to sternal rub No apparent distress. HEENT: Normocephalic, lesion noted along left sided face. PERRL, sclera anicteric, conjunctiva clear. Dry mucous membranes. NECK: Trachea midline, full range of motion, supple. Left sided triple lumen catheter removed. LUNGS: Good inspiratory effort, breath sounds equal, clear to auscultation bilaterally. no wheezes, no crackles. HEART: Regular rate and rhythm, S1, S2 without murmur, rub or gallop. ABDOMEN: Soft, nontender, nondistended, normoactive bowel sounds, no guarding, no rebound tenderness. EXTREMITIES: 1+ radial, dorsalis pedis pulses bilaterally, cool extremities. Left lower extremity motion limited due to left hip fracture. NEUROLOGICAL: Following commands. Squeezes fingers equally bilaterally, and moving her lower extremities. SKIN: Cool skin at extremities. Left groin skin lesion. Left sided facial lesion. Laboratory Results - last 24 hr 08/20/18 08/20/18 08/20/18 06:00 06:00 06:00 WBC RBC Hgb Hct MCV MCH MCHC RDW Plt Count MPV Absolute Neuts (auto) Neutrophils % Lymphocytes % Monocytes % Eosinophils % Basophils % Nucleated RBC % Retic Count 3.26 H PTT (Actin FS) 81.7 H Sodium Potassium Chloride Carbon Dioxide Anion Gap BUN Creatinine Est GFR (CKD-EPI)AfAm Est GFR (CKD-EPI)NonAf Random Glucose Calcium Phosphorus Magnesium Total Bilirubin Direct Bilirubin 0.6 H AST ALT Alkaline Phosphatase LD Total 225 Total Protein Albumin 08/20/18 08/21/18 08/21/18 14:45 05:30 05:30 WBC 8.2 8.4 RBC 2.61 L 2.65 L Hgb 8.1 L 8.4 L Hct 24.5 L 24.8 L MCV 93.7 93.3 MCH 31.1 31.7 MCHC 33.2 33.9 RDW 14.0 13.8 Plt Count 234 231 MPV 7.4 L 7.7 Absolute Neuts (auto) 6.7 Neutrophils % 82.5 Lymphocytes % 7.1 L D Monocytes % 9.6 Eosinophils % 0.4 D Basophils % 0.4 Nucleated RBC % 0 Retic Count PTT (Actin FS) 69.2 H Sodium Potassium Chloride Carbon Dioxide Anion Gap BUN Creatinine Est GFR (CKD-EPI)AfAm Est GFR (CKD-EPI)NonAf Random Glucose Calcium Phosphorus Magnesium Total Bilirubin Direct Bilirubin AST ALT Alkaline Phosphatase LD Total Total Protein Albumin 08/21/18 05:30 WBC RBC Hgb Hct MCV MCH MCHC RDW Plt Count MPV Absolute Neuts (auto) Neutrophils % Lymphocytes % Monocytes % Eosinophils % Basophils % Nucleated RBC % Retic Count PTT (Actin FS) Sodium 139 Potassium 4.0 Chloride 106 Carbon Dioxide 27 Anion Gap 6 L BUN 12 Creatinine 0.8 Est GFR (CKD-EPI)AfAm 77.37 Est GFR (CKD-EPI)NonAf 66.76 Random Glucose 78 Calcium 8.5 Phosphorus 3.1 Magnesium 1.9 Total Bilirubin 1.2 H Direct Bilirubin AST 46 H ALT 56 Alkaline Phosphatase 65 LD Total Total Protein 4.9 L Albumin 2.2 L Active Medications Generic Name Dose Route Start Last Admin Trade Name Freq PRN Reason Stop Dose Admin Aspirin 81 mg 08/17/18 10:00 08/20/18 09:02 Asa - PO 81 mg DAILY EDMOND Administration Atorvastatin Calcium 80 mg 08/16/18 22:00 08/20/18 22:16 Lipitor - PO 80 mg HS EDMOND Administration Chlorhexidine Gluconate 15 ml 08/18/18 22:00 08/20/18 22:16 Peridex - MM Not Given BID EDMOND Collagenase 1 applic 08/18/18 13:00 08/20/18 09:24 Santyl - TP 1 applic DAILY EDMOND Administration Protocol Fentanyl 50 mcg 08/17/18 16:33 08/20/18 21:45 Sublimaze Injection - IVPUSH 50 mcg Q1H PRN Administration PAIN Heparin Sodium (Porcine) 1,000 unit 08/15/18 10:23 08/18/18 07:47 Heparin - IVPUSH 1,000 unit PRN PRN Administration Heparin Heparin Sodium (Porcine) 5,000 unit 08/15/18 10:23 Heparin - IVPUSH PRN PRN Heparin Heparin Sodium (Porcine) 25, 500 mls @ 16 mls/hr 08/15/18 10:30 08/20/18 13: 34 000 unit/ Sodium Chloride IV Not Given TITR EDMOND Protocol 800 UNIT/HR Norepinephrine Bitartrate 8, 500 mls @ 18.75 mls/hr 08/15/18 10:30 08/20/18 18:45 000 mcg/ Dextrose IV Not Given TITR EDMOND Protocol 5 MCG/MIN Levetiracetam 500 mg 08/19/18 22:00 08/20/18 22:16 Keppra - PO 500 mg BID EDMOND Administration Lorazepam 1 mg 08/20/18 21:10 08/20/18 22:19 Ativan Injection - IVPUSH 1 mg Q6H PRN Administration AGITATION Pantoprazole Sodium 40 mg 08/20/18 10:00 08/20/18 09:02 Protonix - PO 40 mg DAILY EDMOND Administration Polyethylene Glycol 17 gm 08/15/18 10:00 08/20/18 09:03 Miralax (For Daily Use) - PO Not Given DAILY EDMOND Senna 8.8 mg 08/15/18 22:00 08/20/18 22:16 Senna Oral Solution - GT Not Given HS EDMOND ASSESSMENT/PLAN: Patient is an 88 year old female with history of lung cancer s/p right lung resection, hypertension, presents after syncopal event. She had cardiac arrest at time of admission, with new onset seizures upon extubation attempts, and new onset Afib. Neurological -Patient is awake, alert. Currently not on sedation -Bilateral cerebral injury -New onset seizures; Keppra 500mg PO BID (liquid) -Neurology recommendations appreciated. Significant anoxic encephalopathy not present. 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 Reverted to sinus rhythm with Amiodarone. -Patient has been off Norepinepherine for over past 12 hours with MAP greater than 65. CVP between 8-10. -Heparin drip. Follow PTT -Aspirin 81mg PO daily -Atorvastatin 80mg PO HS -Cardiology recommendations appreciated. Will hold off on inotropes, as patient 's clinical picture not consistent with pure cardiogenic shock. -Monitor BP closely in medical management of AAA. CVP monitoring. -Duplex bilateral lower extremities negative for DVT Pulmonary -Patient extubated 08/19/2018 -Saturating well on room air. Ensure oxygen saturation greater than 90%. -End tidal CO2 monitoring; currently no CO2 retention Gastrointestinal -Transaminitis improving. Likely secondary to shock. However, Bilirubin increased to 1.5, direct bilirubin 0.6. -Speech and swallow consult regarding diet and consistency. -Protonix 40mg IV daily Hematology -Hb 8.4, Hct 24.8 -Stool for occult blood negative -Reticulocyte count 3.26, suggestive of compensation -Follow Hb, Hct Infectious disease -Patient completed five days of empiric Zosyn. Vancomycin discontinued -Blood cultures negative for growth after 5 days -Urine cultures negative for growth -Chest radiograph not impressive for acute infiltrates -ID recommendations (Dr. Bray) appreciated Musculoskeletal -Left hip fracture to be treated once patient stable, per orthopedic surgery. -Orthopedic surgery recommendations appreciated. FEN -No IV fluids indicated. -Follow CMP. Replete as necessary. -Puree diet. Speech swallow, roof assembler evaluation appreciated. Prophylaxis -Patient is on Heparin drip -Protonix 40mg IV daily Disposition: Continue care in ICU Patient is DNR/DNI. Health care proxy assigned as sister in law (Katy Brownlee) . Signed paperwork in patient's chart. Visit type - Emergency Visit Emergency Visit: Yes ED Registration Date: 08/14/18 Care time: The patient presented to the Emergency Department on the above date and was hospitalized for further evaluation of their emergent condition. - New Patient This patient is new to me today: No - Critical Care Critical Care patient: Yes Total Critical Care Time (in minutes): 35 Critical Care Statement: The care of this patient involved high complexity decision making to prevent further life threatening deterioration of the patient 's condition and/or to evaluate & treat vital organ system(s) failure or risk of failure. - Discharge Referral Referred to [facility] No
[2018-08-21] MEDS: ASPIRIN 81 MG CHEWABLE TABLETS PO SCH (10:11)
[2018-08-21] MEDS: PANTOPRAZOLE 40 MG TABLET (FP) PO SCH (10:11)
[2018-08-21] MEDS: POLYETHYLENE GLYCOL 3350 119 GM BTL PO SCH (10:18)
[2018-08-21] MEDS: CHLORHEXIDINE GLUCONATE 0.12% 15ML CUP MM SCH ×2 (10:19→21:45)
[2018-08-21] MEDS: COLLAGENASE CLOSTRIDIUM HIST. 30 GRAMS TUBE TP SCH (10:20)
[2018-08-21] MEDS: HEPARIN - 25,000 UNIT in SODIUM CHLORIDE 495 ML IV SCH (10:24)
[2018-08-21] MEDS ORDERED: levETIRAcetam 500 MG/5 ML ORAL SOLUTION (UNIT-DOSE CUPS) PO SCH (11:30)
--- NOTE | 2018-08-21 11:33 | PN ---
Teaching Attending Note Name of Resident: Layo Rubi ATTENDING PHYSICIAN STATEMENT I saw and evaluated the patient. I reviewed the resident's note and discussed the case with the resident. I agree with the resident's findings and plan as documented. SUBJECTIVE: Patient seen and examined in the ICU. Remains extubated. Pressors were discontinued overnight. hemodynamics have remained relatively stable. Confused but is able to tell us her name. Denies CP or SOB. ETCO2: no evidence of retention OBJECTIVE: Intake & Output 08/18/18 08/19/18 08/20/18 08/21/18 23:59 23:59 23:59 23:59 Intake Total 2869 2149 1736 204 Output Total 1750 2000 1350 Balance 1119 149 386 204 Weight 117 lb 3.2 oz 123 lb 6 oz 120 lb 13.013 oz 126 lb 12.253 oz Last Vital Signs Temp Pulse Resp BP Pulse Ox 97.9 F 86 22 H 93/56 L 100 08/21/18 10:00 08/21/18 10:00 08/21/18 10:00 08/21/18 10:00 08/21/18 09:00 Active Medications Aspirin (Asa -) 81 mg PO DAILY EDMOND Last Admin: 08/21/18 10:11 Dose: 81 mg Atorvastatin Calcium (Lipitor -) 80 mg PO HS EDMOND Last Admin: 08/20/18 22:16 Dose: 80 mg Chlorhexidine Gluconate (Peridex -) 15 ml MM BID EDMOND Last Admin: 08/21/18 10:19 Dose: Not Given Collagenase (Santyl -) 1 applic TP DAILY EDMOND; Protocol Last Admin: 08/21/18 10:20 Dose: 1 applic Fentanyl (Sublimaze Injection -) 50 mcg IVPUSH Q1H PRN PRN Reason: PAIN Last Admin: 08/20/18 21:45 Dose: 50 mcg Heparin Sodium (Porcine) (Heparin -) 1,000 unit IVPUSH PRN PRN PRN Reason: Heparin Last Admin: 08/18/18 07:47 Dose: 1,000 unit Heparin Sodium (Porcine) (Heparin -) 5,000 unit IVPUSH PRN PRN PRN Reason: Heparin Heparin Sodium (Porcine) 25, (000 unit/ Sodium Chloride) 500 mls @ 16 mls/hr IV TITR EDMOND; Protocol Last Admin: 08/21/18 10:24 Dose: 850 unit/hr, 17 mls/hr Levetiracetam (Keppra Oral Solution -) 500 mg PO BID [facility] Pantoprazole Sodium (Protonix -) 40 mg PO DAILY [facility] Last Admin: 08/21/18 10:11 Dose: 40 mg Polyethylene Glycol (Miralax (For Daily Use) -) 17 gm PO DAILY [facility] Last Admin: 08/21/18 10:18 Dose: Not Given Senna (Senna Oral Solution -) 8.8 mg GT HS [facility] Last Admin: 08/20/18 22:16 Dose: Not Given Gen: Extubated, NAD at rest Heart: RRR Lung: decreased breath sounds on the right, few rhonchi Abd: soft, nontender Ext: no edema, left leg externally rotated Laboratory Results - last 24 hr 08/20/18 08/21/18 08/21/18 14:45 05:30 05:30 WBC 8.2 8.4 RBC 2.61 L 2.65 L Hgb 8.1 L 8.4 L Hct 24.5 L 24.8 L MCV 93.7 93.3 MCH 31.1 31.7 MCHC 33.2 33.9 RDW 14.0 13.8 Plt Count 234 231 MPV 7.4 L 7.7 Absolute Neuts (auto) 6.7 Neutrophils % 82.5 Lymphocytes % 7.1 L D Monocytes % 9.6 Eosinophils % 0.4 D Basophils % 0.4 Nucleated RBC % 0 PTT (Actin FS) 69.2 H Sodium Potassium Chloride Carbon Dioxide Anion Gap BUN Creatinine Est GFR (CKD-EPI)AfAm Est GFR (CKD-EPI)NonAf Random Glucose Calcium Phosphorus Magnesium Total Bilirubin AST ALT Alkaline Phosphatase Total Protein Albumin 08/21/18 05:30 WBC RBC Hgb Hct MCV MCH MCHC RDW Plt Count MPV Absolute Neuts (auto) Neutrophils % Lymphocytes % Monocytes % Eosinophils % Basophils % Nucleated RBC % PTT (Actin FS) Sodium 139 Potassium 4.0 Chloride 106 Carbon Dioxide 27 Anion Gap 6 L BUN 12 Creatinine 0.8 Est GFR (CKD-EPI)AfAm 77.37 Est GFR (CKD-EPI)NonAf 66.76 Random Glucose 78 Calcium 8.5 Phosphorus 3.1 Magnesium 1.9 Total Bilirubin 1.2 H AST 46 H ALT 56 Alkaline Phosphatase 65 Total Protein 4.9 L Albumin 2.2 L ASSESSMENT AND PLAN: s/p Cardiopulmonary Arrest Shock of unclear etiology: Suspect component of Cardiogenic shock +Troponins/NSTEMI/Demand Ischemia Lactic Acidosis Elevated LFTs Likely Ischemic Injury Paroxysmal Atrial Fibrillation now in sinus Left Hip Fracture Rhabdomyolysis COPD h/o Lung Ca s/p R Pneumonectomy - s/p antibiotics - IVF boluses as needed - Monitor off pressors - D/C TLC - monitor urine output, creatinine - rate controlled - anticoagulation per cardiology - will need hip repair - will need cardiac work up when stable - PO as tolerated - DVT/GI prophylaxis - Cardiac Telemetry monitoring Dr Dooley
[2018-08-21] MEDS ORDERED: PT OWN MED DRAWER 7, Y5N ONE ×2 (12:14→21:38)
--- NOTE | 2018-08-21 12:49 | PN ---
Progress Note (short form) - Note Progress Note: s: extubated, off pressors. not communicating well/lethargic Current Medications Generic Name Dose Route Start Last Admin Trade Name Freq PRN Reason Stop Dose Admin Albuterol/Ipratropium 1 amp 08/21/18 14:00 Duoneb - NEB RTID EDMOND Aspirin 81 mg 08/17/18 10:00 08/21/18 10:11 Asa - PO 81 mg DAILY EDMOND Administration Atorvastatin Calcium 80 mg 08/16/18 22:00 08/20/18 22:16 Lipitor - PO 80 mg HS EDMOND Administration Chlorhexidine Gluconate 15 ml 08/18/18 22:00 08/21/18 10:19 Peridex - MM Not Given BID EDMOND Collagenase 1 applic 08/18/18 13:00 08/21/18 10:20 Santyl - TP 1 applic DAILY EDMOND Administration Protocol Fentanyl 50 mcg 08/17/18 16:33 08/20/18 21:45 Sublimaze Injection - IVPUSH 50 mcg Q1H PRN Administration PAIN Heparin Sodium (Porcine) 1,000 unit 08/15/18 10:23 08/18/18 07:47 Heparin - IVPUSH 1,000 unit PRN PRN Administration Heparin Heparin Sodium (Porcine) 5,000 unit 08/15/18 10:23 Heparin - IVPUSH PRN PRN Heparin Heparin Sodium (Porcine) 25, 500 mls @ 16 mls/hr 08/15/18 10:30 08/21/18 10: 24 000 unit/ Sodium Chloride IV 850 unit/hr TITR EDMOND 17 mls/hr Administration Protocol 800 UNIT/HR Levetiracetam 500 mg 08/21/18 11:30 08/21/18 12:17 Keppra Oral Solution - PO 500 mg BID EDMOND Administration Pantoprazole Sodium 40 mg 08/20/18 10:00 08/21/18 10:11 Protonix - PO 40 mg DAILY EDMOND Administration Polyethylene Glycol 17 gm 08/15/18 10:00 08/21/18 10:18 Miralax (For Daily Use) - PO Not Given DAILY EDMOND Senna 8.8 mg 08/15/18 22:00 08/20/18 22:16 Senna Oral Solution - GT Not Given HS EDMOND Vital Signs Temp 97.9 F 08/21/18 10:00 Pulse 90 06/06/19 12:00 Resp 22 H 08/21/18 12:00 BP 89/58 L 08/21/18 12:00 Pulse Ox 100 08/21/18 09:00 Intake & Output 08/20/18 08/21/18 08/21/18 23:59 11:59 23:59 Intake Total 1112 204 Output Total 850 Balance 262 204 Weight 126 lb 12.253 oz Intake: IV 892 204 Heparin - 25,000 Unit In 190 204 Normal Saline - 495 ml @ 800 UNIT/HR 16 mls/hr IV TITR EDMOND Rx#:[id number] Levophed - 8,000 Mcg In 202 D5w - 492 ml @ 5 MCG/MIN 18.75 mls/hr IV TITR EDMOND Rx#:[id number] Normal Saline - 500 ml @ 500 500 mls/hr IV ASDIR STA Rx#:[id number] Oral 220 Output: Urine 850 Glez 850 Other: Voiding Method Indwelling Catheter Indwelling Catheter Bowel Movement Yes Yes # Bowel Movements 1 Body Mass Index (BMI) 20.5 Weight Measurement Method Built in [facility] Constitutional: Yes: No Distress, no jvd Cardiovascular: Yes: Regular Rate and Rhythm Respiratory: Yes: CTA Bilaterally ant, poor eff Gastrointestinal: Yes: Normal Bowel Sounds, nd, nt Edema: None no jaundice diaphoresis not agitated lethargic Laboratory Last Values WBC 8.4 K/mm3 (4.0-10.0) 08/21/18 05:30 RBC 2.65 M/mm3 (3.60-5.2) L 08/21/18 05:30 Hgb 8.4 GM/dL (10.7-15.3) L 08/21/18 05:30 Hct 24.8 % (32.4-45.2) L 08/21/18 05:30 MCV 93.3 fl (80-96) 08/21/18 05:30 MCH 31.7 pg (25.7-33.7) 08/21/18 05:30 MCHC 33.9 g/dl (32.0-36.0) 08/21/18 05:30 RDW 13.8 % (11.6-15.6) 08/21/18 05:30 Plt Count 231 K/MM3 (134-434) 08/21/18 05:30 MPV 7.7 fl (7.5-11.1) 08/21/18 05:30 Absolute Neuts (auto) 6.7 K/mm3 (1.5-8.0) 08/20/18 14:45 Neutrophils % 82.5 % (42.8-82.8) 08/20/18 14:45 Lymphocytes % 7.1 % (8-40) L D 08/20/18 14:45 Monocytes % 9.6 % (3.8-10.2) 08/20/18 14:45 Eosinophils % 0.4 % (0-4.5) D 08/20/18 14:45 Basophils % 0.4 % (0-2.0) 08/20/18 14:45 Nucleated RBC % 0 % (0-0) 08/20/18 14:45 Retic Count 3.26 % (0.5-1.5) H 08/20/18 06:00 PT with INR 13.70 SEC (9.7-13.0) H 08/15/18 06:25 INR 1.16 (0.83-1.09) H 08/15/18 06:25 PTT (Actin FS) 69.2 SECONDS (25.2-36.5) H 08/21/18 05:30 Anticoagulation Therapy No Result Required. 08/15/18 08:13 Puncture Site Left femoral 08/15/18 08:13 ABG pH 7.27 (7.35-7.45) L 08/15/18 08:13 ABG pCO2 at Pt Temp 33.0 mmHg (35-45) L 08/15/18 08:13 ABG pO2 at Pt Temp 260 mmHg (80-105) H 08/15/18 08:13 ABG HCO3 14.7 mmol/L (22-27) L 08/15/18 08:13 ABG O2 Sat (Measured) 99.4 % (95-98) H 08/15/18 08:13 ABG O2 Content 13.3 % vol (15-22) L 08/15/18 08:13 ABG Base Excess -10.8 meq/l (-2-2) L 08/15/18 08:13 Jeevan Test Positive 08/15/18 08:13 VBG pH 7.35 (7.31-7.41) 08/14/18 23:33 POC VBG pCO2 40.1 mmHg (41-51) L 08/14/18 23:33 POC VBG pO2 22.5 mmHg (30-40) L 08/14/18 23:33 VBG HCO3 21.5 mmol/L (23-29) L 08/14/18 23:33 VBG O2 Sat (Gwendolyn) 29.6 % (70-80) L 08/14/18 23:33 VBG Base Excess -3.3 meq/l (-2-2) L 08/14/18 23:33 Carboxyhemoglobin 1.2 % (0-2) 08/14/18 21:10 Methemoglobin 0.3 % (0-2) 08/14/18 21:10 O2 Delivery Device No Result Required. 08/15/18 08:13 Oxygen Flow Rate Yes 08/15/18 08:13 Vent Mode No Result Required. 08/15/18 08:13 Vent Rate No Result Required. 08/15/18 08:13 Mechanical Rate No Result Required. 08/15/18 08:13 Pressure Support Vent No Result Required. 08/15/18 08:13 Sodium 139 mmol/L (136-145) 08/21/18 05:30 Potassium 4.0 mmol/L (3.5-5.1) 08/21/18 05:30 Chloride 106 mmol/L (98-107) 08/21/18 05:30 Carbon Dioxide 27 mmol/L (21-32) 08/21/18 05:30 Anion Gap 6 MMOL/L (8-16) L 08/21/18 05:30 BUN 12 mg/dL (7-18) 08/21/18 05:30 Creatinine 0.8 mg/dL (0.55-1.3) 08/21/18 05:30 Est GFR (CKD-EPI)AfAm 77.37 08/21/18 05:30 Est GFR (CKD-EPI)NonAf 66.76 08/21/18 05:30 Random Glucose 78 mg/dL (74-106) 08/21/18 05:30 Hemoglobin A1c % 5.2 % (4.2-6.3) 08/15/18 05:20 Lactic Acid 1.9 mmol/L (0.4-2.0) 08/15/18 14:10 Calcium 8.5 mg/dL (8.5-10.1) 08/21/18 05:30 Phosphorus 3.1 mg/dL (2.5-4.9) 08/21/18 05:30 Magnesium 1.9 mg/dL (1.8-2.4) 08/21/18 05:30 Total Bilirubin 1.2 mg/dL (0.2-1) H 08/21/18 05:30 Direct Bilirubin 0.6 mg/dL (0.0-0.2) H 08/20/18 06:00 AST 46 U/L (15-37) H 08/21/18 05:30 ALT 56 U/L (13-61) 08/21/18 05:30 Alkaline Phosphatase 65 U/L (45-117) 08/21/18 05:30 LD Total 225 U/L (84-246) 08/20/18 06:00 Creatine Kinase 1103 U/L (26-192) H 08/15/18 05:20 Creatine Kinase Index 6.1 % (0.0-5.0) H* 08/15/18 05:20 CK-MB (CK-2) 67.9 ng/mL (0.5-3.6) H 08/15/18 05:20 Troponin I 1.30 ng/ml (0.00-0.05) H* 08/17/18 05:35 Total Protein 4.9 g/dl (6.4-8.2) L 08/21/18 05:30 Albumin 2.2 g/dl (3.4-5.0) L 08/21/18 05:30 Triglycerides 77 mg/dL (0-150) 08/15/18 05:20 Cholesterol 161 mg/dL (50-200) 08/15/18 05:20 Total LDL Cholesterol 72 mg/dL (5-100) 08/15/18 05:20 HDL Cholesterol 66 mg/dL (40-60) H 08/15/18 05:20 TSH 2.29 uIU/ml (0.358-3.74) 08/15/18 05:20 Urine Color Dk yellow 08/14/18 15:26 Urine Appearance Turbid 08/14/18 15:26 Urine pH 5.0 (5.0-8.0) 08/14/18 15:26 Ur Specific [place] 1.022 (1.010-1.035) 08/14/18 15:26 Urine Protein 2+ (NEGATIVE) H 08/14/18 15:26 Urine Glucose (UA) Negative (NEGATIVE) 08/14/18 15:26 Urine Ketones Trace (NEGATIVE) H 08/14/18 15:26 Urine Blood 3+ (NEGATIVE) H 08/14/18 15:26 Urine Nitrite Negative (NEGATIVE) 08/14/18 15:26 Urine Bilirubin 2+ (NEGATIVE) H 08/14/18 15:26 Urine Urobilinogen 1.0 mg/dL (0.2-1.0) 08/14/18 15:26 Ur Leukocyte Esterase Trace (NEGATIVE) 08/14/18 15:26 Urine WBC (Auto) 6 /hpf (0-5) 08/14/18 15:26 Urine RBC (Auto) 2 /hpf (0-4) 08/14/18 15:26 Urine Casts (Auto) 148 /lpf (0-8) 08/14/18 15:26 U Epithel Cells (Auto) 19.4 /HPF (0-5/HPF) 08/14/18 15:26 Urine Bacteria (Auto) 23.5 /hpf (NEGATIVE) 08/14/18 15:26 Stool Occult Blood Negative (NEGATIVE) 08/19/18 11:10 Vancomycin Pre-Dose 8.5 ug/ml (18-26) L 08/17/18 23:30 Blood Type Cancelled 08/14/18 13:09 Antibody Screen Cancelled 08/14/18 13:09 tele: sinus cxr: left infiltrate est cct 35 mins Assessment/Plan 88 yo female with prior right hip fx, hypertension presents after syncopal episode in ED with ?sepsis, left hip fracture and (+) troponin. 1) (+) troponin -Trop peaked to 4.8 now down and ECG without infarct pattern or ongoing ischemia -LV function is severely reduced with akinetic anterospetal segment, unclear chronicity of this finding -on exam she is euvolemic with warm extremities, adequate urine output - less consistent with cardiogenic shock -weaned off levophed and now extubated -likely demand ischemia - continue aspirin, statin -Hold on Clopidogrel until determined if ortho wants to fix hip 2) Syncope -Unclear details surrounding this, but may be related to infectious process or arrhythmogenic given her LV -monitoring on tele benign so far 3) Sepsis -As per ICU care with ABX - source not identified -bp improved, now off pressors -less consistent with cardiogenic shock picture as above 4) Afib -Transient episode and converted with Amio -amiodarone dc'ed, patient in sinus - can hold amio for now -Could start Beta crispin once BP more stablized -continue heparin gtt
--- NOTE | 2018-08-21 13:47 | PN ---
Progress Note (short form) - Note Progress Note: off pressors confused alert Vital Signs Period Temp Pulse Resp BP Sys/Aguirre Pulse Ox Last 24 Hr 97.0 F-98.3 F 82-105 16-25 89-137/56-98 100-100 cor-rrr lungs decreased bs at bases abd soft,nt ext trace edema CBC, BMP 08/21/18 05:30 08/21/18 05:30 Microbiology 08/14/18 13:07 Blood - Peripheral Venous Blood Culture - Final NO GROWTH AFTER 5 DAYS INCUBATION 08/14/18 13:09 Blood - Peripheral Venous Blood Culture - Final NO GROWTH AFTER 5 DAYS INCUBATION 08/14/18 15:26 Urine - Urine Glez Urine Culture - Final NO GROWTH OBTAINED 2 a/p extubated s/p arrest MO-low EF ?sepsis hypotension- resolved left hip fracture anemia f/u cortisol level observe off antibiotics please call back if needed Problem List - Problems (1) Sudden cardiac arrest Code(s): I46.9 - CARDIAC ARREST, CAUSE UNSPECIFIED (2) Unwitnessed fall Code(s): R29.6 - REPEATED FALLS (3) Hip fracture, left Code(s): S72.002A - FRACTURE OF UNSP PART OF NECK OF LEFT FEMUR, INIT (4) Sepsis Code(s): A41.9 - SEPSIS, UNSPECIFIED ORGANISM (5) Rhabdomyolysis Code(s): M62.82 - RHABDOMYOLYSIS (6) Elevated troponin Code(s): R74.8 - ABNORMAL LEVELS OF OTHER SERUM ENZYMES
[2018-08-21] MEDS: ALBUTEROL SO4 2.5/IPRATROPIUM 0.5 INH SOL 3 ML VIAL.NEB. NEB SCH ×2 (14:20→21:03)
[2018-08-21] MEDS: levETIRAcetam 500 MG/5 ML INJECTION VIAL IVPB SCH ×2 (14:54→21:45)
--- NOTE | 2018-08-21 15:28 | PN ---
Progress Note, [employer] - Note Progress Note: Selected Entries 08/20/18 08/20/18 08/20/18 02:14 06:00 10:00 Breakfast 50% Lunch Temperature 98.2 F 98.4 F 98.1 F 08/20/18 08/20/18 08/20/18 14:00 18:00 20:22 Breakfast Lunch 50% 50% Temperature 98.0 F 97.6 F 97.0 F L 08/21/18 08/21/18 08/21/18 06:00 10:00 14:00 Breakfast Lunch Temperature 98.3 F 97.9 F 98.0 F Laboratory Tests 08/19/18 08/20/18 08/21/18 06:00 06:00 05:30 WBC 11.0 H 9.6 8.4 Remains extubated Poor PO intake.Refusing to eat. Speech seems more imprecise to me today.Seems to waiver. Swallow delayed, with multiple swallows per sip today. Trial Ensure if pt will accept.
--- NOTE | 2018-08-21 17:42 | PN ---
Physical Exam: SUBJECTIVE: Patient seen and examined at bedside. No acute events overight. OBJECTIVE: Vital Signs Period Temp Pulse Resp BP Sys/Aguirre Pulse Ox Last 24 Hr 97.0 F-98.3 F 82-105 16-25 89-137/56-98 94-100 GENERAL: NAD HEAD: Left facial ulcer. Nonoozing. Dry EYES: PERRL, EOMI NECK: Trachea midline, full range of motion, supple. LUNGS: Dec BS at bases HEART: RRR nL S1S2. ABDOMEN: Soft, NDnT EXTREMITIES: No CCE in lower extremities. NEUROLOGICAL: PERRL. CN 2-12 intact. SKIN: Warm, dry, normal turgor, no rashes or lesions noted Laboratory Results - last 24 hr 08/21/18 08/21/18 08/21/18 05:30 05:30 05:30 WBC 8.4 RBC 2.65 L Hgb 8.4 L Hct 24.8 L MCV 93.3 MCH 31.7 MCHC 33.9 RDW 13.8 Plt Count 231 MPV 7.7 PTT (Actin FS) 69.2 H Sodium 139 Potassium 4.0 Chloride 106 Carbon Dioxide 27 Anion Gap 6 L BUN 12 Creatinine 0.8 Est GFR (CKD-EPI)AfAm 77.37 Est GFR (CKD-EPI)NonAf 66.76 Random Glucose 78 Calcium 8.5 Phosphorus 3.1 Magnesium 1.9 Total Bilirubin 1.2 H AST 46 H ALT 56 Alkaline Phosphatase 65 Total Protein 4.9 L Albumin 2.2 L Active Medications Generic Name Dose Route Start Last Admin Trade Name Freq PRN Reason Stop Dose Admin Albuterol/Ipratropium 1 amp 08/21/18 14:00 08/21/18 14:20 Duoneb - NEB 1 amp RTID EDMOND Administration Aspirin 81 mg 08/17/18 10:00 08/21/18 10:11 Asa - PO 81 mg DAILY EDMOND Administration Atorvastatin Calcium 80 mg 08/16/18 22:00 08/20/18 22:16 Lipitor - PO 80 mg HS EDMOND Administration Chlorhexidine Gluconate 15 ml 08/18/18 22:00 08/21/18 10:19 Peridex - MM Not Given BID EDMOND Collagenase 1 applic 08/18/18 13:00 08/21/18 10:20 Santyl - TP 1 applic DAILY EDMOND Administration Protocol Fentanyl 50 mcg 08/17/18 16:33 08/20/18 21:45 Sublimaze Injection - IVPUSH 50 mcg Q1H PRN Administration PAIN Heparin Sodium (Porcine) 1,000 unit 08/15/18 10:23 08/18/18 07:47 Heparin - IVPUSH 1,000 unit PRN PRN Administration Heparin Heparin Sodium (Porcine) 5,000 unit 08/15/18 10:23 Heparin - IVPUSH PRN PRN Heparin Heparin Sodium (Porcine) 25, 500 mls @ 16 mls/hr 08/15/18 10:30 08/21/18 10: 24 000 unit/ Sodium Chloride IV 850 unit/hr TITR EDMOND 17 mls/hr Administration Protocol 800 UNIT/HR Levetiracetam 500 mg 08/21/18 13:30 08/21/18 14:54 Keppra Injection - IVPB 500 mg BID EDMOND Administration Pantoprazole Sodium 40 mg 08/20/18 10:00 08/21/18 10:11 Protonix - PO 40 mg DAILY EDMOND Administration Polyethylene Glycol 17 gm 08/15/18 10:00 08/21/18 10:18 Miralax (For Daily Use) - PO Not Given DAILY EDMOND Senna 8.8 mg 08/15/18 22:00 08/20/18 22:16 Senna Oral Solution - GT Not Given HS EDMOND ASSESSMENT/PLAN: 88 year old female with a past medical history of hypertension and right sided lung cancer status post resection, AAA BIBA s/p being found on the ground allegedly by the neighbor, s/p Cardiac arrest overnight, intubated and sedated in ICU on pressors. #Cardiogenic shock 2/2 NSTEMI -s/p cardiac arrest --Pt has been weaned off Pressors. -Cardiology on board. Pt now in sinus rhythm. Cardiology does not recommend any ionotropes or further amiodorone in light of increased VT risk with reduced EF of 25-30%. -Extubated 08/19/18 -Troponin 08/17/18--> 1.5. Down from 10.3. -less likely septic shock with no signs of infectious etiology, cultures negatiove. Will observe off antibiotics #New onset Seizures -Neurology on board -Keppra #Left Hip Fracture -Seen by ortho -no surgical management at this time, pt too unstable -will reconsult for possible repair if stabilizes #AAA 5.7 cm -slight increase from prior records -Seen by vascular surgery who recommends f/u if pt becomes more stable #HTN -currently hypotensive on pressors #Rhabdomyolysis -CK 1779 on admission. Trended down to 1103. No Fluids as Ejection Fraction 25- 30%. #Transaminitis -likely secondary to shock and cardiac arrest. AST/ALT 49/64 today 08/20/18. -Trend #FEN -No Fluids -Monitor Electrolytes -NPO #DVT PPX -Heparin drip #Disposition ICU Patient is DNR/DNI. Health care proxy assigned as sister in law (Katy Brownlee) . Signed paperwork in patient's chart. Visit type - Emergency Visit Emergency Visit: Yes ED Registration Date: 08/14/18 Care time: The patient presented to the Emergency Department on the above date and was hospitalized for further evaluation of their emergent condition. - New Patient This patient is new to me today: No - Critical Care Critical Care patient: Yes Total Critical Care Time (in minutes): 35 Critical Care Statement: The care of this patient involved high complexity decision making to prevent further life threatening deterioration of the patient 's condition and/or to evaluate & treat vital organ system(s) failure or risk of failure. - Discharge Referral Referred to [facility] Med P.C.: No
[2018-08-21] MEDS ORDERED: DEXTROSE 5%-0.45% SALINE 1,000 ML IV SCH (19:00)
[2018-08-21] MEDS ORDERED: DEXTROSE 5%-NORMAL SALINE 1,000 ML IV SCH (19:15)
--- NOTE | 2018-08-21 19:41 | PN ---
Teaching Attending Note Name of Resident: Ronnell Pyle ATTENDING PHYSICIAN STATEMENT I saw and evaluated the patient. I reviewed the resident's note and discussed the case with the resident. I agree with the resident's findings and plan as documented. SUBJECTIVE: in ICU , no new event OBJECTIVE: Vital Signs Temperature 98.0 F 08/21/18 18:00 Pulse Rate 92 H 08/21/18 18:00 Respiratory Rate 20 08/21/18 18:00 Blood Pressure 120/72 08/21/18 18:00 O2 Sat by Pulse Oximetry (%) 93 L 08/21/18 18:00 GENERAL: The patient is confused , but awake. HEAD: Normal with no signs of trauma. EYES: PERRL, extraocular movements intact, sclera anicteric, conjunctiva clear. ENT: Ears normal, oropharynx clear without exudates, moist mucous membranes. NECK: Trachea midline, full range of motion, supple. LUNGS: Breath sounds equal, clear to auscultation bilaterally, no wheezes, no crackles, no accessory muscle use. HEART: Regular rate and rhythm, S1, S2 without murmur, rub or gallop. ABDOMEN: Soft, nontender, nondistended, normoactive bowel sounds, no guarding, no rebound, no hepatosplenomegaly, no masses. EXTREMITIES: 2+ pulses, warm, well-perfused, no edema. NEUROLOGICAL: Cranial nerves II through XII grossly intact. gait not observed. SKIN: Warm, dry, normal turgor, no rashes or lesions noted CBCD WBC 8.4 K/mm3 (4.0-10.0) 08/21/18 05:30 RBC 2.65 M/mm3 (3.60-5.2) L 08/21/18 05:30 Hgb 8.4 GM/dL (10.7-15.3) L 08/21/18 05:30 Hct 24.8 % (32.4-45.2) L 08/21/18 05:30 MCV 93.3 fl (80-96) 08/21/18 05:30 MCHC 33.9 g/dl (32.0-36.0) 08/21/18 05:30 RDW 13.8 % (11.6-15.6) 08/21/18 05:30 Plt Count 231 K/MM3 (134-434) 08/21/18 05:30 MPV 7.7 fl (7.5-11.1) 08/21/18 05:30 CMP Sodium 139 mmol/L (136-145) 08/21/18 05:30 Potassium 4.0 mmol/L (3.5-5.1) 08/21/18 05:30 Chloride 106 mmol/L (98-107) 08/21/18 05:30 Carbon Dioxide 27 mmol/L (21-32) 08/21/18 05:30 Anion Gap 6 MMOL/L (8-16) L 08/21/18 05:30 BUN 12 mg/dL (7-18) 08/21/18 05:30 Creatinine 0.8 mg/dL (0.55-1.3) 08/21/18 05:30 Random Glucose 78 mg/dL (74-106) 08/21/18 05:30 Calcium 8.5 mg/dL (8.5-10.1) 08/21/18 05:30 Total Bilirubin 1.2 mg/dL (0.2-1) H 08/21/18 05:30 AST 46 U/L (15-37) H 08/21/18 05:30 ALT 56 U/L (13-61) 08/21/18 05:30 Alkaline Phosphatase 65 U/L (45-117) 08/21/18 05:30 Total Protein 4.9 g/dl (6.4-8.2) L 08/21/18 05:30 Albumin 2.2 g/dl (3.4-5.0) L 08/21/18 05:30 CARDIAC ENZYMES Creatine Kinase 1103 U/L (26-192) H 08/15/18 05:20 Troponin I 1.30 ng/ml (0.00-0.05) H* 08/17/18 05:35 Home Medications Medication Instructions Recorded Losartan Potassium 50 mg PO DAILY 10/27/15 Zolpidem Tartrate [Ambien] 10 mg PO HS 10/27/15 Bisacodyl Suppository [Dulcolax 10 mg OK PRN PRN supp.rect 01/20/18 Suppository -] Docusate Sodium [Colace -] 100 mg PO TID capsule 01/20/18 Enoxaparin [Lovenox -] 30 mg SQ DAILY disp.syrin 01/20/18 Polyethylene Glycol 3350 [Miralax 17 gm PO DAILY bottle 01/20/18 119 gm Btl -] Sennosides [Senna -] 2 tab PO HS tablet 01/20/18 Ferrous Sulfate 325 mg PO BID 08/15/18 Current Medications Generic Name Dose Route Start Last Admin Trade Name Freq PRN Reason Stop Dose Admin Albuterol/Ipratropium 1 amp 08/21/18 14:00 08/21/18 14:20 Duoneb - NEB 1 amp RTID EDMOND Administration Aspirin 81 mg 08/17/18 10:00 08/21/18 10:11 Asa - PO 81 mg DAILY EDMOND Administration Atorvastatin Calcium 80 mg 08/16/18 22:00 08/20/18 22:16 Lipitor - PO 80 mg HS EDMOND Administration Chlorhexidine Gluconate 15 ml 08/18/18 22:00 08/21/18 10:19 Peridex - MM Not Given BID EDMOND Collagenase 1 applic 08/18/18 13:00 08/21/18 10:20 Santyl - TP 1 applic DAILY EDMOND Administration Protocol Fentanyl 50 mcg 08/17/18 16:33 08/20/18 21:45 Sublimaze Injection - IVPUSH 50 mcg Q1H PRN Administration PAIN Heparin Sodium (Porcine) 1,000 unit 08/15/18 10:23 08/18/18 07:47 Heparin - IVPUSH 1,000 unit PRN PRN Administration Heparin Heparin Sodium (Porcine) 5,000 unit 08/15/18 10:23 Heparin - IVPUSH PRN PRN Heparin Heparin Sodium (Porcine) 25, 500 mls @ 16 mls/hr 08/15/18 10:30 08/21/18 10: 24 000 unit/ Sodium Chloride IV 850 unit/hr TITR EDMOND 17 mls/hr Administration Protocol 800 UNIT/HR Dextrose/Sodium Chloride 1,000 mls @ 42 mls/hr 08/21/18 19:00 08/21/18 19:06 D5-1/2ns - IV 08/22/18 18:49 42 mls/hr ASDIR EDMOND Administration Levetiracetam 500 mg 08/21/18 13:30 08/21/18 14:54 Keppra Injection - IVPB 500 mg BID EDMOND Administration Pantoprazole Sodium 40 mg 08/20/18 10:00 08/21/18 10:11 Protonix - PO 40 mg DAILY EDMOND Administration Polyethylene Glycol 17 gm 08/15/18 10:00 08/21/18 10:18 Miralax (For Daily Use) - PO Not Given DAILY EDMOND Senna 8.8 mg 08/15/18 22:00 08/20/18 22:16 Senna Oral Solution - GT Not Given HS EDMOND ASSESSMENT AND PLAN: Patient is a 88yo female with h/o HTN, Lung carcinoma s/p R lung resection who presented after a fall/ syncope . she was found to have L hip Fx ,hypothermia, NSTEMI, and rhabdo. hospital course was complicated with cardiac arrest on day of admission, also A fib with RVR and new onset seizures # NSTEMI with positive Troponins/NSTEMI/Demand Ischemia, s/p Cardiopulmonary Arrest, continue to monitor, on heparin drip # Shock of unclear etiology most likely due to cardiogentic shock # s/p Cardiac arrest with Rhabdomyolysis # Acute hypoxic resp failure s/p intubation/extubation now # New onset Seizures : on Keppra # New onset A fib with RVR ; paroxysmal fib # T4 compression fx with left hip fracture # Transaminitis : likely due to shock , continue to monitor # AAA 5.8 cm # Hx of COPD with hx of h/o Lung Ca s/p R Pneumonectomy DVT Px: heparin drip
[2018-08-21] MEDS: ATORVASTATIN CA 80 MG TABLET (FP) PO SCH (21:44)
[2018-08-21] MEDS: SENNOSIDES 8.8 MG/5 ML BULK BOTTLE GT SCH (21:45)
[2018-08-22 05:58] LABS: HEMATOCRIT 26.9 % (32.4-45.2); HEMOGLOBIN 9.3 GM/dL (10.7-15.3); MCH 31.8 pg (25.7-33.7); MCHC 34.4 g/dl (32.0-36.0); MEAN CELL VOLUME 92.5 fl (80-96); MEAN PLT VOLUME 7.3 fl (7.5-11.1); PLATELET COUNT 292 K/MM3 (134-434); RBC 2.91 M/mm3 (3.60-5.2); RDW 14.1 % (11.6-15.6); WHITE BLOOD COUNT 7.6 K/mm3 (4.0-10.0)
[2018-08-22 06:31] LABS: ALBUMIN 2.4 g/dl (3.4-5.0); BILIRUBIN,TOTAL 1.3 mg/dL (0.2-1); CALCIUM 8.6 mg/dL (8.5-10.1); CREATININE 0.8 mg/dL (0.55-1.3); MAGNESIUM 2.1 mg/dL (1.8-2.4); PHOSPHOROUS 2.9 mg/dL (2.5-4.9); POTASSIUM 4.1 mmol/L (3.5-5.1); TOT PROT 5.1 g/dl (6.4-8.2)
--- NOTE | 2018-08-22 07:27 | PN ---
Physical Exam: SUBJECTIVE: Patient seen and examined at bedside this morning. She is more awake , and alert this morning. Patient endorses diminished appetite. She denies subjective fevers, chills, shortness of breath, chest pain, palpitations, abdominal pain, nausea, vomiting. OBJECTIVE: Vital Signs Period Temp Pulse Resp BP Sys/Aguirre Pulse Ox Last 24 Hr 97.3 F-98.0 F 77-97 14-25 89-135/56-82 93-100 GENERAL: The patient is awake, alert to person and place. No acute distress HEENT: Normocephalic, lesion noted along left sided face. PERRL, sclera anicteric, conjunctiva clear. Dry mucous membranes. NECK: Trachea midline, full range of motion, supple. Left sided triple lumen catheter removed. LUNGS: Good inspiratory effort, breath sounds equal, clear to auscultation bilaterally. no wheezes, no crackles. HEART: Regular rate and rhythm, S1, S2 without murmur, rub or gallop. ABDOMEN: Soft, nontender, nondistended, normoactive bowel sounds, no guarding, no rebound tenderness. EXTREMITIES: 1+ radial, dorsalis pedis pulses bilaterally, cool extremities. Left lower extremity motion limited due to left hip fracture. NEUROLOGICAL: Following commands. Squeezes fingers equally bilaterally, and moving her lower extremities. SKIN: Cool skin at extremities. Left groin skin lesion. Left sided facial lesion. Laboratory Results - last 24 hr 08/20/18 08/22/18 08/22/18 12:01 05:15 05:15 WBC 7.6 RBC 2.91 L Hgb 9.3 L Hct 26.9 L MCV 92.5 MCH 31.8 MCHC 34.4 RDW 14.1 Plt Count 292 D MPV 7.3 L PTT (Actin FS) Sodium 140 Potassium 4.1 Chloride 106 Carbon Dioxide 27 Anion Gap 7 L BUN 15 Creatinine 0.8 Est GFR (CKD-EPI)AfAm 77.37 Est GFR (CKD-EPI)NonAf 66.76 Random Glucose 93 Calcium 8.6 Phosphorus 2.9 Magnesium 2.1 Total Bilirubin 1.3 H AST 39 H ALT 49 Alkaline Phosphatase 68 Total Protein 5.1 L Albumin 2.4 L Cortisol AM Sample 15.0 08/22/18 05:15 WBC RBC Hgb Hct MCV MCH MCHC RDW Plt Count MPV PTT (Actin FS) 84.0 H Sodium Potassium Chloride Carbon Dioxide Anion Gap BUN Creatinine Est GFR (CKD-EPI)AfAm Est GFR (CKD-EPI)NonAf Random Glucose Calcium Phosphorus Magnesium Total Bilirubin AST ALT Alkaline Phosphatase Total Protein Albumin Cortisol AM Sample Active Medications Generic Name Dose Route Start Last Admin Trade Name Freq PRN Reason Stop Dose Admin Albuterol/Ipratropium 1 amp 08/21/18 14:00 08/21/18 21:03 Duoneb - NEB 1 amp RTID EDMOND Administration Aspirin 81 mg 08/17/18 10:00 08/21/18 10:11 Asa - PO 81 mg DAILY EDMOND Administration Atorvastatin Calcium 80 mg 08/16/18 22:00 08/21/18 21:44 Lipitor - PO 80 mg HS EDMOND Administration Chlorhexidine Gluconate 15 ml 08/18/18 22:00 08/21/18 21:45 Peridex - MM Not Given BID EDMOND Collagenase 1 applic 08/18/18 13:00 08/21/18 10:20 Santyl - TP 1 applic DAILY EDMOND Administration Protocol Fentanyl 50 mcg 08/17/18 16:33 08/20/18 21:45 Sublimaze Injection - IVPUSH 50 mcg Q1H PRN Administration PAIN Heparin Sodium (Porcine) 1,000 unit 08/15/18 10:23 08/18/18 07:47 Heparin - IVPUSH 1,000 unit PRN PRN Administration Heparin Heparin Sodium (Porcine) 5,000 unit 08/15/18 10:23 Heparin - IVPUSH PRN PRN Heparin Heparin Sodium (Porcine) 25, 500 mls @ 16 mls/hr 08/15/18 10:30 08/22/18 06: 57 000 unit/ Sodium Chloride IV 800 unit/hr TITR EDMOND 16 mls/hr Titration Protocol 800 UNIT/HR Dextrose/Sodium Chloride 1,000 mls @ 42 mls/hr 08/21/18 19:00 08/21/18 19:06 D5-1/2ns - IV 08/22/18 18:49 42 mls/hr ASDIR EDMOND Administration Levetiracetam 500 mg 08/21/18 13:30 08/21/18 21:45 Keppra Injection - IVPB 500 mg BID EDMOND Administration Pantoprazole Sodium 40 mg 08/20/18 10:00 08/21/18 10:11 Protonix - PO 40 mg DAILY EDMOND Administration Polyethylene Glycol 17 gm 08/15/18 10:00 08/21/18 10:18 Miralax (For Daily Use) - PO Not Given DAILY EDMOND Senna 8.8 mg 08/15/18 22:00 08/21/18 21:45 Senna Oral Solution - GT Not Given HS EDMOND ASSESSMENT/PLAN: Patient is an 88 year old female with history of lung cancer s/p right lung resection, hypertension, presented after syncopal event. She had cardiac arrest at time of admission, with new onset seizures upon initial extubation attempts, and new onset Afib. Neurological -Patient is awake, alert. Oriented to person, and place. Currently not on sedation -Bilateral cerebral injury -New onset seizures; Keppra 500mg IV BID -Neurology recommendations appreciated. Significant anoxic encephalopathy not present. 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 Reverted to sinus rhythm with Amiodarone. -Patient has been off Norepinepherine for over past 12 hours with MAP greater than 65. CVP between 8-10. -Heparin drip. Follow PTT -Aspirin 81mg PO daily -Atorvastatin 80mg PO HS -Cardiology recommendations appreciated. Will hold off on inotropes, as patient 's clinical picture not consistent with pure cardiogenic shock. -Monitor BP closely in medical management of AAA. CVP monitoring. -Duplex bilateral lower extremities negative for DVT Pulmonary -Patient extubated 08/19/2018 -Saturating well on room air. Ensure oxygen saturation greater than 90%. -End tidal CO2 monitoring; currently no CO2 retention Gastrointestinal -Transaminitis improving. Likely secondary to shock. However, Bilirubin increased to 1.5, direct bilirubin 0.6. -Speech and swallow consult regarding diet and consistency. -Protonix 40mg IV daily Hematology -Hb 9.3, Hct 26.9 -Stool for occult blood negative -Reticulocyte count 3.26, suggestive of compensation -Follow Hb, Hct Infectious disease -Patient completed five days of empiric Zosyn. Vancomycin discontinued -Blood cultures negative for growth after 5 days -Urine cultures negative for growth -Chest radiograph not impressive for acute infiltrates -ID recommendations (Dr. Bray) appreciated Musculoskeletal -Left hip fracture to be treated once patient stable, per orthopedic surgery. -Orthopedic surgery recommendations appreciated. FEN -No IV fluids indicated. -Follow CMP. Replete as necessary. -Puree diet. 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 Prophylaxis -Patient is on Heparin drip -Protonix 40mg IV daily Disposition: Patient medically stable for transfer to Telemetry floor. Patient is DNR/DNI. Health care proxy assigned as sister in law (Katy Brownlee) . Signed paperwork in patient's chart. Visit type - Emergency Visit Emergency Visit: Yes ED Registration Date: 08/14/18 Care time: The patient presented to the Emergency Department on the above date and was hospitalized for further evaluation of their emergent condition. - New Patient This patient is new to me today: No - Critical Care Critical Care patient: Yes Total Critical Care Time (in minutes): 35 Critical Care Statement: The care of this patient involved high complexity decision making to prevent further life threatening deterioration of the patient 's condition and/or to evaluate & treat vital organ system(s) failure or risk of failure. - Discharge Referral Referred to [facility] Med P.C.: No
[2018-08-22] MEDS: ALBUTEROL SO4 2.5/IPRATROPIUM 0.5 INH SOL 3 ML VIAL.NEB. NEB SCH ×3 (08:06→21:15)
--- NOTE | 2018-08-22 09:09 | PN ---
Progress Note, Physician Chief Complaint: TELE:NSR More alert, denies CP - Current Medication List Current Medications: Active Medications Albuterol/Ipratropium (Duoneb -) 1 amp NEB RTID EDMOND Last Admin: 08/22/18 08:06 Dose: 1 amp Aspirin (Asa -) 81 mg PO DAILY EDMOND Last Admin: 08/21/18 10:11 Dose: 81 mg Atorvastatin Calcium (Lipitor -) 80 mg PO HS EDMOND Last Admin: 08/21/18 21:44 Dose: 80 mg Chlorhexidine Gluconate (Peridex -) 15 ml MM BID EDMOND Last Admin: 08/21/18 21:45 Dose: Not Given Collagenase (Santyl -) 1 applic TP DAILY EDMOND; Protocol Last Admin: 08/21/18 10:20 Dose: 1 applic Fentanyl (Sublimaze Injection -) 50 mcg IVPUSH Q1H PRN PRN Reason: PAIN Last Admin: 08/20/18 21:45 Dose: 50 mcg Heparin Sodium (Porcine) (Heparin -) 1,000 unit IVPUSH PRN PRN PRN Reason: Heparin Last Admin: 08/18/18 07:47 Dose: 1,000 unit Heparin Sodium (Porcine) (Heparin -) 5,000 unit IVPUSH PRN PRN PRN Reason: Heparin Heparin Sodium (Porcine) 25, (000 unit/ Sodium Chloride) 500 mls @ 16 mls/hr IV TITR EDMOND; Protocol Last Titration: 08/22/18 06:57 Dose: 800 unit/hr, 16 mls/hr Dextrose/Sodium Chloride (D5-1/2ns -) 1,000 mls @ 42 mls/hr IV ASDIR EDMOND Stop: 08/22/18 18:49 Last Admin: 08/21/18 19:06 Dose: 42 mls/hr Levetiracetam (Keppra Injection -) 500 mg IVPB BID EDMOND Last Admin: 08/21/18 21:45 Dose: 500 mg Pantoprazole Sodium (Protonix -) 40 mg PO DAILY EDMOND Last Admin: 08/21/18 10:11 Dose: 40 mg Polyethylene Glycol (Miralax (For Daily Use) -) 17 gm PO DAILY EDMOND Last Admin: 08/21/18 10:18 Dose: Not Given Senna (Senna Oral Solution -) 8.8 mg GT HS EDMOND Last Admin: 08/21/18 21:45 Dose: Not Given - Objective Vital Signs: Vital Signs Temperature 97.5 F L 08/22/18 05:00 Pulse Rate 89 08/22/18 07:00 Respiratory Rate 15 08/22/18 07:00 Blood Pressure 122/73 08/22/18 07:00 O2 Sat by Pulse Oximetry (%) 96 08/22/18 00:22 Constitutional: Yes: No Distress Cardiovascular: Yes: Regular Rate and Rhythm Respiratory: Yes: CTA Bilaterally Gastrointestinal: Yes: Soft Edema: No Labs: CBC, BMP 08/22/18 05:15 08/22/18 05:15 INR, PTT INR 1.16 (0.83-1.09) H 08/15/18 06:25 Laboratory Tests 08/14/18 08/14/18 08/15/18 17:42 23:33 05:20 WBC Hgb Plt Count PTT (Actin FS) Sodium Potassium Creatinine Lactic Acid Creatine Kinase 1707 H 1103 H Creatine Kinase Index 6.1 H* 6.1 H* CK-MB (CK-2) 105.6 H 67.9 H Troponin I 9.49 H* 8.95 H* 7.64 H* 08/15/18 08/15/18 08/15/18 06:25 06:25 07:47 WBC 13.2 H Hgb 11.3 Plt Count 138 PTT (Actin FS) Sodium 136 Potassium 3.8 Creatinine 1.2 Lactic Acid 4.8 H* Creatine Kinase Creatine Kinase Index CK-MB (CK-2) Troponin I 08/22/18 08/22/18 08/22/18 05:15 05:15 05:15 WBC 7.6 Hgb 9.3 L Plt Count 292 D PTT (Actin FS) 84.0 H Sodium 140 Potassium 4.1 Creatinine 0.8 Lactic Acid Creatine Kinase Creatine Kinase Index CK-MB (CK-2) Troponin I - ....Imaging EKG: Image Reviewed Assessment/Plan Assessment/Plan 88 yo female with prior right hip fx, hypertension presents after syncopal episode in ED with ?sepsis, left hip fracture and (+) troponin. 1) (+) troponin -Trop peaked to 4.8 now down and ECG without infarct pattern or ongoing ischemia -LV function is severely reduced with akinetic anterospetal segment, unclear chronicity of this finding -on exam she is euvolemic with warm extremities, adequate urine output - less consistent with cardiogenic shock -weaned off levophed and now extubated -likely demand ischemia - continue aspirin, statin -Hold on Clopidogrel until determined if ortho wants to fix hip 2) Syncope -Unclear details surrounding this, but may be related to infectious process or arrhythmogenic given her LV -monitoring on tele benign so far 3) Sepsis -As per ICU care with ABX - source not identified -bp improved, now off pressors -less consistent with cardiogenic shock picture as above 4) Afib -Transient episode and converted with Amio -amiodarone dc'ed, patient in sinus - can hold amio for now -Could start Beta crispin once BP more stablized -continue heparin gtt
[2018-08-22] MEDS: levETIRAcetam 500 MG/5 ML INJECTION VIAL IVPB SCH ×2 (09:46→21:14)
[2018-08-22] MEDS: PANTOPRAZOLE 40 MG TABLET (FP) PO SCH (09:46)
[2018-08-22] MEDS: ASPIRIN 81 MG CHEWABLE TABLETS PO SCH (09:46)
[2018-08-22] MEDS: COLLAGENASE CLOSTRIDIUM HIST. 30 GRAMS TUBE TP SCH (09:47)
[2018-08-22] MEDS: POLYETHYLENE GLYCOL 3350 119 GM BTL PO SCH (10:19)
--- NOTE | 2018-08-22 11:46 | PN ---
Teaching Attending Note Name of Resident: Layo Rubi ATTENDING PHYSICIAN STATEMENT I saw and evaluated the patient. I reviewed the resident's note and discussed the case with the resident. I agree with the resident's findings and plan as documented. SUBJECTIVE: Patient seen and examined in the ICU. Remains extubated and off pressors. Hemodynamics have remained relatively stable. More lucid today. Denies CP or SOB. OBJECTIVE: Intake & Output 08/19/18 08/20/18 08/21/18 08/22/18 23:59 23:59 23:59 23:59 Intake Total 2149 1736 1152 Output Total 1999 1350 750 Balance 149 386 402 Weight 123 lb 6 oz 120 lb 13.013 oz 126 lb 12.253 oz 127 lb 1.6 oz Last Vital Signs Temp Pulse Resp BP Pulse Ox 97.5 F L 89 15 122/73 96 08/22/18 05:00 08/22/18 07:00 08/22/18 09:00 08/22/18 07:00 08/22/18 09:00 Active Medications Albuterol/Ipratropium (Duoneb -) 1 amp NEB RTID [facility] Last Admin: 08/22/18 08:06 Dose: 1 amp Aspirin (Asa -) 81 mg PO DAILY [facility] Last Admin: 08/22/18 09:46 Dose: 81 mg Atorvastatin Calcium (Lipitor -) 80 mg PO HS [facility] Last Admin: 08/21/18 21:44 Dose: 80 mg Collagenase (Santyl -) 1 applic TP DAILY [facility]; Protocol Last Admin: 08/22/18 09:47 Dose: 1 applic Fentanyl (Sublimaze Injection -) 50 mcg IVPUSH Q1H PRN PRN Reason: PAIN Last Admin: 08/20/18 21:45 Dose: 50 mcg Levetiracetam (Keppra Injection -) 500 mg IVPB BID [facility] Last Admin: 08/22/18 09:46 Dose: 500 mg Pantoprazole Sodium (Protonix -) 40 mg PO DAILY [facility] Last Admin: 08/22/18 09:46 Dose: 40 mg Polyethylene Glycol (Miralax (For Daily Use) -) 17 gm PO DAILY [facility] Last Admin: 08/22/18 10:19 Dose: 17 gm Senna (Senna Oral Solution -) 8.8 mg GT HS [facility] Last Admin: 08/21/18 21:45 Dose: Not Given Gen: Extubated, NAD at rest Heart: RRR Lung: decreased breath sounds on the right, few rhonchi Abd: soft, nontender Ext: no edema, left leg externally rotated Laboratory Results - last 24 hr 08/20/18 08/22/18 08/22/18 12:01 05:15 05:15 WBC 7.6 RBC 2.91 L Hgb 9.3 L Hct 26.9 L MCV 92.5 MCH 31.8 MCHC 34.4 RDW 14.1 Plt Count 292 D MPV 7.3 L PTT (Actin FS) Sodium 140 Potassium 4.1 Chloride 106 Carbon Dioxide 27 Anion Gap 7 L BUN 15 Creatinine 0.8 Est GFR (CKD-EPI)AfAm 77.37 Est GFR (CKD-EPI)NonAf 66.76 Random Glucose 93 Calcium 8.6 Phosphorus 2.9 Magnesium 2.1 Total Bilirubin 1.3 H AST 39 H ALT 49 Alkaline Phosphatase 68 Total Protein 5.1 L Albumin 2.4 L Cortisol AM Sample 15.0 08/22/18 05:15 WBC RBC Hgb Hct MCV MCH MCHC RDW Plt Count MPV PTT (Actin FS) 84.0 H Sodium Potassium Chloride Carbon Dioxide Anion Gap BUN Creatinine Est GFR (CKD-EPI)AfAm Est GFR (CKD-EPI)NonAf Random Glucose Calcium Phosphorus Magnesium Total Bilirubin AST ALT Alkaline Phosphatase Total Protein Albumin Cortisol AM Sample ASSESSMENT AND PLAN: s/p Cardiopulmonary Arrest Shock of unclear etiology: Suspect component of Cardiogenic shock +Troponins/NSTEMI/Demand Ischemia Lactic Acidosis Elevated LFTs Likely Ischemic Injury Paroxysmal Atrial Fibrillation now in sinus Left Hip Fracture Rhabdomyolysis COPD h/o Lung Ca s/p R Pneumonectomy - s/p antibiotics - IVF boluses as needed - Monitor off pressors - monitor urine output, creatinine - rate controlled - anticoagulation per cardiology - will need hip repair - will need cardiac work up when stable - PO as tolerated - DVT/GI prophylaxis - Cardiac Telemetry monitoring Dr Dooley
--- NOTE | 2018-08-22 12:03 | PN ---
Physical Exam: SUBJECTIVE: Patient seen and examined at bedside. No acute events overnight. OBJECTIVE: Vital Signs Period Temp Pulse Resp BP Sys/Aguirre Pulse Ox Last 24 Hr 97.3 F-98.0 F 77-97 14-22 109-130/57-81 93-96 GENERAL: No acute events overnight. HEAD: Left facial ulcer. Nonoozing. Dry EYES: PERRL, EOMI NECK: Trachea midline, full range of motion, supple. LUNGS: Dec BS at bases. Scattered rhonchi. HEART: RRR nL S1S2. ABDOMEN: Soft, NDnT EXTREMITIES: No CCE in lower extremities. NEUROLOGICAL: PERRL. CN 2-12 intact. SKIN: Warm, dry, normal turgor, no rashes or lesions noted Laboratory Results - last 24 hr 08/20/18 08/22/18 08/22/18 12:01 05:15 05:15 WBC 7.6 RBC 2.91 L Hgb 9.3 L Hct 26.9 L MCV 92.5 MCH 31.8 MCHC 34.4 RDW 14.1 Plt Count 292 D MPV 7.3 L PTT (Actin FS) Sodium 140 Potassium 4.1 Chloride 106 Carbon Dioxide 27 Anion Gap 7 L BUN 15 Creatinine 0.8 Est GFR (CKD-EPI)AfAm 77.37 Est GFR (CKD-EPI)NonAf 66.76 Random Glucose 93 Calcium 8.6 Phosphorus 2.9 Magnesium 2.1 Total Bilirubin 1.3 H AST 39 H ALT 49 Alkaline Phosphatase 68 Total Protein 5.1 L Albumin 2.4 L Cortisol AM Sample 15.0 08/22/18 05:15 WBC RBC Hgb Hct MCV MCH MCHC RDW Plt Count MPV PTT (Actin FS) 84.0 H Sodium Potassium Chloride Carbon Dioxide Anion Gap BUN Creatinine Est GFR (CKD-EPI)AfAm Est GFR (CKD-EPI)NonAf Random Glucose Calcium Phosphorus Magnesium Total Bilirubin AST ALT Alkaline Phosphatase Total Protein Albumin Cortisol AM Sample Active Medications Generic Name Dose Route Start Last Admin Trade Name Freq PRN Reason Stop Dose Admin Albuterol/Ipratropium 1 amp 08/21/18 14:00 08/22/18 08:06 Duoneb - NEB 1 amp RTID [facility] Administration Aspirin 81 mg 08/17/18 10:00 08/22/18 09:46 Asa - PO 81 mg DAILY [facility] Administration Atorvastatin Calcium 80 mg 08/16/18 22:00 06/06/19 21:44 Lipitor - PO 80 mg HS [facility] Administration Collagenase 1 applic 08/18/18 13:00 08/22/18 09:47 Santyl - TP 1 applic DAILY [facility] Administration Protocol Fentanyl 50 mcg 08/17/18 16:33 08/20/18 21:45 Sublimaze Injection - IVPUSH 50 mcg Q1H PRN Administration PAIN Levetiracetam 500 mg 08/21/18 13:30 08/22/18 09:46 Keppra Injection - IVPB 500 mg BID [facility] Administration Pantoprazole Sodium 40 mg 08/20/18 10:00 08/22/18 09:46 Protonix - PO 40 mg DAILY [facility] Administration Polyethylene Glycol 17 gm 08/15/18 10:00 08/22/18 10:19 Miralax (For Daily Use) - PO 17 gm DAILY [facility] Administration Senna 8.8 mg 08/15/18 22:00 08/21/18 21:45 Senna Oral Solution - GT Not Given HS [facility] ASSESSMENT/PLAN: 88 year old female with a past medical history of hypertension and right sided lung cancer status post resection, AAA BIBA s/p being found on the ground allegedly by the neighbor, s/p Cardiac arrest overnight, intubated and sedated in ICU on pressors. #Cardiogenic shock 2/2 NSTEMI -s/p cardiac arrest -Pt has been weaned off Pressors. -Cardiology on board. Pt now in sinus rhythm. Cardiology does not recommend any ionotropes or further amiodorone in light of increased VT risk with reduced EF of 25-30%. Evaluated again by cardiology today, 08/22/18. Will continue heparin gtt. -Extubated 08/19/18 -Troponin 08/17/18--> 1.5. Down from 10.3. -less likely septic shock with no signs of infectious etiology, cultures negative. Will observe off antibiotics #New onset Seizures -Neurology on board -Kealexra #Left Hip Fracture -Seen by ortho -no surgical management at this time, pt too unstable -will reconsult for possible repair if stabilizes #AAA 5.7 cm -slight increase from prior records -Seen by vascular surgery who recommends f/u if pt becomes more stable #HTN -off of pressors. Continue to monitor. #Rhabdomyolysis -CK 1779 on admission. Trended down to 1103. No Fluids as Ejection Fraction 25- 30%. #Transaminitis -likely secondary to shock and cardiac arrest. AST/ALT 39/49 today 08/22/18. -Trend #FEN -No Fluids -Monitor Electrolytes -NPO #DVT PPX -Heparin drip #Disposition ICU Patient is DNR/DNI. Health care proxy assigned as sister in law (Katy Brownlee) . Signed paperwork in patient's chart. Visit type - Emergency Visit Emergency Visit: Yes ED Registration Date: 08/14/18 Care time: The patient presented to the Emergency Department on the above date and was hospitalized for further evaluation of their emergent condition. - New Patient This patient is new to me today: No - Critical Care Critical Care patient: Yes Total Critical Care Time (in minutes): 35 Critical Care Statement: The care of this patient involved high complexity decision making to prevent further life threatening deterioration of the patient 's condition and/or to evaluate & treat vital organ system(s) failure or risk of failure. - Discharge Referral Referred to [facility] Med P.C.: No
--- NOTE | 2018-08-22 13:23 | ECHO ---
Name: KRYSTLE BANKS Exam:Adult Echocardiogram Study Date: 08/22/2018 11:29 AM Age: 88 yrs Reason For Study: change in heart fxn Height: 64 in Weight: 127 lb BSA: 1.6 m2 Procedure The study was technically limited with all images being suboptimal in quality. The study was technica lly difficult with many images being suboptimal in quality. Left Ventricle Due to the poor quality of the echocardiogram, an assessment of left ventricular ejection fraction ca nnot be made. Regional wall motion abnormalities cannot be excluded due to limited visualization. Right Ventricle The right ventricle is grossly normal size. The right ventricular systolic function is grossly normal . Atria The left atrium is borderline dilated. Right atrial size is normal. Mitral Valve There is no mitral valve stenosis. Tricuspid Valve The tricuspid valve is not well visualized, but is grossly normal. Aortic Valve The aortic valve is not well visualized. Pulmonic Valve The pulmonic valve is not well visualized. Pericardium/Pleura There is no pericardial effusion. Interpretation Summary The study was technically limited with all images being suboptimal in quality. The study was technically difficult with many images being suboptimal in quality. Regional wall motion abnormalities cannot be excluded due to limited visualization. Due to the poor quality of the echocardiogram, an assessment of left ventricular ejection fraction ca nnot be made. The right ventricle is grossly normal size. The right ventricular systolic function is grossly normal. There is no mitral valve stenosis. MD Kessler *David 08/22/2018 01:23 PM
--- NOTE | 2018-08-22 14:02 | PN ---
Progress Note, [employer] - Note Progress Note: Selected Entries 08/20/18 08/20/18 08/20/18 02:14 06:00 10:00 Breakfast 50% Lunch Temperature 98.2 F 98.4 F 98.1 F 08/20/18 08/20/18 08/20/18 14:00 18:00 20:22 Breakfast Lunch 50% 50% Temperature 98.0 F 97.6 F 97.0 F L 08/21/18 08/21/18 08/21/18 06:00 10:00 14:00 Breakfast Lunch Temperature 98.3 F 97.9 F 98.0 F Laboratory Tests 08/19/18 08/20/18 08/21/18 06:00 06:00 05:30 WBC 11.0 H 9.6 8.4 Selected Entries 08/22/18 08/22/18 08/22/18 02:00 05:00 10:16 Breakfast 75% Lunch Temperature 97.3 F L 97.5 F L 08/22/18 13:32 Breakfast Lunch 0 Temperature Laboratory Tests 08/22/18 05:15 WBC 7.6 Pt tolerated breakfast well, but refused lunch, per nursing. Trial Ensure if pt will accept.
--- NOTE | 2018-08-22 17:34 | PN ---
Teaching Attending Note Name of Resident: Ronnell Pyle ATTENDING PHYSICIAN STATEMENT I saw and evaluated the patient. I reviewed the resident's note and discussed the case with the resident. I agree with the resident's findings and plan as documented. SUBJECTIVE: Patient remains in ICU, comfortable no acute events. OBJECTIVE: Vital Signs Temperature 97.6 F 08/22/18 14:00 Pulse Rate 67 08/22/18 14:00 Respiratory Rate 12 08/22/18 14:00 Blood Pressure 108/59 L 08/22/18 14:00 O2 Sat by Pulse Oximetry (%) 96 08/22/18 09:00 GENERAL: The patient is confused , but awake. HEAD: Normal with no signs of trauma. EYES: PERRL, extraocular movements intact, sclera anicteric, conjunctiva clear. ENT: Ears normal, oropharynx clear without exudates, moist mucous membranes. NECK: Trachea midline, full range of motion, supple. LUNGS: Breath sounds equal, clear to auscultation bilaterally, no wheezes, no crackles, no accessory muscle use. HEART: Regular rate and rhythm, S1, S2 positive, seM3/6 , no rub or gallop. ABDOMEN: Soft, nontender, nondistended, normoactive bowel sounds, no guarding, no rebound, no hepatosplenomegaly, no masses. EXTREMITIES: 2+ pulses, warm, well-perfused, left lower extrimity everted outward. NEUROLOGICAL: Cranial nerves II through XII grossly intact. Normal speech, gait not observed. SKIN: Warm, dry, normal turgor, no rashes or lesions noted CBCD WBC 7.6 K/mm3 (4.0-10.0) 08/22/18 05:15 RBC 2.91 M/mm3 (3.60-5.2) L 08/22/18 05:15 Hgb 9.3 GM/dL (10.7-15.3) L 08/22/18 05:15 Hct 26.9 % (32.4-45.2) L 08/22/18 05:15 MCV 92.5 fl (80-96) 08/22/18 05:15 MCHC 34.4 g/dl (32.0-36.0) 08/22/18 05:15 RDW 14.1 % (11.6-15.6) 08/22/18 05:15 Plt Count 292 K/MM3 (134-434) D 08/22/18 05:15 MPV 7.3 fl (7.5-11.1) L 08/22/18 05:15 CMP Sodium 140 mmol/L (136-145) 08/22/18 05:15 Potassium 4.1 mmol/L (3.5-5.1) 08/22/18 05:15 Chloride 106 mmol/L (98-107) 08/22/18 05:15 Carbon Dioxide 27 mmol/L (21-32) 08/22/18 05:15 Anion Gap 7 MMOL/L (8-16) L 08/22/18 05:15 BUN 15 mg/dL (7-18) 08/22/18 05:15 Creatinine 0.8 mg/dL (0.55-1.3) 08/22/18 05:15 Random Glucose 93 mg/dL (74-106) 08/22/18 05:15 Calcium 8.6 mg/dL (8.5-10.1) 08/22/18 05:15 Total Bilirubin 1.3 mg/dL (0.2-1) H 08/22/18 05:15 AST 39 U/L (15-37) H 08/22/18 05:15 ALT 49 U/L (13-61) 08/22/18 05:15 Alkaline Phosphatase 68 U/L (45-117) 08/22/18 05:15 Total Protein 5.1 g/dl (6.4-8.2) L 08/22/18 05:15 Albumin 2.4 g/dl (3.4-5.0) L 08/22/18 05:15 CARDIAC ENZYMES Creatine Kinase 1103 U/L (26-192) H 08/15/18 05:20 Troponin I 1.30 ng/ml (0.00-0.05) H* 08/17/18 05:35 Current Medications Generic Name Dose Route Start Last Admin Trade Name Freq PRN Reason Stop Dose Admin Albuterol/Ipratropium 1 amp 08/21/18 14:00 08/22/18 14:30 Duoneb - NEB 1 amp RTID [facility] Administration Aspirin 81 mg 08/17/18 10:00 08/22/18 09:46 Asa - PO 81 mg DAILY [facility] Administration Atorvastatin Calcium 80 mg 08/16/18 22:00 08/21/18 21:44 Lipitor - PO 80 mg HS [facility] Administration Collagenase 1 applic 08/18/18 13:00 08/22/18 09:47 Santyl - TP 1 applic DAILY [facility] Administration Protocol Fentanyl 50 mcg 08/17/18 16:33 08/20/18 21:45 Sublimaze Injection - IVPUSH 50 mcg Q1H PRN Administration PAIN Levetiracetam 500 mg 08/21/18 13:30 08/22/18 09:46 Keppra Injection - IVPB 500 mg BID [facility] Administration Pantoprazole Sodium 40 mg 08/20/18 10:00 08/22/18 09:46 Protonix - PO 40 mg DAILY [facility] Administration Polyethylene Glycol 17 gm 08/15/18 10:00 08/22/18 10:19 Miralax (For Daily Use) - PO 17 gm DAILY [facility] Administration Senna 8.8 mg 08/15/18 22:00 08/21/18 21:45 Senna Oral Solution - GT Not Given [facility] Home Medications Medication Instructions Recorded Losartan Potassium 50 mg PO DAILY 10/27/15 Zolpidem Tartrate [Ambien] 10 mg PO HS 10/27/15 Bisacodyl Suppository [Dulcolax 10 mg IA PRN PRN supp.rect 01/20/18 Suppository -] Docusate Sodium [Colace -] 100 mg PO TID capsule 01/20/18 Enoxaparin [Lovenox -] 30 mg SQ DAILY disp.syrin 01/20/18 Polyethylene Glycol 3350 [Miralax 17 gm PO DAILY bottle 01/20/18 119 gm Btl -] Sennosides [Senna -] 2 tab PO HS tablet 01/20/18 Ferrous Sulfate 325 mg PO BID 08/15/18 Microbiology 08/14/18 13:07 Blood - Peripheral Venous Blood Culture - Final NO GROWTH AFTER 5 DAYS INCUBATION 08/14/18 13:09 Blood - Peripheral Venous Blood Culture - Final NO GROWTH AFTER 5 DAYS INCUBATION 08/14/18 15:26 Urine - Urine Glez Urine Culture - Final NO GROWTH OBTAINED ASSESSMENT AND PLAN: Patient is a 88yo female with h/o HTN, Lung carcinoma s/p R lung resection who presented after a fall/ syncope . she was found to have L hip Fx ,hypothermia, NSTEMI, and rhabdo. hospital course was complicated with cardiac arrest on day of admission, also A fib with RVR and new onset seizure. # NSTEMI on heparin drip , cardio on the case continue to monitor. will check with cardio for further managment and will check with the family # Cardiogentic shock due to NSTEMI # s/p Cardiac arrest s/p extubation # Acute hypoxic resp failure s/p extubation # New onset Seizures on kepprea iv now # New onset A fib with rate controlled now. # T4 compression fx richard check with ortho for further managment # Transaminitis : likely due to shock , will continue to monitor # hypophosphatemia: repleted # Rhabdo improved # AAA 5.8 cm # L hip Fx : will ask ortho re-evalaute the patient DVT Px: hep.
[2018-08-22] MEDS ORDERED: PT OWN MED DRAWER 7, Y5N ONE (21:12)
[2018-08-22] MEDS: ATORVASTATIN CA 80 MG TABLET (FP) PO SCH (21:14)
[2018-08-22] MEDS: SENNOSIDES 8.8 MG/5 ML BULK BOTTLE GT SCH (21:15)
[2018-08-22] MEDS ORDERED: MELATONIN 1 MG TABLET PO SCH (22:00)
[2018-08-23 06:41] LABS: HEMATOCRIT 26.3 % (32.4-45.2); HEMOGLOBIN 9.1 GM/dL (10.7-15.3); MCHC 34.5 g/dl (32.0-36.0); MEAN CELL VOLUME 92.6 fl (80-96); MEAN PLT VOLUME 7.2 fl (7.5-11.1); RBC 2.84 M/mm3 (3.60-5.2); WHITE BLOOD COUNT 7.3 K/mm3 (4.0-10.0)
[2018-08-23] MEDS: ALBUTEROL SO4 2.5/IPRATROPIUM 0.5 INH SOL 3 ML VIAL.NEB. NEB SCH ×3 (08:18→20:16)
[2018-08-23 08:30] LABS: ALBUMIN 2.3 g/dl (3.4-5.0); BILIRUBIN,TOTAL 1.1 mg/dL (0.2-1); BLOOD UREA NITROGEN 14.6 mg/dL (7-18); CALCIUM 8.6 mg/dL (8.5-10.1); CREATININE 0.8 mg/dL (0.55-1.3); MAGNESIUM 1.9 mg/dL (1.8-2.4); PHOSPHOROUS 3.4 mg/dL (2.5-4.9); POTASSIUM 3.8 mmol/L (3.5-5.1)
[2018-08-23] MEDS ORDERED: HEPARIN NA (PORCINE) 5,000 UNITS/ML 1ML VIAL IVPUSH PRN ×2 (10:06)
[2018-08-23 10:07] LABS: PLATELET COUNT 360 K/MM3 (134-434)
[2018-08-23] MEDS: PANTOPRAZOLE 40 MG TABLET (FP) PO SCH (10:11)
[2018-08-23] MEDS: levETIRAcetam 500 MG/5 ML INJECTION VIAL IVPB SCH (10:11)
[2018-08-23] MEDS: POLYETHYLENE GLYCOL 3350 119 GM BTL PO SCH (10:11)
[2018-08-23] MEDS: COLLAGENASE CLOSTRIDIUM HIST. 30 GRAMS TUBE TP SCH (10:11)
[2018-08-23] MEDS: ASPIRIN 81 MG CHEWABLE TABLETS PO SCH (10:11)
--- NOTE | 2018-08-23 10:39 | PN ---
Teaching Attending Note Name of Resident: Scott Traylor ATTENDING PHYSICIAN STATEMENT I saw and evaluated the patient. I reviewed the resident's note and discussed the case with the resident. I agree with the resident's findings and plan as documented. SUBJECTIVE: Pt seen and examined in the ICU. Remains off pressors. No specific complaints. OBJECTIVE: Vital Signs Period Temp Pulse Resp BP Sys/Aguirre Pulse Ox Last 24 Hr 97.6 F-98.1 F 67-92 12-31 90-137/48-98 93-93 Intake & Output 08/20/18 08/21/18 08/22/18 08/23/18 23:59 23:59 23:59 23:59 Intake Total 1736 1152 192 192 Output Total 1350 750 250 200 Balance 386 402 -58 -8 Weight 54.8 kg 57.5 kg 57.652 kg 56.2 kg Gen: NAD at rest Heart: RRR Lung: decreased breath sounds at the bases Abd: soft, nontender Ext: no edema CBC, BMP 08/23/18 06:05 08/23/18 06:05 Active Medications Albuterol/Ipratropium (Duoneb -) 1 amp NEB RTID [facility] Last Admin: 08/23/18 08:18 Dose: 1 amp Aspirin (Asa -) 81 mg PO DAILY [facility] Atorvastatin Calcium (Lipitor -) 80 mg PO HS [facility] Collagenase (Santyl -) 1 applic TP DAILY [facility]; Protocol Heparin Sodium (Porcine) (Heparin -) 1,000 unit IVPUSH PRN PRN PRN Reason: Heparin Heparin Sodium (Porcine) (Heparin -) 5,000 unit IVPUSH PRN PRN PRN Reason: Heparin Levetiracetam (Keppra Injection -) 500 mg IVPB BID [facility] Last Admin: 08/23/18 10:11 Dose: 500 mg Melatonin (Melatonin) 3 mg PO HS [facility] Last Admin: 08/22/18 23:14 Dose: 3 mg Pantoprazole Sodium (Protonix -) 40 mg PO DAILY [facility] Polyethylene Glycol (Miralax (For Daily Use) -) 17 gm PO DAILY [facility] Senna (Senna Oral Solution -) 8.8 mg GT HS [facility] ASSESSMENT AND PLAN: s/p Cardiopulmonary Arrest Shock of unclear etiology improved +Troponins/NSTEMI/Demand Ischemia Lactic Acidosis Elevated LFTs Likely Ischemic Injury Paroxysmal Atrial Fibrillation now in sinus Left Hip Fracture Rhabdomyolysis COPD h/o Lung Ca s/p R Pneumonectomy - s/p antibiotics - monitor off pressors, maintain MAP >65 - monitor urine output, creatinine - rate controlled - anticoagulation per cardiology - needs hip repair - will likely need cardiac work up when stable - PO as tolerated - DVT/GI prophylaxis
--- NOTE | 2018-08-23 12:03 | PN ---
Progress Note (short form) - Note Progress Note: s: no cp sob palps dizzy Current Medications Generic Name Dose Route Start Last Admin Trade Name Kamronq PRN Reason Stop Dose Admin Albuterol/Ipratropium 1 amp 08/21/18 14:00 08/23/18 08:18 Duoneb - NEB 1 amp RTID [facility] Administration Aspirin 81 mg 08/24/18 10:00 Asa - PO DAILY [facility] Atorvastatin Calcium 80 mg 08/23/18 22:00 Lipitor - PO HS [facility] Collagenase 1 applic 08/24/18 10:00 Santyl - TP DAILY [facility] Protocol Levetiracetam 500 mg 08/23/18 22:00 Keppra - PO BID [facility] Melatonin 3 mg 08/22/18 22:00 08/22/18 23:14 Melatonin PO 3 mg HS [facility] Administration Metoprolol Succinate 25 mg 08/23/18 22:00 Toprol Xl - PO BID [facility] Pantoprazole Sodium 40 mg 08/24/18 10:00 Protonix - PO DAILY [facility] Polyethylene Glycol 17 gm 08/24/18 10:00 Miralax (For Daily Use) - PO DAILY [facility] Senna 8.8 mg 08/23/18 22:00 Senna Oral Solution - GT HS [facility] Vital Signs Period Temp Pulse Resp BP Sys/Aguirre Pulse Ox Last 24 Hr 97.6 F-98.1 F 67-92 12-31 88-137/48-98 93 Constitutional: Yes: No Distress, no jvd Cardiovascular: Yes: Regular Rate and Rhythm Respiratory: Yes: CTA Bilaterally, poor eff Gastrointestinal: Yes: Normal Bowel Sounds, nd, nt Edema: None no jaundice diaphoresis not agitated CBC, BMP 08/23/18 06:05 08/23/18 06:05 tele: sinus Assessment/Plan 88 yo female with prior right hip fx, hypertension presents after syncopal episode in ED with ?sepsis, left hip fracture and (+) troponin. 1) (+) troponin -Trop peaked to 4.8 now down and ECG without infarct pattern or ongoing ischemia -LV function is severely reduced with akinetic anterospetal segment, unclear chronicity of this finding -on exam she is euvolemic with warm extremities, adequate urine output - less consistent with cardiogenic shock -weaned off levophed and now extubated -likely demand ischemia - continue aspirin, statin 2) Syncope -Unclear details surrounding this, but may be related to infectious process or arrhythmogenic given her LV -monitoring on tele benign so far 3) Sepsis -bp improved, now off pressors -less consistent with cardiogenic shock picture as above -plans per icu team 4) Afib -Transient episode and converted with Amio -amiodarone dc'ed, patient in sinus - can hold amio for now -Could start Beta crispin once BP more stablized -chadsvasc warrants AC, would continue with hep gtt as she has been getting, but if it is deemed that pt is a high fall risk then may not be a candidate for skilled nursing ac.
[2018-08-23] MEDS ORDERED: ALPRAZolam 0.25 MG TABLET PO ONE ×2 (15:08→19:43)
[2018-08-23 15:13] LABS: HEMATOCRIT 25.8 % (32.4-45.2); HEMOGLOBIN 8.8 GM/dL (10.7-15.3); MCH 31.6 pg (25.7-33.7); MEAN CELL VOLUME 93.1 fl (80-96); MEAN PLT VOLUME 7.1 fl (7.5-11.1); RBC 2.77 M/mm3 (3.60-5.2); RDW 14.3 % (11.6-15.6); WHITE BLOOD COUNT 7.9 K/mm3 (4.0-10.0)
[2018-08-23 19:16] LABS: PLATELET COUNT 420 K/MM3 (134-434)
[2018-08-23] MEDS ORDERED: PT OWN MED DRAWER 7, Y5N ONE (21:03)
[2018-08-23] MEDS ORDERED: levETIRAcetam 500 MG TABLET (FP) PO SCH (22:00)
[2018-08-23] MEDS ORDERED: ATORVASTATIN CA 80 MG TABLET (FP) PO SCH (22:00)
[2018-08-23] MEDS ORDERED: SENNOSIDES 8.8 MG/5 ML BULK BOTTLE GT SCH (22:00)
[2018-08-23] MEDS ORDERED: metoPROLOL SUCCINATE 25 MG TAB.SR.24H (FP) PO SCH (22:00)
[2018-08-23] MEDS ORDERED: MELATONIN 1 MG TABLET PO SCH (22:00)
[2018-08-23] MEDS: SENNOSIDES 8.8 MG/5 ML BULK BOTTLE GT SCH (22:03)
[2018-08-23] MEDS: ATORVASTATIN CA 80 MG TABLET (FP) PO SCH (22:04)
[2018-08-23] MEDS: levETIRAcetam 500 MG TABLET (FP) PO SCH (22:04)
[2018-08-23] MEDS: metoPROLOL SUCCINATE 25 MG TAB.SR.24H (FP) PO SCH (22:04)
--- NOTE | 2018-08-24 04:37 | PN ---
Physical Exam: SUBJECTIVE: Patient seen and examined at bedside in the ICU Pt AOX3, sitting up in bed, watching television. No overnight events. No complaints at this time OBJECTIVE: Vital Signs Period Temp Pulse Resp BP Sys/Aguirre Pulse Ox Last 24 Hr 97.7 F-99 F 79-109 17-31 85-131/45-98 93-98 GENERAL: The patient is awake, alert, and fully oriented, in no acute distress. HEAD: Normal with no signs of trauma. EYES: PERRL, extraocular movements intact, sclera anicteric, conjunctiva clear. No ptosis. ENT: Ears normal, nares patent, oropharynx clear without exudates, moist mucous membranes. NECK: Trachea midline, full range of motion, supple. LUNGS: Breath sounds equal, clear to auscultation bilaterally, no wheezes, no crackles, no accessory muscle use. HEART: Regular rate and rhythm, S1, S2 without murmur, rub or gallop. ABDOMEN: Soft, nontender, nondistended, normoactive bowel sounds, no guarding, no rebound, no hepatosplenomegaly, no masses. EXTREMITIES: 2+ pulses, warm, well-perfused, no edema. Left lower limb short and externally rotated NEUROLOGICAL: Cranial nerves II through XII grossly intact. Normal speech, PSYCH: Normal mood, normal affect. SKIN: Warm, dry, normal turgor, no rashes or lesions noted Laboratory Results - last 24 hr 08/23/18 08/23/18 08/23/18 06:05 06:05 06:05 WBC 7.3 RBC 2.84 L Hgb 9.1 L Hct 26.3 L MCV 92.6 MCH 32.0 MCHC 34.5 RDW 14.0 Plt Count 360 D MPV 7.2 L PTT (Actin FS) 79.0 H Sodium 137 Potassium 3.8 Chloride 103 Carbon Dioxide 28 Anion Gap 6 L BUN 14.6 Creatinine 0.8 Est GFR (CKD-EPI)AfAm 77.37 Est GFR (CKD-EPI)NonAf 66.76 Random Glucose 98 Calcium 8.6 Phosphorus 3.4 Magnesium 1.9 Total Bilirubin 1.1 H AST 39 H ALT 45 Alkaline Phosphatase 69 Total Protein 5.0 L Albumin 2.3 L 08/23/18 08/23/18 15:00 15:00 WBC 7.9 RBC 2.77 L Hgb 8.8 L Hct 25.8 L MCV 93.1 MCH 31.6 MCHC 34.0 RDW 14.3 Plt Count 420 MPV 7.1 L PTT (Actin FS) 32.3 Sodium Potassium Chloride Carbon Dioxide Anion Gap BUN Creatinine Est GFR (CKD-EPI)AfAm Est GFR (CKD-EPI)NonAf Random Glucose Calcium Phosphorus Magnesium Total Bilirubin AST ALT Alkaline Phosphatase Total Protein Albumin Active Medications Generic Name Dose Route Start Last Admin Trade Name Freq PRN Reason Stop Dose Admin Albuterol/Ipratropium 1 amp 08/23/18 20:00 08/23/18 20:16 Duoneb - NEB 1 amp RTID [facility] Administration Aspirin 81 mg 08/24/18 10:00 Asa - PO DAILY [facility] Atorvastatin Calcium 80 mg 08/23/18 22:00 08/23/18 22:04 Lipitor - PO 80 mg HS [facility] Administration Collagenase 1 applic 08/24/18 10:00 Santyl - TP DAILY [facility] Protocol Levetiracetam 500 mg 08/23/18 22:00 08/23/18 22:04 Keppra - PO 500 mg BID [facility] Administration Melatonin 3 mg 08/23/18 22:00 08/23/18 22:03 Melatonin PO 3 mg HS [facility] Administration Metoprolol Succinate 25 mg 08/23/18 22:00 08/23/18 22:04 Toprol Xl - PO 25 mg BID [facility] Administration Pantoprazole Sodium 40 mg 08/24/18 10:00 Protonix - PO DAILY [facility] Polyethylene Glycol 17 gm 08/24/18 10:00 Miralax (For Daily Use) - PO DAILY [facility] Senna 8.8 mg 08/23/18 22:00 08/23/18 22:03 Senna Oral Solution - GT 5 ml HS [facility] Administration ASSESSMENT/PLAN: 88 yo female s/p Cardiopulmonary arrest Pt on no drips, safe for transfer to tele floor and have Ortho eval for left hip fracture Shock of unclear etiology improved +Troponins/NSTEMI/Demand Ischemia Lactic Acidosis Elevated LFTs Likely Ischemic Injury Paroxysmal Atrial Fibrillation now in sinus Left Hip Fracture Rhabdomyolysis COPD h/o Lung Ca s/p R Pneumonectomy - s/p antibiotics - monitor off pressors, maintain MAP >65 - monitor urine output, creatinine - rate controlled - anticoagulation per cardiology - needs hip repair - will likely need cardiac work up when stable - PO as tolerated - DVT/GI prophylaxis - DC IV keppra, start PO keppra Visit type - Emergency Visit Emergency Visit: No - New Patient This patient is new to me today: Yes Date on this admission: 08/24/18 - Critical Care Critical Care patient: Yes Total Critical Care Time (in minutes): 36 Critical Care Statement: The care of this patient involved high complexity decision making to prevent further life threatening deterioration of the patient 's condition and/or to evaluate & treat vital organ system(s) failure or risk of failure. - Discharge Referral Referred to [facility] Med P.C.: No
[2018-08-24] MEDS: ALBUTEROL SO4 2.5/IPRATROPIUM 0.5 INH SOL 3 ML VIAL.NEB. NEB SCH ×3 (07:35→21:12)
[2018-08-24] MEDS ORDERED: PT OWN MED DRAWER 7, Y5N ONE ×3 (09:51→21:18)
[2018-08-24] MEDS: ASPIRIN 81 MG CHEWABLE TABLETS PO SCH (09:57)
[2018-08-24] MEDS: PANTOPRAZOLE 40 MG TABLET (FP) PO SCH (09:57)
[2018-08-24] MEDS: levETIRAcetam 500 MG TABLET (FP) PO SCH ×2 (09:57→21:24)
[2018-08-24] MEDS: ENOXAPARIN NA (PORCINE) 60 MG/0.6 ML DISP.SYRIN SQ SCH ×2 (09:58→21:24)
[2018-08-24] MEDS: POLYETHYLENE GLYCOL 3350 119 GM BTL PO SCH (09:59)
[2018-08-24] MEDS: COLLAGENASE CLOSTRIDIUM HIST. 30 GRAMS TUBE TP SCH (09:59)
[2018-08-24] MEDS ORDERED: ASPIRIN 81 MG CHEWABLE TABLETS PO SCH (10:00)
[2018-08-24] MEDS ORDERED: COLLAGENASE CLOSTRIDIUM HIST. 30 GRAMS TUBE TP SCH (10:00)
[2018-08-24] MEDS ORDERED: POLYETHYLENE GLYCOL 3350 119 GM BTL PO SCH (10:00)
[2018-08-24] MEDS ORDERED: PANTOPRAZOLE 40 MG TABLET (FP) PO SCH (10:00)
[2018-08-24 10:38] LABS: HEMATOCRIT 25.8 % (32.4-45.2); HEMOGLOBIN 8.7 GM/dL (10.7-15.3); MCH 31.4 pg (25.7-33.7); MCHC 33.5 g/dl (32.0-36.0); MEAN CELL VOLUME 93.7 fl (80-96); RBC 2.75 M/mm3 (3.60-5.2); RDW 14.2 % (11.6-15.6); WHITE BLOOD COUNT 8.3 K/mm3 (4.0-10.0)
--- NOTE | 2018-08-24 10:38 | PN ---
Progress Note (short form) - Note Progress Note: s: no cp sob palps dizzy Current Medications Generic Name Dose Route Start Last Admin Trade Name Stefano PRN Reason Stop Dose Admin Albuterol/Ipratropium 1 amp 08/23/18 20:00 08/24/18 07:35 Duoneb - NEB 1 amp RTID [facility] Administration Aspirin 81 mg 08/24/18 10:00 08/24/18 09:57 Asa - PO 81 mg DAILY [facility] Administration Atorvastatin Calcium 80 mg 08/23/18 22:00 08/23/18 22:04 Lipitor - PO 80 mg HS [facility] Administration Collagenase 1 applic 08/24/18 10:00 08/24/18 09:59 Santyl - TP 1 applic DAILY [facility] Administration Protocol Enoxaparin Sodium 55 mg 08/24/18 09:00 08/24/18 09:58 Lovenox - SQ 55 mg Q12H [facility] Administration Levetiracetam 500 mg 08/23/18 22:00 08/24/18 09:57 Keppra - PO 500 mg BID [facility] Administration Melatonin 3 mg 08/23/18 22:00 08/23/18 22:03 Melatonin PO 3 mg HS [facility] Administration Metoprolol Succinate 25 mg 08/23/18 22:00 08/23/18 22:04 Toprol Xl - PO 25 mg BID [facility] Administration Pantoprazole Sodium 40 mg 08/24/18 10:00 08/24/18 09:57 Protonix - PO 40 mg DAILY [facility] Administration Polyethylene Glycol 17 gm 08/24/18 10:00 08/24/18 09:59 Miralax (For Daily Use) - PO 17 grams DAILY [facility] Administration Senna 8.8 mg 08/23/18 22:00 08/23/18 22:03 Senna Oral Solution - GT 5 ml HS [facility] Administration Vital Signs Period Temp Pulse Resp BP Sys/Aguirre Pulse Ox Last 24 Hr 97.8 F-99 F 79-109 18-20 85-131/45-74 98-98 Constitutional: Yes: No Distress, no jvd Cardiovascular: Yes: Regular Rate and Rhythm Respiratory: Yes: CTA Bilaterally, poor eff Gastrointestinal: Yes: Normal Bowel Sounds, nd, nt Edema: None no jaundice diaphoresis not agitated CBC, BMP 08/23/18 06:05 tele: sinus, occ pacs, pvcs Assessment/Plan 88 yo female with prior right hip fx, hypertension presents after syncopal episode in ED with ?sepsis, left hip fracture and (+) troponin. 1) (+) troponin -Trop trending down and ECG without infarct pattern -LV function is severely reduced with akinetic anterospetal segment, unclear chronicity of this finding -on exam she is euvolemic -likely demand ischemia - continue aspirin, statin 2) Syncope -Unclear details surrounding this, but may be related to infectious process or arrhythmogenic given her LVEF -monitoring on tele benign so far 3) Sepsis -bp improved, now off pressors 4) Afib -Transient episode and converted with Amio -amiodarone dc'ed, patient in sinus - can hold amio for now -Could start Beta crispin once BP more stablized -chadsvasc warrants AC, would continue with AC for now (lovenox) hip fx: -ortho eval pending.
[2018-08-24] MEDS: metoPROLOL SUCCINATE 25 MG TAB.SR.24H (FP) PO SCH ×2 (11:05→21:24)
--- NOTE | 2018-08-24 11:19 | PN ---
Physical Exam: SUBJECTIVE: Patient seen and examined at bedside. C/o poor sleep overnight. Deies cp or sob. OBJECTIVE: Vital Signs Period Temp Pulse Resp BP Sys/Aguirre Pulse Ox Last 24 Hr 97.8 F-99 F 79-109 18-20 85-131/45-74 98-98 GENERAL: NAD HEAD: Left facial ulcer. Nonoozing. Dry EYES: PERRL, EOMI NECK: Trachea midline, full range of motion, supple. LUNGS: Scattered rhonchi. HEART: RRR nL S1S2. ABDOMEN: Soft, NDnT EXTREMITIES: Trace pitting edema b/l NEUROLOGICAL: PERRL. CN 2-12 intact. SKIN: Warm, dry, normal turgor, no rashes or lesions noted Laboratory Results - last 24 hr 08/23/18 08/23/18 08/24/18 15:00 15:00 05:20 WBC 7.9 RBC 2.77 L Hgb 8.8 L Hct 25.8 L MCV 93.1 MCH 31.6 MCHC 34.0 RDW 14.3 Plt Count 420 MPV 7.1 L PTT (Actin FS) 32.3 31.7 08/24/18 10:15 WBC 8.3 RBC 2.75 L Hgb 8.7 L Hct 25.8 L MCV 93.7 MCH 31.4 MCHC 33.5 RDW 14.2 Plt Count MPV 7.0 L PTT (Actin FS) Active Medications Generic Name Dose Route Start Last Admin Trade Name Freq PRN Reason Stop Dose Admin Albuterol/Ipratropium 1 amp 08/23/18 20:00 08/24/18 07:35 Duoneb - NEB 1 amp RTID [facility] Administration Aspirin 81 mg 08/24/18 10:00 08/24/18 09:57 Asa - PO 81 mg DAILY [facility] Administration Atorvastatin Calcium 80 mg 08/23/18 22:00 08/23/18 22:04 Lipitor - PO 80 mg HS [facility] Administration Collagenase 1 applic 08/24/18 10:00 08/24/18 09:59 Santyl - TP 1 applic DAILY [facility] Administration Protocol Enoxaparin Sodium 55 mg 08/24/18 09:00 08/24/18 09:58 Lovenox - SQ 55 mg Q12H [facility] Administration Levetiracetam 500 mg 08/23/18 22:00 08/24/18 09:57 Keppra - PO 500 mg BID [facility] Administration Melatonin 5 mg 08/24/18 22:00 Melatonin PO HS PRN INSOMNIA Metoprolol Succinate 25 mg 08/23/18 22:00 08/23/18 22:04 Toprol Xl - PO 25 mg BID [facility] Administration Pantoprazole Sodium 40 mg 08/24/18 10:00 08/24/18 09:57 Protonix - PO 40 mg DAILY [facility] Administration Polyethylene Glycol 17 gm 08/24/18 10:00 08/24/18 09:59 Miralax (For Daily Use) - PO 17 grams DAILY [facility] Administration Senna 8.8 mg 08/23/18 22:00 08/23/18 22:03 Senna Oral Solution - GT 5 ml HS [facility] Administration ASSESSMENT/PLAN: 88 year old female with a past medical history of hypertension and right sided lung cancer status post resection, AAA BIBA s/p being found on the ground allegedly by the neighbor, s/p Cardiac arrest overnight, intubated and sedated in ICU on pressors. #Cardiogenic shock 2/2 NSTEMI -s/p cardiac arrest -Pt has been weaned off Pressors. -Cardiology on board. Pt now in sinus rhythm. Cardiology does not recommend any ionotropes or further amiodorone in light of increased VT risk with reduced EF of 25-30%. Evaluated by Cardiology today, 08/24/2018--> c/ w AC Lovenox. -Extubated 08/19/18 -Troponin 08/17/18--> 1.5. Down from 10.3. -less likely septic shock with no signs of infectious etiology, cultures negative. Will observe off antibiotics #New onset Seizures -Neurology on board -Keppra #Left Hip Fracture -Seen by ortho. Contacted again today 08/24/2018--> will evaluate and decide if surgery is required. -Pt now off of pressors and extubated. #AAA 5.7 cm -slight increase from prior records -Seen by vascular surgery who recommends f/u if pt becomes more stable #HTN -off of pressors. Continue to monitor. #Rhabdomyolysis -CK 1779 on admission. Trended down to 1103. No Fluids as Ejection Fraction 25- 30%. #Transaminitis -likely secondary to shock and cardiac arrest. AST/ALT 39/45 08/23/18. -Trend #FEN -No Fluids -Monitor Electrolytes -puree diet #DVT PPX -lovenox #Disposition ICU Patient is DNR/DNI. Health care proxy assigned as sister in law (Katy Brownlee) . Signed paperwork in patient's chart. Visit type - Emergency Visit Emergency Visit: Yes ED Registration Date: 08/14/18 Care time: The patient presented to the Emergency Department on the above date and was hospitalized for further evaluation of their emergent condition. - New Patient This patient is new to me today: No - Critical Care Critical Care patient: No - Discharge Referral Referred to [facility] Med P.C.: No
--- NOTE | 2018-08-24 13:53 | PN ---
Progress Note (short form) - Note Progress Note: PULMONARY Denies shortness of breath or chest pain. Vital Signs Period Temp Pulse Resp BP Sys/Aguirre Pulse Ox Last 24 Hr 97.6 F-98.6 F 75-93 18-20 85-133/45-74 96-98 Gen: NAD at rest Heart: RRR Lung:decreased breath sounds at the bases Abd: soft, nontender Ext: no edema CBC, BMP 08/24/18 10:15 08/23/18 06:05 Active Medications Albuterol/Ipratropium (Duoneb -) 1 amp NEB RTID [facility] Last Admin: 08/24/18 07:35 Dose: 1 amp Aspirin (Asa -) 81 mg PO DAILY [facility] Last Admin: 08/24/18 09:57 Dose: 81 mg Atorvastatin Calcium (Lipitor -) 80 mg PO HS [facility] Last Admin: 08/23/18 22:04 Dose: 80 mg Collagenase (Santyl -) 1 applic TP DAILY [facility]; Protocol Last Admin: 08/24/18 09:59 Dose: 1 applic Enoxaparin Sodium (Lovenox -) 55 mg SQ Q12H [facility] Last Admin: 08/24/18 09:58 Dose: 55 mg Levetiracetam (Keppra -) 500 mg PO BID [facility] Last Admin: 08/24/18 09:57 Dose: 500 mg Melatonin (Melatonin) 5 mg PO HS PRN PRN Reason: INSOMNIA Metoprolol Succinate (Toprol Xl -) 25 mg PO BID [facility] Last Admin: 08/24/18 11:05 Dose: 25 mg Pantoprazole Sodium (Protonix -) 40 mg PO DAILY [facility] Last Admin: 08/24/18 09:57 Dose: 40 mg Polyethylene Glycol (Miralax (For Daily Use) -) 17 gm PO DAILY [facility] Last Admin: 08/24/18 09:59 Dose: 17 grams Senna (Senna Oral Solution -) 8.8 mg GT HS [facility] Last Admin: 08/23/18 22:03 Dose: 5 ml A/P s/p Cardiopulmonary Arrest Shock of unclear etiology improved +Troponins/NSTEMI/Demand Ischemia Lactic Acidosis Elevated LFTs Likely Ischemic Injury Paroxysmal Atrial Fibrillation now in sinus Left Hip Fracture Rhabdomyolysis COPD h/o Lung Ca s/p R Pneumonectomy - s/p antibiotics - monitor urine output, creatinine - rate controlled - anticoagulation per cardiology - needs hip repair - will likely need cardiac work up when stable - PO as tolerated - DVT/GI prophylaxis
--- NOTE | 2018-08-24 16:57 | PN ---
Teaching Attending Note Name of Resident: Ronnell Pyle ATTENDING PHYSICIAN STATEMENT I saw and evaluated the patient. I reviewed the resident's note and discussed the case with the resident. I agree with the resident's findings and plan as documented. SUBJECTIVE: Patient is comfortable with no acute distress, no shortness of breath. awake, alert. OBJECTIVE: Vital Signs Temperature 98.1 F 08/24/18 15:13 Pulse Rate 76 08/24/18 15:13 Respiratory Rate 17 08/24/18 15:13 Blood Pressure 105/63 08/24/18 15:13 O2 Sat by Pulse Oximetry (%) 96 08/24/18 09:00 GENERAL: The patient is confused , but awake. HEAD: Normal with no signs of trauma. EYES: PERRL, extraocular movements intact, sclera anicteric, conjunctiva clear. ENT: Ears normal, oropharynx clear without exudates, moist mucous membranes. NECK: Trachea midline, full range of motion, supple. LUNGS: Breath sounds equal, clear to auscultation bilaterally, no wheezes, no crackles, no accessory muscle use. HEART: Regular rate and rhythm, S1, S2 positive, Jose David 2/6 , no rub or gallop. ABDOMEN: Soft, nontender, nondistended, normoactive bowel sounds, no guarding, no rebound, no hepatosplenomegaly, no masses. EXTREMITIES: 2+ pulses, warm, well-perfused, left lower extrimity inverted outward. NEUROLOGICAL: Cranial nerves II through XII grossly intact. Normal speech, gait not observed. SKIN: Warm, dry, normal turgor, no rashes or lesions noted CBCD WBC 8.3 K/mm3 (4.0-10.0) 08/24/18 10:15 RBC 2.75 M/mm3 (3.60-5.2) L 08/24/18 10:15 Hgb 8.7 GM/dL (10.7-15.3) L 08/24/18 10:15 Hct 25.8 % (32.4-45.2) L 08/24/18 10:15 MCV 93.7 fl (80-96) 08/24/18 10:15 MCHC 33.5 g/dl (32.0-36.0) 08/24/18 10:15 RDW 14.2 % (11.6-15.6) 08/24/18 10:15 Plt Count No Result Required. 08/24/18 10:15 MPV 7.0 fl (7.5-11.1) L 08/24/18 10:15 CMP Sodium 137 mmol/L (136-145) 08/23/18 06:05 Potassium 3.8 mmol/L (3.5-5.1) 08/23/18 06:05 Chloride 103 mmol/L (98-107) 08/23/18 06:05 Carbon Dioxide 28 mmol/L (21-32) 08/23/18 06:05 Anion Gap 6 MMOL/L (8-16) L 08/23/18 06:05 BUN 14.6 mg/dL (7-18) 08/23/18 06:05 Creatinine 0.8 mg/dL (0.55-1.3) 08/23/18 06:05 Random Glucose 98 mg/dL (74-106) 08/23/18 06:05 Calcium 8.6 mg/dL (8.5-10.1) 08/23/18 06:05 Total Bilirubin 1.1 mg/dL (0.2-1) H 08/23/18 06:05 AST 39 U/L (15-37) H 08/23/18 06:05 ALT 45 U/L (13-61) 08/23/18 06:05 Alkaline Phosphatase 69 U/L (45-117) 08/23/18 06:05 Total Protein 5.0 g/dl (6.4-8.2) L 08/23/18 06:05 Albumin 2.3 g/dl (3.4-5.0) L 08/23/18 06:05 CARDIAC ENZYMES Creatine Kinase 1103 U/L (26-192) H 08/15/18 05:20 Troponin I 1.30 ng/ml (0.00-0.05) H* 08/17/18 05:35 Current Medications Generic Name Dose Route Start Last Admin Trade Name Freq PRN Reason Stop Dose Admin Albuterol/Ipratropium 1 amp 08/23/18 20:00 08/24/18 14:30 Duoneb - NEB 1 amp RTID [facility] Administration Aspirin 81 mg 08/24/18 10:00 08/24/18 09:57 Asa - PO 81 mg DAILY [facility] Administration Atorvastatin Calcium 80 mg 08/23/18 22:00 08/23/18 22:04 Lipitor - PO 80 mg HS [facility] Administration Collagenase 1 applic 08/24/18 10:00 08/24/18 09:59 Santyl - TP 1 applic DAILY [facility] Administration Protocol Enoxaparin Sodium 55 mg 08/24/18 09:00 08/24/18 09:58 Lovenox - SQ 55 mg Q12H [facility] Administration Levetiracetam 500 mg 08/23/18 22:00 08/24/18 09:57 Keppra - PO 500 mg BID [facility] Administration Melatonin 5 mg 08/24/18 22:00 Melatonin PO HS PRN INSOMNIA Metoprolol Succinate 25 mg 08/23/18 22:00 08/24/18 11:05 Toprol Xl - PO 25 mg BID [facility] Administration Pantoprazole Sodium 40 mg 08/24/18 10:00 08/24/18 09:57 Protonix - PO 40 mg DAILY [facility] Administration Polyethylene Glycol 17 gm 08/24/18 10:00 08/24/18 09:59 Miralax (For Daily Use) - PO 17 grams DAILY [facility] Administration Senna 8.8 mg 08/23/18 22:00 08/23/18 22:03 Senna Oral Solution - GT 5 ml HS [facility] Administration Home Medications Medication Instructions Recorded RX: Losartan Potassium 50 mg PO DAILY 10/27/15 RX: Zolpidem Tartrate [Ambien] 10 mg PO HS 10/27/15 RX: Bisacodyl Suppository 10 mg [place] PRN PRN supp.rect 01/20/18 [Dulcolax Suppository -] RX: Docusate Sodium [Colace -] 100 mg PO TID capsule 01/20/18 RX: Enoxaparin [Lovenox -] 30 mg SQ DAILY disp.syrin 01/20/18 RX: Polyethylene Glycol 3350 17 gm PO DAILY bottle 01/20/18 [Miralax 119 gm Btl -] RX: Sennosides [Senna -] 2 tab PO HS tablet 01/20/18 RX: Ferrous Sulfate 325 mg PO BID 08/15/18 ASSESSMENT AND PLAN: Patient is a 88yo female with h/o HTN, Lung carcinoma s/p R lung resection who presented after a fall/ syncope . she was found to have L hip Fx ,hypothermia, NSTEMI, and rhabdo. hospital course was complicated with cardiac arrest on day of admission, also A fib with RVR and new onset seizure. # NSTEMI on Lovenox sq now, going for stress test for clearance for hip sx , dr An is informed, cardio on the case continue to monitor. # s/p cardiogentic shock due to NSTEMI # s/p Cardiac arrest s/p extubation # Acute hypoxic resp failure s/p extubation # New onset Seizures on keppra iv now # New onset A fib with rate controlled now. # T4 compression fx richard check with ortho for further managment # Transaminitis : likely due to shock , will continue to monitor # hypophosphatemia: repleted # Rhabdo improved # AAA 5.8 cm # L hip Fx : will ask ortho re-evalaute the patient DVT Px: hep.
[2018-08-24] MEDS: ATORVASTATIN CA 80 MG TABLET (FP) PO SCH (21:24)
[2018-08-24] MEDS: MELATONIN 5 MG TABLETS PO PRN (21:24)
[2018-08-24] MEDS: SENNOSIDES 8.8 MG/5 ML BULK BOTTLE GT SCH (21:25)
[2018-08-25 06:32] LABS: HEMATOCRIT 23.4 % (32.4-45.2); HEMOGLOBIN 8.4 GM/dL (10.7-15.3); MCH 32.7 pg (25.7-33.7); MCHC 35.7 g/dl (32.0-36.0); MEAN CELL VOLUME 91.5 fl (80-96); MEAN PLT VOLUME 7.2 fl (7.5-11.1); PLATELET COUNT 296 K/MM3 (134-434); RBC 2.56 M/mm3 (3.60-5.2); RDW 13.5 % (11.6-15.6); WHITE BLOOD COUNT 8.7 K/mm3 (4.0-10.0)
[2018-08-25 06:48] LABS: BLOOD UREA NITROGEN 14.4 mg/dL (7-18); CREATININE 0.7 mg/dL (0.55-1.3); MAGNESIUM 1.9 mg/dL (1.8-2.4); PHOSPHOROUS 3.3 mg/dL (2.5-4.9); POTASSIUM 3.9 mmol/L (3.5-5.1)
[2018-08-25] MEDS: ALBUTEROL SO4 2.5/IPRATROPIUM 0.5 INH SOL 3 ML VIAL.NEB. NEB SCH ×3 (07:44→20:03)
[2018-08-25] MEDS ORDERED: REGADENOSON 0.4 MG/5 ML PRE-FILLED SYRINGE IVPUSH ONE ×2 (09:15→11:58)
[2018-08-25] MEDS: levETIRAcetam 500 MG TABLET (FP) PO SCH ×2 (10:00→21:26)
--- NOTE | 2018-08-25 10:59 | PN ---
Progress Note, Physician Chief Complaint: Seen and examined in Cardiology Denies CP, SOB or palpitations. History of Present Illness: BP stable - Current Medication List Current Medications: Active Medications Albuterol/Ipratropium (Duoneb -) 1 amp NEB RTID [facility] Last Admin: 08/25/18 07:44 Dose: 1 amp Aspirin (Asa -) 81 mg PO DAILY [facility] Last Admin: 08/24/18 09:57 Dose: 81 mg Atorvastatin Calcium (Lipitor -) 80 mg PO HS [facility] Last Admin: 08/24/18 21:24 Dose: 80 mg Collagenase (Santyl -) 1 applic TP DAILY [facility]; Protocol Last Admin: 08/24/18 09:59 Dose: 1 applic Enoxaparin Sodium (Lovenox -) 55 mg SQ Q12H [facility] Last Admin: 08/24/18 21:24 Dose: 55 mg Levetiracetam (Keppra -) 500 mg PO BID [facility] Last Admin: 08/24/18 21:24 Dose: 500 mg Melatonin (Melatonin) 5 mg PO HS PRN PRN Reason: INSOMNIA Last Admin: 08/24/18 21:24 Dose: 5 mg Metoprolol Succinate (Toprol Xl -) 25 mg PO BID [facility] Last Admin: 08/24/18 21:24 Dose: 25 mg Pantoprazole Sodium (Protonix -) 40 mg PO DAILY [facility] Last Admin: 08/24/18 09:57 Dose: 40 mg Polyethylene Glycol (Miralax (For Daily Use) -) 17 gm PO DAILY [facility] Last Admin: 08/24/18 09:59 Dose: 17 grams Senna (Senna Oral Solution -) 8.8 mg GT HS [facility] Last Admin: 08/24/18 21:25 Dose: 5 ml - Objective Vital Signs: Vital Signs Temperature 97.8 F 08/25/18 08:00 Pulse Rate 75 08/25/18 08:00 Respiratory Rate 18 08/25/18 08:00 Blood Pressure 132/85 08/25/18 08:00 O2 Sat by Pulse Oximetry (%) 97 08/24/18 22:00 Constitutional: Yes: No Distress Cardiovascular: Yes: Regular Rate and Rhythm Respiratory: Yes: CTA Bilaterally Gastrointestinal: Yes: Soft (NT) Edema: Yes Edema: LLE: 1+, RLE: 1+ Neurological: Yes: Alert Labs: CBC, BMP 08/25/18 05:25 08/25/18 05:25 INR, PTT INR 1.16 (0.83-1.09) H 08/15/18 06:25 Laboratory Tests 08/14/18 08/14/18 08/14/18 13:09 17:42 23:33 WBC Hgb Plt Count Sodium Potassium Creatinine Magnesium Troponin I 10.50 H* 9.49 H* 8.95 H* 08/15/18 08/15/18 08/16/18 05:20 14:10 05:30 WBC Hgb Plt Count Sodium Potassium Creatinine Magnesium Troponin I 7.64 H* 5.37 H* 2.44 H* 08/17/18 08/25/18 08/25/18 05:35 05:25 05:25 WBC 8.7 Hgb 8.4 L Plt Count 296 D Sodium 134 L Potassium 3.9 Creatinine 0.7 Magnesium 1.9 Troponin I 1.30 H* - ....Imaging EKG: Image Reviewed (Controlled AF) Assessment/Plan Assessment/Plan 88 yo female with prior right hip fx, hypertension presents after syncopal episode in ED with ?sepsis, left hip fracture and (+) troponin. 1) (+) troponin: -Trop trending down and ECG without infarct pattern -LV function is severely reduced with akinetic anterospetal segment, unclear chronicity of this finding -on exam she is euvolemic -likely demand ischemia - continue aspirin, statin 2) Syncope -Unclear details surrounding this, but may be related to infectious process or arrhythmogenic given her LVEF, no sig V ectopy noted this admission -monitoring on tele benign so far 3) Sepsis -bp improved, now off pressors 4) Afib -Transient episode and converted with Amio -amiodarone dc'ed, patient in sinus - can hold amio for now -On beta crispin, tolerating well -chadsvasc warrants AC, would continue with AC for now (lovenox) 5.Hip fx: -ortho following. Was scheduled for pharm MPI today for preop risk stratification
--- NOTE | 2018-08-25 11:04 | PN ---
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 Reported to be tolerating diet. To follow.
--- NOTE | 2018-08-25 11:06 | PN ---
Progress Note, Physician - Current Medication List Current Medications: Active Medications Albuterol/Ipratropium (Duoneb -) 1 amp NEB RTID [facility] Last Admin: 08/25/18 07:44 Dose: 1 amp Aspirin (Asa -) 81 mg PO DAILY [facility] Last Admin: 08/24/18 09:57 Dose: 81 mg Atorvastatin Calcium (Lipitor -) 80 mg PO HS [facility] Last Admin: 08/24/18 21:24 Dose: 80 mg Collagenase (Santyl -) 1 applic TP DAILY [facility]; Protocol Last Admin: 08/24/18 09:59 Dose: 1 applic Enoxaparin Sodium (Lovenox -) 55 mg SQ Q12H [facility] Last Admin: 08/24/18 21:24 Dose: 55 mg Levetiracetam (Keppra -) 500 mg PO BID [facility] Last Admin: 08/24/18 21:24 Dose: 500 mg Melatonin (Melatonin) 5 mg PO HS PRN PRN Reason: INSOMNIA Last Admin: 08/24/18 21:24 Dose: 5 mg Metoprolol Succinate (Toprol Xl -) 25 mg PO BID [facility] Last Admin: 08/24/18 21:24 Dose: 25 mg Pantoprazole Sodium (Protonix -) 40 mg PO DAILY [facility] Last Admin: 08/24/18 09:57 Dose: 40 mg Polyethylene Glycol (Miralax (For Daily Use) -) 17 gm PO DAILY [facility] Last Admin: 08/24/18 09:59 Dose: 17 grams Senna (Senna Oral Solution -) 8.8 mg GT HS [facility] Last Admin: 08/24/18 21:25 Dose: 5 ml - Objective Vital Signs: Vital Signs Temperature 97.8 F 08/25/18 08:00 Pulse Rate 75 08/25/18 08:00 Respiratory Rate 18 08/25/18 08:00 Blood Pressure 132/85 08/25/18 08:00 O2 Sat by Pulse Oximetry (%) 97 08/24/18 22:00 Labs: CBC, BMP 08/25/18 05:25 08/25/18 05:25 INR, PTT INR 1.16 (0.83-1.09) H 08/15/18 06:25 Assessment/Plan A/P s/p Cardiopulmonary Arrest Shock of unclear etiology improved +Troponins/NSTEMI/Demand Ischemia Lactic Acidosis Elevated LFTs Likely Ischemic Injury Paroxysmal Atrial Fibrillation now in sinus Left Hip Fracture Rhabdomyolysis COPD h/o Lung Ca s/p R Pneumonectomy - s/p antibiotics - monitor urine output, creatinine - rate controlled - anticoagulation per cardiology - needs hip repair - will likely need cardiac work up when stable - PO as tolerated - DVT/GI prophylaxis
--- NOTE | 2018-08-25 11:09 | PN ---
Progress Note (short form) - Note Progress Note: Ortho Pt seen and examined s/p left IT fx- pt getting stress test to evaluate cardiac risk for surgery Selected Entries 08/25/18 08:00 Temperature 97.8 F Pulse Rate 75 Respiratory 18 Rate Blood Pressure 132/85 Laboratory Tests 08/25/18 05:25 WBC 8.7 Hgb 8.4 L Hct 23.4 L Plt Count 296 D left LE- shortened and ER, + ttp, calf soft, nt nvi a/p Stress test today discussed case cardiology OR wither tomorrow/Saturday if cleared NPO after midnight tonight d/w Dr. Gaston
[2018-08-25] MEDS: metoPROLOL SUCCINATE 25 MG TAB.SR.24H (FP) PO SCH ×2 (13:34→21:26)
[2018-08-25] MEDS: POLYETHYLENE GLYCOL 3350 119 GM BTL PO SCH (13:50)
[2018-08-25] MEDS: PANTOPRAZOLE 40 MG TABLET (FP) PO SCH (13:50)
[2018-08-25] MEDS: COLLAGENASE CLOSTRIDIUM HIST. 30 GRAMS TUBE TP SCH (13:53)
--- NOTE | 2018-08-25 14:04 | PN ---
Teaching Attending Note Name of Resident: Ronnell Pyle ATTENDING PHYSICIAN STATEMENT I saw and evaluated the patient. I reviewed the resident's note and discussed the case with the resident. I agree with the resident's findings and plan as documented. SUBJECTIVE: Patient is comfortable with no acute distress, no shortness of breath. going for stress test. OBJECTIVE: Vital Signs Temperature 97.8 F 08/25/18 08:00 Pulse Rate 75 08/25/18 08:00 Respiratory Rate 18 08/25/18 08:00 Blood Pressure 132/85 08/25/18 08:00 O2 Sat by Pulse Oximetry (%) 98 08/25/18 09:00 GENERAL: The patient is awake, no longer confused . HEAD: Normal with no signs of trauma. EYES: PERRL, extraocular movements intact, sclera anicteric, conjunctiva clear. ENT: Ears normal, oropharynx clear without exudates, moist mucous membranes. NECK: Trachea midline, full range of motion, supple. LUNGS: Breath sounds equal, clear to auscultation bilaterally, no wheezes, no crackles, no accessory muscle use. HEART: Regular rate and rhythm, S1, S2 positive, Jose David 2/6 , no rub or gallop. ABDOMEN: Soft, nontender, nondistended, normoactive bowel sounds, no guarding, no rebound, no hepatosplenomegaly, no masses. EXTREMITIES: 2+ pulses, warm, well-perfused, left lower extremity is outverted. NEUROLOGICAL: Cranial nerves II through XII grossly intact. Normal speech, gait not observed. SKIN: Warm, dry, normal turgor, no rashes or lesions noted CBCD WBC 8.7 K/mm3 (4.0-10.0) 08/25/18 05:25 RBC 2.56 M/mm3 (3.60-5.2) L 08/25/18 05:25 Hgb 8.4 GM/dL (10.7-15.3) L 08/25/18 05:25 Hct 23.4 % (32.4-45.2) L 08/25/18 05:25 MCV 91.5 fl (80-96) 08/25/18 05:25 MCHC 35.7 g/dl (32.0-36.0) 08/25/18 05:25 RDW 13.5 % (11.6-15.6) 08/25/18 05:25 Plt Count 296 K/MM3 (134-434) D 08/25/18 05:25 MPV 7.2 fl (7.5-11.1) L 08/25/18 05:25 CMP Sodium 134 mmol/L (136-145) L 08/25/18 05:25 Potassium 3.9 mmol/L (3.5-5.1) 08/25/18 05:25 Chloride 99 mmol/L (98-107) 08/25/18 05:25 Carbon Dioxide 30 mmol/L (21-32) 08/25/18 05:25 Anion Gap 5 MMOL/L (8-16) L 08/25/18 05:25 BUN 14.4 mg/dL (7-18) 08/25/18 05:25 Creatinine 0.7 mg/dL (0.55-1.3) 08/25/18 05:25 Random Glucose 100 mg/dL (74-106) 08/25/18 05:25 Calcium 8.0 mg/dL (8.5-10.1) L 08/25/18 05:25 Total Bilirubin 1.1 mg/dL (0.2-1) H 08/23/18 06:05 AST 39 U/L (15-37) H 08/23/18 06:05 ALT 45 U/L (13-61) 08/23/18 06:05 Alkaline Phosphatase 69 U/L (45-117) 08/23/18 06:05 Total Protein 5.0 g/dl (6.4-8.2) L 08/23/18 06:05 Albumin 2.3 g/dl (3.4-5.0) L 08/23/18 06:05 CARDIAC ENZYMES Creatine Kinase 1103 U/L (26-192) H 08/15/18 05:20 Troponin I 1.30 ng/ml (0.00-0.05) H* 08/17/18 05:35 Current Medications Generic Name Dose Route Start Last Admin Trade Name Freq PRN Reason Stop Dose Admin Albuterol/Ipratropium 1 amp 08/23/18 20:00 08/25/18 13:40 Duoneb - NEB 1 amp RTID [facility] Administration Aspirin 81 mg 08/24/18 10:00 08/24/18 09:57 Asa - PO 81 mg DAILY [facility] Administration Atorvastatin Calcium 80 mg 08/23/18 22:00 08/24/18 21:24 Lipitor - PO 80 mg HS [facility] Administration Collagenase 1 applic 08/24/18 10:00 08/25/18 13:53 Santyl - TP 1 applic DAILY [facility] Administration Protocol Enoxaparin Sodium 55 mg 08/24/18 09:00 08/24/18 21:24 Lovenox - SQ 55 mg Q12H [facility] Administration Levetiracetam 500 mg 08/23/18 22:00 08/25/18 10:00 Keppra - PO Not Given BID [facility] Melatonin 5 mg 08/24/18 22:00 08/24/18 21:24 Melatonin PO 5 mg HS PRN Administration INSOMNIA Metoprolol Succinate 25 mg 08/23/18 22:00 08/25/18 13:34 Toprol Xl - PO Not Given BID [facility] Pantoprazole Sodium 40 mg 08/24/18 10:00 08/25/18 13:50 Protonix - PO 40 mg DAILY [facility] Administration Polyethylene Glycol 17 gm 08/24/18 10:00 08/25/18 13:50 Miralax (For Daily Use) - PO 17 grams DAILY [facility] Administration Senna 8.8 mg 08/23/18 22:00 08/24/18 21:25 Senna Oral Solution - GT 5 ml HS [facility] Administration Home Medications Medication Instructions Recorded Losartan Potassium 50 mg PO DAILY 10/27/15 Zolpidem Tartrate [Ambien] 10 mg PO HS 10/27/15 Bisacodyl Suppository [Dulcolax 10 mg ME PRN PRN supp.rect 01/20/18 Suppository -] Docusate Sodium [Colace -] 100 mg PO TID capsule 01/20/18 Enoxaparin [Lovenox -] 30 mg SQ DAILY disp.syrin 01/20/18 Polyethylene Glycol 3350 [Miralax 17 gm PO DAILY bottle 01/20/18 119 gm Btl -] Sennosides [Senna -] 2 tab PO HS tablet 01/20/18 Ferrous Sulfate 325 mg PO BID 08/15/18 ASSESSMENT AND PLAN: Patient is a 88yo female with h/o HTN, Lung carcinoma s/p R lung resection who presented after a fall/ syncope . she was found to have L hip Fx ,hypothermia, NSTEMI, and rhabdo. hospital course was complicated with cardiac arrest on day of admission, also A fib with RVR and new onset seizure. # NSTEMI on Lovenox sq now, going for stress test this morning for clearance for hip sx. dr An is informed, cardio on the case continue to monitor.Patient is NPO for the stress test today, will wait for the stress test result and will inform the ortho. # s/p cardiogentic shock due to NSTEMI # s/p Cardiac arrest s/p extubation # Acute hypoxic resp failure s/p extubation improved # New onset Seizures on keppra iv now # New onset A fib with rate controlled now. # T4 compression fx richard check with ortho for further management # Transaminitis : likely due to shock , will continue to monitor # hypophosphatemia: repleted # Rhabdo improved # AAA 5.8 cm # L hip Fx : will ask ortho re-evalaute the patient DVT Px: hep.
[2018-08-25 15:43] LABS: HEMATOCRIT 27.1 % (32.4-45.2); HEMOGLOBIN 9.4 GM/dL (10.7-15.3); MCH 31.8 pg (25.7-33.7); MCHC 34.5 g/dl (32.0-36.0); MEAN CELL VOLUME 92.2 fl (80-96); MEAN PLT VOLUME 7.2 fl (7.5-11.1); PLATELET COUNT 354 K/MM3 (134-434); RBC 2.94 M/mm3 (3.60-5.2); WHITE BLOOD COUNT 10.5 K/mm3 (4.0-10.0)
--- NOTE | 2018-08-25 16:07 | PN ---
Physical Exam: SUBJECTIVE: Patient seen and examined at bedside. Nuclear stress test earlier today. Denies chest pain or shortness of breath. OBJECTIVE: Vital Signs Period Temp Pulse Resp BP Sys/Aguirre Pulse Ox Last 24 Hr 97.8 F-99.0 F 74-90 18-20 124-144/64-85 97-98 GENERAL: No acute distress HEAD: Left facial ulcer EYES: EOMI Sclera Clear LUNGS: Dec BS bases HEART: RRR nL S1S2. ABDOMEN: Soft, NDNT EXTREMITIES: Trace pitting edema b/l. Shortened and extenrally rotated LLE. NEUROLOGICAL: CN 2-12 intact. SKIN: Warm, dry, normal turgor, no rashes or lesions noted Laboratory Results - last 24 hr 08/24/18 08/25/18 08/25/18 10:15 01:20 05:25 WBC 8.7 RBC 2.56 L Hgb 8.4 L Hct 23.4 L MCV 91.5 MCH 32.7 MCHC 35.7 RDW 13.5 Plt Count No Result Required. 296 D MPV 7.2 L Manual Slide Review Y PTT (Actin FS) Sodium Potassium Chloride Carbon Dioxide Anion Gap BUN Creatinine Est GFR (CKD-EPI)AfAm Est GFR (CKD-EPI)NonAf Random Glucose Calcium Phosphorus Magnesium Stool Occult Blood Negative 08/25/18 08/25/18 08/25/18 05:25 14:30 14:30 WBC 10.5 H RBC 2.94 L Hgb 9.4 L Hct 27.1 L D MCV 92.2 MCH 31.8 MCHC 34.5 RDW 14.0 Plt Count 354 MPV 7.2 L Manual Slide Review PTT (Actin FS) 34.0 Sodium 134 L Potassium 3.9 Chloride 99 Carbon Dioxide 30 Anion Gap 5 L BUN 14.4 Creatinine 0.7 Est GFR (CKD-EPI)AfAm 90.93 Est GFR (CKD-EPI)NonAf 78.45 Random Glucose 100 Calcium 8.0 L Phosphorus 3.3 Magnesium 1.9 Stool Occult Blood Active Medications Generic Name Dose Route Start Last Admin Trade Name Freq PRN Reason Stop Dose Admin Albuterol/Ipratropium 1 amp 08/23/18 20:00 08/25/18 13:40 Duoneb - NEB 1 amp RTID [facility] Administration Aspirin 81 mg 08/24/18 10:00 08/24/18 09:57 Asa - PO 81 mg DAILY [facility] Administration Atorvastatin Calcium 80 mg 08/23/18 22:00 08/24/18 21:24 Lipitor - PO 80 mg HS [facility] Administration Collagenase 1 applic 08/24/18 10:00 08/25/18 13:53 Santyl - TP 1 applic DAILY [facility] Administration Protocol Enoxaparin Sodium 55 mg 08/24/18 09:00 08/24/18 21:24 Lovenox - SQ 55 mg Q12H [facility] Administration Levetiracetam 500 mg 08/23/18 22:00 08/25/18 10:00 Keppra - PO Not Given BID [facility] Melatonin 5 mg 08/24/18 22:00 08/24/18 21:24 Melatonin PO 5 mg HS PRN Administration INSOMNIA Metoprolol Succinate 25 mg 08/23/18 22:00 08/25/18 13:34 Toprol Xl - PO Not Given BID [facility] Pantoprazole Sodium 40 mg 08/24/18 10:00 08/25/18 13:50 Protonix - PO 40 mg DAILY [facility] Administration Polyethylene Glycol 17 gm 08/24/18 10:00 08/25/18 13:50 Miralax (For Daily Use) - PO 17 grams DAILY [facility] Administration Senna 8.8 mg 08/23/18 22:00 08/24/18 21:25 Senna Oral Solution - GT 5 ml HS [facility] Administration ASSESSMENT/PLAN: 88 year old female with a past medical history of hypertension and right sided lung cancer status post resection, AAA BIBA s/p being found on the ground allegedly by the neighbor, s/p Cardiac arrest overnight, intubated and sedated in ICU on pressors. #Cardiogenic shock 2/2 NSTEMI -s/p cardiac arrest -Pt has been weaned off Pressors. -Cardiology on board. Pt now in sinus rhythm. Cardiology does not recommend any ionotropes or further amiodorone in light of increased VT risk with reduced EF of 25-30%. Lexiscan: Overall negative pharmacologic stress test. No significant electrocardiographic changes seen. Small to moderate zone of inferolateral fixed defect compatible with diaphragmatic excursion. -Extubated 08/19/18 -Troponin 08/17/18--> 1.5. Down from 10.3. -less likely septic shock with no signs of infectious etiology, cultures negative. Will observe off antibiotics #New onset Seizures -Neurology on board -Mary #Left Hip Fracture -For tentative ORIF of IT Fracture either tomorrow or Saturday with Dr Gaston -Pt now off of pressors and extubated. #AAA 5.7 cm -slight increase from prior records -Seen by vascular surgery who recommends f/u if pt becomes more stable #HTN -off of pressors. Continue to monitor. #FEN -No Fluids -Monitor Electrolytes -NPO after midnight #DVT PPX -AC on hold in light of possible surgery tomorrow. #Disposition ICU Patient is DNR/DNI. Health care proxy assigned as sister in law (Katy Brownlee) . Signed paperwork in patient's chart. Visit type - Emergency Visit Emergency Visit: Yes ED Registration Date: 08/14/18 Care time: The patient presented to the Emergency Department on the above date and was hospitalized for further evaluation of their emergent condition. - New Patient This patient is new to me today: No - Critical Care Critical Care patient: No - Discharge Referral Referred to [facility] Med P.C.: No
[2018-08-25] MEDS ORDERED: PT OWN MED DRAWER 7, Y5N ONE (21:21)
[2018-08-25] MEDS: ATORVASTATIN CA 80 MG TABLET (FP) PO SCH (21:26)
[2018-08-25] MEDS: MELATONIN 5 MG TABLETS PO PRN (21:26)
[2018-08-25] MEDS: SENNOSIDES 8.8 MG/5 ML BULK BOTTLE GT SCH (21:27)
[2018-08-26 07:37] LABS: BLOOD UREA NITROGEN 17.3 mg/dL (7-18); CALCIUM 8.7 mg/dL (8.5-10.1); CREATININE 0.7 mg/dL (0.55-1.3); PHOSPHOROUS 3.2 mg/dL (2.5-4.9); POTASSIUM 3.9 mmol/L (3.5-5.1)
[2018-08-26] MEDS: ALBUTEROL SO4 2.5/IPRATROPIUM 0.5 INH SOL 3 ML VIAL.NEB. NEB SCH ×3 (08:09→21:00)
[2018-08-26 08:24] LABS: HEMATOCRIT 23.8 % (32.4-45.2); HEMOGLOBIN 8.2 GM/dL (10.7-15.3); MCH 31.9 pg (25.7-33.7); MCHC 34.6 g/dl (32.0-36.0); MEAN CELL VOLUME 92.2 fl (80-96); MEAN PLT VOLUME 7.3 fl (7.5-11.1); PLATELET COUNT 311 K/MM3 (134-434); RBC 2.58 M/mm3 (3.60-5.2); RDW 14.2 % (11.6-15.6); WHITE BLOOD COUNT 10.5 K/mm3 (4.0-10.0)
--- NOTE | 2018-08-26 10:48 | PN ---
Progress Note (short form) - Note Progress Note: s: no chest pain, palps, dizziness, dyspnea tele: sinus, PACs Current Medications Albuterol/Ipratropium (Duoneb -) 1 amp NEB RTID [facility] Last Admin: 08/26/18 08:09 Dose: 1 amp Aspirin (Asa -) 81 mg PO DAILY [facility] Last Admin: 08/24/18 09:57 Dose: 81 mg Atorvastatin Calcium (Lipitor -) 80 mg PO HS [facility] Last Admin: 08/25/18 21:26 Dose: 80 mg Collagenase (Santyl -) 1 applic TP DAILY [facility]; Protocol Last Admin: 08/25/18 13:53 Dose: 1 applic Enoxaparin Sodium (Lovenox -) 55 mg SQ Q12H [facility] Last Admin: 08/24/18 21:24 Dose: 55 mg Levetiracetam (Keppra -) 500 mg PO BID [facility] Last Admin: 08/25/18 21:26 Dose: 500 mg Melatonin (Melatonin) 5 mg PO HS PRN PRN Reason: INSOMNIA Last Admin: 08/25/18 21:26 Dose: 5 mg Metoprolol Succinate (Toprol Xl -) 25 mg PO BID [facility] Last Admin: 08/25/18 21:26 Dose: 25 mg Pantoprazole Sodium (Protonix -) 40 mg PO DAILY [facility] Last Admin: 08/25/18 13:50 Dose: 40 mg Polyethylene Glycol (Miralax (For Daily Use) -) 17 gm PO DAILY [facility] Last Admin: 08/25/18 13:50 Dose: 17 grams Senna (Senna Oral Solution -) 8.8 mg GT HS [facility] Last Admin: 08/25/18 21:27 Dose: Not Given Vital Signs Period Temp Pulse Resp BP Sys/Aguirre Pulse Ox Last 24 Hr 97.6 F-98.4 F 75-84 18-20 99-136/47-74 98 Constitutional: Yes: No Distress Neck: no JVD Cardiovascular: Yes: Regular Rate and Rhythm Respiratory: Yes: CTA Bilaterally Gastrointestinal: Yes: Soft (NT) Edema: Yes Edema: trace Neurological: Yes: Alert not agitated no jaundice, diaphoresis - ....Imaging EKG: Image Reviewed (Controlled AF) mibi 08/2018 sm to mod zone of inferolateral fixed defect c/w diaphragmatic attenuation, no ischemia, EF 67% Assessment/Plan 88 yo female with prior right hip fx, hypertension presents after syncopal episode in ED with ?sepsis, left hip fracture and (+) troponin. 1) (+) troponin: -Trop trending down and ECG without infarct pattern -LV function is severely reduced with akinetic anterospetal segment, unclear chronicity of this finding -on exam she is euvolemic -likely demand ischemia - continue aspirin, statin - mibi no ischemia with nl EF 2) Syncope -Unclear details surrounding this, but may be related to infectious process or arrhythmogenic given her LVEF, no sig V ectopy noted this admission -monitoring on tele benign 3) Sepsis -resolved, now off pressors 4) Afib -Transient episode and converted with Amio -amiodarone dc'ed, patient in sinus -On beta crispin, tolerating well -chadsvasc warrants AC, would continue with AC for now (lovenox) 5.Hip fx, preoperative evaluation - plan for ORIF today or tomorrow -asymptomatic and stable from cardiac perspective, nuc stress test yesterday shows nl EF without ischemia - patient is at acceptable risk for hip surgery, may proceed without further testing - restart AC when able per ortho
[2018-08-26] MEDS: ASPIRIN 81 MG CHEWABLE TABLETS PO SCH (10:51)
[2018-08-26 11:17] LABS: HEMATOCRIT 24.5 % (32.4-45.2); HEMOGLOBIN 8.3 GM/dL (10.7-15.3); MCH 31.3 pg (25.7-33.7); MCHC 33.9 g/dl (32.0-36.0); MEAN CELL VOLUME 92.4 fl (80-96); MEAN PLT VOLUME 7.1 fl (7.5-11.1); PLATELET COUNT 313 K/MM3 (134-434); RBC 2.66 M/mm3 (3.60-5.2); RDW 14.3 % (11.6-15.6); WHITE BLOOD COUNT 8.7 K/mm3 (4.0-10.0)
--- NOTE | 2018-08-26 13:08 | PN ---
Teaching Attending Note Name of Resident: Ronnell Pyle ATTENDING PHYSICIAN STATEMENT I saw and evaluated the patient. I reviewed the resident's note and discussed the case with the resident. I agree with the resident's findings and plan as documented. SUBJECTIVE: Patient is comfortable with no acute distress, patient is going to OR at 3pm today , is cleared by cardio. OBJECTIVE: Vital Signs Temperature 98.0 F 08/26/18 06:01 Pulse Rate 79 08/26/18 06:01 Respiratory Rate 20 08/26/18 06:01 Blood Pressure 136/66 08/26/18 06:01 O2 Sat by Pulse Oximetry (%) 93 L 08/26/18 10:00 GENERAL: The patient is awake, no longer confused . HEAD: Normal with no signs of trauma. EYES: PERRL, extraocular movements intact, sclera anicteric, conjunctiva clear. ENT: Ears normal, oropharynx clear without exudates, moist mucous membranes. NECK: Trachea midline, full range of motion, supple. LUNGS: Breath sounds equal, clear to auscultation bilaterally, no wheezes, no crackles, no accessory muscle use. HEART: Regular rate and rhythm, S1, S2 positive, Jose David 2/6 , no rub or gallop. ABDOMEN: Soft, nontender, nondistended, normoactive bowel sounds, no guarding, no rebound, no hepatosplenomegaly, no masses. EXTREMITIES: 2+ pulses, warm, well-perfused, left lower extremity is contracted and outverted. NEUROLOGICAL: Cranial nerves II through XII grossly intact. Normal speech, gait not observed. SKIN: Warm, dry, normal turgor, no rashes or lesions noted WBC 8.7 K/mm3 (4.0-10.0) 08/26/18 10:45 RBC 2.66 M/mm3 (3.60-5.2) L 08/26/18 10:45 Hgb 8.3 GM/dL (10.7-15.3) L 08/26/18 10:45 Hct 24.5 % (32.4-45.2) L 08/26/18 10:45 MCV 92.4 fl (80-96) 08/26/18 10:45 MCHC 33.9 g/dl (32.0-36.0) 08/26/18 10:45 RDW 14.3 % (11.6-15.6) 08/26/18 10:45 Plt Count 313 K/MM3 (134-434) 08/26/18 10:45 MPV 7.1 fl (7.5-11.1) L 08/26/18 10:45 CMP Sodium 134 mmol/L (136-145) L 08/26/18 05:20 Potassium 3.9 mmol/L (3.5-5.1) 08/26/18 05:20 Chloride 98 mmol/L (98-107) 08/26/18 05:20 Carbon Dioxide 29 mmol/L (21-32) 08/26/18 05:20 Anion Gap 7 MMOL/L (8-16) L 08/26/18 05:20 BUN 17.3 mg/dL (7-18) 08/26/18 05:20 Creatinine 0.7 mg/dL (0.55-1.3) 08/26/18 05:20 Random Glucose 101 mg/dL (74-106) 08/26/18 05:20 Calcium 8.7 mg/dL (8.5-10.1) 08/26/18 05:20 Total Bilirubin 1.1 mg/dL (0.2-1) H 08/23/18 06:05 AST 39 U/L (15-37) H 08/23/18 06:05 ALT 45 U/L (13-61) 08/23/18 06:05 Alkaline Phosphatase 69 U/L (45-117) 08/23/18 06:05 Total Protein 5.0 g/dl (6.4-8.2) L 08/23/18 06:05 Albumin 2.3 g/dl (3.4-5.0) L 08/23/18 06:05 CARDIAC ENZYMES Creatine Kinase 1103 U/L (26-192) H 08/15/18 05:20 Troponin I 1.30 ng/ml (0.00-0.05) H* 08/17/18 05:35 Current Medications Generic Name Dose Route Start Last Admin Trade Name Freq PRN Reason Stop Dose Admin Albuterol/Ipratropium 1 amp 08/23/18 20:00 08/26/18 08:09 Duoneb - NEB 1 amp RTID [facility] Administration Aspirin 81 mg 08/24/18 10:00 08/24/18 09:57 Asa - PO 81 mg DAILY [facility] Administration Atorvastatin Calcium 80 mg 08/23/18 22:00 08/25/18 21:26 Lipitor - PO 80 mg HS [facility] Administration Collagenase 1 applic 08/24/18 10:00 08/25/18 13:53 Santyl - TP 1 applic DAILY [facility] Administration Protocol Enoxaparin Sodium 55 mg 08/24/18 09:00 08/24/18 21:24 Lovenox - SQ 55 mg Q12H [facility] Administration Levetiracetam 500 mg 08/23/18 22:00 08/25/18 21:26 Keppra - PO 500 mg BID [facility] Administration Melatonin 5 mg 08/24/18 22:00 08/25/18 21:26 Melatonin PO 5 mg HS PRN Administration INSOMNIA Metoprolol Succinate 25 mg 08/23/18 22:00 08/25/18 21:26 Toprol Xl - PO 25 mg BID [facility] Administration Pantoprazole Sodium 40 mg 08/24/18 10:00 08/25/18 13:50 Protonix - PO 40 mg DAILY [facility] Administration Polyethylene Glycol 17 gm 08/24/18 10:00 08/25/18 13:50 Miralax (For Daily Use) - PO 17 grams DAILY [facility] Administration Senna 8.8 mg 08/23/18 22:00 08/25/18 21:27 Senna Oral Solution - GT Not Given [facility] Home Medications Medication Instructions Recorded Losartan Potassium 50 mg PO DAILY 10/27/15 Zolpidem Tartrate [Ambien] 10 mg PO HS 10/27/15 Bisacodyl Suppository [Dulcolax 10 mg [place] PRN PRN supp.rect 01/20/18 Suppository -] Docusate Sodium [Colace -] 100 mg PO TID capsule 01/20/18 Enoxaparin [Lovenox -] 30 mg SQ DAILY disp.syrin 01/20/18 Polyethylene Glycol 3350 [Miralax 17 gm PO DAILY bottle 01/20/18 119 gm Btl -] Sennosides [Senna -] 2 tab PO HS tablet 01/20/18 Ferrous Sulfate 325 mg PO BID 08/15/18 ASSESSMENT AND PLAN: Patient is a 88yo female with h/o HTN, Lung carcinoma s/p R lung resection who presented after a fall/ syncope . she was found to have L hip Fx ,hypothermia, NSTEMI, and rhabdo. hospital course was complicated with cardiac arrest on day of admission, also A fib with RVR and new onset seizure. # L hip Fx : s/p clearance by cardio, patient will be going to surg. today at 3pm for Orif. # NSTEMI on Lovenox sq on hold now, s/p for stress test Patient is NPO # s/p cardiogentic shock due to NSTEMI # s/p Cardiac arrest s/p extubation # Acute hypoxic resp failure s/p extubation improved # New onset Seizures on keppra iv now # New onset A fib with rate controlled now. # T4 compression fx richard check with ortho for further management # Transaminitis : likely due to shock , will continue to monitor # hypophosphatemia: repleted # Rhabdo improved # AAA 5.8 cm DVT Px: ac is on hold for now due to having orif.
--- NOTE | 2018-08-26 13:42 | PN ---
Progress Note, Physician History of Present Illness: PULMONARY ALERT,NO DISTRESS,-SOB,FOR LEFT HIP SURGERY TODAY - Current Medication List Current Medications: Active Medications Albuterol/Ipratropium (Duoneb -) 1 amp NEB RTID [facility] Last Admin: 08/26/18 08:09 Dose: 1 amp Aspirin (Asa -) 81 mg PO DAILY [facility] Last Admin: 08/24/18 09:57 Dose: 81 mg Atorvastatin Calcium (Lipitor -) 80 mg PO HS [facility] Last Admin: 08/25/18 21:26 Dose: 80 mg Collagenase (Santyl -) 1 applic TP DAILY [facility]; Protocol Last Admin: 08/25/18 13:53 Dose: 1 applic Enoxaparin Sodium (Lovenox -) 55 mg SQ Q12H [facility] Last Admin: 08/24/18 21:24 Dose: 55 mg Levetiracetam (Keppra -) 500 mg PO BID [facility] Last Admin: 08/25/18 21:26 Dose: 500 mg Melatonin (Melatonin) 5 mg PO HS PRN PRN Reason: INSOMNIA Last Admin: 08/25/18 21:26 Dose: 5 mg Metoprolol Succinate (Toprol Xl -) 25 mg PO BID [facility] Last Admin: 08/25/18 21:26 Dose: 25 mg Pantoprazole Sodium (Protonix -) 40 mg PO DAILY [facility] Last Admin: 08/25/18 13:50 Dose: 40 mg Polyethylene Glycol (Miralax (For Daily Use) -) 17 gm PO DAILY [facility] Last Admin: 08/25/18 13:50 Dose: 17 grams Senna (Senna Oral Solution -) 8.8 mg GT HS [facility] Last Admin: 08/25/18 21:27 Dose: Not Given - Objective Vital Signs: Vital Signs Temperature 98.0 F 08/26/18 06:01 Pulse Rate 79 08/26/18 06:01 Respiratory Rate 20 08/26/18 06:01 Blood Pressure 136/66 08/26/18 06:01 O2 Sat by Pulse Oximetry (%) 93 L 08/26/18 10:00 Constitutional: Yes: Calm, Thin Eyes: Yes: WNL HENT: Yes: WNL Neck: Yes: WNL Cardiovascular: Yes: Regular Rate and Rhythm, S1, S2 Respiratory: Yes: Diminished Gastrointestinal: Yes: Normal Bowel Sounds, Soft Extremities: Yes: WNL Edema: No Labs: CBC, BMP 08/26/18 10:45 08/26/18 05:20 INR, PTT INR 1.16 (0.83-1.09) H 08/15/18 06:25 Problem List - Problems (1) Elevated troponin Code(s): R74.8 - ABNORMAL LEVELS OF OTHER SERUM ENZYMES (2) Hip fracture, left Code(s): S72.002A - FRACTURE OF UNSP PART OF NECK OF LEFT FEMUR, INIT (3) Hypothermia Code(s): T68.XXXA - HYPOTHERMIA, INITIAL ENCOUNTER (4) Lactic acid acidosis Code(s): E87.2 - ACIDOSIS (5) Sudden cardiac arrest Code(s): I46.9 - CARDIAC ARREST, CAUSE UNSPECIFIED (6) Unwitnessed fall Code(s): R29.6 - REPEATED FALLS (7) Hypertension Code(s): I10 - ESSENTIAL (PRIMARY) HYPERTENSION Assessment/Plan ASSESSMENT AND PLAN: s/p Cardiopulmonary Arrest Shock of unclear etiology improved +Troponins/NSTEMI/Demand Ischemia Lactic Acidosis resolved Elevated LFTs Likely Ischemic Injury Paroxysmal Atrial Fibrillation now in sinus Left Hip Fracture Rhabdomyolysis COPD h/o Lung Ca s/p R Pneumonectomy - monitor urine output, creatinine - rate controlled - anticoagulation on hold - PO as tolerated - DVT/GI prophylaxis -- left hip surgery today DR ART
[2018-08-26] MEDS: metoPROLOL SUCCINATE 25 MG TAB.SR.24H (FP) PO SCH ×2 (13:52→21:20)
[2018-08-26] MEDS: PANTOPRAZOLE 40 MG TABLET (FP) PO SCH (13:52)
[2018-08-26] MEDS: levETIRAcetam 500 MG TABLET (FP) PO SCH ×2 (13:52→21:20)
[2018-08-26] MEDS: POLYETHYLENE GLYCOL 3350 119 GM BTL PO SCH (13:52)
[2018-08-26] MEDS: COLLAGENASE CLOSTRIDIUM HIST. 30 GRAMS TUBE TP SCH (13:53)
[2018-08-26] MEDS: ENOXAPARIN NA (PORCINE) 60 MG/0.6 ML DISP.SYRIN SQ SCH ×2 (13:53→21:21)
[2018-08-26] MEDS ORDERED: DEXMEDETOMIDINE HCL 200 MCG/2 ML IVPB ONE (16:21)
--- NOTE | 2018-08-26 17:16 | OP ---
Operative Note - Note: Operative Date: 08/26/18 Pre-Operative Diagnosis: left hip inter trochanteric fracture Operation: left hip intramedullary nail/Gamma nail Implants: Yoni G3 titanium Gamma nail, 90mm lag screwm 35mm distal locking screw Surgeon: Ian Gaston Anesthesiologist/MELT SUPERVISOR: Miguel A Mcnally Anesthesia: Spinal, MAC Estimated Blood Loss (mls): 100 Drains, Volume Out (mls): 0 Blood Volume Replaced (mls): 0 Fluid Volume Replaced (mls): 700 Operative Report Dictated: Yes
[2018-08-26] MEDS ORDERED: ONDANSETRON 4 MG/2 ML VIAL IVPUSH PRN (17:23)
[2018-08-26] MEDS ORDERED: LACTATED RINGERS SOLUTION 1,000 ML IV SCH (17:30)
[2018-08-26] MEDS ORDERED: DEXTROSE 5%-0.45% SALINE 1,000 ML IV SCH (17:30)
[2018-08-26] MEDS ORDERED: ePHEDrine SULFATE 50 MG/1 ML AMPULE ONE (17:35)
--- NOTE | 2018-08-26 19:38 | OP ---
DATE OF OPERATION: 08/26/2018 PREOPERATIVE DIAGNOSIS: Left hip intertrochanteric hip fracture. POSTOPERATIVE DIAGNOSIS: Left hip intertrochanteric hip fracture. PROCEDURE: Left gamma nail. SURGEON: Colleen Anthony MD ASSISTANTS: None. MANAGER MOLECULAR: Miguel A Mcnally CRNA ANESTHESIA: Spinal anesthesia with sedation. DRAINS: None. COMPLICATIONS: None. SPECIMEN: None. BLOOD LOSS: 100 mL. BLOOD GIVEN: None. FLUID REPLACEMENT: 700 mL. INDICATIONS: This patient is an 88-year-old female who is about 12 days status post left hip intertrochanteric hip fracture. After understanding the potential risks, complications, alternatives, and benefits of surgical versus nonsurgical treatment, the patient elected to undergo this procedure. PROCEDURE: Patient was brought to the operating room. Peripheral IV placed, IV sedation given. One gram of IV Ancef was given. Spinal anesthesia was induced. The patient had ample Webril placed around the peroneal post in both ankles. The patient was placed onto the fracture table with a slight longitudinal traction and internal rotation. X-rays were taken documenting excellent reduction of the fracture in the AP and lateral planes. Next, an incision was made over the proximal aspect of the greater trochanter. Subcutaneous hemostasis was achieved with a Bovie cautery, dissection done through the lateral fascia to the top of the greater trochanter. A Andrews elevator was used to take off the soft tissue from the starting point. Under direct visualization a partially threaded guide-wire was placed through the standard starting position, into the proximal femur, passed the fracture fragment into the medullary canal. It was documented to be in excellent position in AP, lateral and multiple oblique planes. Next, we used the proximal 17 mm cannulated reamer and put in a standard titanium Yoni Gamma 3 125 degree, 180 mm trochanteric nail. This was put in cannulated fashion to appropriate depth and using the external guide in a standard fashion, first using external jig, using a threaded guide-wire, replaced the lag screw, guide pin to the lateral aspect of the femur. The prosthesis and up to the femoral neck and head, looked to be in excellent position in a center central position, perhaps slightly posterior and slightly inferior in both AP and lateral planes. We measured it at a 90 mm screw. The cannulated drill was used to drill it to this leg and then we put in a 90 mm titanium lag screw. We achieved excellent compression and overall the position of the hardware in the fracture fragments looked excellent. We locked it in place with a proximal set screw, we altered the external jig to the static position and using the standard technique put in a distal interlocking screw under direct visualization of 35 mm in length. This locked the nail distally. We removed the external jig. We repeated x-rays in AP, lateral and multiple oblique planes and overall I was quite happy with the position of the fracture reduction, the length of the screw, the position of the hardware. Final x-rays were taken. The area was copiously irrigated and washed out. The deep fascial layer was closed with 0 Vicryl sutures. The deep dermal layer was closed with 2-0 Vicryl. Final skin approximation was done with rafa. The area was then washed and dried, covered with Xeroform gauze, 4 x 4 gauze, ABD and tape. Patient was taken down off the fracture table in stable condition. There were no complications during the case. Total operative time was about 30 minutes. COLLEEN ANTHONY M.D. [id number]
[2018-08-26] MEDS: MELATONIN 5 MG TABLETS PO PRN (21:20)
[2018-08-26] MEDS: ATORVASTATIN CA 80 MG TABLET (FP) PO SCH (21:20)
[2018-08-26] MEDS: ACETAMINOPHEN WITH CODEINE 300MG/30MG TABLET PO PRN (21:21)
[2018-08-26] MEDS: SENNOSIDES 8.8 MG/5 ML BULK BOTTLE GT SCH (21:28)
--- NOTE | 2018-08-26 22:01 | PN ---
Physical Exam: SUBJECTIVE: Patient seen and examined earlier today. No acute events overnight. Resting comfortably in bed. OBJECTIVE: Vital Signs Period Temp Pulse Resp BP Sys/Aguirre Pulse Ox Last 24 Hr 96.2 F-98.8 F 73-99 13-26 77-136/37-83 92-100 GENERAL: NAD HEAD: NC/AT. Pressure ulcer left cheek. EYES: EOMI Sclera Clear ENT: MMM NECK: Trachea midline, full range of motion, supple. LUNGS: Dec BS@bases HEART: RRR S1S2 ABDOMEN: Soft, NDNT EXTREMITIES:Left lower extremity externally rotated, shortened NEUROLOGICAL: Cranial nerves II through XII grossly intact. Normal speech. PSYCH: Normal mood, normal affect. SKIN: Warm, dry, normal turgor, no rashes or lesions noted Laboratory Results - last 24 hr 08/26/18 08/26/18 08/26/18 05:20 05:20 10:45 WBC 10.5 H 8.7 RBC 2.58 L 2.66 L Hgb 8.2 L 8.3 L Hct 23.8 L 24.5 L MCV 92.2 92.4 MCH 31.9 31.3 MCHC 34.6 33.9 RDW 14.2 14.3 Plt Count 311 313 MPV 7.3 L 7.1 L PTT (Actin FS) Sodium 134 L Potassium 3.9 Chloride 98 Carbon Dioxide 29 Anion Gap 7 L BUN 17.3 Creatinine 0.7 Est GFR (CKD-EPI)AfAm 90.93 Est GFR (CKD-EPI)NonAf 78.45 Random Glucose 101 Calcium 8.7 Phosphorus 3.2 Magnesium 2.0 08/26/18 10:45 WBC RBC Hgb Hct MCV MCH MCHC RDW Plt Count MPV PTT (Actin FS) 30.7 Sodium Potassium Chloride Carbon Dioxide Anion Gap BUN Creatinine Est GFR (CKD-EPI)AfAm Est GFR (CKD-EPI)NonAf Random Glucose Calcium Phosphorus Magnesium Active Medications Generic Name Dose Route Start Last Admin Trade Name Freq PRN Reason Stop Dose Admin Acetaminophen/Codeine Phosphate 1 tab 08/26/18 17:32 08/26/18 21:21 Tylenol # 3 - PO 1 tab Q6H PRN Administration PAIN LEVEL 7 - 10 Albuterol/Ipratropium 1 amp 08/23/18 20:00 08/26/18 14:18 Duoneb - NEB Not Given RTID [facility] Atorvastatin Calcium 80 mg 08/23/18 22:00 08/26/18 21:20 Lipitor - PO 80 mg HS [facility] Administration Collagenase 1 applic 08/24/18 10:00 08/26/18 13:53 Santyl - TP Not Given DAILY [facility] Protocol Enoxaparin Sodium 55 mg 08/24/18 09:00 08/26/18 21:21 Lovenox - SQ 55 mg Q12H [facility] Administration Fentanyl 25 mcg 08/26/18 17:23 Sublimaze Injection - IVPUSH 08/27/18 02:00 [id number] PRN PAIN-PACU ORDER X 4 DOSES ONLY Dextrose/Sodium Chloride 1,000 mls @ 83 mls/hr 08/26/18 17:30 08/26/18 19:58 D5-1/2ns - IV 83 mls/hr ASDIR [facility] Administration Cefazolin Sodium 1 gm/ 50 mls @ 100 mls/hr 08/26/18 18:00 Dextrose IVPB 08/27/18 17:59 Q8H-IV [facility] Levetiracetam 500 mg 08/23/18 22:00 08/26/18 21:20 Keppra - PO 500 mg BID [facility] Administration Melatonin 5 mg 08/24/18 22:00 08/26/18 21:20 Melatonin PO 5 mg HS PRN Administration INSOMNIA Metoprolol Succinate 25 mg 08/23/18 22:00 08/26/18 21:20 Toprol Xl - PO 25 mg BID [facility] Administration Ondansetron HCl 4 mg 08/26/18 17:23 Zofran Injection IVPUSH Q6H PRN NAUSEA AND/OR VOMITING Pantoprazole Sodium 40 mg 08/24/18 10:00 08/26/18 13:52 Protonix - PO Not Given DAILY [facility] Polyethylene Glycol 17 gm 08/24/18 10:00 08/26/18 13:52 Miralax (For Daily Use) - PO Not Given DAILY [facility] Senna 8.8 mg 08/23/18 22:00 08/26/18 21:28 Senna Oral Solution - GT Not Given HS [facility] ASSESSMENT/PLAN: 88 year old female with a past medical history of hypertension and right sided lung cancer status post resection, AAA BIBA s/p being found on the ground allegedly by the neighbor, s/p Cardiac arrest overnight, intubated and sedated in ICU on pressors. #Cardiogenic shock 2/2 NSTEMI -s/p cardiac arrest -Pt has been weaned off Pressors. -Cardiology on board. Pt now in sinus rhythm. Cardiology does not recommend any ionotropes or further amiodorone in light of increased VT risk with reduced EF of 25-30%. Lexiscan: Overall negative pharmacologic stress test. No significant electrocardiographic changes seen. Small to moderate zone of inferolateral fixed defect compatible with diaphragmatic excursion. -Extubated 08/19/18 -Troponin 08/17/18--> 1.5. Down from 10.3. -less likely septic shock with no signs of infectious etiology, cultures negative. Will observe off antibiotics #New onset Seizures -Neurology on board -Mary #Left Hip Fracture -POD#0 Gamma Nail procedure for IT Fracture with Dr Gaston -Cefazolin Q8H -Acetaminophen w/ codeine prn for pain -Zofran prn for nausea #AAA 5.7 cm -slight increase from prior records -Seen by vascular surgery who recommends f/u if pt becomes more stable #HTN -off of pressors. Continue to monitor. #FEN -D5 / NS@ 83cc/hr -Monitor Electrolytes -Puree Diet #DVT PPX -Resume lovenox. #Disposition Tele Patient is DNR/DNI. Health care proxy assigned as sister in law (Katy Brownlee) . Signed paperwork in patient's chart. Visit type - Emergency Visit Emergency Visit: Yes ED Registration Date: 08/14/18 Care time: The patient presented to the Emergency Department on the above date and was hospitalized for further evaluation of their emergent condition. - New Patient This patient is new to me today: No - Critical Care Critical Care patient: No - Discharge Referral Referred to [facility] No
[2018-08-27] MEDS: CEFAZOLIN 1 GM in DEXTROSE 5%-WATER - 50 ML IVPB SCH ×3 (03:00→11:30)
[2018-08-27] MEDS ORDERED: DEXTROSE 5%-WATER - 50 ML IVPB ONE ×3 (04:30→11:29)
[2018-08-27] MEDS ORDERED: ceFAZolin SODIUM 1 GM VIAL ONE ×3 (04:30→11:29)
[2018-08-27] MEDS: ACETAMINOPHEN WITH CODEINE 300MG/30MG TABLET PO PRN ×3 (04:38→21:42)
--- NOTE | 2018-08-27 05:14 | PN ---
Progress Note (short form) - Note Progress Note: Paged for Pt. found to have moderate bleeding at surgical site. VS: HR 100, BP 112/66 Saturate @ 93% on 3L NC. Pt. Alert and Oriented x 2(unsure of the year), anxious about getting better. Lungs CTAB anteriorly however Pt. has wet sounding cough. Capillary refill less than 2 seconds. Pt. complaining about difficulty swallowing and on bedside attempt of swallowing water, appeared to aspirate. Pt. may benefit from MBS. Incentive Spirometer ordered and endorsed to covering RN to call Dr. Gaston to alert him about overnight events. CBC already ordered for AM labs. Will endorse overnight events to day team.
[2018-08-27 06:34] LABS: HEMATOCRIT 22.6 % (32.4-45.2); HEMOGLOBIN 7.8 GM/dL (10.7-15.3); MCH 31.7 pg (25.7-33.7); MCHC 34.6 g/dl (32.0-36.0); MEAN CELL VOLUME 91.8 fl (80-96); MEAN PLT VOLUME 7.4 fl (7.5-11.1); PLATELET COUNT 346 K/MM3 (134-434); RBC 2.46 M/mm3 (3.60-5.2); WHITE BLOOD COUNT 9.3 K/mm3 (4.0-10.0)
[2018-08-27 06:50] LABS: BLOOD UREA NITROGEN 19.1 mg/dL (7-18); CALCIUM 8.3 mg/dL (8.5-10.1); CREATININE 0.9 mg/dL (0.55-1.3); MAGNESIUM 1.9 mg/dL (1.8-2.4); PHOSPHOROUS 3.2 mg/dL (2.5-4.9); POTASSIUM 3.8 mmol/L (3.5-5.1)
--- NOTE | 2018-08-27 06:50 | PN ---
HC Provider Note Provider Note: Anesthesia Post-op Note Pt found awake in bed oriented to self and place - consistent with mental state 08/26/2018. Pt has 5/5 strength in B/L lower ext with normal sensation, denies headaches, tolerating po VSS Nop apparent anesthesia complications Kymberly Soto.
[2018-08-27] MEDS: ALBUTEROL SO4 2.5/IPRATROPIUM 0.5 INH SOL 3 ML VIAL.NEB. NEB SCH ×3 (07:53→20:58)
--- NOTE | 2018-08-27 09:46 | PN ---
Progress Note, FISCAL ACCOUNTING CLERK - Note Progress Note: Selected Entries 08/26/18 08/26/18 08/26/18 01:53 06:01 13:45 Supper Temperature 98.1 F 98.0 F 98.8 F 08/26/18 08/26/18 08/26/18 17:23 19:35 21:34 Supper Temperature 96.2 F L 97.4 F L 98 F 08/26/18 08/26/18 08/27/18 22:00 23:00 02:00 Supper 25% Temperature 98.2 F 97.8 F 08/27/18 08/27/18 04:45 06:00 Supper Temperature 98 F 98.7 F Laboratory Tests 08/25/18 08/26/18 08/27/18 05:25 05:20 05:05 WBC 8.7 10.5 H 9.3 Pt dislikes pureed diet.She has few teeth. Pt requesting sandwiches/pizza. She sounds congested,has cough. s/p Cardiopulmonary Arrest Shock of unclear etiology improved +Troponins/NSTEMI/Demand Ischemia Lactic Acidosis resolved Elevated LFTs Likely Ischemic Injury Paroxysmal Atrial Fibrillation now in sinus Left Hip Fracture Rhabdomyolysis COPD h/o Lung Ca s/p R Pneumonectomy Resident documented cough response to water, concern for aspiration, post-op. Consider MBS Oral dryness. NC. Swallow reassessed. Pt was able to tolerate 4/5 sips of water. Pt reports cough with cold water? Silent aspiration can not to r/o at bedside. Consider: Trial dys chopped-allow tuna,egg salad, ch minh, cottage cheese Humidification to MS mbs when able to tolerate in radiology? Post op hx, likely difficult to transfer for mbs Reviewed with nursing. Monitor tolerance. I cough with po intake, downgrade to nectar thick liquids/mbs
--- NOTE | 2018-08-27 09:48 | PN ---
Progress Note (short form) - Note Progress Note: Pt seen and examined. On POD #1 s/p left hip Gamma nail. Doing well. Comfortable. Min c/o pain. AVSS H/H low, dropped to 7.8/22.6 Left hip dressing has been reinforced, no active drainage at this time. Dressing clean, dry, intact LLE is NVI, good ROM with minimal pain at the left knee, ankle, foot, toes. Left hip with less ROM, and with some pain. Imp Overall the pt is doing well on POD #1 Asymptomatic from the drop in H/H Rec Transfuse 1 unit PRBC, then recheck H/H She should still try to do P.T., basic OOB to chair, activities as tolerated Likely will need SNF short term rehab upon DC
[2018-08-27] MEDS: POLYETHYLENE GLYCOL 3350 119 GM BTL PO SCH (09:51)
[2018-08-27] MEDS: metoPROLOL SUCCINATE 25 MG TAB.SR.24H (FP) PO SCH ×2 (09:53→21:42)
[2018-08-27] MEDS: levETIRAcetam 500 MG TABLET (FP) PO SCH ×2 (09:54→21:42)
[2018-08-27] MEDS: PANTOPRAZOLE 40 MG TABLET (FP) PO SCH (09:54)
--- NOTE | 2018-08-27 10:17 | PN ---
Progress Note (short form) - Note Progress Note: s: no chest pain, palps, dizziness, dyspnea tele: sinus, PACs Current Medications Acetaminophen/Codeine Phosphate (Tylenol # 3 -) 1 tab PO Q6H PRN PRN Reason: PAIN LEVEL 7 - 10 Last Admin: 08/27/18 04:38 Dose: 1 tab Albuterol/Ipratropium (Duoneb -) 1 amp NEB RTID [facility] Last Admin: 08/27/18 07:53 Dose: 1 amp Atorvastatin Calcium (Lipitor -) 80 mg PO HS [facility] Last Admin: 08/26/18 21:20 Dose: 80 mg Collagenase (Santyl -) 1 applic TP DAILY [facility]; Protocol Last Admin: 08/26/18 13:53 Dose: Not Given Dextrose/Sodium Chloride (D5-1/2ns -) 1,000 mls @ 83 mls/hr IV ASDIR [facility] Last Admin: 08/26/18 19:58 Dose: 83 mls/hr Cefazolin Sodium 1 gm/ (Dextrose) 50 mls @ 100 mls/hr IVPB Q8H-IV [facility] Stop: 08/27/18 17:59 Last Admin: 08/27/18 03:00 Dose: 100 mls/hr Levetiracetam (Keppra -) 500 mg PO BID [facility] Last Admin: 08/27/18 09:54 Dose: 500 mg Melatonin (Melatonin) 5 mg PO HS PRN PRN Reason: INSOMNIA Last Admin: 08/26/18 21:20 Dose: 5 mg Metoprolol Succinate (Toprol Xl -) 25 mg PO BID [facility] Last Admin: 08/27/18 09:53 Dose: 25 mg Ondansetron HCl (Zofran Injection) 4 mg IVPUSH Q6H PRN PRN Reason: NAUSEA AND/OR VOMITING Pantoprazole Sodium (Protonix -) 40 mg PO DAILY [facility] Last Admin: 08/27/18 09:54 Dose: 40 mg Polyethylene Glycol (Miralax (For Daily Use) -) 17 gm PO DAILY [facility] Last Admin: 08/27/18 09:51 Dose: 17 grams Senna (Senna Oral Solution -) 8.8 mg GT HS [facility] Last Admin: 08/26/18 21:28 Dose: Not Given Vital Signs Period Temp Pulse Resp BP Sys/Aguirre Pulse Ox Last 24 Hr 96.2 F-98.8 F 73-100 13-26 77-132/37-83 92-100 Constitutional: Yes: No Distress Neck: no JVD Cardiovascular: Yes: Regular Rate and Rhythm Respiratory: Yes: CTA Bilaterally Gastrointestinal: Yes: Soft (NT) Edema: Yes Edema: trace Neurological: Yes: Alert not agitated no jaundice, diaphoresis - ....Imaging EKG: Image Reviewed (Controlled AF) mibi 08/2018 sm to mod zone of inferolateral fixed defect c/w diaphragmatic attenuation, no ischemia, EF 67% Assessment/Plan 88 yo female with prior right hip fx, hypertension presents after syncopal episode in ED with ?sepsis, left hip fracture and (+) troponin. 1) (+) troponin: -Trop trended down and ECG without infarct pattern -LV function is severely reduced with akinetic anterospetal segment, unclear chronicity of this finding -on exam she is euvolemic -likely demand ischemia - continue aspirin, statin - mibi no ischemia with nl EF 2) Syncope -Unclear details surrounding this, but may be related to infectious process or arrhythmogenic given her LVEF, no sig V ectopy noted this admission -monitoring on tele benign findings - dc tele 3) Sepsis -resolved, now off pressors 4) Afib -Transient episode and converted with Amio -amiodarone dc'ed, patient in sinus -On beta crispin, tolerating well -chadsvasc warrants AC, would continue with AC for now (lovenox) - holding perioperatively 5.Hip fx - s/p L hip gamma nail - restart AC when clear per ortho DC tele
[2018-08-27 10:56] LABS: MCHC 35.2 g/dl (32.0-36.0); MEAN CELL VOLUME 90.9 fl (80-96); MEAN PLT VOLUME 7.1 fl (7.5-11.1); PLATELET COUNT 313 K/MM3 (134-434); RBC 2.09 M/mm3 (3.60-5.2); RDW 14.3 % (11.6-15.6); WHITE BLOOD COUNT 9.4 K/mm3 (4.0-10.0)
[2018-08-27] MEDS ORDERED: PT OWN MED DRAWER 7, Y5N ONE (11:04)
[2018-08-27 11:08] LABS: HEMOGLOBIN 6.7 GM/dL (10.7-15.3)
[2018-08-27] MEDS: COLLAGENASE CLOSTRIDIUM HIST. 30 GRAMS TUBE TP SCH (11:30)
--- NOTE | 2018-08-27 12:52 | PN ---
Progress Note, Physician History of Present Illness: pulmonary awake,mildy dyspneic,s/p gamma nail left hip yesterday tolerated procedure well - Current Medication List Current Medications: Active Medications Acetaminophen/Codeine Phosphate (Tylenol # 3 -) 1 tab PO Q6H PRN PRN Reason: PAIN LEVEL 7 - 10 Last Admin: 08/27/18 04:38 Dose: 1 tab Albuterol/Ipratropium (Duoneb -) 1 amp NEB RTID [facility] Last Admin: 08/27/18 07:53 Dose: 1 amp Atorvastatin Calcium (Lipitor -) 80 mg PO HS [facility] Last Admin: 08/26/18 21:20 Dose: 80 mg Collagenase (Santyl -) 1 applic TP DAILY [facility]; Protocol Last Admin: 08/27/18 11:30 Dose: 1 applic Dextrose/Sodium Chloride (D5-1/2ns -) 1,000 mls @ 83 mls/hr IV ASDIR [facility] Last Admin: 08/26/18 19:58 Dose: 83 mls/hr Cefazolin Sodium 1 gm/ (Dextrose) 50 mls @ 100 mls/hr IVPB Q8H-IV [facility] Stop: 08/27/18 17:59 Last Admin: 08/27/18 11:30 Dose: 100 mls/hr Levetiracetam (Keppra -) 500 mg PO BID [facility] Last Admin: 08/27/18 09:54 Dose: 500 mg Melatonin (Melatonin) 5 mg PO HS PRN PRN Reason: INSOMNIA Last Admin: 08/26/18 21:20 Dose: 5 mg Metoprolol Succinate (Toprol Xl -) 25 mg PO BID [facility] Last Admin: 08/27/18 09:53 Dose: 25 mg Ondansetron HCl (Zofran Injection) 4 mg IVPUSH Q6H PRN PRN Reason: NAUSEA AND/OR VOMITING Pantoprazole Sodium (Protonix -) 40 mg PO DAILY [facility] Last Admin: 08/27/18 09:54 Dose: 40 mg Polyethylene Glycol (Miralax (For Daily Use) -) 17 gm PO DAILY [facility] Last Admin: 08/27/18 09:51 Dose: 17 grams Senna (Senna Oral Solution -) 8.8 mg GT HS [facility] Last Admin: 08/26/18 21:28 Dose: Not Given - Objective Vital Signs: Vital Signs Temperature 97.4 F L 08/27/18 10:00 Pulse Rate 87 08/27/18 10:00 Respiratory Rate 21 H 08/27/18 10:00 Blood Pressure 141/83 08/27/18 10:00 O2 Sat by Pulse Oximetry (%) 99 08/27/18 09:00 Constitutional: Yes: Calm, Thin Eyes: Yes: WNL HENT: Yes: WNL Neck: Yes: WNL Cardiovascular: Yes: Regular Rate and Rhythm, S1, S2 Respiratory: Yes: Diminished, Other (dyspneic) Gastrointestinal: Yes: Normal Bowel Sounds, Soft Extremities: Yes: WNL Edema: No Labs: CBC, BMP 08/27/18 10:18 08/27/18 05:05 INR, PTT INR 1.16 (0.83-1.09) H 08/15/18 06:25 Problem List - Problems (1) Elevated troponin Code(s): R74.8 - ABNORMAL LEVELS OF OTHER SERUM ENZYMES (2) Hip fracture, left Code(s): S72.002A - FRACTURE OF UNSP PART OF NECK OF LEFT FEMUR, INIT (3) Hypothermia Code(s): T68.XXXA - HYPOTHERMIA, INITIAL ENCOUNTER (4) Lactic acid acidosis Code(s): E87.2 - ACIDOSIS (5) Sudden cardiac arrest Code(s): I46.9 - CARDIAC ARREST, CAUSE UNSPECIFIED (6) Unwitnessed fall Code(s): R29.6 - REPEATED FALLS (7) Hypertension Code(s): I10 - ESSENTIAL (PRIMARY) HYPERTENSION Assessment/Plan ASSESSMENT AND PLAN: s/p Cardiopulmonary Arrest Shock of unclear etiology improved +Troponins/NSTEMI/Demand Ischemia Lactic Acidosis resolved Elevated LFTs Likely Ischemic Injury Paroxysmal Atrial Fibrillation now in sinus Left Hip Fracture Rhabdomyolysis COPD h/o Lung Ca s/p R Pneumonectomy s/p Gamma nail left hip Anemia - monitor urine output, creatinine - rate controlled - anticoagulation on hold - PO as tolerated - DVT/GI prophylaxis - normal transfusion threshold, monitor h+h - chest x-ray DR ART
--- NOTE | 2018-08-27 13:23 | PN ---
Teaching Attending Note Name of Resident: Ronnell Pyle ATTENDING PHYSICIAN STATEMENT I saw and evaluated the patient. I reviewed the resident's note and discussed the case with the resident. I agree with the resident's findings and plan as documented. SUBJECTIVE: no pain, cough with white sputum production . pain in L hip OBJECTIVE: NAD, intubated, awake, follows commands . CV: RRR Lungs: course breath sounds anteriorly Abd: soft, NT, ND, hypoactive BS Ext: bruises on L upper and lower extremities. and knees. L anterior hip ulcer with slough ASSESSMENT AND PLAN: 88 y/o lady with h/o HTN, Lung carcinoma s/p R lung resection who presented after a fall/? syncope . she was found to have L hip Fx ,hypothermia, NSTEMI, and rhabdo. hospital course was complicated with cardiac arrest on day of admission, also A fib with RVR and new onset seizures 1- NSTEMI 2- Shock, likely cardiogentic shock. resolved 3- Cardiac arrest 4- Acute hypoxic resp failure. resolved 5- New onset Seizures 6- New onset A fib with RVR 7- Acute blood loss anemia 8- Transaminitis 9- Possible syncope 10- L hip Fx s/p ORIF 08/26/18 11- Rhabdo 12- AAA 5.8 cm 13-T4 compression fx Plan: - transfuse 1 unit of RBCs. - monitor CBC - cont to hold lovenox given her anemia. will resume ( probably NOACs) when HB is sable and ortho is OK with it - cont keppra - pain control for L hip - d/w Surgical PA, Dr. Mejia to reevaluate today to determine timing of surgical intervention for AAA - cont BB and statin Full code no need for tele. dispo: depends on CBC and timing of surgical intervention for AAA. Needs rehab
--- NOTE | 2018-08-27 15:35 | PN ---
Progress Note (short form) - Note Progress Note: VAscular Surgery Pt seen and examined. Doing well. S/P gamma nail by ortho. Pt with 5.[address] recent CT. Compared to 2018, there is a minimal change. Pt to go to rehab for recent surgery. Once recovered, pt can come to the office as outpt and we can work the pt up for EVAR. Richardson Mejia DO
[2018-08-27 15:53] VITALS: BMI 20.7
[2018-08-27] MEDS ORDERED: ALBUTEROL SO4 2.5/IPRATROPIUM 0.5 INH SOL 3 ML VIAL.NEB. NEB ONE (18:24)
[2018-08-27 20:22] LABS: HEMATOCRIT 23.4 % (32.4-45.2); HEMOGLOBIN 8.1 GM/dL (10.7-15.3); MCHC 34.6 g/dl (32.0-36.0); MEAN CELL VOLUME 92.7 fl (80-96); PLATELET COUNT 279 K/MM3 (134-434); RBC 2.53 M/mm3 (3.60-5.2)
--- NOTE | 2018-08-27 21:05 | PN ---
Physical Exam: SUBJECTIVE: Patient seen and examined at bedside. Bleeding from surgical site overnight. OBJECTIVE: Vital Signs Period Temp Pulse Resp BP Sys/Aguirre Pulse Ox Last 24 Hr 97.3 F-98.8 F 75-100 18-21 85-143/45-83 92-99 GENERAL: No acute distress. Resting in bed comfortably. HEAD: NC/AT. Pressure ulcer left cheek. EYES: EOMI Sclera Clear ENT: MMM NECK: Trachea midline, full range of motion, supple. LUNGS: Dec BS at bases HEART: RRR S1S2 ABDOMEN: Soft, NDNT EXTREMITIES :Left lower extremity externally rotated, shortened NEUROLOGICAL: Cranial nerves II through XII grossly intact. Normal speech. PSYCH: Normal mood, normal affect. SKIN: Warm, dry, normal turgor, no rashes or lesions noted Laboratory Results - last 24 hr 08/27/18 08/27/18 08/27/18 05:05 05:05 10:18 WBC 9.3 9.4 RBC 2.46 L 2.09 L Hgb 7.8 L 6.7 L* Hct 22.6 L 19.0 L D MCV 91.8 90.9 MCH 31.7 32.0 MCHC 34.6 35.2 RDW 14.0 14.3 Plt Count 346 313 MPV 7.4 L 7.1 L PTT (Actin FS) Sodium 134 L Potassium 3.8 Chloride 97 L Carbon Dioxide 30 Anion Gap 7 L BUN 19.1 H Creatinine 0.9 Est GFR (CKD-EPI)AfAm 67.10 Est GFR (CKD-EPI)NonAf 57.90 Random Glucose 133 H Calcium 8.3 L Phosphorus 3.2 Magnesium 1.9 Blood Type Antibody Screen Crossmatch 08/27/18 08/27/18 08/27/18 10:18 10:18 20:00 WBC 9.0 RBC 2.53 L Hgb 8.1 L Hct 23.4 L D MCV 92.7 MCH 32.0 MCHC 34.6 RDW 14.0 Plt Count 279 MPV 7.0 L PTT (Actin FS) 32.0 Sodium Potassium Chloride Carbon Dioxide Anion Gap BUN Creatinine Est GFR (CKD-EPI)AfAm Est GFR (CKD-EPI)NonAf Random Glucose Calcium Phosphorus Magnesium Blood Type A POSITIVE Antibody Screen Negative Crossmatch See Detail Active Medications Generic Name Dose Route Start Last Admin Trade Name Freq PRN Reason Stop Dose Admin Acetaminophen/Codeine Phosphate 1 tab 08/26/18 17:32 08/27/18 12:50 Tylenol # 3 - PO 1 tab Q6H PRN Administration PAIN LEVEL 7 - 10 Albuterol/Ipratropium 1 amp 08/23/18 20:00 08/27/18 20:58 Duoneb - NEB 1 amp RTID EDMOND Administration Atorvastatin Calcium 80 mg 08/23/18 22:00 08/26/18 21:20 Lipitor - PO 80 mg HS EDMOND Administration Collagenase 1 applic 08/24/18 10:00 08/27/18 11:30 Santyl - TP 1 applic DAILY EDMOND Administration Protocol Levetiracetam 500 mg 08/23/18 22:00 08/27/18 09:54 Keppra - PO 500 mg BID EDMOND Administration Melatonin 5 mg 08/24/18 22:00 08/26/18 21:20 Melatonin PO 5 mg HS PRN Administration INSOMNIA Metoprolol Succinate 25 mg 08/23/18 22:00 08/27/18 09:53 Toprol Xl - PO 25 mg BID EDMOND Administration Ondansetron HCl 4 mg 08/26/18 17:23 Zofran Injection IVPUSH Q6H PRN NAUSEA AND/OR VOMITING Pantoprazole Sodium 40 mg 08/24/18 10:00 08/27/18 09:54 Protonix - PO 40 mg DAILY EDMOND Administration Polyethylene Glycol 17 gm 08/24/18 10:00 08/27/18 09:51 Miralax (For Daily Use) - PO 17 grams DAILY EDMOND Administration Senna 8.8 mg 08/23/18 22:00 08/26/18 21:28 Senna Oral Solution - GT Not Given HS EDMOND ASSESSMENT/PLAN: 88 year old female with a past medical history of hypertension and right sided lung cancer status post resection, AAA BIBA s/p being found on the ground allegedly by the neighbor, s/p Cardiac arrest overnight, intubated and sedated in ICU on pressors. #Cardiogenic shock 2/2 NSTEMI -s/p cardiac arrest -Pt has been weaned off Pressors. -Cardiology on board. Pt now in sinus rhythm. Cardiology does not recommend any ionotropes or further amiodorone in light of increased VT risk with reduced EF of 25-30%. Lexiscan: Overall negative pharmacologic stress test. No significant electrocardiographic changes seen. Small to moderate zone of inferolateral fixed defect compatible with diaphragmatic excursion. -Extubated 08/19/18 -Troponin 08/17/18--> 1.5. Down from 10.3. -less likely septic shock with no signs of infectious etiology, cultures negative. Will observe off antibiotics #New onset Seizures -Neurology on board -Mary #Left Hip Fracture -POD#1 Gamma Nail procedure for IT Fracture with Dr Gaston -Acetaminophen w/ codeine prn for pain -Zofran prn for nausea #AAA 5.7 cm -slight increase from prior records -Seen by vascular surgery who recommends f/u if pt becomes more stable -Evaluated by Dr Mejia today. Recommends outpatient follow up. #FEN -No Fluids -Monitor Electrolytes -Puree Diet #DVT PPX -Resume lovenox. #Disposition Tele Patient is DNR/DNI. Health care proxy assigned as sister in law (Katy Brownlee) . Signed paperwork in patient's chart. Visit type - Emergency Visit Emergency Visit: Yes ED Registration Date: 08/14/18 Care time: The patient presented to the Emergency Department on the above date and was hospitalized for further evaluation of their emergent condition. - New Patient This patient is new to me today: No - Critical Care Critical Care patient: No - Discharge Referral Referred to [facility] No
[2018-08-27] MEDS: ATORVASTATIN CA 80 MG TABLET (FP) PO SCH (21:42)
[2018-08-27] MEDS: MELATONIN 5 MG TABLETS PO PRN (21:42)
[2018-08-27] MEDS: SENNOSIDES 8.8 MG/5 ML BULK BOTTLE GT SCH (21:44)
[2018-08-28 07:56] LABS: BLOOD UREA NITROGEN 20.5 mg/dL (7-18); CALCIUM 8.5 mg/dL (8.5-10.1); MAGNESIUM 2.1 mg/dL (1.8-2.4); PHOSPHOROUS 3.8 mg/dL (2.5-4.9); POTASSIUM 4.2 mmol/L (3.5-5.1)
[2018-08-28] MEDS: ALBUTEROL SO4 2.5/IPRATROPIUM 0.5 INH SOL 3 ML VIAL.NEB. NEB SCH ×3 (08:04→20:09)
[2018-08-28 08:40] LABS: HEMATOCRIT 23.9 % (32.4-45.2); HEMOGLOBIN 8.3 GM/dL (10.7-15.3); MCHC 34.6 g/dl (32.0-36.0); MEAN CELL VOLUME 92.6 fl (80-96); MEAN PLT VOLUME 7.3 fl (7.5-11.1); RBC 2.59 M/mm3 (3.60-5.2); RDW 13.9 % (11.6-15.6); WHITE BLOOD COUNT 9.4 K/mm3 (4.0-10.0)
--- NOTE | 2018-08-28 08:48 | PN ---
Progress Note (short form) - Note Progress Note: Ortho Pt seen and examined s/p left IM gamma nail pod #2. Transfused 1 unit yesterday Selected Entries 08/28/18 06:00 Temperature 98.0 F Pulse Rate 73 Respiratory 18 Rate Blood Pressure 133/78 Laboratory Tests 08/27/18 20:00 WBC 9.0 Hgb 8.1 L Hct 23.4 L D Plt Count 279 left hip- dressing c/d/i, calf soft, nt nvi a/p f/u h/h PT if able OOB to chair dvt ppx pain control d/c planning
[2018-08-28 09:15] LABS: PLATELET COUNT 284 K/MM3 (134-434)
[2018-08-28] MEDS ORDERED: FUROSEMIDE 40 MG/4 ML INJECTABLE VIAL IVPUSH ONE (09:30)
[2018-08-28] MEDS ORDERED: APIXABAN 2.5 MG TABLET PO SCH (10:15)
[2018-08-28] MEDS: levETIRAcetam 500 MG TABLET (FP) PO SCH (10:39)
[2018-08-28] MEDS: POLYETHYLENE GLYCOL 3350 119 GM BTL PO SCH (10:40)
[2018-08-28] MEDS: COLLAGENASE CLOSTRIDIUM HIST. 30 GRAMS TUBE TP SCH (10:40)
[2018-08-28] MEDS: PANTOPRAZOLE 40 MG TABLET (FP) PO SCH (10:40)
--- NOTE | 2018-08-28 10:42 | PN ---
Progress Note (short form) - Note Progress Note: s: no cp sob palps dizzy Vital Signs Period Temp Pulse Resp BP Sys/Aguirre Pulse Ox Last 24 Hr 97.3 F-98.8 F 73-92 18-21 85-143/54-78 98 Constitutional: Yes: No Distress, no jvd Cardiovascular: Yes: Regular Rate and Rhythm Respiratory: Yes: CTA Bilaterally, poor eff Gastrointestinal: Yes: Normal Bowel Sounds, nd, nt Edema: None no jaundice diaphoresis not agitated Current Medications Generic Name Dose Route Start Last Admin Trade Name Freq PRN Reason Stop Dose Admin Acetaminophen/Codeine Phosphate 1 tab 08/26/18 17:32 08/27/18 21:42 Tylenol # 3 - PO 1 tab Q6H PRN Administration PAIN LEVEL 7 - 10 Albuterol/Ipratropium 1 amp 08/23/18 20:00 08/28/18 08:04 Duoneb - NEB 1 amp RTID EDMOND Administration Apixaban 2.5 mg 08/28/18 10:15 08/28/18 10:40 Eliquis - PO 2.5 mg BID EDMOND Administration Atorvastatin Calcium 80 mg 08/23/18 22:00 08/27/18 21:42 Lipitor - PO 80 mg HS EDMOND Administration Collagenase 1 applic 08/24/18 10:00 08/28/18 10:40 Santyl - TP 1 applic DAILY EDMOND Administration Protocol Levetiracetam 500 mg 08/23/18 22:00 08/28/18 10:39 Keppra - PO 500 mg BID EDMOND Administration Melatonin 5 mg 08/24/18 22:00 08/27/18 21:42 Melatonin PO 5 mg HS PRN Administration INSOMNIA Metoprolol Succinate 25 mg 08/23/18 22:00 08/27/18 21:42 Toprol Xl - PO 25 mg BID EDMOND Administration Ondansetron HCl 4 mg 08/26/18 17:23 Zofran Injection IVPUSH Q6H PRN NAUSEA AND/OR VOMITING Pantoprazole Sodium 40 mg 08/24/18 10:00 08/28/18 10:40 Protonix - PO 40 mg DAILY EDMOND Administration Polyethylene Glycol 17 gm 08/24/18 10:00 08/28/18 10:40 Miralax (For Daily Use) - PO 17 grams DAILY EDMOND Administration Senna 8.8 mg 08/23/18 22:00 08/27/18 21:44 Senna Oral Solution - GT Not Given HS EDMOND CBC, BMP 08/28/18 06:10 08/28/18 06:10 tele: sinus mibi 08/2018 sm to mod zone of inferolateral fixed defect c/w diaphragmatic attenuation, no ischemia, EF 67% Assessment/Plan 88 yo female with prior right hip fx, hypertension presents after syncopal episode in ED with ?sepsis, left hip fracture and (+) troponin. 1) (+) troponin: -Trop trended down and ECG without infarct pattern -LV function is severely reduced with akinetic anterospetal segment, unclear chronicity of this finding -on exam she is euvolemic -likely demand ischemia - continue aspirin, statin - mibi no ischemia with nl EF 2) Syncope -Unclear details surrounding this, but may be related to infectious process or arrhythmogenic given her LVEF, no sig V ectopy noted this admission -monitoring on tele benign findings - dc tele 3) Sepsis -resolved, now off pressors 4) Afib -Transient episode and converted with Amio -amiodarone dc'ed, patient in sinus -On beta crispin, tolerating well -chadsvasc warrants AC, would continue with AC for now (lovenox) - holding perioperatively 5.Hip fx - s/p L hip gamma nail - restart AC when clear per ortho
--- NOTE | 2018-08-28 10:52 | PN ---
Teaching Attending Note Name of Resident: Ronnell Pyle ATTENDING PHYSICIAN STATEMENT I saw and evaluated the patient. I reviewed the resident's note and discussed the case with the resident. I agree with the resident's findings and plan as documented. SUBJECTIVE: No fever or chills. denies SOB. has cough. paininL hip is minimal . feels tired OBJECTIVE: NAD. awake, alert, cooperative CV: RRR Lungs: wheezing and crackles heard o n both sides Abd: soft, NT, ND,NL BS Ext: b/l LE edema . L >R . L hip clean dressing over lateral trochanter ASSESSMENT AND PLAN: 88 y/o lady with h/o HTN, Lung carcinoma s/p R lung resection who presented after a fall/? syncope . she was found to have L hip Fx ,hypothermia, NSTEMI, and rhabdo. hospital course was complicated with cardiac arrest on day of admission, also A fib with RVR and new onset seizures 1- NSTEMI 2- Shock, likely cardiogentic shock. resolved 3- Cardiac arrest 4- Acute hypoxic resp failure. resolved 5- New onset Seizures 6- New onset A fib with RVR 7- Acute blood loss anemia 8- Transaminitis 9- Possible syncope 10- L hip Fx s/p ORIF 08/26/18 11- Rhabdo 12- AAA 5.8 cm 13-T4 compression fx Plan: - will give 40 mg of IV lasix today due to congestion and pulmonary edema on exam ( from IVF and blood transfusion ) - try to wean off O2 - No need for transfusion today. - CBC in few days - start eliquis for A fib and DVT px ( dose adjusted for age and weight ) . will notify ortho - cont keppra - pain control for L hip - AAA to be addresses for surgical repair as out pt - cont BB and statin - all instructions were discussed with her, including importance of f/u for the AAA repair Full code Rehab placement pending. ready for DC whenever a bed is available
--- NOTE | 2018-08-28 11:15 | PN ---
Progress Note (short form) - Note Progress Note: NAD on NC O2. No acute events overnight. No CP or SOB. Intake & Output 08/25/18 08/26/18 08/27/18 08/28/18 23:59 23:59 23:59 23:59 Intake Total 728 250 8086 368 Balance 063 547 0958 368 Weight 125 lb 9.6 oz 121 lb 3.2 oz 122 lb Last Vital Signs Temp Pulse Resp BP Pulse Ox 98.0 F 73 18 133/78 98 08/28/18 06:00 08/28/18 11:01 08/28/18 06:00 08/28/18 06:00 08/28/18 11:01 Active Medications Acetaminophen/Codeine Phosphate (Tylenol # 3 -) 1 tab PO Q6H PRN PRN Reason: PAIN LEVEL 7 - 10 Last Admin: 08/27/18 21:42 Dose: 1 tab Albuterol/Ipratropium (Duoneb -) 1 amp NEB RTID [facility] Last Admin: 08/28/18 08:04 Dose: 1 amp Apixaban (Eliquis -) 2.5 mg PO BID [facility] Last Admin: 08/28/18 10:40 Dose: 2.5 mg Atorvastatin Calcium (Lipitor -) 80 mg PO HS [facility] Last Admin: 08/27/18 21:42 Dose: 80 mg Collagenase (Santyl -) 1 applic TP DAILY [facility]; Protocol Last Admin: 08/28/18 10:40 Dose: 1 applic Levetiracetam (Keppra -) 500 mg PO BID [facility] Last Admin: 08/28/18 10:39 Dose: 500 mg Melatonin (Melatonin) 5 mg PO HS PRN PRN Reason: INSOMNIA Last Admin: 08/27/18 21:42 Dose: 5 mg Metoprolol Succinate (Toprol Xl -) 25 mg PO BID [facility] Last Admin: 08/27/18 21:42 Dose: 25 mg Ondansetron HCl (Zofran Injection) 4 mg IVPUSH Q6H PRN PRN Reason: NAUSEA AND/OR VOMITING Pantoprazole Sodium (Protonix -) 40 mg PO DAILY [facility] Last Admin: 08/28/18 10:40 Dose: 40 mg Polyethylene Glycol (Miralax (For Daily Use) -) 17 gm PO DAILY [facility] Last Admin: 08/28/18 10:40 Dose: 17 grams Senna (Senna Oral Solution -) 8.8 mg GT HS EDMOND Last Admin: 08/27/18 21:44 Dose: Not Given Constitutional: Yes: NAD, Thin Eyes: Yes: WNL HENT: Yes: WNL Neck: Yes: WNL Cardiovascular: Yes: Regular Rate and Rhythm, S1, S2 Respiratory: Yes: Diminished, no wheeze Gastrointestinal: Yes: Normal Bowel Sounds, Soft Extremities: Yes: WNL Edema: No Labs: Laboratory Results - last 24 hr 08/27/18 08/27/18 08/28/18 10:18 20:00 06:10 WBC 9.0 9.4 RBC 2.53 L 2.59 L Hgb 8.1 L 8.3 L Hct 23.4 L D 23.9 L MCV 92.7 92.6 MCH 32.0 32.0 MCHC 34.6 34.6 RDW 14.0 13.9 Plt Count 279 284 MPV 7.0 L 7.3 L Sodium Potassium Chloride Carbon Dioxide Anion Gap BUN Creatinine Est GFR (CKD-EPI)AfAm Est GFR (CKD-EPI)NonAf Random Glucose Calcium Phosphorus Magnesium Blood Type A POSITIVE Antibody Screen Negative Crossmatch See Detail 08/28/18 06:10 WBC RBC Hgb Hct MCV MCH MCHC RDW Plt Count MPV Sodium 134 L Potassium 4.2 Chloride 98 Carbon Dioxide 31 Anion Gap 5 L BUN 20.5 H Creatinine 1.0 Est GFR (CKD-EPI)AfAm 59.08 Est GFR (CKD-EPI)NonAf 50.97 Random Glucose 110 H Calcium 8.5 Phosphorus 3.8 Magnesium 2.1 Blood Type Antibody Screen Crossmatch Problem List - Problems (1) Elevated troponin Code(s): R74.8 - ABNORMAL LEVELS OF OTHER SERUM ENZYMES (2) Hip fracture, left Code(s): S72.002A - FRACTURE OF UNSP PART OF NECK OF LEFT FEMUR, INIT (3) Hypothermia Code(s): T68.XXXA - HYPOTHERMIA, INITIAL ENCOUNTER (4) Lactic acid acidosis Code(s): E87.2 - ACIDOSIS (5) Sudden cardiac arrest Code(s): I46.9 - CARDIAC ARREST, CAUSE UNSPECIFIED (6) Unwitnessed fall Code(s): R29.6 - REPEATED FALLS (7) Hypertension Code(s): I10 - ESSENTIAL (PRIMARY) HYPERTENSION Assessment/Plan S/P Cardiopulmonary Arrest Shock of unclear etiology improved +Troponins/NSTEMI/Demand Ischemia Lactic Acidosis resolved Elevated LFTs Likely Ischemic Injury Paroxysmal Atrial Fibrillation now in sinus Left Hip Fracture Rhabdomyolysis COPD h/o Lung Ca s/p R Pneumonectomy s/p Gamma nail left hip Anemia - monitor urine output, creatinine - rate controlled - Noted anticoagulation was restarted - PO as tolerated - DVT/GI prophylaxis - normal transfusion threshold - DNR / DNI Dr Dooley
[2018-08-28] MEDS: metoPROLOL SUCCINATE 25 MG TAB.SR.24H (FP) PO SCH (12:00)
--- NOTE | 2018-08-28 12:16 | PN ---
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 Pt prefers nmore solid food. Mostly edentulous but reports that she eats sandwiches at home, washed down with coffee. Suggest mbs either before d/c, if pt can tolerate, or as out pt, once stronger. Nursing will review with surgeon. Monitor tolerance.
[2018-08-28] MEDS: ACETAMINOPHEN WITH CODEINE 300MG/30MG TABLET PO PRN (18:03)
[2018-08-28 18:13] VITALS: BP 108/75; PULSE 75; TEMP 97.5
--- NOTE | 2018-08-28 22:55 | DS ---
Physical Exam: SUBJECTIVE: Patient seen and examined OBJECTIVE: Vital Signs Period Temp Pulse Resp BP Sys/Aguirre Pulse Ox Last 24 Hr 97.5 F-98.1 F 70-92 17-18 108-133/52-78 98-98 PHYSICAL EXAM GENERAL: The patient is awake, alert, and fully oriented, in no acute distress. HEAD: Normal with no signs of trauma. EYES: PERRL, extraocular movements intact, sclera anicteric, conjunctiva clear. ENT: Ears normal, nares patent, oropharynx clear without exudates, moist mucous membranes. NECK: Trachea midline, full range of motion, supple. LUNGS: Breath sounds equal, clear to auscultation bilaterally, no wheezes, no crackles, no accessory muscle use. HEART: Regular rate and rhythm, S1, S2 without murmur, rub or gallop. ABDOMEN: Soft, nontender, nondistended, normoactive bowel sounds, no guarding, no rebound, no hepatosplenomegaly, no masses. EXTREMITIES: 2+ pulses, warm, well-perfused, no edema. NEUROLOGICAL: Cranial nerves II through XII grossly intact. Normal speech, gait not observed. PSYCH: Normal mood, normal affect. SKIN: Warm, dry, normal turgor, no rashes or lesions noted. LABS Laboratory Results - last 24 hr 08/28/18 08/28/18 06:10 06:10 WBC 9.4 RBC 2.59 L Hgb 8.3 L Hct 23.9 L MCV 92.6 MCH 32.0 MCHC 34.6 RDW 13.9 Plt Count 284 MPV 7.3 L Sodium 134 L Potassium 4.2 Chloride 98 Carbon Dioxide 31 Anion Gap 5 L BUN 20.5 H Creatinine 1.0 Est GFR (CKD-EPI)AfAm 59.08 Est GFR (CKD-EPI)NonAf 50.97 Random Glucose 110 H Calcium 8.5 Phosphorus 3.8 Magnesium 2.1 HOSPITAL COURSE: Date of Admission:08/14/18 Date of Discharge: 08/28/18 Discharge Summary Reason For Visit: HYPOTHERMIA,SYNCOPE AND COLLAPSE,FALL Condition: Improved - Instructions Diet, Activity, Other Instructions: You presented to the hospital due to a fall and passing out. You were found to have a heart attack, a broken bone in your left hip, as well as muscle breakdown. While admitted there was a period of time where your heart stopped. We resuscitated you and you recovered well. You are being sent to a rehab facility so that you can continue to exercise and get stronger. You underwent surgery on your hip for your fracture. Please follow up with Dr Gaston after you are finished with rehab. A referral has been provided to you in your discharge papers. In addition to this, you have been diagnosed with a new heart condition called atrial fibrillation. This is an irregular heart beat which can cause you to have a stroke if you are not on blood thinning medications. You should see a exercise physiology professor to monitor this condition. While in the hospital, you were noted to have an abdominal aortic aneurysm. No action was taken while in the hospital, but you should have this followed up with a vascular surgeon to make sure it does not get bigger. Information for Dr. Mejia has been included in your discharge paperwork. While in the hospital, you had a seizure. Please take the anti seizure medications (see below) and follow up with a neurologist after discharge home to monitor this. You had a modified barium swallow to examine the types of food you will be able to eat which will minimize your risk of choking. The study showed that you should eat a chopped diet with thin liquids. Please take your time when eating and be sure to swallow often to make sure that your food goes all the way down. You are going to the rehab center on oxygen therapy to help you breathe. As you get stronger, you may be able to come off of he oxygen. You should follow up with your primary care physician within one week of discharge home. Medications We have added You have been placed on a new medication to help prevent blood clots from forming in your body. This medication is called Eliquis. Please take this medication 2.5 MG TWICE per day. Do not miss any doses. Please continue to take the rest of your home medications as prescribed. Need 2 L of O2 at rest and ambulation. , reevaluate O2 needs with ambulation Referrals: [facility] [place] [Provider Group] - 1 Week Gustavo Degroot MD [Staff Physician] - Checo Hernandez MD [Staff Physician] - Richardson Mejia DO [Staff Physician] - Ian Gaston MD [Staff Physician] - Disposition: ALF FACILITY - Home Medications Comprehensive Discharge Medication List: Ambulatory Orders Losartan Potassium 50 mg PO DAILY 10/27/15 Bisacodyl Suppository [Dulcolax Suppository -] 10 mg VA PRN PRN supp.rect 01/20 Docusate Sodium [Colace -] 100 mg PO TID capsule 01/20/18 Polyethylene Glycol 3350 [Miralax 119 gm Btl -] 17 gm PO DAILY bottle 01/20/18 Sennosides [Senna -] 2 tab PO HS tablet 01/20/18 Ferrous Sulfate 325 mg PO BID 08/15/18 Apixaban [Eliquis -] 2.5 mg PO BID #0 tablet 08/28/18 Atorvastatin Ca [Lipitor] 40 mg PO HS #30 tablet 08/28/18 Metoprolol Succinate [Toprol XL -] 25 mg PO BID #0 tab.sr.24h 08/28/18 levETIRAcetam [Keppra -] 500 mg PO BID #60 tablet 08/28/18 - Discharge Referral [facility]erred to [facility] No
== END 2018-08-28 19:40 | DRG 853 ==
LOC: JER 11:33 → JERBED 14:08 → JICU 08-15 02:31 → J4S 08-23 16:35
PROVIDERS: ADMIT Internal Medicine; ATTEND Internal Medicine
PROC: 05HN33Z Insertion of Infusion Device into Left Internal Jugular Vein, Percutaneous Approach (ICD-10-PCS; principal; 2018-08-15)
PROC: B514ZZA Fluoroscopy of Left Jugular Veins, Guidance (ICD-10-PCS; 2018-08-15)
PROC: 5A1945Z Respiratory Ventilation, 24-96 Consecutive Hours (ICD-10-PCS; 2018-08-15)
PROC: 0CHY7BZ Insertion of Airway into Mouth and Throat, Via Natural or Artificial Opening (ICD-10-PCS; 2018-08-15)
PROC: 0QS706Z Reposition Left Upper Femur with Intramedullary Internal Fixation Device, Open Approach (ICD-10-PCS; 2018-08-26)
DX: A41.89 Other specified sepsis (principal); S72.142A Displaced intertrochanteric fracture of left femur, initial encounter for closed fracture; R65.21 Severe sepsis with septic shock; R57.0 Cardiogenic shock; I46.9 Cardiac arrest, cause unspecified; J96.01 Acute respiratory failure with hypoxia; I21.4 Non-ST elevation (NSTEMI) myocardial infarction; E87.1 Hypo-osmolality and hyponatremia; E87.2 Acidosis; N17.9 Acute kidney failure, unspecified; E46 Unspecified protein-calorie malnutrition; M62.82 Rhabdomyolysis; M48.54XA Collapsed vertebra, not elsewhere classified, thoracic region, initial encounter for fracture; I47.1 Supraventricular tachycardia; I24.8 Other forms of acute ischemic heart disease; D62 Acute posthemorrhagic anemia; I10 Essential (primary) hypertension; R68.0 Hypothermia, not associated with low environmental temperature; Z68.20 Body mass index [BMI] 20.0-20.9, adult; E86.1 Hypovolemia; I48.0 Paroxysmal atrial fibrillation; E86.0 Dehydration; J98.01 Acute bronchospasm; E80.6 Other disorders of bilirubin metabolism; E83.52 Hypercalcemia; I71.4 Abdominal aortic aneurysm, without rupture; R00.1 Bradycardia, unspecified; E83.39 Other disorders of phosphorus metabolism; L89.152 Pressure ulcer of sacral region, stage 2; S00.83XA Contusion of other part of head, initial encounter; R74.0 Nonspecific elevation of levels of transaminase and lactic acid dehydrogenase [LDH]; W18.39XA Other fall on same level, initial encounter; Y92.098 Other place in other non-institutional residence as the place of occurrence of the external cause; Z85.118 Personal history of other malignant neoplasm of bronchus and lung
CPT/HCPCS: 31500; 36415; 36430; 36511; 36600; 70450-TC; 70486-TC; 71045-TC-FY; 71250-TC; 72125-TC; 73030-TC-LT-FY; 73110-TC-LT-FY; 73560-TC-LT-FY; 74018-TC-FY; 74176-TC; 74230-TC-FY; 76000-TC-FY; 76705-TC; 78452-TC; 80048; 80053; 80061; 81003; 82248; 82272; 82375; 82533; 82550; 82553; 82803; 83036; 83050; 83605; 83615; 83721; 83735; 84100; 84443; 84484; 85025; 85027; 85044; 85610; 85730; 86850; 86900; 86901; 86922; 87040; 87086; 92611-GN; 93005; 93010; 93017; 93306-TC; 93880-TC; 93970-TC; 94002; 94010; 94640; 94760; 94761; 97161-GP; 99285-25; A9502; G0480; J0282; J1644; J2785; J7030; P9038; P9058

== ENCOUNTER 2019-03-30 10:08 | Inpatient (IN) | payer OTHER ==
[2019-03-30] MEDS ORDERED: SODIUM CHLORIDE 500 ML IV STA (11:04)
[2019-03-30] MEDS ORDERED: ACETAMINOPHEN 1000 MG/100 ML VIAL (NON FORMULARY) IVPB ONE ×2 (11:04→19:17)
[2019-03-30] MEDS ORDERED: ONDANSETRON 4 MG/2 ML VIAL IVPUSH ONE (11:05)
--- NOTE | 2019-03-30 11:11 | PDOC ---
History of Present Illness - General Chief Complaint: Pain Stated Complaint: ABDOMINAL PAIN DIARRHEA Time Seen by Provider: 03/30/19 10:45 History Source: Patient Exam Limitations: Clinical Condition - History of Present Illness Initial Comments: Kellee Ordoñez is an 89 yo F w a hx of HTN, Lung carcinoma s/p R lung resection , NSTEMI, Cardiac Arrest, Rhabdo, A-fib w RVR, seizures, L hip fx, AAA, Heart Failure with EF of 30% in 09/03 presents to the [facility] er with 2 days of abdominal pain. She states that last week she had constipation, started taking some medications to help her move her bowels, and now she has NB diarrhea. She presents to the ER bc she cannot tolerate the abdominal pain. She has been experiencing around 5-10 diarrheal episodes daily. Denies fevers, chills, dysuria, frequency, urgency, chest pain, SOB, difficulty breathing, or back pain PCP: Dr. Diaz PSH: Right hip surgery (s/p a fall) and Lung Resection. Social Hx: Lives at home and has an aid 7 days a week for 12 hours every day. Former smoker, no alcohol or drug use reported. Allergies: NKA, NKDA Past History - Past Medical History Allergies/Adverse Reactions: Allergies Allergy/AdvReac Type Severity Reaction Status Date / Time No Known Allergies Allergy Verified 01/15/18 10:36 Home Medications: Ambulatory Orders Losartan Potassium 50 mg PO DAILY 10/27/15 Bisacodyl Suppository [Dulcolax Suppository -] 10 mg CA PRN PRN supp.rect 01/20 Docusate Sodium [Colace -] 100 mg PO TID capsule 01/20/18 Polyethylene Glycol 3350 [Miralax 119 gm Btl -] 17 gm PO DAILY bottle 01/20/18 Sennosides [Senna -] 2 tab PO HS tablet 01/20/18 Ferrous Sulfate 325 mg PO BID 08/15/18 Apixaban [Eliquis -] 2.5 mg PO BID #0 tablet 08/28/18 levETIRAcetam [Keppra -] 500 mg PO BID #60 tablet 08/28/18 Atorvastatin Ca [Lipitor] 80 mg PO HS 03/30/19 Metoprolol Succinate [Toprol XL -] 25 mg PO DAILY 01/13/20 Anemia: No Asthma: No Cancer: Yes (lung) Cardiac Disorders: No CVA: No COPD: No CHF: No Dementia: No Diabetes: No GI Disorders: Yes (loose stool) Disorders: No HTN: Yes Hypercholesterolemia: No Liver Disease: No Seizures: No Thyroid Disease: No - Surgical History Abdominal Surgery: No Appendectomy: No Cardiac Surgery: No Cholecystectomy: No Lung Surgery: Yes (right lung removal, 6 years ago) Neurologic Surgery: No Orthopedic Surgery: Yes (right hip surgery) - Immunization History Immunization Up to Date: Yes - Psycho Social/Smoking Cessation Hx Smoking History: Never smoked Have you smoked in the past 12 months: No Number of Cigarettes Smoked Daily: 30 If you are a former smoker, when did you quit?: over 12yrs ago Cigars Per Day: 0 Information on smoking cessation initiated: No Hx Alcohol Use: No Drug/Substance Use Hx: No Substance Use Type: None Hx Substance Use Treatment: No Review of Systems - Review of Systems Able to Perform ROS?: Yes Comments:: CONSTITUTIONAL: Absent: fever, no chills, no fatigue EYES: Absent: visual changes ENT: Absent: ear pain, no sore throat CARDIOVASCULAR: Absent: chest pain, no palpitations RESPIRATORY: Absent: cough, no SOB GI: Present: abdominal pain, diarrhea Absent: no nausea, no vomiting, no constipation GENITOURINARY: Absent: dysuria, no frequency, no hematuria MUSKULOSKELETAL: Absent: back pain, no arthralgia, no myalgia SKIN: Absent: rash NEURO: Absent: headache *Physical Exam - Vital Signs Last Vital Signs Temp Pulse Resp BP Pulse Ox 89 16 125/69 100 03/30/19 10:10 03/30/19 10:10 03/30/19 10:10 03/30/19 10:10 - Physical Exam GENERAL: Well-appearing, well-nourished. Mild apparent distress. HEENT: Normocephalic, atraumatic. PERRL, EOM intact. CARDIOVASCULAR: Tachycardic rate. Normal S1, S2. Irregular rhythm. PULMONARY: No evidence of respiratory distress. Lungs clear to auscultation bilaterally. No wheezing, rales or rhonchi. ABDOMEN: Abdomen is grossly distended. There is significant TTP diffusely. No guarding or rebound. Normoactive bowel sounds. EXTREMITIES: Limited ROM in left lower extremity. Normal ROM in other extremities. No gross deformities. SKIN: Warm, dry. No rash NEUROLOGICAL: No focal neurological deficits. ED Treatment Course - LABORATORY CBC & Chemistry Diagram: 03/30/19 11:09 03/30/19 11:09 - RADIOLOGY Radiology Studies Ordered: Category Date Time Status ABDOMEN & PELVIS CT WITH CONTR [CT] Stat CT Scan 03/30/19 11:05 Ordered Radiograph Interpretation: CTAP: EXAM#: TYPE/EXAM: RESULT: [id number] CT/ABDOMEN PELVIS CT W/O CONTR Abdomen and pelvis CT (without contrast) CLINICAL INFORMATION: abdominal pain, evaluate for pneumoperitoneum, bowel obstruction, colitis Multiplanar imaging was performed. No intravenous or enteric contrast was administered. Extensive sigmoid diverticulosis is noted. Several small air pockets are noted along the ventral and posterior aspects of the mid sigmoid colon which could represent diverticula and or localized pneumoperitoneum. A 4 x 3 cm fluid and air containing structure seen within the left inferior pelvis (transaxial images 99 - 107) which could represent an abscess (versus a bowel loop). Evaluation is difficult due to a paucity of intra-abdominal fat and contiguous unopacified bowel loops. In comparison to a CT exam of 08/14/2018 interval development of a small amount of nonspecific free intraperitoneal fluid is noted within the upper abdomen bilaterally and within the paracolic spaces. No definite CT evidence of bowel obstruction. There is mild diffuse large and small bowel dilatation which could be on the basis of an ileus. A 6 cm fusiform infrarenal aortic aneurysm is seen previously measuring 5.6 cm in transverse diameter. No definite CT evidence of aortic rupture. Moderate gallbladder overdistention is seen which appears mildly increased since the previous exam. No definite radiopaque urinary calculus is noted. There is no definite biliary tract dilatation. The liver, spleen, pancreas, adrenal glands and kidneys demonstrate no obvious noncontrast pathology. Small renal cortical cysts. No gross lymphadenopathy is identified. There is probable partial visualization of the appendix which demonstrates no gross abnormality. Multilevel chronic thoracolumbar vertebral body compression fracture without definite interval change. Status post bilateral hip ORIF as on the prior exam. Chronic left iliac fracture as on the prior exam. Status post right pneumonectomy as on a chest CT exam of 08/14/2018. The partially imaged lower chest again demonstrates a small to moderate right pleural effusion. IMPRESSION: Extensive sigmoid diverticulosis is seen. There is possible perisigmoid pneumoperitoneum. No evidence of pneumoperitoneum within the upper abdomen. A 4 x 3 cm fluid and air containing structure is noted within the left inferior pelvis adjacent to the mid sigmoid colon possibly representing an abscess (versus unopacified bowel loop). Interval development of a small amount of nonspecific free intraperitoneal fluid is noted. Probable ileus. If surgery is deferred at this time correlation with supplemental CT utilizing oral contrast may be considered. Probable mild diffuse ileus. A 6 cm infrarenal aortic aneurysm is noted previously measuring 5.6 cm. Moderate gallbladder overdistention. Medical Decision Making - Medical Decision Making Kellee Ordoñez is an 89 yo F w a hx of HTN, Lung carcinoma s/p R lung resection , NSTEMI, Cardiac Arrest, Rhabdo, A-fib w RVR, seizures, L hip fx, AAA, Heart Failure with EF of 30% in 09/03 presents to the [facility] er with 2 days of abdominal pain. She states that last week she had constipation, started taking some medications to help her move her bowels, and now she has NB diarrhea. She presents to the ER bc she cannot tolerate the abdominal pain. She has been experiencing around 5-10 diarrheal episodes daily. Vital Signs Temp Pulse Resp BP Pulse Ox 89 16 125/69 100 03/30/19 10:10 03/30/19 10:10 03/30/19 10:10 03/30/19 10:10 DDx IBNLT: Peritonitis, SBO, mesenteric ischemia, ischemic colitis, diverticulitis, colitis, pneumoperitoneum Plan: Labs, CTAP, analgesia, gentle IV hydration, re-assess Labs: Leukocytosis w left shift, lactic acidosis, renal failure, mildly elevated trop CTAP: Extensive sigmoid diverticulosis is seen. There is possible perisigmoid pneumoperitoneum. No evidence of pneumoperitoneum within the upper abdomen. A 4 x 3 cm fluid and air containing structure is noted within the left inferior pelvis adjacent to the mid sigmoid colon possibly representing an abscess (versus unopacified bowel loop). Interval development of a small amount of nonspecific free intraperitoneal fluid is noted. Re-assessment: Patient is starting to get confused in the ER and her abdominal pain is worsening. - Obtaining a surgical consult - Dr. Kathleen - NPO - Vanc/Zosyn - Iv hydration - ICU consult Disposition: Admit ICU Discharge - Discharge Information Problems reviewed: Yes Clinical Impression/Diagnosis: Peritonitis, Pneumoperitoneum, Elevated troponin I level, Colitis Renal failure Qualifiers: Renal failure chronicity: acute Acute renal failure type: unspecified Qualified Code(s): N17.9 - Acute kidney failure, unspecified Abdominal pain Qualifiers: Abdominal location: generalized Qualified Code(s): R10.84 - Generalized abdominal pain Condition: Guarded - Admission Yes - Follow up/Referral - Patient Discharge Instructions - Post Discharge Activity
[2019-03-30] MEDS ORDERED: ACETAMINOPHEN INJECTION 100 ML IVPB ONE (11:14)
[2019-03-30] MEDS ORDERED: ONDANSETRON 4 MG/2 ML VIAL ONE (11:14)
[2019-03-30 11:41] LABS: BASO % 0.1 % (0-2.0); EOS % 1.1 % (0-4.5); HEMATOCRIT 33.2 % (32.4-45.2); HEMOGLOBIN 11.3 GM/dL (10.7-15.3); MEAN PLT VOLUME 7.6 fl (7.5-11.1); MONO % 6.6 % (3.8-10.2); NEUT % 90.2 % (42.8-82.8); PLATELET COUNT 358 K/MM3 (134-434); RBC 3.77 M/mm3 (3.60-5.2); RDW 14.6 % (11.6-15.6); WHITE BLOOD COUNT 16.4 K/mm3 (4.0-10.0)
[2019-03-30 11:56] LABS: INR 1.04 (0.83-1.09); PROTHROMBIN TIME (PATIENT) 12.3 SEC (9.7-13.0)
[2019-03-30 11:59] LABS: ACTIVATED PTT 43.1 SECONDS (25.2-36.5)
[2019-03-30 12:09] LABS: ALBUMIN 2.7 g/dl (3.4-5.0); BILIRUBIN,TOTAL 1.7 mg/dL (0.2-1); BLOOD UREA NITROGEN 103.1 mg/dL (7-18); CALCIUM 7.9 mg/dL (8.5-10.1); CREATININE 5.2 mg/dL (0.55-1.3); MAGNESIUM 2.7 mg/dL (1.8-2.4); PHOSPHOROUS 8.2 mg/dL (2.5-4.9); POTASSIUM 4.7 mmol/L (3.5-5.1); TOT PROT 7.2 g/dl (6.4-8.2)
--- NOTE | 2019-03-30 12:56 | PDOC ---
Attending Attestation - Resident Resident Name: Everett Golden - ED Attending Attestation I have performed the following: I have examined & evaluated the patient, The case was reviewed & discussed with the resident, I agree w/resident's findings & plan - HPI HPI: 03/30/19 12:52 89-year-old female with extensive medical history including ICU admission with cardiac arrest, otherwise high functioning presents now with 1 day of progressive abdominal distention and pain with diarrhea, denies any vomiting but reports some nausea, no fevers or chills. - Physicial Exam PE: 03/30/19 12:52 Blood pressure normal, tachypneic on my examination, otherwise alert and conversant No jaundice or pallor, dry mucosa Heart is regular slight tachycardia, lungs are clear Abdomen is distended, tender with guarding in the periumbilical region with distention is greatest, positive rebound. Bowel sounds are distant - Critical Care Time Total Critical Care Time: 60 Critical Care Statement: The care of this patient involved high complexity decision making to prevent further life threatening deterioration of the patient 's condition and/or to evaluate & treat vital organ system(s) failure or risk of failure. - Medical Decision Making 03/30/19 12:53 89-year-old female presents with progressive abdominal distention with diarrhea for 1 day, tachypneic here with peritoneal findings. In the absence of obstructive symptoms and in the presence of diarrhea, ileus or colitis ( infectious or ischemic) is most concerning, rule out vascular abnormality such as AAA. Labs notable for leukocytosis, new acute renal failure with normal potassium, elevated anion gap EKG, chest x-ray CT of the abdomen and pelvis IV fluids, pain control Admission, consider surgery consult pending findings 03/30/19 13:50 on my prelim review, CTAP with ileus v obstruction, pneumoperitoneum in sigmoid region, AAA without obvious hemorrhage. will need surg consult, abx already initiated based on leukocytosis and exam. 03/30/19 14:43 rads confirms sigmoid diverticulitis with abscess. Dr. Kathleen at bedside. ICU consulted. Heart Score/ECG Review #1 ECG reviewed & interpreted by me at: 10:32 General ECG Interpretation: Sinus Rhythm (tachy with frequent APCs, rate 123), Normal Intervals (qtc 498), No acute ischemic changes
[2019-03-30] MEDS ORDERED: morphine CARPU-JECT 4 MG/1 ML DISP.SYRIN IVPUSH ONE (13:48)
[2019-03-30] MEDS ORDERED: VANCOMYCIN 1,000 MG in DEXTROSE 5%-WATER - 250 ML IVPB ONE (13:52)
[2019-03-30] MEDS ORDERED: PIPERACILLIN/TAZOB 4.5 GM 4.5 GM in DEXTROSE 5%-WATER 100 ML IVPB ONE (13:52)
[2019-03-30] MEDS ORDERED: SODIUM CHLORIDE 0.9% 500 ML INFUS.BAG IV ONE (13:53)
[2019-03-30] MEDS ORDERED: LACTATED RINGERS SOLUTION 1,000 ML/1,000 ML INFUS.BAG IV SCH (14:00)
[2019-03-30] MEDS ORDERED: PIPERACILLIN/TAZOB 4.5 GM 4.5 GM/100 ML BAG IVPB ONE (14:09)
[2019-03-30] MEDS ORDERED: VANCOMYCIN 1 GRAM (PRE-DOCKED) 1,000 MG/250 ML BAG IVPB ONE (14:09)
--- NOTE | 2019-03-30 15:20 | EKG ---
Test Reason : Blood Pressure : / mmHG Vent. Rate : 123 BPM Atrial Rate : 123 BPM P-R Int : 176 ms QRS Dur : 080 ms QT Int : 348 ms P-R-T Axes : 058 050 058 degrees QTc Int : 498 ms SINUS TACHYCARDIA WITH PREMATURE SUPRAVENTRICULAR COMPLEXES OTHERWISE NORMAL ECG WHEN COMPARED WITH ECG OF 16-AUG-2018 09:00, T WAVE VARIATION Confirmed by PARISH ALMEIDA MD ([id number]) on 03/30/2019 3:19:43 PM Referred By: Confirmed By:PARISH ALMEIDA MD
[2019-03-30] MEDS ORDERED: LACTATED RINGERS SOLUTION 1,000 ML/1,000 ML INFUS.BAG IV STA (15:30)
[2019-03-30] MEDS ORDERED: LACTATED RINGERS SOLUTION 1,000 ML/1,000 ML INFUS.BAG IV ONE (15:35)
--- NOTE | 2019-03-30 15:51 | CONSULT ---
- Consultation REQUESTING PROVIDER: Kelsey EVANGELISTA CONSULT REQUEST: We have been asked to surgically evaluate this patient for abdominal pain. PCP: Joe EVANGELISTA HISTORY OF PRESENT ILLNESS: LAURA who is an 89 y/o female w/ # past admissions here who presented w/ abdominal pain and obstipation/constipation over # unquantified days; she came to the ED for evaluation; she states abdominal pain is localied to the LLQ and is sharp w/o appreciable radiation; worse by moving around and better w/lying still; she denies any other c/o; she is a fair historian; she denies any other GI//[employer] c/o. PMHx:HTN/carcinoma right lung/AF?/?seizure disorder/known AAA PSHx: right pneumonectomy/ORIF left hip fx. Home Medications Medication Instructions Recorded Losartan Potassium 50 mg PO DAILY 10/27/15 Bisacodyl Suppository [Dulcolax 10 mg MA PRN PRN supp.rect 01/20/18 Suppository -] Docusate Sodium [Colace -] 100 mg PO TID capsule 01/20/18 Polyethylene Glycol 3350 [Miralax 17 gm PO DAILY bottle 01/20/18 119 gm Btl -] Sennosides [Senna -] 2 tab PO HS tablet 01/20/18 Ferrous Sulfate 325 mg PO BID 08/15/18 Apixaban [Eliquis -] 2.5 mg PO BID #0 tablet 08/28/18 Atorvastatin Ca [Lipitor] 40 mg PO HS #30 tablet 08/28/18 Metoprolol Succinate [Toprol XL -] 25 mg PO BID #0 tab.sr.24h 08/28/18 levETIRAcetam [Keppra -] 500 mg PO BID #60 tablet 08/28/18 Allergies Allergy/AdvReac Type Severity Reaction Status Date / Time No Known Allergies Allergy Verified 01/15/18 10:36 REVIEW OF SYSTEMS: CONSTITUTIONAL: Present: fever, chills, diaphoresis, generalized weakness, malaise, loss of appetite. CARDIOVASCULAR: Absent: chest pain, syncope, palpitations, irregular heart rate, lightheadedness , peripheral edema RESPIRATORY: Absent: cough, shortness of breath, dyspnea with exertion, wheezing, stridor, hemoptysis GASTROINTESTINAL: Present: abdominal pain, abdominal distension, nausea, vomiting, diarrhea, constipation. GENITOURINARY: Absent: dysuria, frequency, urgency, hesitancy, hematuria, flank pain, genital pain MUSCULOSKELETAL: Absent: myalgia, arthralgia, joint swelling, back pain, neck pain SKIN: Absent: rash, itching, pallor HEMATOLOGIC/IMMUNOLOGIC: Absent: easy bleeding, easy bruising, lymphadenopathy NEUROLOGIC: Absent: headache, focal weakness, paresthesias, dizziness, unsteady gait, seizure, mental status changes, bladder or bowel incontinence PSYCHIATRIC: Absent: anxiety, depression, suicidal or homicidal ideation, hallucinations. PHYSICAL EXAM: GENERAL: Awake, alert, and fully oriented, in acute distress. HEAD: Normal with no signs of trauma. EYES: sclera anicteric, conjunctiva clear. NECK: Normal ROM, supple without lymphadenopathy, JVD, or masses. ABDOMEN: Soft, tender LLQ w/guarding, distended and tympanitic, absent bowel sounds, no masses. No organomegaly. No hernias. MUSCULOSKELETAL: Normal ROM at all joints. No bony deformities or tenderness. No CVA tenderness. UPPER EXTREMITIES: 1+ pulses, cool, fairly-perfused. No cyanosis. Cap refill <2 seconds. No peripheral edema. LOWER EXTREMITIES: 1+ pulses, cool, fairlyl-perfused. No calf tenderness. No peripheral edema. NEUROLOGICAL: Normal speech, gait not observed. PSYCH: Cooperative. Good eye contact. Appropriate mood and affect. SKIN: Warm, dry, poor turgor, no rashes or lesions noted. Vital Signs Temperature Pulse Rate 89 03/30/19 10:10 Respiratory Rate 16 03/30/19 10:10 Blood Pressure 125/69 03/30/19 10:10 O2 Sat by Pulse Oximetry (%) 100 03/30/19 10:10 Lab Results WBC 16.4 K/mm3 (4.0-10.0) H 03/30/19 11:09 RBC 3.77 M/mm3 (3.60-5.2) 03/30/19 11:09 Hgb 11.3 GM/dL (10.7-15.3) 03/30/19 11:09 Hct 33.2 % (32.4-45.2) D 03/30/19 11:09 MCV 88.0 fl (80-96) 03/30/19 11:09 MCHC 34.0 g/dl (32.0-36.0) 03/30/19 11:09 RDW 14.6 % (11.6-15.6) 03/30/19 11:09 Plt Count 358 K/MM3 (134-434) D 03/30/19 11:09 Sodium 130 mmol/L (136-145) L 03/30/19 11:09 Potassium 4.7 mmol/L (3.5-5.1) 03/30/19 11:09 Chloride 93 mmol/L (98-107) L 03/30/19 11:09 Carbon Dioxide 15 mmol/L (21-32) L 03/30/19 11:09 Anion Gap 22 MMOL/L (8-16) H 03/30/19 11:09 BUN 103.1 mg/dL (7-18) H 03/30/19 11:09 Creatinine 5.2 mg/dL (0.55-1.3) H 03/30/19 11:09 Random Glucose 119 mg/dL (74-106) H 03/30/19 11:09 Calcium 7.9 mg/dL (8.5-10.1) L 03/30/19 11:09 Blood Type A POSITIVE 03/30/19 11:09 Antibody Screen Negative 03/30/19 11:09 INR 1.04 (0.83-1.09) 03/30/19 11:09 CT scan a/p reviewed-diverticulitis w/microperforation; 6 cm. AAA; ileus; ? abscess ? related to diverticular microperforation. IMP: diverticulitis w/micoperforation and 6 cm. AA and ileus w/elevated BUN/ creatinine and elevated lactic acid. PLAN: Suggest NPO/IVF/IVAB's; consider ICU for appropriate monitoring and for fluid resuscitation and correction of e-lyte abnormalities; consider ID and Vascular evaluation as well; will f/u. Jose Kathleen MD FACS
--- NOTE | 2019-03-30 16:42 | CONSULT ---
Consultation: REQUESTING PROVIDER: CONSULT REQUEST: We have been asked to medically evaluate this patient for pneumoperitoneum. HISTORY OF PRESENT ILLNESS: 89 yo F PMH lung cancer s/p R pneumonectomy, AAA, left hip fx s/p ORIF in August 2018, presenting with abdominal pain and constipation for 4 days. Worse in the LLQ, describes it as pressure, worsened by moving around and improved by lying still. Patient received CT scan of abdomen and pelvis, which showed extensive sigmoid diverticulosis with multiple air pockets concerning for diverticula vs pneumoperitoneum, 4 X 3 cm fluid and air in left inferior pelvis concerning for abscess 2/2 microperforation, and a 6 cm fusiform infrarenal aneurysm which had previously been 5.6 cm. REVIEW OF SYSTEMS: CONSTITUTIONAL: denies fever, chills, diaphoresis, generalized weakness, malaise , loss of appetite, weight change HEENT: denies rhinorrhea, nasal congestion, throat pain, throat swelling, difficulty swallowing, mouth swelling, ear pain, eye pain, visual changes CARDIOVASCULAR: denies chest pain, syncope, palpitations, irregular heart rate, lightheadedness, peripheral edema RESPIRATORY: denies cough, shortness of breath, dyspnea with exertion, orthopnea , wheezing, stridor, hemoptysis GASTROINTESTINAL: endorses abdominal pain, abdominal distension, and constipation. Denies nausea, vomiting, diarrhea, melena, hematochezia GENITOURINARY: denies dysuria, frequency, urgency, hesitancy, hematuria, flank pain, genital pain MUSCULOSKELETAL: denies myalgia, arthralgia, joint swelling, back pain, neck pain SKIN: denies rash, itching, pallor HEMATOLOGIC/IMMUNOLOGIC: denies easy bleeding, easy bruising, lymphadenopathy, frequent infections ENDOCRINE: denies unexplained weight gain, unexplained weight loss, heat intolerance, cold intolerance NEUROLOGIC: denies headache, focal weakness or paresthesias, dizziness, unsteady gait, seizure, mental status changes, bladder or bowel incontinence PSYCHIATRIC: denies anxiety, depression, suicidal or homicidal ideation, hallucinations. PHYSICAL EXAMINATION Vital Signs - 24 hr 03/30/19 03/30/19 10:10 14:25 Temperature 95.8 F L Pulse Rate 89 Pulse Rate [ 114 H Right Radial] Respiratory 16 20 Rate Blood Pressure 125/69 Blood Pressure 125/79 [Right Arm] O2 Sat by Pulse 100 96 Oximetry (%) GENERAL: Awake, alert, and fully oriented, in no acute distress. HEAD: Normal with no signs of trauma. EYES: Pupils equal, round and reactive to light, extraocular movements intact, sclera anicteric, conjunctiva clear. No lid lag. EARS, NOSE, THROAT: Ears normal, nares patent, oropharynx clear without exudates. Dry mucous membranes. NECK: Normal range of motion, supple without lymphadenopathy, JVD, or masses. LUNGS: Breath sounds equal, clear to auscultation bilaterally. No wheezes, and no crackles. No accessory muscle use. HEART: tachycardic, irregular, normal S1 and S2 without murmur, rub or gallop. ABDOMEN: Soft, nontender, mildly distended, normoactive bowel sounds, positive guarding, positive rebound, no masses. MUSCULOSKELETAL: Normal range of motion at all joints. No bony deformities or tenderness. No CVA tenderness. UPPER EXTREMITIES: 2+ pulses, warm, well-perfused. No cyanosis. No clubbing. Cap refill <2 seconds. No peripheral edema. LOWER EXTREMITIES: 2+ pulses, warm, well-perfused. No calf tenderness. No peripheral edema. NEUROLOGICAL: Cranial nerves II-XII intact. Normal speech. Normal gait. PSYCHIATRIC: Cooperative. Good eye contact. Appropriate mood and affect. SKIN: Warm, dry, normal turgor, no rashes or lesions noted. Laboratory Results - last 24 hr 03/30/19 03/30/19 03/30/19 11:09 11:09 11:09 WBC 16.4 H RBC 3.77 Hgb 11.3 Hct 33.2 D MCV 88.0 MCH 30.0 MCHC 34.0 RDW 14.6 Plt Count 358 D MPV 7.6 Absolute Neuts (auto) 14.8 H Neutrophils % 90.2 H Lymphocytes % 2.0 L D Monocytes % 6.6 Eosinophils % 1.1 D Basophils % 0.1 Nucleated RBC % 0 PT with INR INR PTT (Actin FS) Sodium 130 L Potassium 4.7 Chloride 93 L Carbon Dioxide 15 L Anion Gap 22 H BUN 103.1 H Creatinine 5.2 H Est GFR (CKD-EPI)AfAm 7.99 Est GFR (CKD-EPI)NonAf 6.90 Random Glucose 119 H Lactic Acid Calcium 7.9 L Phosphorus 8.2 H Magnesium 2.7 H Total Bilirubin 1.7 H AST 162 H ALT 67 H Alkaline Phosphatase 150 H Troponin I 0.18 H Total Protein 7.2 Albumin 2.7 L Lipase 211 Blood Type A POSITIVE Antibody Screen Negative 03/30/19 03/30/19 11:09 12:25 WBC RBC Hgb Hct MCV MCH MCHC RDW Plt Count MPV Absolute Neuts (auto) Neutrophils % Lymphocytes % Monocytes % Eosinophils % Basophils % Nucleated RBC % PT with INR 12.30 INR 1.04 PTT (Actin FS) 43.1 H Sodium Potassium Chloride Carbon Dioxide Anion Gap BUN Creatinine Est GFR (CKD-EPI)AfAm Est GFR (CKD-EPI)NonAf Random Glucose Lactic Acid 2.3 H* Calcium Phosphorus Magnesium Total Bilirubin AST ALT Alkaline Phosphatase Troponin I Total Protein Albumin Lipase Blood Type Antibody Screen Active Medications Generic Name Dose Route Start Last Admin Trade Name Kamronq PRN Reason Stop Dose Admin Lactated Ringer's 1,000 ml in 1,000 mls @ 83 mls/hr 03/30/19 14:00 03/30/19 15:58 Lactated Ringers Solution IV 83 mls/hr ASDIR EDMOND Administration Lactated Ringer's 1,000 ml in 1,000 mls @ 125 mls/hr 03/30/19 15:35 03/30/19 15:58 Lactated Ringers Solution IV 03/30/19 23:34 125 mls/hr ONCE ONE Administration ASSESSMENT/PLAN: Neuro: - awake, alert, oriented - neurologically intact - ctm CV: - hx HTN - tachycardic in s/o microperforation - giving IVF - trop of 0.18, likely demand ischemia in s/o acute renal failure - ctm Respiratory: - hx lung carcinoma s/p R pneumonectomy - ctm GI: - extensive sigmoid diverticulosis - multiple air pockets throughout sigmoid, diverticula v pneumoperitoneum - 4 X 3 cm fluid + air in left inferior pelvis, c/f abscess 2/2 microperforation - appreciate surgery recs (currently not surgical candidate considering AAA) Vascular: - 6 cm fusiform infrarenal aneurysm from 5.6 cm in the past - appreciate vascular surgery recs Renal: - Cr 5.2 from baseline of 1 - Anion gap of 22 - on bicarb drip - continuing IVF - appreciate renal recs ID: - considering poor Cr clearance, will give 2.5 of Piptazo Q8h. - vanc random level at 0600, titrate vancomycin accordingly Heme/Onc: - hx cancer, s/p R pneumonectomy - WBC 16.7 - ctm Dispo: We will continue to follow the patient. Thank you for this consultative opportunity. Problem List - Problems (1) Elevated troponin I level Problems reviewed: Yes Code(s): R79.89 - OTHER SPECIFIED ABNORMAL FINDINGS OF BLOOD CHEMISTRY (2) Peritonitis Problems reviewed: Yes Code(s): K65.9 - PERITONITIS, UNSPECIFIED (3) Pneumoperitoneum Problems reviewed: Yes Code(s): K66.8 - OTHER SPECIFIED DISORDERS OF PERITONEUM (4) Renal failure Problems reviewed: Yes Code(s): N19 - UNSPECIFIED KIDNEY FAILURE Qualifiers: Renal failure chronicity: acute Acute renal failure type: unspecified Qualified Code(s): N17.9 - Acute kidney failure, unspecified (5) Colitis Problems reviewed: Yes Code(s): K52.9 - NONINFECTIVE GASTROENTERITIS AND COLITIS, UNSPECIFIED Visit type - Emergency Visit Emergency Visit: Yes ED Registration Date: 03/30/19 Care time: The patient presented to the Emergency Department on the above date and was hospitalized for further evaluation of their emergent condition. - New Patient This patient is new to me today: Yes Date on this admission: 03/31/19 - Critical Care Critical Care patient: Yes Total Critical Care Time (in minutes): 30 Critical Care Statement: The care of this patient involved high complexity decision making to prevent further life threatening deterioration of the patient 's condition and/or to evaluate & treat vital organ system(s) failure or risk of failure. ATTENDING PHYSICIAN STATEMENT I saw and evaluated the patient. I reviewed the resident's note and discussed the case with the resident. I agree with the resident's findings and plan as documented. SUBJECTIVE: OBJECTIVE: ASSESSMENT AND PLAN:
[2019-03-30] MEDS ORDERED: SODIUM BICARBONATE 8.4% 50 MEQ/50 ML DISP.SYRIN IVPUSH ONE ×3 (16:47→16:48)
[2019-03-30] MEDS ORDERED: SODIUM BICARBONATE 8.4% 50 MEQ/50 ML VIAL ONE ×2 (16:49→16:56)
--- NOTE | 2019-03-30 16:56 | CONSULT ---
Consult Consult Specialty:: Nephrology Reason for Consultation:: CHUY - History of Present Illness Chief Complaint: abdominal pain History of Present Illness: Pt is an 89 year old female with pmhx of htn, lung cancer, cad, cardiac arrest. a-fib, rhabdo, aaa, chf with 30 percent ef, and epilepsy who presents to the ER with two days of abdominal pain. She says that she initially had constipation. She did start stool softeners and then she developed diarrhea. She was found to have diverticulitis with microperforation. I was called to evaluate her as she was found to be in CHUY. She denies history of CKD. She denies nsaid use. She had a acevedo catheter placed. - History Source History Provided By: Patient, Medical Record - Past Medical History Cardio/Vascular: Yes: Aneurysm, CAD, HTN Musculoskeletal: Yes: Other (right hip fracture 2018) - Alcohol/Substance Use Hx Alcohol Use: No - Smoking History Smoking history: Never smoked Have you smoked in the past 12 months: No Aproximately how many cigarettes per day: 30 If you are a former smoker, when did you quit?: over 12yrs ago - Social History Usual Living Arrangement: Alone ADL: Support Services History of Recent Travel: No Home Medications - Allergies Allergies/Adverse Reactions: Allergies Allergy/AdvReac Type Severity Reaction Status Date / Time No Known Allergies Allergy Verified 01/15/18 10:36 - Home Medications Home Medications: Ambulatory Orders Losartan Potassium 50 mg PO DAILY 10/27/15 Bisacodyl Suppository [Dulcolax Suppository -] 10 mg DC PRN PRN supp.rect 01/20 Docusate Sodium [Colace -] 100 mg PO TID capsule 01/20/18 Polyethylene Glycol 3350 [Miralax 119 gm Btl -] 17 gm PO DAILY bottle 01/20/18 Sennosides [Senna -] 2 tab PO HS tablet 01/20/18 Ferrous Sulfate 325 mg PO BID 08/15/18 Apixaban [Eliquis -] 2.5 mg PO BID #0 tablet 08/28/18 Atorvastatin Ca [Lipitor] 40 mg PO HS #30 tablet 08/28/18 Metoprolol Succinate [Toprol XL -] 25 mg PO BID #0 tab.sr.24h 08/28/18 levETIRAcetam [Keppra -] 500 mg PO BID #60 tablet 08/28/18 Family Medical History Family History: Denies Review of Systems - Review of Systems Constitutional: reports: Malaise Eyes: reports: No Symptoms HENT: reports: No Symptoms Cardiovascular: reports: No Symptoms. denies: Edema Respiratory: reports: No Symptoms Gastrointestinal: reports: Abdominal Pain, Constipation, Diarrhea Genitourinary: reports: No Symptoms Musculoskeletal: reports: No Symptoms Integumentary: reports: No Symptoms Neurological: reports: No Symptoms Endocrine: reports: No Symptoms Hematology/Lymphatic: reports: No Symptoms Psychiatric: reports: No Symptoms Physical Exam Vital Signs: Vital Signs Temperature 95.8 F L 03/30/19 14:25 Pulse Rate 114 H 03/30/19 14:25 Respiratory Rate 20 03/30/19 14:25 Blood Pressure 125/79 03/30/19 14:25 O2 Sat by Pulse Oximetry (%) 96 03/30/19 14:25 Eyes: Yes: Conjunctiva Clear HENT: Yes: Atraumatic Neck: Yes: Supple Cardiovascular: Yes: S1, S2 Respiratory: Yes: CTA Bilaterally, On Nasal O2 Gastrointestinal: Yes: Distention Renal/: Yes: Acevedo Present Musculoskeletal: Yes: Muscle Weakness Edema: No Neurological: Yes: Oriented Psychiatric: Yes: Oriented Labs: CBC, BMP 03/30/19 11:09 03/30/19 11:09 Laboratory Tests 08/27/18 08/28/18 03/30/19 05:05 06:10 11:09 WBC 16.4 H Hgb 11.3 Sodium Potassium Carbon Dioxide BUN Creatinine 0.9 1.0 Random Glucose Lactic Acid Magnesium Troponin I 03/30/19 03/30/19 03/30/19 11:09 12:25 15:42 WBC Hgb Sodium 130 L Potassium 4.7 Carbon Dioxide 15 L BUN 103.1 H Creatinine 5.2 H Random Glucose 119 H Lactic Acid 2.3 H* Pending Magnesium 2.7 H Troponin I 0.18 H Imaging - Results Cat Scan: Report Reviewed Problem List - Problems (1) Abdominal pain Code(s): R10.9 - UNSPECIFIED ABDOMINAL PAIN Qualifiers: Abdominal location: generalized Qualified Code(s): R10.84 - Generalized abdominal pain (2) Pneumoperitoneum Code(s): K66.8 - OTHER SPECIFIED DISORDERS OF PERITONEUM (3) Renal failure Code(s): N19 - UNSPECIFIED KIDNEY FAILURE Qualifiers: Renal failure chronicity: acute Acute renal failure type: unspecified Qualified Code(s): N17.9 - Acute kidney failure, unspecified (4) Lactic acid acidosis Code(s): E87.2 - ACIDOSIS Assessment/Plan Current Medications Generic Name Dose Route Start Last Admin Trade Name Freq PRN Reason Stop Dose Admin Lactated Ringer's 1,000 ml in 1,000 mls @ 83 mls/hr 03/30/19 14:00 03/30/19 15:58 Lactated Ringers Solution IV 83 mls/hr ASDIR EDMOND Administration Lactated Ringer's 1,000 ml in 1,000 mls @ 125 mls/hr 03/30/19 15:35 03/30/19 15:58 Lactated Ringers Solution IV 03/30/19 23:34 125 mls/hr ONCE ONE Administration Sodium Bicarbonate 50 meq 03/30/19 16:47 03/30/19 16:55 Sodium Bicarbonate 8.4% - IVPUSH 03/30/19 16:48 50 meq ONCE ONE Administration Sodium Bicarbonate 50 meq 03/30/19 16:47 Sodium Bicarbonate 8.4% - IVPUSH 03/30/19 16:48 ONCE ONE Sodium Bicarbonate 50 meq 03/30/19 16:48 Sodium Bicarbonate 8.4% - IVPUSH 03/30/19 16:49 ONCE ONE Impression 1. CHUY 2. acidosis 3. pneumoperitoneum 4. cad 5. aaa 6. hx lung cancer 7. hx htn 8. elevated troponins Plan - cont fluids - will start bicarb drip - monitor urine output - check urine lytes and incident analyst to calc fena - surgery input appreciated - admit to monitored setting, icu eval pending - discussed with medical team - neg hydro on ct scan
[2019-03-30] MEDS ORDERED: DEXTROSE 5%-WATER - 1,000 ML with SODIUM BICARBONATE 8.4% - 150 MEQ IV SCH (17:00)
--- NOTE | 2019-03-30 18:00 | HP ---
CHIEF COMPLAINT: distended abd w/ pain PCP: HISTORY OF PRESENT ILLNESS: 89F w/ pmh of Right-sided Lung Ca(s/p pneumonectomy), NSTEMI( w/ cardiac arrest in June 2018), Afib(Eliquis), HF(rEF 25-30% in June, but norm in August), AAA, HTN, Left hip fx, rhabdomyolysis, seizures presented to [facility] for complaint of 10 of 10 diffuse abdominal pain w/a nausea and no BM. Has had chronic constipation, last BM was 4d prior. Was having diarrhea. Denies fever, chills. Lives alone. ER course was notable for: (1) LR x1L, NS x500ml (2) ofirmev, fentanyl (3) zosyn, vanc (4) EKG: sinus tachy w/ premature supraventricular complexes, QTc 498 (5) CT A/P w/ sigmoid diverticulae, pneumoperitoneum vs loop of bowel w/ air- fluid level 4x3cm in Left inferior pelvis, infrarenal aortic aneurysm 6cm, moderate GB overdistention (6) Sx(Hever) consult said medical mgmt Recent Travel: none PAST MEDICAL HISTORY: Right-sided Lung Ca(s/p pneumonectomy), NSTEMI( w/ cardiac arrest in June 2018) , Afib(Eliquis), HF(rEF 25-30% in June, but norm in August), AAA, HTN, Left hip fx, rhabdomyolysis, seizures PAST SURGICAL HISTORY: hip fx, pneumonectomy Social History: Smoking: quit >10ys prior Alcohol: denies Drugs: denies Allergies No Known Allergies Allergy (Verified 01/15/18 10:36) HOME MEDICATIONS: Home Medications Medication Instructions Recorded Losartan Potassium 50 mg PO DAILY 10/27/15 Bisacodyl Suppository [Dulcolax 10 mg [place] PRN PRN supp.rect 01/20/18 Suppository -] Docusate Sodium [Colace -] 100 mg PO TID capsule 01/20/18 Polyethylene Glycol 3350 [Miralax 17 gm PO DAILY bottle 01/20/18 119 gm Btl -] Sennosides [Senna -] 2 tab PO HS tablet 01/20/18 Ferrous Sulfate 325 mg PO BID 08/15/18 Apixaban [Eliquis -] 2.5 mg PO BID #0 tablet 08/28/18 levETIRAcetam [Keppra -] 500 mg PO BID #60 tablet 08/28/18 Atorvastatin Ca [Lipitor] 80 mg PO HS 03/30/19 Metoprolol Succinate [Toprol XL -] 25 mg PO DAILY 03/30/19 REVIEW OF SYSTEMS CONSTITUTIONAL: loss of appetite Absent: fever, chills, diaphoresis, generalized weakness, malaise, weight change HEENT: Absent: rhinorrhea, nasal congestion, throat pain, throat swelling, difficulty swallowing, mouth swelling, ear pain, eye pain, visual changes CARDIOVASCULAR: Absent: chest pain, syncope, palpitations, irregular heart rate, lightheadedness , peripheral edema RESPIRATORY: Absent: cough, shortness of breath, dyspnea with exertion, orthopnea, wheezing, stridor, hemoptysis GASTROINTESTINAL:abdominal distension, nausea Absent: abdominal pain, vomiting, diarrhea, constipation, melena, hematochezia GENITOURINARY: Absent: dysuria, frequency, urgency, hesitancy, hematuria, flank pain, genital pain MUSCULOSKELETAL: Absent: myalgia, arthralgia, joint swelling, back pain, neck pain SKIN: Absent: rash, itching, pallor HEMATOLOGIC/IMMUNOLOGIC: Absent: easy bleeding, easy bruising, lymphadenopathy, frequent infections ENDOCRINE: Absent: unexplained weight gain, unexplained weight loss, heat intolerance, cold intolerance NEUROLOGIC: Absent: headache, focal weakness or paresthesias, dizziness, unsteady gait, seizure, mental status changes, bladder or bowel incontinence PSYCHIATRIC: Absent: anxiety, depression, suicidal or homicidal ideation, hallucinations. PHYSICAL EXAMINATION Vital Signs - 24 hr 03/30/19 03/30/19 10:10 14:25 Temperature 95.8 F L Pulse Rate 89 Pulse Rate [ 114 H Right Radial] Respiratory 16 20 Rate Blood Pressure 125/69 Blood Pressure 125/79 [Right Arm] O2 Sat by Pulse 100 96 Oximetry (%) GENERAL: Awake, alert, and fully oriented, in moderate distress HEAD: NC/AT. Moderate temporal wasting EYES: Extraocular movements intact, sclera anicteric, conjunctiva clear. No lid lag. EARS, NOSE, THROAT: Ears normal, nares patent, oropharynx clear without exudates. Dry tongue NECK: Normal range of motion, supple without lymphadenopathy, JVD, or masses. LUNGS: Breath sounds clear to auscultation bilaterally. Decreased breath sounds of Right lung. No wheezes, and no crackles. No accessory muscle use. HEART: Regular rate and rhythm, normal S1 and S2 without murmur, rub or gallop. ABDOMEN: distended abd, tympanic to percussion, no bowel sounds, no guarding, no rebound, no masses. MUSCULOSKELETAL: Normal range of motion at all joints. No bony deformities or tenderness. No CVA tenderness. UPPER EXTREMITIES: 2+ pulses, warm, well-perfused. No cyanosis. No clubbing. No peripheral edema. LOWER EXTREMITIES: 2+ pulses, warm, well-perfused. No calf tenderness. No peripheral edema. NEUROLOGICAL: weak speech PSYCHIATRIC: Cooperative. SKIN: Warm, dry, normal turgor, no rashes or lesions noted, normal capillary refill. Laboratory Results - last 24 hr 03/30/19 03/30/19 03/30/19 11:09 11:09 11:09 WBC 16.4 H RBC 3.77 Hgb 11.3 Hct 33.2 D MCV 88.0 MCH 30.0 MCHC 34.0 RDW 14.6 Plt Count 358 D MPV 7.6 Absolute Neuts (auto) 14.8 H Neutrophils % 90.2 H Lymphocytes % 2.0 L D Monocytes % 6.6 Eosinophils % 1.1 D Basophils % 0.1 Nucleated RBC % 0 PT with INR INR PTT (Actin FS) Sodium 130 L Potassium 4.7 Chloride 93 L Carbon Dioxide 15 L Anion Gap 22 H BUN 103.1 H Creatinine 5.2 H Est GFR (CKD-EPI)AfAm 7.99 Est GFR (CKD-EPI)NonAf 6.90 Random Glucose 119 H Lactic Acid Calcium 7.9 L Phosphorus 8.2 H Magnesium 2.7 H Total Bilirubin 1.7 H AST 162 H ALT 67 H Alkaline Phosphatase 150 H Troponin I 0.18 H Total Protein 7.2 Albumin 2.7 L Lipase 211 Blood Type A POSITIVE Antibody Screen Negative 03/30/19 03/30/19 03/30/19 11:09 12:25 15:42 WBC RBC Hgb Hct MCV MCH MCHC RDW Plt Count MPV Absolute Neuts (auto) Neutrophils % Lymphocytes % Monocytes % Eosinophils % Basophils % Nucleated RBC % PT with INR 12.30 INR 1.04 PTT (Actin FS) 43.1 H Sodium Potassium Chloride Carbon Dioxide Anion Gap BUN Creatinine Est GFR (CKD-EPI)AfAm Est GFR (CKD-EPI)NonAf Random Glucose Lactic Acid 2.3 H* 3.3 H* Calcium Phosphorus Magnesium Total Bilirubin AST ALT Alkaline Phosphatase Troponin I Total Protein Albumin Lipase Blood Type Antibody Screen 03/30/19 15:42 WBC RBC Hgb Hct MCV MCH MCHC RDW Plt Count MPV Absolute Neuts (auto) Neutrophils % Lymphocytes % Monocytes % Eosinophils % Basophils % Nucleated RBC % PT with INR INR PTT (Actin FS) Sodium Potassium Chloride Carbon Dioxide Anion Gap BUN Creatinine Est GFR (CKD-EPI)AfAm Est GFR (CKD-EPI)NonAf Random Glucose Lactic Acid Calcium Phosphorus Magnesium Total Bilirubin AST ALT Alkaline Phosphatase Troponin I 0.21 H Total Protein Albumin Lipase Blood Type Antibody Screen ASSESSMENT/PLAN: 89F w/ pmh of Right-sided Lung Ca(s/p pneumonectomy), NSTEMI( w/ cardiac arrest in June 2018), Afib(Eliquis), HF(rEF 25-30% in June, but norm in August), AAA, HTN, Left hip fx, rhabdomyolysis, seizures presented to [facility] for complaint of 10 of 10 diffuse abdominal pain w/a nausea and no BM. Has had chronic constipation, last BM was 4d prior. Admitted for severe abd pain and distension , possibly 2/2 to ileus vs perforated diverticulitis # severe sepsis: possibly 2/2 perforated diverticulitis - ED: HR 90-100s, WBC 16.4, lactic 2.3, Cr 5.2 > lactic acid 2.3, 3.3, > CT A/P(03/30/19): sigmoid diverticulae, pneumoperitoneum vs loop of bowel w/ air-fluid level 4x3cm in Left inferior pelvis, infrarenal aortic aneurysm 6cm, moderate GB overdistention > stool cx --pending > c diff --pending - Surg([facility]) consult: --cw medical mgmt - ABX Regimen: --ED: vanc + zosyn --zosyn --day#1 # Ileus - NPO - aggressively replete lytes # troponinemia: likely demand ischemia > troponin: 0.18, 0.21 - cardio consult # CHUY: possibly 2/2 to severe sepsis > baseline Cr ~1.0 > Cr 5.2 > US renal/bladder --pending - Nephro([facility]) Consult: --bicarb gtt --US renal/bladder # Anion Gap Metabolic Acidosis: possibly 2/2 acute renal failure > bicarb 15 - Nephro([facility]): --bicarb gtt(D5W + 3amp bicarb) @ 100 # Infrarenal abdominal anuresym > CT A/P: 6 cm AAA - cont monitor # Transaminitis: likely 2/2 sepsis likely > Tbil 1.7 > AST/ALT 162/67 #chronic A fib - hold AC for possible emergent surgery # Seizures - keppra 500 IV BID # FEN - NPO - bicarb gtt DISPO: - ICU - FULL CODE Visit type - Emergency Visit Emergency Visit: Yes ED Registration Date: 03/30/19 Care time: The patient presented to the Emergency Department on the above date and was hospitalized for further evaluation of their emergent condition. - New Patient This patient is new to me today: Yes Date on this admission: 03/30/19 - Critical Care Critical Care patient: Yes Total Critical Care Time (in minutes): 32 Critical Care Statement: The care of this patient involved high complexity decision making to prevent further life threatening deterioration of the patient 's condition and/or to evaluate & treat vital organ system(s) failure or risk of failure. ATTENDING PHYSICIAN STATEMENT I saw and evaluated the patient. I reviewed the resident's note and discussed the case with the resident. I agree with the resident's findings and plan as documented. SUBJECTIVE: OBJECTIVE: ASSESSMENT AND PLAN:
--- NOTE | 2019-03-30 18:07 | PN ---
Teaching Attending Note Name of Resident: Rogerio House ATTENDING PHYSICIAN STATEMENT I saw and evaluated the patient. I reviewed the resident's note and discussed the case with the resident. I agree with the resident's findings and plan as documented. 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 No N/V, but had poor po intake. she lives alone and her friend checks on her. When she presented to the ER she was found to have CHUY, metabolic acidosis, sepsis, and free air in abd on CT scan she received zosyn , vanco , IVF, and narcotics. she was evaluate by renal and Sx. PE: Vs reviewed. on tele she is in sinus rhythm, with rate in 80s NAD, awake alert. looks ill. dry MM. no facial droop. EOMI, round equal pupils, thin and cachectic CV; RRR, no MRG Lungs: CTAB . Abd: soft, distended, tympanic, minimal tenderness in all quadrants. hypoactive BS. no guarding. Ext: No edema or erythema. liquid stool in diaper . brown in color Neuro : limited due to minimal cooperation. no facial droop, EOMI, tongue at mid line. strength 4/5 in hip flexion and 5/5 in knee flexion and extension . reflexes 2+ knee jerk. limited rest of the exam. 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 she was found to have CHUY, metabolic acidosis, sepsis, and free air in abd on CT scan. 1- Severe sepsis: due to possible diverticulitis with perforation 2- Ileus. 3- CHUY : due to volume deletion , ? ATN 4- High anion gap metabolic acidosis. due to renal failure and lactic acid elevation 5- Elevated trop : likely demand ischemia 6- 6 cm AAA: increased in size . 7- Transaminitis: due to sepsis likely, doubt biliary obstruction or infection. 8- H/o A fib 9- h/o Seizures. 10- H/o cardiomyopathy. plan : - cont bicarb drip - NPO - appreciate surgical eval. no procedure for now. - monitor abd exam . - repeat lactic . - start zosyn, per crCl - acevedo for I&O - send stool cx and c diff. ( liquid stool in diaper) - follow troponins. get echo. card consult - Monitor LFTS - US of RUQ. - consult ID - careful monitoring of her volume status. currently volume depleted. h/o low EF and cardiomyopathy. - cont her home keppra through IV - Hold off SQ heparin in case she needs urgent procedure - will hold any antihypertensives. including any ARB /ACEi - will confirm her meds - Hold eliquis in case she needs a surgical procedure . - SCds ICU placement Critical Care Total Critical Care Time (in minutes): 45 Critical Care Statement: The care of this patient involved high complexity decision making to prevent further life threatening deterioration of the patient 's condition and/or to evaluate & treat vital organ system(s) failure or risk of failure.
[2019-03-30] MEDS ORDERED: SODIUM BICARBONATE 8.4% - 150 MEQ in DEXTROSE 5%-WATER - 1,000 ML IV SCH (19:30)
[2019-03-30] MEDS: DEXTROSE 5%-WATER - 1,000 ML with SODIUM BICARBONATE 8.4% - 150 MEQ IV SCH (19:51)
[2019-03-30] MEDS ORDERED: PIPERACILLIN/TAZOB 2.25 GM 2.25 GM in DEXTROSE 5%-WATER - 50 ML IVPB SCH ×2 (20:30→22:30)
[2019-03-30] MEDS: CHLORHEXIDINE GLUCONATE 4% CLEANSER FOR DECOLONIZATION TP SCH (22:00)
[2019-03-30] MEDS: levETIRAcetam 500 MG/5 ML INJECTION VIAL IVPB SCH (22:00)
[2019-03-30] MEDS: MUPIROCIN 2% TOPICAL OINTMENT FOR DECOLONIZATION NS SCH (22:00)
[2019-03-30 23:54] VITALS: BMI 19.0
[2019-03-31 00:31] LABS: ARTERIAL BLD GAS O2 SATURATION 92.3 % (95-98); ARTERIAL BLOOD GAS PCO2 36.8 mmHg (35-45); ARTERIAL BLOOD GAS PO2 74.8 mmHg (80-100); ARTERIAL BLOOD GAS pH 7.36 (7.35-7.45)
[2019-03-31 00:33] LABS: ALLENS TEST POSITIVE
[2019-03-31] MEDS: PIPERACILLIN/TAZOB 2.25 GM 2.25 GM in DEXTROSE 5%-WATER - 50 ML IVPB SCH ×3 (02:30→17:44)
[2019-03-31] MEDS ORDERED: LACTATED RINGERS SOLUTION 1,000 ML/1,000 ML INFUS.BAG IV ONE (04:01)
[2019-03-31] MEDS ORDERED: PIPERACILLIN/TAZOBACTAM 2.25 GM VIAL IVPB ONE ×3 (05:00→17:31)
[2019-03-31] MEDS ORDERED: DEXTROSE 5%-WATER - 50 ML IVPB ONE ×3 (05:01→17:31)
[2019-03-31] MEDS ORDERED: SODIUM CHLORIDE 0.9% 500 ML INFUS.BAG IV ONE ×2 (06:07→15:07)
[2019-03-31] MEDS ORDERED: NOREPINEPHRINE BITARTRATE 4,000 MCG in DEXTROSE 5%-WATER - 496 ML IV SCH (07:15)
[2019-03-31 07:20] LABS: ALBUMIN 2.2 g/dl (3.4-5.0); BILIRUBIN,TOTAL 1.7 mg/dL (0.2-1); BLOOD UREA NITROGEN 103.1 mg/dL (7-18); CREATININE 5.1 mg/dL (0.55-1.3); TOT PROT 5.9 g/dl (6.4-8.2)
[2019-03-31 07:32] LABS: CALCIUM 6.5 mg/dL (8.5-10.1)
[2019-03-31] MEDS ORDERED: LACTATED RINGERS SOLUTION 1,000 ML/1,000 ML INFUS.BAG IV STA (07:43)
--- NOTE | 2019-03-31 08:30 | PROC ---
Central Line Insertion - Procedure Note TIME OUT performed prior to this procedure with verbal confirmation of correct patient identity, correct side, agreement of the procedure, correct patient position, availability of necessary equipment. Informed consent obtained from pateint's HCP (listed on consent and telephone number). Risk of possible infection, bleeding and pneumothorax have been discussed with the HCP. Safety precautions based on patient history or medication use has been addressed. Indication: Poor Venous Access Consent on Chart: Yes Central Line: Triple Lumen Catheter Position: Trendelenburg Area prepped with Chlorhexidine solution then draped using sterile barrier protection. Anesthesia: Lidocaine 1% Technique used: Seldinger Ultrasound Guided Assistance: Yes Site: Right Internal Jugular Dark venous non-pulsatile flow noted from hub of needle after one attempt. Guidewire advanced easily. Vessel dilated. The catheter introduced. Guide wire removed intact. Each port aspirated then flushed with sterile normal saline and capped. Line secured to skin with nylon suture. Biopatch placed around base of line. Sterile occlusive dressing applied. No complications. Patient tolerated the procedure well. STAT chest xray ordered to confirm position and r/o pneumothorax
[2019-03-31] MEDS ORDERED: NOREPINEPHRINE BITARTRATE 4 MG/4 ML ML IV ONE ×2 (08:39→18:04)
[2019-03-31 09:02] LABS: EOS % 1.1 % (0-4.5); HEMATOCRIT 26.1 % (32.4-45.2); HEMOGLOBIN 8.7 GM/dL (10.7-15.3); LYMPH % 2.3 % (8-40); MCH 29.5 pg (25.7-33.7); MCHC 33.4 g/dl (32.0-36.0); MEAN CELL VOLUME 88.5 fl (80-96); MONO % 3.3 % (3.8-10.2); NEUT % 93.3 % (42.8-82.8); PLATELET COUNT 258 K/MM3 (134-434); RBC 2.95 M/mm3 (3.60-5.2); RDW 14.9 % (11.6-15.6); WHITE BLOOD COUNT 21.7 K/mm3 (4.0-10.0)
[2019-03-31] MEDS: DEXTROSE 5%-WATER - 1,000 ML with SODIUM BICARBONATE 8.4% - 150 MEQ IV SCH ×2 (09:30→20:37)
[2019-03-31 09:36] LABS: ALBUMIN 1.6 g/dl (3.4-5.0); BILIRUBIN,TOTAL 1.1 mg/dL (0.2-1); BLOOD UREA NITROGEN 95.3 mg/dL (7-18); CREATININE 4.5 mg/dL (0.55-1.3); MAGNESIUM 2.2 mg/dL (1.8-2.4); PHOSPHOROUS 8.2 mg/dL (2.5-4.9); TOT PROT 4.6 g/dl (6.4-8.2)
[2019-03-31 09:41] LABS: CALCIUM 5.6 mg/dL (8.5-10.1)
[2019-03-31] MEDS ORDERED: SODIUM BICARBONATE 8.4% 50 MEQ/50 ML VIAL ONE (10:08)
[2019-03-31] MEDS: levETIRAcetam 500 MG/5 ML INJECTION VIAL IVPB SCH ×2 (10:16→21:19)
[2019-03-31] MEDS: MUPIROCIN 2% TOPICAL OINTMENT FOR DECOLONIZATION NS SCH ×2 (10:18→21:14)
[2019-03-31] MEDS ORDERED: RAPID SEQUENCE INTUBATION KIT NR ONE (10:32)
--- NOTE | 2019-03-31 11:08 | PN ---
Progress Note (short form) - Note Progress Note: ID CONSULT DICTATED SEPTIC SHOCK SEPSIS SECONDARY TO SOURCE PROBABLE DIVERTICULAR ABSCESS IMPENDING RESP FAILURE HYPOTHERMIA/ HYPOTENSION LEUKOCYTOSIS LACTIC ACIDOSIS RENAL FAILURE ELEVATED LFTS AWAIT C/S CONTINUE EMPIRIC ZOSYN/ VANCOMYCIN, ADJUSTED FOR RENAL FAILURE PROGNOSIS POOR CRITICAL CARE TIME 35MIN
[2019-03-31 11:12] LABS: ANISOCYTOSIS 1+; MACROCYTOSIS 0; OVALOCYTE 1+; PLATELET ESTIMATE NORMAL
--- NOTE | 2019-03-31 11:29 | PROC ---
Intubation - Intubation Reason for Intubation: Respiratory Failure Time of Intubation: 11:00 Intubation Method: orotracheal Blade used: Glidescope Tube Size (cm): 7.5 Tube position @ lip (cm): 22 Tube position confirmed by: CO2 detector Breath Sounds after Intubation: left greater than right Post Intubation Xray: Yes
--- NOTE | 2019-03-31 11:38 | PN ---
Teaching Attending Note Name of Resident: Jelena Carrera ATTENDING PHYSICIAN STATEMENT I saw and evaluated the patient. I reviewed the resident's note and discussed the case with the resident. I agree with the resident's findings and plan as documented. SUBJECTIVE: Patient seen and examined in the ICU. S.P CP arrest (asystole) -> ROSC in about 15 minutes. Now intubated and minimally responsive. NE @ 15 mcq for hemodynamic support. Intake & Output 03/28/19 03/29/19 03/30/19 03/31/19 23:59 23:59 23:59 23:59 Output Total 10 Balance -10 Weight 97 lb 8 oz 97 lb 8 oz Last Vital Signs Temp Pulse Resp BP Pulse Ox 94.6 F L 79 21 H 61/47 L 93 L 03/31/19 10:00 03/31/19 10:00 03/31/19 10:00 03/31/19 10:00 03/30/19 23:55 Active Medications Chlorhexidine Gluconate (Hibiclens For Decolonization -) 1 applic TP HS [facility] Last Admin: 03/30/19 22:00 Dose: 1 applic Sodium Bicarbonate 150 meq/ (Dextrose) 1,150 mls @ 100 mls/hr IV Q11H [facility] Last Admin: 03/31/19 09:30 Dose: 100 mls/hr Piperacillin Sod/Tazobactam (Sod 2.25 gm/ Dextrose) 50 mls @ 100 mls/hr IVPB Q8H-IV [facility]; Protocol Last Admin: 03/31/19 10:16 Dose: 100 mls/hr Levetiracetam (Keppra Injection -) 500 mg IVPB BID [facility] Last Admin: 03/31/19 10:16 Dose: 500 mg Mupirocin (Bactroban Ointment (For Decolonization) -) 1 applic NS BID [facility] Stop: 04/04/19 21:59 Last Admin: 03/31/19 10:18 Dose: 1 applic GENERAL: Intubated and minimally responsive HEAD: Normal with no signs of trauma. EYES: Pupils equal, round and reactive to light, extraocular movements intact, sclera anicteric, conjunctiva clear. No lid lag. EARS, NOSE, THROAT: Ears normal, nares patent, oropharynx clear without exudates. Dry mucous membranes. NECK: Normal range of motion, supple without lymphadenopathy, JVD, or masses. LUNGS: Vented, diminished on the right, coarse breath sounds on the left HEART: tachycardic, irregular, normal S1 and S2 without murmur, rub or gallop. ABDOMEN: Soft, nontender, mildly distended, normoactive bowel sounds, positive guarding, positive rebound, no masses. MUSCULOSKELETAL: Normal range of motion at all joints. No bony deformities or tenderness. No CVA tenderness. UPPER EXTREMITIES: cool LOWER EXTREMITIES: cool NEUROLOGICAL: Minimally responsive to noxious stimuli SKIN: Warm, dry, normal turgor, no rashes or lesions noted. Laboratory Results - last 24 hr 03/30/19 03/30/19 03/30/19 11:09 11:09 11:09 WBC 16.4 H RBC 3.77 Hgb 11.3 Hct 33.2 D MCV 88.0 MCH 30.0 MCHC 34.0 RDW 14.6 Plt Count 358 D MPV 7.6 Absolute Neuts (auto) 14.8 H Neutrophils % 90.2 H Neutrophils % (Manual) Band Neutrophils % Lymphocytes % 2.0 L D Lymphocytes % (Manual) Monocytes % 6.6 Monocytes % (Manual) Eosinophils % 1.1 D Eosinophils % (Manual) Basophils % 0.1 Basophils % (Manual) Myelocytes % (Man) Promyelocytes % (Man) Blast Cells % (Manual) Nucleated RBC % 0 Metamyelocytes Hypochromia Platelet Estimate Platelet Comment Polychromasia Poikilocytosis Anisocytosis Microcytosis Macrocytosis Spherocytes Ovalocytes [place] Cells Schistocytes PT with INR INR PTT (Actin FS) Anticoagulation Therapy Puncture Site ABG pH ABG pCO2 at Pt Temp ABG pO2 at Pt Temp ABG HCO3 ABG O2 Sat (Measured) ABG O2 Content ABG Base Excess Jeevan Test O2 Delivery Device Oxygen Flow Rate Vent Mode Vent Rate Mechanical Rate Pressure Support Vent Sodium 130 L Potassium 4.7 Chloride 93 L Carbon Dioxide 15 L Anion Gap 22 H BUN 103.1 H Creatinine 5.2 H Est GFR (CKD-EPI)AfAm 7.99 Est GFR (CKD-EPI)NonAf 6.90 Random Glucose 119 H Lactic Acid Calcium 7.9 L Phosphorus 8.2 H Magnesium 2.7 H Total Bilirubin 1.7 H AST 162 H ALT 67 H Alkaline Phosphatase 150 H Creatine Kinase Creatine Kinase Index CK-MB (CK-2) Troponin I 0.18 H Total Protein 7.2 Albumin 2.7 L Lipase 211 Random Vancomycin Blood Type A POSITIVE Antibody Screen Negative 03/30/19 03/30/19 03/30/19 11:09 12:25 15:42 WBC RBC Hgb Hct MCV MCH MCHC RDW Plt Count MPV Absolute Neuts (auto) Neutrophils % Neutrophils % (Manual) Band Neutrophils % Lymphocytes % Lymphocytes % (Manual) Monocytes % Monocytes % (Manual) Eosinophils % Eosinophils % (Manual) Basophils % Basophils % (Manual) Myelocytes % (Man) Promyelocytes % (Man) Blast Cells % (Manual) Nucleated RBC % Metamyelocytes Hypochromia Platelet Estimate Platelet Comment Polychromasia Poikilocytosis Anisocytosis Microcytosis Macrocytosis Spherocytes Ovalocytes [place] Cells Schistocytes PT with INR 12.30 INR 1.04 PTT (Actin FS) 43.1 H Anticoagulation Therapy Puncture Site ABG pH ABG pCO2 at Pt Temp ABG pO2 at Pt Temp ABG HCO3 ABG O2 Sat (Measured) ABG O2 Content ABG Base Excess Jeevan Test O2 Delivery Device Oxygen Flow Rate Vent Mode Vent Rate Mechanical Rate Pressure Support Vent Sodium Potassium Chloride Carbon Dioxide Anion Gap BUN Creatinine Est GFR (CKD-EPI)AfAm Est GFR (CKD-EPI)NonAf Random Glucose Lactic Acid 2.3 H* 3.3 H* Calcium Phosphorus Magnesium Total Bilirubin AST ALT Alkaline Phosphatase Creatine Kinase Creatine Kinase Index CK-MB (CK-2) Troponin I Total Protein Albumin Lipase Random Vancomycin Blood Type Antibody Screen 03/30/19 03/30/19 03/30/19 15:42 21:30 21:30 WBC RBC Hgb Hct MCV MCH MCHC RDW Plt Count MPV Absolute Neuts (auto) Neutrophils % Neutrophils % (Manual) Band Neutrophils % Lymphocytes % Lymphocytes % (Manual) Monocytes % Monocytes % (Manual) Eosinophils % Eosinophils % (Manual) Basophils % Basophils % (Manual) Myelocytes % (Man) Promyelocytes % (Man) Blast Cells % (Manual) Nucleated RBC % Metamyelocytes Hypochromia Platelet Estimate Platelet Comment Polychromasia Poikilocytosis Anisocytosis Microcytosis Macrocytosis Spherocytes Ovalocytes [place] Cells Schistocytes PT with INR INR PTT (Actin FS) Anticoagulation Therapy Puncture Site ABG pH ABG pCO2 at Pt Temp ABG pO2 at Pt Temp ABG HCO3 ABG O2 Sat (Measured) ABG O2 Content ABG Base Excess Jeevan Test O2 Delivery Device Oxygen Flow Rate Vent Mode Vent Rate Mechanical Rate Pressure Support Vent Sodium Potassium Chloride Carbon Dioxide Anion Gap BUN Creatinine Est GFR (CKD-EPI)AfAm Est GFR (CKD-EPI)NonAf Random Glucose Lactic Acid 3.1 H* Calcium Phosphorus Magnesium Total Bilirubin AST ALT Alkaline Phosphatase Creatine Kinase 189 Creatine Kinase Index 2.5 CK-MB (CK-2) 4.8 H Troponin I 0.21 H Total Protein Albumin Lipase Random Vancomycin Blood Type Antibody Screen 03/30/19 03/31/19 03/31/19 21:30 00:15 02:20 WBC RBC Hgb Hct MCV MCH MCHC RDW Plt Count MPV Absolute Neuts (auto) Neutrophils % Neutrophils % (Manual) Band Neutrophils % Lymphocytes % Lymphocytes % (Manual) Monocytes % Monocytes % (Manual) Eosinophils % Eosinophils % (Manual) Basophils % Basophils % (Manual) Myelocytes % (Man) Promyelocytes % (Man) Blast Cells % (Manual) Nucleated RBC % Metamyelocytes Hypochromia Platelet Estimate Platelet Comment Polychromasia Poikilocytosis Anisocytosis Microcytosis Macrocytosis Spherocytes Ovalocytes [place] Cells Schistocytes PT with INR INR PTT (Actin FS) Anticoagulation Therapy No Result Required. Puncture Site Right radial ABG pH 7.36 ABG pCO2 at Pt Temp 36.8 ABG pO2 at Pt Temp 74.8 L ABG HCO3 20.4 L ABG O2 Sat (Measured) 92.3 L ABG O2 Content 14.4 ABG Base Excess -4.0 L Jeevan Test Positive O2 Delivery Device Nasal Oxygen Flow Rate 4 l Vent Mode No Result Required. Vent Rate No Result Required. Mechanical Rate No Result Required. Pressure Support Vent No Result Required. Sodium 136 Potassium 4.0 Chloride 95 L Carbon Dioxide 23 Anion Gap 18 H BUN 103.1 H Creatinine 5.1 H Est GFR (CKD-EPI)AfAm 8.18 Est GFR (CKD-EPI)NonAf 7.06 Random Glucose 195 H Lactic Acid Calcium 6.5 L* Phosphorus Magnesium Total Bilirubin 1.7 H AST 224 H ALT 87 H Alkaline Phosphatase 137 H Creatine Kinase 186 Creatine Kinase Index 2.6 CK-MB (CK-2) 4.9 H Troponin I 0.34 H 0.41 H Total Protein 5.9 L Albumin 2.2 L Lipase Random Vancomycin Blood Type Antibody Screen 03/31/19 03/31/19 03/31/19 02:20 08:10 08:10 WBC 21.7 H RBC 2.95 L Hgb 8.7 L Hct 26.1 L D MCV 88.5 MCH 29.5 MCHC 33.4 RDW 14.9 Plt Count 258 D MPV 7.0 L Absolute Neuts (auto) 20.2 H Neutrophils % 93.3 H Neutrophils % (Manual) 65.7 Band Neutrophils % 19.2 Lymphocytes % 2.3 L Lymphocytes % (Manual) 4.0 L D Monocytes % 3.3 L Monocytes % (Manual) 8 Eosinophils % 1.1 Eosinophils % (Manual) 0.0 Basophils % 0.0 Basophils % (Manual) 0.0 Myelocytes % (Man) 3 H D Promyelocytes % (Man) 0 Blast Cells % (Manual) 0 Nucleated RBC % 0 Metamyelocytes 0 Hypochromia 0 Platelet Estimate Normal Platelet Comment Present Polychromasia 0 Poikilocytosis 2+ Anisocytosis 1+ Microcytosis 1+ Macrocytosis 0 Spherocytes 1+ Ovalocytes 1+ [place] Cells 2+ Schistocytes 1+ PT with INR INR PTT (Actin FS) Anticoagulation Therapy Puncture Site ABG pH ABG pCO2 at Pt Temp ABG pO2 at Pt Temp ABG HCO3 ABG O2 Sat (Measured) ABG O2 Content ABG Base Excess Jeevan Test O2 Delivery Device Oxygen Flow Rate Vent Mode Vent Rate Mechanical Rate Pressure Support Vent Sodium Potassium Chloride Carbon Dioxide Anion Gap BUN Creatinine Est GFR (CKD-EPI)AfAm Est GFR (CKD-EPI)NonAf Random Glucose Lactic Acid 4.8 H* Calcium Phosphorus Magnesium Total Bilirubin AST ALT Alkaline Phosphatase Creatine Kinase Creatine Kinase Index CK-MB (CK-2) Troponin I Total Protein Albumin Lipase Random Vancomycin 9.6 L Blood Type Antibody Screen 03/31/19 03/31/19 08:10 08:10 WBC RBC Hgb Hct MCV MCH MCHC RDW Plt Count MPV Absolute Neuts (auto) Neutrophils % Neutrophils % (Manual) Band Neutrophils % Lymphocytes % Lymphocytes % (Manual) Monocytes % Monocytes % (Manual) Eosinophils % Eosinophils % (Manual) Basophils % Basophils % (Manual) Myelocytes % (Man) Promyelocytes % (Man) Blast Cells % (Manual) Nucleated RBC % Metamyelocytes Hypochromia Platelet Estimate Platelet Comment Polychromasia Poikilocytosis Anisocytosis Microcytosis Macrocytosis Spherocytes Ovalocytes [place] Cells Schistocytes PT with INR INR PTT (Actin FS) Anticoagulation Therapy Puncture Site ABG pH ABG pCO2 at Pt Temp ABG pO2 at Pt Temp ABG HCO3 ABG O2 Sat (Measured) ABG O2 Content ABG Base Excess Jeevan Test O2 Delivery Device Oxygen Flow Rate Vent Mode Vent Rate Mechanical Rate Pressure Support Vent Sodium 137 Potassium 4.0 Chloride 99 Carbon Dioxide 25 Anion Gap 13 BUN 95.3 H Creatinine 4.5 H Est GFR (CKD-EPI)AfAm 9.52 Est GFR (CKD-EPI)NonAf 8.21 Random Glucose 164 H Lactic Acid 5.5 H* Calcium 5.6 L* Phosphorus 8.2 H Magnesium 2.2 Total Bilirubin 1.1 H AST 355 H ALT 130 H Alkaline Phosphatase 121 H Creatine Kinase Creatine Kinase Index CK-MB (CK-2) Troponin I 0.43 H Total Protein 4.6 L Albumin 1.6 L Lipase Random Vancomycin Blood Type Antibody Screen Problem List - Problems (1) Elevated troponin I level Problems reviewed: Yes Code(s): R79.89 - OTHER SPECIFIED ABNORMAL FINDINGS OF BLOOD CHEMISTRY (2) Peritonitis Problems reviewed: Yes Code(s): K65.9 - PERITONITIS, UNSPECIFIED (3) Pneumoperitoneum Problems reviewed: Yes Code(s): K66.8 - OTHER SPECIFIED DISORDERS OF PERITONEUM (4) Renal failure Problems reviewed: Yes Code(s): N19 - UNSPECIFIED KIDNEY FAILURE Qualifiers: Renal failure chronicity: acute Acute renal failure type: unspecified Qualified Code(s): N17.9 - Acute kidney failure, unspecified (5) Colitis Problems reviewed: Yes Code(s): K52.9 - NONINFECTIVE GASTROENTERITIS AND COLITIS, UNSPECIFIED ASSESSMENT/PLAN: CP arrest Acute Respiratory Failure History of Right Pneumonectomy History of right lung CA HTN Suspected microperforation [place] ischemia Acute renal failure Extensive sigmoid diverticulosis Suspected Pneumoperitoneum Enlarging AAA AC Mode of vent Check ABG Check CXR Pressors to maintain MAP > 65 Renal evaluation: due to overall status PURCH[employer]ING INTER[employer] not clearly indicated at this time ABX per ID Follow cultures Strict I & O Bicarbonate drip per Renal Overall prognosis for meaningful survival is grave. Dr Dooley Critical care time spent in reviewing chart, evaluating patient and formulating plan - 36 minutes.
--- NOTE | 2019-03-31 11:39 | CON.CARD ---
Cardiology Consult (text) - Consultation Consultation Note: Consult Specialty:: cardio - History of Present Illness Chief Complaint: History of Present Illness: 89F h/o HTN, lung cancer s/p R lung resection, h/o NSTEMI and cardiac arrest 2018, afib, chronic systolic HF, AAA, HTN, rhabdo p/w abd pain, nausea, constipation. Admitted to ICU for pneumoperitoneum, being medically managed. Pt unable to give hx due to alt mental status, history obtained through chart. PMH: HTN lung Ca s/p right lung resectino - Alcohol/Substance Use Hx Alcohol Use: No - Smoking History Smoking history: Former smoker Have you smoked in the past 12 months: No Aproximately how many cigarettes per day: 30 If you are a former smoker, when did you quit?: over 12yrs ago Home Medications - Allergies Allergies/Adverse Reactions: Allergies Allergy/AdvReac Type Severity Reaction Status Date / Time No Known Allergies Allergy Verified 01/15/18 10:36 Home Medications Medication Instructions Recorded Losartan Potassium 50 mg PO DAILY 10/27/15 Bisacodyl Suppository [Dulcolax 10 mg SD PRN PRN supp.rect 01/20/18 Suppository -] Docusate Sodium [Colace -] 100 mg PO TID capsule 01/20/18 Polyethylene Glycol 3350 [Miralax 17 gm PO DAILY bottle 01/20/18 119 gm Btl -] Sennosides [Senna -] 2 tab PO HS tablet 01/20/18 Ferrous Sulfate 325 mg PO BID 08/15/18 Apixaban [Eliquis -] 2.5 mg PO BID #0 tablet 08/28/18 levETIRAcetam [Keppra -] 500 mg PO BID #60 tablet 08/28/18 Atorvastatin Ca [Lipitor] 80 mg PO HS 03/30/19 Metoprolol Succinate [Toprol XL -] 25 mg PO DAILY 03/30/19 Review of Systems - Review of Systems Constitutional: denies: Chills, Fever Eyes: denies: Eye Pain HENT: denies: Nasal Congestion Neck: denies: Stiffness Cardiovascular: denies: Palpitations Respiratory: denies: Orthopnea, PND Gastrointestinal: denies: Diarrhea, Rectal Bleeding Genitourinary: denies: Burning, Hematuria Musculoskeletal: denies: Muscle Pain Integumentary: denies: Rash Neurological: denies: Numbness, Seizure Endocrine: denies: Excessive Sweating Hematology/Lymphatic: denies: Excessive Bleeding Vital Signs Period Temp Pulse Resp BP Sys/Aguirre Pulse Ox Last 24 Hr 94.6 F-97.0 F 79-114 18-21 61-125/47-79 93-99 Constitutional: NAD Respiratory: Yes: diffuse rhonchi, exp wheezes Gastrointestinal: soft, nt, nd +bs Cardiovascular: Yes: Regular Rate and Rhythm JVD: No Heart Sounds: nl s1, s2 rrr. Extremities: No: Cool Edema: No Integumentary: No: Jaundice Neurological: lethargic Psychiatric: No: Agitated Laboratory Last Values WBC 21.7 K/mm3 (4.0-10.0) H 03/31/19 08:10 RBC 2.95 M/mm3 (3.60-5.2) L 03/31/19 08:10 Hgb 8.7 GM/dL (10.7-15.3) L 03/31/19 08:10 Hct 26.1 % (32.4-45.2) L D 03/31/19 08:10 MCV 88.5 fl (80-96) 03/31/19 08:10 MCH 29.5 pg (25.7-33.7) 03/31/19 08:10 MCHC 33.4 g/dl (32.0-36.0) 03/31/19 08:10 RDW 14.9 % (11.6-15.6) 03/31/19 08:10 Plt Count 258 K/MM3 (134-434) D 03/31/19 08:10 MPV 7.0 fl (7.5-11.1) L 03/31/19 08:10 Absolute Neuts (auto) 20.2 K/mm3 (1.5-8.0) H 03/31/19 08:10 Neutrophils % 93.3 % (42.8-82.8) H 03/31/19 08:10 Neutrophils % (Manual) 65.7 % (42.8-82.8) 03/31/19 08:10 Band Neutrophils % 19.2 % 03/31/19 08:10 Lymphocytes % 2.3 % (8-40) L 03/31/19 08:10 Lymphocytes % (Manual) 4.0 % (8-40) L D 03/31/19 08:10 Monocytes % 3.3 % (3.8-10.2) L 03/31/19 08:10 Monocytes % (Manual) 8 % (3.8-10.2) 03/31/19 08:10 Eosinophils % 1.1 % (0-4.5) 03/31/19 08:10 Eosinophils % (Manual) 0.0 % (0-4.5) 03/31/19 08:10 Basophils % 0.0 % (0-2.0) 03/31/19 08:10 Basophils % (Manual) 0.0 % (0-2.0) 03/31/19 08:10 Myelocytes % (Man) 3 % (0-2) H D 03/31/19 08:10 Promyelocytes % (Man) 0 % (0-2) 03/31/19 08:10 Blast Cells % (Manual) 0 % (0-0) 03/31/19 08:10 Nucleated RBC % 0 % (0-0) 03/31/19 08:10 Metamyelocytes 0 % (0-2) 03/31/19 08:10 Hypochromia 0 03/31/19 08:10 Platelet Estimate Normal 03/31/19 08:10 Platelet Comment Present 03/31/19 08:10 Polychromasia 0 03/31/19 08:10 Poikilocytosis 2+ 03/31/19 08:10 Anisocytosis 1+ 03/31/19 08:10 Microcytosis 1+ 03/31/19 08:10 Macrocytosis 0 03/31/19 08:10 Spherocytes 1+ 03/31/19 08:10 Ovalocytes 1+ 03/31/19 08:10 [place] Cells 2+ 03/31/19 08:10 Schistocytes 1+ 03/31/19 08:10 PT with INR 12.30 SEC (9.7-13.0) 03/30/19 11:09 INR 1.04 (0.83-1.09) 03/30/19 11:09 PTT (Actin FS) 43.1 SECONDS (25.2-36.5) H 03/30/19 11:09 Anticoagulation Therapy No Result Required. 03/31/19 00:15 Puncture Site Right radial 03/31/19 00:15 ABG pH 7.36 (7.35-7.45) 03/31/19 00:15 ABG pCO2 at Pt Temp 36.8 mmHg (35-45) 03/31/19 00:15 ABG pO2 at Pt Temp 74.8 mmHg (80-100) L 03/31/19 00:15 ABG HCO3 20.4 mmol/L (22-27) L 03/31/19 00:15 ABG O2 Sat (Measured) 92.3 % (95-98) L 03/31/19 00:15 ABG O2 Content 14.4 % vol 03/31/19 00:15 ABG Base Excess -4.0 meq/l (-2-2) L 03/31/19 00:15 Jeevan Test Positive 03/31/19 00:15 O2 Delivery Device Nasal 03/31/19 00:15 Oxygen Flow Rate 4 l 03/31/19 00:15 Vent Mode No Result Required. 03/31/19 00:15 Vent Rate No Result Required. 03/31/19 00:15 Mechanical Rate No Result Required. 03/31/19 00:15 Pressure Support Vent No Result Required. 03/31/19 00:15 Sodium 137 mmol/L (136-145) 03/31/19 08:10 Potassium 4.0 mmol/L (3.5-5.1) 03/31/19 08:10 Chloride 99 mmol/L (98-107) 03/31/19 08:10 Carbon Dioxide 25 mmol/L (21-32) 03/31/19 08:10 Anion Gap 13 MMOL/L (8-16) 03/31/19 08:10 BUN 95.3 mg/dL (7-18) H 03/31/19 08:10 Creatinine 4.5 mg/dL (0.55-1.3) H 03/31/19 08:10 Est GFR (CKD-EPI)AfAm 9.52 03/31/19 08:10 Est GFR (CKD-EPI)NonAf 8.21 03/31/19 08:10 Random Glucose 164 mg/dL (74-106) H 03/31/19 08:10 Lactic Acid 5.5 mmol/L (0.4-2.0) H* 03/31/19 08:10 Calcium 5.6 mg/dL (8.5-10.1) L* 03/31/19 08:10 Phosphorus 8.2 mg/dL (2.5-4.9) H 03/31/19 08:10 Magnesium 2.2 mg/dL (1.8-2.4) 03/31/19 08:10 Total Bilirubin 1.1 mg/dL (0.2-1) H 03/31/19 08:10 AST 355 U/L (15-37) H 03/31/19 08:10 ALT 130 U/L (13-61) H 03/31/19 08:10 Alkaline Phosphatase 121 U/L (45-117) H 03/31/19 08:10 Creatine Kinase 186 U/L (26-192) 03/30/19 21:30 Creatine Kinase Index 2.6 % (0.0-5.0) 03/30/19 21:30 CK-MB (CK-2) 4.9 ng/mL (0.5-3.6) H 03/30/19 21:30 Troponin I 0.43 ng/ml (0.00-0.05) H 03/31/19 08:10 Total Protein 4.6 g/dl (6.4-8.2) L 03/31/19 08:10 Albumin 1.6 g/dl (3.4-5.0) L 03/31/19 08:10 Lipase 211 U/L (73-393) 03/30/19 11:09 Random Vancomycin 9.6 ug/ml (18-26) L 03/31/19 08:10 Blood Type A POSITIVE 03/30/19 11:09 Antibody Screen Negative 03/30/19 11:09 Assessment/Plan ECG: sinus tach, nonspecific T wave changes echo 08/2018 tds, unable to assess LV function, grossly nl RV, no MS mibi 08/2018 sm to mod zone of inferolateral fixed defect c/w diaphragmatic attenuation, no ischemia, EF 67% tele: sinus sepsis, pneumoperitoneum, perforated diverticulitis - medical management per surgery - abx per critical care - pressors to maintain MAP >60, on levophed elevated trop - flat trend, indeterminate range, no ischemic change on EKG - likely demand in setting of underlying sepsis - mibi 08/2018 no ischemia - check echo CHUY, anion gap metabolic acidosis - likely prerenal in setting of sepsis - renal following, on bicarb gtt AAA - [address] a/p here - outpatient follow up afib - AC on hold pending clinical course in case of procedures - holding metoprolol in setting of hypotension - currently on pressors est time spent in data review, pt exam, formulating mgmt plan of potentially life threatening medical problems = 35 min
--- NOTE | 2019-03-31 11:42 | PN ---
Physical Exam: SUBJECTIVE: Patient seen and examined. Patient went into cardiac arrest today w / achievement of ROSC. Intubated. OBJECTIVE: Vital Signs Period Temp Pulse Resp BP Sys/Aguirre Pulse Ox Last 24 Hr 94.6 F-97.0 F 79-114 18-21 61-125/47-79 93-99 GENERAL: Alert, cannot assess orientation. Minimally responsive. HEENT: R IJ in place c/d/i LUNGS: Intubated. B/l vent sounds. HEART: Regular rate and rhythm, S1, S2 without murmur, rub or gallop. ABDOMEN: Soft, nontender, nondistended, normoactive bowel sounds EXTREMITIES: 2+ pulses, warm, well-perfused, no edema. Laboratory Results - last 24 hr 03/30/19 03/30/19 03/30/19 11:09 11:09 11:09 WBC 16.4 H RBC 3.77 Hgb 11.3 Hct 33.2 D MCV 88.0 MCH 30.0 MCHC 34.0 RDW 14.6 Plt Count 358 D MPV 7.6 Absolute Neuts (auto) 14.8 H Neutrophils % 90.2 H Neutrophils % (Manual) Band Neutrophils % Lymphocytes % 2.0 L D Lymphocytes % (Manual) Monocytes % 6.6 Monocytes % (Manual) Eosinophils % 1.1 D Eosinophils % (Manual) Basophils % 0.1 Basophils % (Manual) Myelocytes % (Man) Promyelocytes % (Man) Blast Cells % (Manual) Nucleated RBC % 0 Metamyelocytes Hypochromia Platelet Estimate Platelet Comment Polychromasia Poikilocytosis Anisocytosis Microcytosis Macrocytosis Spherocytes Ovalocytes Deal Cells Schistocytes PT with INR INR PTT (Actin FS) Anticoagulation Therapy Puncture Site ABG pH ABG pCO2 at Pt Temp ABG pO2 at Pt Temp ABG HCO3 ABG O2 Sat (Measured) ABG O2 Content ABG Base Excess Jeevan Test O2 Delivery Device Oxygen Flow Rate Vent Mode Vent Rate Mechanical Rate Pressure Support Vent Sodium 130 L Potassium 4.7 Chloride 93 L Carbon Dioxide 15 L Anion Gap 22 H BUN 103.1 H Creatinine 5.2 H Est GFR (CKD-EPI)AfAm 7.99 Est GFR (CKD-EPI)NonAf 6.90 Random Glucose 119 H Lactic Acid Calcium 7.9 L Phosphorus 8.2 H Magnesium 2.7 H Total Bilirubin 1.7 H AST 162 H ALT 67 H Alkaline Phosphatase 150 H Creatine Kinase Creatine Kinase Index CK-MB (CK-2) Troponin I 0.18 H Total Protein 7.2 Albumin 2.7 L Lipase 211 Random Vancomycin Blood Type A POSITIVE Antibody Screen Negative 03/30/19 03/30/19 03/30/19 11:09 12:25 15:42 WBC RBC Hgb Hct MCV MCH MCHC RDW Plt Count MPV Absolute Neuts (auto) Neutrophils % Neutrophils % (Manual) Band Neutrophils % Lymphocytes % Lymphocytes % (Manual) Monocytes % Monocytes % (Manual) Eosinophils % Eosinophils % (Manual) Basophils % Basophils % (Manual) Myelocytes % (Man) Promyelocytes % (Man) Blast Cells % (Manual) Nucleated RBC % Metamyelocytes Hypochromia Platelet Estimate Platelet Comment Polychromasia Poikilocytosis Anisocytosis Microcytosis Macrocytosis Spherocytes Ovalocytes Kirby Cells Schistocytes PT with INR 12.30 INR 1.04 PTT (Actin FS) 43.1 H Anticoagulation Therapy Puncture Site ABG pH ABG pCO2 at Pt Temp ABG pO2 at Pt Temp ABG HCO3 ABG O2 Sat (Measured) ABG O2 Content ABG Base Excess Jeevan Test O2 Delivery Device Oxygen Flow Rate Vent Mode Vent Rate Mechanical Rate Pressure Support Vent Sodium Potassium Chloride Carbon Dioxide Anion Gap BUN Creatinine Est GFR (CKD-EPI)AfAm Est GFR (CKD-EPI)NonAf Random Glucose Lactic Acid 2.3 H* 3.3 H* Calcium Phosphorus Magnesium Total Bilirubin AST ALT Alkaline Phosphatase Creatine Kinase Creatine Kinase Index CK-MB (CK-2) Troponin I Total Protein Albumin Lipase Random Vancomycin Blood Type Antibody Screen 03/30/19 03/30/19 03/30/19 15:42 21:30 21:30 WBC RBC Hgb Hct MCV MCH MCHC RDW Plt Count MPV Absolute Neuts (auto) Neutrophils % Neutrophils % (Manual) Band Neutrophils % Lymphocytes % Lymphocytes % (Manual) Monocytes % Monocytes % (Manual) Eosinophils % Eosinophils % (Manual) Basophils % Basophils % (Manual) Myelocytes % (Man) Promyelocytes % (Man) Blast Cells % (Manual) Nucleated RBC % Metamyelocytes Hypochromia Platelet Estimate Platelet Comment Polychromasia Poikilocytosis Anisocytosis Microcytosis Macrocytosis Spherocytes Ovalocytes Deal Cells Schistocytes PT with INR INR PTT (Actin FS) Anticoagulation Therapy Puncture Site ABG pH ABG pCO2 at Pt Temp ABG pO2 at Pt Temp ABG HCO3 ABG O2 Sat (Measured) ABG O2 Content ABG Base Excess Jeevan Test O2 Delivery Device Oxygen Flow Rate Vent Mode Vent Rate Mechanical Rate Pressure Support Vent Sodium Potassium Chloride Carbon Dioxide Anion Gap BUN Creatinine Est GFR (CKD-EPI)AfAm Est GFR (CKD-EPI)NonAf Random Glucose Lactic Acid 3.1 H* Calcium Phosphorus Magnesium Total Bilirubin AST ALT Alkaline Phosphatase Creatine Kinase 189 Creatine Kinase Index 2.5 CK-MB (CK-2) 4.8 H Troponin I 0.21 H Total Protein Albumin Lipase Random Vancomycin Blood Type Antibody Screen 03/30/19 03/31/19 03/31/19 21:30 00:15 02:20 WBC RBC Hgb Hct MCV MCH MCHC RDW Plt Count MPV Absolute Neuts (auto) Neutrophils % Neutrophils % (Manual) Band Neutrophils % Lymphocytes % Lymphocytes % (Manual) Monocytes % Monocytes % (Manual) Eosinophils % Eosinophils % (Manual) Basophils % Basophils % (Manual) Myelocytes % (Man) Promyelocytes % (Man) Blast Cells % (Manual) Nucleated RBC % Metamyelocytes Hypochromia Platelet Estimate Platelet Comment Polychromasia Poikilocytosis Anisocytosis Microcytosis Macrocytosis Spherocytes Ovalocytes Kirby Cells Schistocytes PT with INR INR PTT (Actin FS) Anticoagulation Therapy No Result Required. Puncture Site Right radial ABG pH 7.36 ABG pCO2 at Pt Temp 36.8 ABG pO2 at Pt Temp 74.8 L ABG HCO3 20.4 L ABG O2 Sat (Measured) 92.3 L ABG O2 Content 14.4 ABG Base Excess -4.0 L Jeevan Test Positive O2 Delivery Device Nasal Oxygen Flow Rate 4 l Vent Mode No Result Required. Vent Rate No Result Required. Mechanical Rate No Result Required. Pressure Support Vent No Result Required. Sodium 136 Potassium 4.0 Chloride 95 L Carbon Dioxide 23 Anion Gap 18 H BUN 103.1 H Creatinine 5.1 H Est GFR (CKD-EPI)AfAm 8.18 Est GFR (CKD-EPI)NonAf 7.06 Random Glucose 195 H Lactic Acid Calcium 6.5 L* Phosphorus Magnesium Total Bilirubin 1.7 H AST 224 H ALT 87 H Alkaline Phosphatase 137 H Creatine Kinase 186 Creatine Kinase Index 2.6 CK-MB (CK-2) 4.9 H Troponin I 0.34 H 0.41 H Total Protein 5.9 L Albumin 2.2 L Lipase Random Vancomycin Blood Type Antibody Screen 03/31/19 03/31/19 03/31/19 02:20 08:10 08:10 WBC 21.7 H RBC 2.95 L Hgb 8.7 L Hct 26.1 L D MCV 88.5 MCH 29.5 MCHC 33.4 RDW 14.9 Plt Count 258 D MPV 7.0 L Absolute Neuts (auto) 20.2 H Neutrophils % 93.3 H Neutrophils % (Manual) 65.7 Band Neutrophils % 19.2 Lymphocytes % 2.3 L Lymphocytes % (Manual) 4.0 L D Monocytes % 3.3 L Monocytes % (Manual) 8 Eosinophils % 1.1 Eosinophils % (Manual) 0.0 Basophils % 0.0 Basophils % (Manual) 0.0 Myelocytes % (Man) 3 H D Promyelocytes % (Man) 0 Blast Cells % (Manual) 0 Nucleated RBC % 0 Metamyelocytes 0 Hypochromia 0 Platelet Estimate Normal Platelet Comment Present Polychromasia 0 Poikilocytosis 2+ Anisocytosis 1+ Microcytosis 1+ Macrocytosis 0 Spherocytes 1+ Ovalocytes 1+ Deal Cells 2+ Schistocytes 1+ PT with INR INR PTT (Actin FS) Anticoagulation Therapy Puncture Site ABG pH ABG pCO2 at Pt Temp ABG pO2 at Pt Temp ABG HCO3 ABG O2 Sat (Measured) ABG O2 Content ABG Base Excess Jeevan Test O2 Delivery Device Oxygen Flow Rate Vent Mode Vent Rate Mechanical Rate Pressure Support Vent Sodium Potassium Chloride Carbon Dioxide Anion Gap BUN Creatinine Est GFR (CKD-EPI)AfAm Est GFR (CKD-EPI)NonAf Random Glucose Lactic Acid 4.8 H* Calcium Phosphorus Magnesium Total Bilirubin AST ALT Alkaline Phosphatase Creatine Kinase Creatine Kinase Index CK-MB (CK-2) Troponin I Total Protein Albumin Lipase Random Vancomycin 9.6 L Blood Type Antibody Screen 03/31/19 03/31/19 08:10 08:10 WBC RBC Hgb Hct MCV MCH MCHC RDW Plt Count MPV Absolute Neuts (auto) Neutrophils % Neutrophils % (Manual) Band Neutrophils % Lymphocytes % Lymphocytes % (Manual) Monocytes % Monocytes % (Manual) Eosinophils % Eosinophils % (Manual) Basophils % Basophils % (Manual) Myelocytes % (Man) Promyelocytes % (Man) Blast Cells % (Manual) Nucleated RBC % Metamyelocytes Hypochromia Platelet Estimate Platelet Comment Polychromasia Poikilocytosis Anisocytosis Microcytosis Macrocytosis Spherocytes Ovalocytes Kirby Cells Schistocytes PT with INR INR PTT (Actin FS) Anticoagulation Therapy Puncture Site ABG pH ABG pCO2 at Pt Temp ABG pO2 at Pt Temp ABG HCO3 ABG O2 Sat (Measured) ABG O2 Content ABG Base Excess Jeevan Test O2 Delivery Device Oxygen Flow Rate Vent Mode Vent Rate Mechanical Rate Pressure Support Vent Sodium 137 Potassium 4.0 Chloride 99 Carbon Dioxide 25 Anion Gap 13 BUN 95.3 H Creatinine 4.5 H Est GFR (CKD-EPI)AfAm 9.52 Est GFR (CKD-EPI)NonAf 8.21 Random Glucose 164 H Lactic Acid 5.5 H* Calcium 5.6 L* Phosphorus 8.2 H Magnesium 2.2 Total Bilirubin 1.1 H AST 355 H ALT 130 H Alkaline Phosphatase 121 H Creatine Kinase Creatine Kinase Index CK-MB (CK-2) Troponin I 0.43 H Total Protein 4.6 L Albumin 1.6 L Lipase Random Vancomycin Blood Type Antibody Screen Active Medications Generic Name Dose Route Start Last Admin Trade Name Freq PRN Reason Stop Dose Admin Chlorhexidine Gluconate 1 applic 03/30/19 22:00 03/30/19 22:00 Hibiclens For Decolonization - TP 1 applic HS EDMOND Administration Sodium Bicarbonate 150 meq/ 1,150 mls @ 100 mls/hr 03/30/19 20:00 03/31/19 09 :30 Dextrose IV 100 mls/hr Q11H EDMOND Administration Piperacillin Sod/Tazobactam 50 mls @ 100 mls/hr 03/31/19 02:00 03/31/19 10:16 Sod 2.25 gm/ Dextrose IVPB 100 mls/hr Q8H-IV EDMOND Administration Protocol Levetiracetam 500 mg 03/30/19 22:00 03/31/19 10:16 Keppra Injection - IVPB 500 mg BID EDMOND Administration Mupirocin 1 applic 03/30/19 22:00 03/31/19 10:18 Bactroban Ointment (For Decolonization) - NS 04/04/19 21:59 1 applic BID EDMOND Administration CT a/p: The liver is within normal limits in size measuring 3 cm in sagittal length with a slightly dense and coarse echotexture. The gallbladder is over distended with intraluminal sludge and without wall thickening or pericholecystic. No gross renal stones are identified. No intra or extrahepatic bile duct dilatation is seen. The right and left kidney measured 7.8 and 8 cm , respectively. There is a simple cyst in the right renal lower pole measuring 2.8 x 2 cm. Otherwise, there is no gross evidence of hydronephrosis or renal stones, bilaterally. The spleen measures 9 cm in sagittal length with homogeneous echotexture. Nonvisualization of the pancreas likely due to overlying bowel gas Visualized portion of the proximal abdominal aorta and inferior vena cava appear unremarkable. Normal flow in the main portal vein. There is a small amount of free fluid/ascites mainly in the left upper quadrant ASSESSMENT/PLAN: 89 y.o. F HTN, lung CA s/p R lung resection, NSTEMI, prior cardiac arrest in 2018, rhabdo, A-fib w/ RVR, seizure d/o, L hip fx, AAA (expanded in size since july 2018), HF (EF 30%). 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 6cm AAA (previously 5.7cm in july 2018), ileus, abscess (3x4cm fluid/air in L inferior pelvis), GB distention -Spoke w/ IR: needs contrast study to assess if abscess is drainable -F/u CT A/P w/ contrast #Renal -CHUY; cr 5.2 (baseline 1) -continue bicarb ggt -f/u urine lytes & cr -renal u/s negative for hydro. R simple renal cyst -Dr. Harding following #ID -sepsis 2/2 UTI; leukocytosis to 21.7 -continue vanc/zosyn -f/u blood cultures -reports of multiple episodes diarrhea yesterday, f/u stool studies/ c.dif -Dr. Cadena following #PPX -holding chemical ac; scd's #FEN -LR @100cc/hr -trend lytes replete prn -NPO #Dispo -continue ICU level of care Patients HCP is Katy Brownlee, . Spoke with her today, states wishes to continue all resuscitative measures to be done at this time. Visit type - Emergency Visit Emergency Visit: Yes ED Registration Date: 03/30/19 Care time: The patient presented to the Emergency Department on the above date and was hospitalized for further evaluation of their emergent condition. - New Patient This patient is new to me today: Yes Date on this admission: 03/31/19 - Critical Care Critical Care patient: Yes Total Critical Care Time (in minutes): 45 Critical Care Statement: The care of this patient involved high complexity decision making to prevent further life threatening deterioration of the patient 's condition and/or to evaluate & treat vital organ system(s) failure or risk of failure. ATTENDING PHYSICIAN STATEMENT I saw and evaluated the patient. I reviewed the resident's note and discussed the case with the resident. I agree with the resident's findings and plan as documented. SUBJECTIVE: OBJECTIVE: ASSESSMENT AND PLAN:
--- NOTE | 2019-03-31 11:42 | RAPID ---
Physical Examination Vital Signs: Vital Signs Temperature 94.6 F L 03/31/19 10:00 Pulse Rate 79 03/31/19 10:00 Respiratory Rate 21 H 03/31/19 10:00 Blood Pressure 61/47 L 03/31/19 10:00 O2 Sat by Pulse Oximetry (%) 93 L 03/30/19 23:55 Labs: CBC, BMP 03/31/19 08:10 03/31/19 08:10 Rapid Response - Rapid Response Assessment: Patient cardiac arrested in unit with ICU staff present. ICU team responded to cardiac arrest immediately. ACLS protocol initiated. Patient intubated for worsening respiratory distress. ROSC achieved at 15 mins after CPR initiated. Please see code sheet for further details. Family made aware, patient's health care proxy Katy would like continuation of resuscitative efforts.
--- NOTE | 2019-03-31 12:23 | CONS ---
INFECTIOUS DISEASE CONSULTATION DATE OF CONSULTATION: DATE OF DICTATION: 03/31/2019 HISTORY: The patient is an 89-year-old female evaluated for septic shock. History was obtained from the chart as she cannot give a history. She was admitted to the hospital on March 30, 2019, with a 2-day history of worsening left lower quadrant abdominal pain and constipation. She had taken some medication for constipation and subsequently developed nonbloody diarrhea. She presented to the emergency room where she was found to have abdominal tenderness. A CAT scan of the abdomen and pelvis was performed that showed extensive diverticulosis as well as perisigmoid inflammation and probable early abscess formation. She was empirically treated with Zosyn and vancomycin for suspected perforated diverticulitis/diverticular abscess. Her course has been complicated by worsening respiratory status, hypothermia, hypotension. At the present time, she is unresponsive with an agonal breathing pattern and peripheral cyanosis. Her blood pressure remained low on pressors. PAST MEDICAL HISTORY: Positive for hypertension, history of lung cancer status post right lung resection, coronary artery disease, myocardial infarction, congestive heart failure, history of cardiopulmonary arrest, seizure disorder, abdominal aortic aneurysm. PAST SURGICAL HISTORY: Status post right lung resection and hip surgery. ALLERGIES: No known allergies. MEDICATIONS: Include fentanyl, Zosyn, vancomycin, morphine. SOCIAL HISTORY: She lives at home. 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 She is a former smoker. SYSTEMS REVIEW: Neurologic: No loss of consciousness, seizure activity, focal weakness. Cardiac: Negative chest pain or palpitations. Respiratory: As per HPI. Gastrointestinal: As per HPI. Genitourinary: Negative for urinary tract infection. LABORATORY DATA: White count 21.7, hematocrit 26, platelets 258, 93 neutrophils, 2 lymphocytes, 3 monocytes, creatinine 4.5. Blood cultures pending. Total bilirubin 1.1, alkaline phosphatase 121, AST 355, ALT 130. PHYSICAL EXAMINATION: General: She is unresponsive with agonal breathing pattern. Vital Signs: Temperature 94.6, blood pressure 61/47, pulse 79 regular, respirations 21 per minute. HEENT: Sclerae anicteric. Heart: Sounds S1, S2. Lungs: Diminished breath sounds bilaterally. Abdomen: Distended. Tympanic. No tenderness elicited. Extremities: Negative for edema. There is peripheral cyanosis. IMPRESSION: 1. Septic shock. 2. Sepsis secondary to intra-abdominal focus. 3. Acute diverticulitis/diverticular abscess. 4. Respiratory failure. 5. Hypothermia, hypotension secondary to sepsis. 6. Lactic acidosis. 7. Acute kidney failure. 8. Elevated liver enzymes probable shock liver. 9. Marked leukocytosis. PLAN: Patient is septic with impending respiratory failure. Await cultures. Continue empiric antibiotic coverage. Intra-abdominal pathogens with vancomycin and Zosyn adjusted for renal failure. Will require intubation. Continue IV fluids, pressors, hemodynamic support. Prognosis is poor. Critical care time spent, 35 minutes. Thank you for the kind referral. DESIRAE POTTER M.D. [id number]
--- NOTE | 2019-03-31 13:55 | ECHO ---
Name: KRYSTLE BANKS Exam:Adult Echocardiogram Study Date: 03/31/2019 08:45 AM Age: 89 yrs Reason For Study: Cardiac arrest Height: 60 in Weight: 110 lb BSA: 1.4 m2 Doppler Measurements & Calculations MV E max luis: 81.5 cm/sec Ao V2 max: 96.4 cm/sec MV A max luis: 100.9 cm/sec Ao max P.7 mmHg MV E/A: 0.81 MV dec time: 0.17 sec LV V1 max P.8 mmHg Med Peak E' Luis: 6.3 cm/sec LV V1 max: 67.4 cm/sec Med E/e': 12.9 Lat Peak E' Luis: 6.4 cm/sec Lat E/e': 12.7 Procedure The study was technically limited with all images being suboptimal in quality. Images were not obtain ed from all of the standard acoustic windows due to the limited scope of the study. Left Ventricle The left ventricle is grossly normal size. Left ventricular systolic function is grossly normal. The transmitral spectral Doppler flow pattern is suggestive of impaired LV relaxation. Right Ventricle The right ventricle is not well visualized. Atria The left atrium is not well visualized. Right atrium not well visualized. Mitral Valve There is moderate mitral annular calcification. Tricuspid Valve The tricuspid valve is not well visualized. Aortic Valve There is moderate aortic sclerosis.;. Hemodynamically significant valvular aortic stenosis cannot be excluded. Pulmonic Valve The pulmonic valve is not well visualized. Great Vessels The aortic root is not well visualized. Interpretation Summary The study was technically limited with all images being suboptimal in quality. Images were not obtain ed from all of the standard acoustic windows due to the limited scope of the study. The left ventricle is grossly normal size. Left ventricular systolic function is grossly normal. The right ventricle is not well visualized. There is moderate mitral annular calcification. There is moderate aortic sclerosis.; Hemodynamically significant valvular aortic stenosis cannot be e xcluded. MD Jennie Canela 03/31/2019 01:54 PM
[2019-03-31] MEDS ORDERED: LACTATED RINGERS SOLUTION 1,000 ML/1,000 ML INFUS.BAG IV SCH (14:15)
--- NOTE | 2019-03-31 14:18 | PN ---
Teaching Attending Note Name of Resident: Rogerio House ATTENDING PHYSICIAN STATEMENT I saw and evaluated the patient. I reviewed the resident's note and discussed the case with the resident. I agree with the resident's findings and plan as documented. SUBJECTIVE: seen at 9 am Not able to obtain hx. events over night noted for hypotension and pressors she is now unresponsive OBJECTIVE: obtunded, not responsive. round pupils, reactive to light. no reaaction to pain stimuli CV; RRR, no MRG Lungs: CTAB anteriorly . Abd: soft, more distended, tympanic, absent BS . rigid . Ext: No edema or erythema. ASSESSMENT AND PLAN: 89 y/o lady with h.o HTN, Lung carcinoma s/p R lung resection, recent hospitalization and diagnosis of A fib, L hip Fx, NSTEMI, Rhabdo, new onset seizure, cardiomyopathy with low EF, cardiac arrest, cardiogenic shock, AAA 5.8 , T4 compression Fx, who presented with this time with abd pain and diarrhea for 4 days. she was found to have CHUY, metabolic acidosis, sepsis, and free air in abd on CT scan. 1- Septic shock: due to diverticulitis with perforation. 2- Ileus. 3- CHUY: due to volume deletion , ? ATN 4- High anion gap metabolic acidosis. due to renal failure and lactic acid elevation 5- Elevated trop: likely demand ischemia 6- 6 cm AAA: increased in size . 7- Transaminitis: due to sepsis and shocked liver 8- H/o A fib 9- h/o Seizures. 10- H/o cardiomyopathy. plan : - d/w ICU team. intubation today - cont levophed. - cont Abx - ? need for HD. team contacted Dr. Harding - cont IVF - IR consutl for abscess drainage. d/w ICU team who will call. ? stable for procedure - monitor lactic and trops - echo reviewed. EF is now normal - US of abd reviewed. - cont her home keppra through IV - Hold off SQ heparin /ARB/antihypertensives/and eliquis - SCds ICU level of care patient is full code, confirmed with her yesterday and ICU team confirmed with her sister in law today. medicine team obtained consent for drainage of abscess from sister in law
[2019-03-31] MEDS ORDERED: NOREPINEPHRINE BITARTRATE 8,000 MCG in DEXTROSE 5%-WATER - 492 ML IV SCH (14:30)
--- NOTE | 2019-03-31 15:26 | PN ---
Progress Note, Physician History of Present Illness: Pt seen and examined at bedside. She had a cardiac arrest this morning. SHe is intubated and remains in the ICU. - Current Medication List Current Medications: Active Medications Chlorhexidine Gluconate (Hibiclens For Decolonization -) 1 applic TP HS [facility] Last Admin: 03/30/19 22:00 Dose: 1 applic Sodium Bicarbonate 150 meq/ (Dextrose) 1,150 mls @ 100 mls/hr IV Q11H [facility] Last Admin: 03/31/19 09:30 Dose: 100 mls/hr Piperacillin Sod/Tazobactam (Sod 2.25 gm/ Dextrose) 50 mls @ 100 mls/hr IVPB Q8H-IV [facility]; Protocol Last Admin: 03/31/19 10:16 Dose: 100 mls/hr Lactated Ringer's (Lactated Ringers Solution) 1,000 ml in 1,000 mls @ 100 mls/ hr IV ASDIR [facility] Norepinephrine Bitartrate 8, (000 mcg/ Dextrose) 500 mls @ 18.75 mls/hr IV TITR [facility]; Protocol Levetiracetam (Keppra Injection -) 500 mg IVPB BID [facility] Last Admin: 03/31/19 10:16 Dose: 500 mg Mupirocin (Bactroban Ointment (For Decolonization) -) 1 applic NS BID [facility] Stop: 04/04/19 21:59 Last Admin: 03/31/19 10:18 Dose: 1 applic - Objective Vital Signs: Vital Signs Temperature 93 F L 03/31/19 15:00 Pulse Rate 80 03/31/19 15:00 Respiratory Rate 22 H 03/31/19 15:00 Blood Pressure 59/37 L 03/31/19 15:00 O2 Sat by Pulse Oximetry (%) 93 L 03/30/19 23:55 Constitutional: Yes: Calm Eyes: Yes: Conjunctiva Clear HENT: Yes: Atraumatic Neck: Yes: Supple Cardiovascular: Yes: S1, S2 Respiratory: Yes: Mechanically Ventilated Gastrointestinal: Yes: Soft Genitourinary: Yes: Glez Present, Oliguria Musculoskeletal: Yes: Muscle Weakness Edema: No Neurological: Yes: Lethargy Labs: CBC, BMP 03/31/19 08:10 03/31/19 08:10 INR, PTT INR 1.04 (0.83-1.09) 03/30/19 11:09 Problem List - Problems (1) Abdominal pain Code(s): R10.9 - UNSPECIFIED ABDOMINAL PAIN Qualifiers: Abdominal location: generalized Qualified Code(s): R10.84 - Generalized abdominal pain (2) Pneumoperitoneum Code(s): K66.8 - OTHER SPECIFIED DISORDERS OF PERITONEUM (3) Renal failure Code(s): N19 - UNSPECIFIED KIDNEY FAILURE Qualifiers: Renal failure chronicity: acute Acute renal failure type: unspecified Qualified Code(s): N17.9 - Acute kidney failure, unspecified (4) Lactic acid acidosis Code(s): E87.2 - ACIDOSIS Assessment/Plan Current Medications Generic Name Dose Route Start Last Admin Trade Name Freq PRN Reason Stop Dose Admin Chlorhexidine Gluconate 1 applic 03/30/19 22:00 03/30/19 22:00 Hibiclens For Decolonization - TP 1 applic HS [facility] Administration Sodium Bicarbonate 150 meq/ 1,150 mls @ 100 mls/hr 03/30/19 20:00 03/31/19 09 :30 Dextrose IV 100 mls/hr Q11H [facility] Administration Piperacillin Sod/Tazobactam 50 mls @ 100 mls/hr 03/31/19 02:00 03/31/19 10:16 Sod 2.25 gm/ Dextrose IVPB 100 mls/hr Q8H-IV [facility] Administration Protocol Lactated Ringer's 1,000 ml in 1,000 mls @ 100 mls/hr 03/31/19 14:15 Lactated Ringers Solution IV ASDIR [facility] Norepinephrine Bitartrate 8, 500 mls @ 18.75 mls/hr 03/31/19 14:30 000 mcg/ Dextrose IV TITR [facility] Protocol 5 MCG/MIN Levetiracetam 500 mg 03/30/19 22:00 03/31/19 10:16 Keppra Injection - IVPB 500 mg BID [facility] Administration Mupirocin 1 applic 03/30/19 22:00 03/31/19 10:18 Bactroban Ointment (For Decolonization) - NS 04/04/19 21:59 1 applic BID [facility] Administration Impression 1. CHUY 2. acidosis 3. pneumoperitoneum 4. cad 5. aaa 6. hx lung cancer 7. hx htn 8. elevated troponins 9. s/p cardiac arrest Plan - lytes are stable - no indication for HD - pt s/p cardiac arrest - vent support - cont supportive care - monitor in ICU - prognosis is poor - monitor urine output
[2019-03-31] MEDS ORDERED: SODIUM CHLORIDE 1,000 ML IV SCH (15:45)
[2019-03-31] MEDS ORDERED: VASOPRESSIN 50 UNITS in SODIUM CHLORIDE 97.5 ML IVPB SCH (16:00)
[2019-03-31 17:29] LABS: PH,URINE 5.5 (5.0-8.0); URINE APPEARANCE Cloudy; URINE BILIRUBIN 1+ (NEGATIVE); URINE COLOR Brown; URINE GLUCOSE (UA) Trace (NEGATIVE); URINE KETONE Trace (NEGATIVE); URINE LEUK ESTERASE Negative (NEGATIVE); URINE NITRITE Negative (NEGATIVE); URINE PROTEIN 3+ (NEGATIVE); URINE UROBILINOGEN 0.2 mg/dL (0.2-1.0)
[2019-03-31] MEDS ORDERED: HYDROCORTISONE SOD SUCCINATE 100 MG/2 ML VIAL IVPUSH SCH (18:00)
[2019-03-31] MEDS ORDERED: DOPAMINE HCL 400,000 MCG in SODIUM CHLORIDE 240 ML IV SCH (18:00)
[2019-03-31] MEDS ORDERED: DOPAMINE 400 MG/D5W - 400,000 MCG/250 ML INFUS.BAG IVPB ONE (18:05)
[2019-03-31 18:17] LABS: URINE RBC 7.4 /hpf (0-4); URINE WBC 7.5 /hpf (0-5)
[2019-03-31 18:22] LABS: EPI CELLS 105.4 /HPF (0-5/HPF); HYALINE CASTS 680.92 /lpf (0-8); URINE BACTERIA 8.8 /hpf (NEGATIVE)
[2019-03-31 18:23] LABS: URINE CRYSTALS MODERATE /hpf
[2019-03-31 18:24] LABS: YEAST NONE SEEN (NEGATIVE)
--- NOTE | 2019-03-31 19:02 | PN ---
Physical Exam: SUBJECTIVE: Patient seen and examined O/N: obtunded, started levophed for SBP ~80s, OBJECTIVE: Vital Signs Period Temp Pulse Resp BP Sys/Aguirre Pulse Ox Last 24 Hr 92.6 F-94.7 F 50-87 14-24 43-105/23-77 93-93 GENERAL: not responding to painful stimuli, not speaking HEAD: Normal with no signs of trauma. EYES: PERRL, sclera anicteric, conjunctiva clear. No ptosis. ENT: Ears normal, nares patent, moist mucous membranes. NECK: Trachea midline, full range of motion, supple. LUNGS: Breath sounds coarse to auscultation bilaterally, breathing rapidly on nonrebreather HEART: Regular rate and rhythm, S1, S2 without murmur, rub or gallop. ABDOMEN: distended, tense abdomen, hypoactive bowel sounds, no guarding, no rebound, no hepatosplenomegaly, no masses. EXTREMITIES: cool, mottled-appearing, no edema. SKIN: cool, dry, normal turgor, no rashes or lesions noted Laboratory Results - last 24 hr 03/30/19 03/30/19 03/30/19 21:30 21:30 21:30 WBC RBC Hgb Hct MCV MCH MCHC RDW Plt Count MPV Absolute Neuts (auto) Neutrophils % Neutrophils % (Manual) Band Neutrophils % Lymphocytes % Lymphocytes % (Manual) Monocytes % Monocytes % (Manual) Eosinophils % Eosinophils % (Manual) Basophils % Basophils % (Manual) Myelocytes % (Man) Promyelocytes % (Man) Blast Cells % (Manual) Nucleated RBC % Metamyelocytes Hypochromia Platelet Estimate Platelet Comment Polychromasia Poikilocytosis Anisocytosis Microcytosis Macrocytosis Spherocytes Ovalocytes Hargill Cells Schistocytes Anticoagulation Therapy Puncture Site ABG pH ABG pCO2 at Pt Temp ABG pO2 at Pt Temp ABG HCO3 ABG O2 Sat (Measured) ABG O2 Content ABG Base Excess Jeevan Test O2 Delivery Device Oxygen Flow Rate Vent Mode Vent Rate Mechanical Rate Pressure Support Vent Sodium Potassium Chloride Carbon Dioxide Anion Gap BUN Creatinine Est GFR (CKD-EPI)AfAm Est GFR (CKD-EPI)NonAf POC Glucometer Random Glucose Lactic Acid 3.1 H* Calcium Phosphorus Magnesium Total Bilirubin AST ALT Alkaline Phosphatase Creatine Kinase 189 186 Creatine Kinase Index 2.5 2.6 CK-MB (CK-2) 4.8 H 4.9 H Troponin I 0.34 H Total Protein Albumin Urine Color Urine Appearance Urine pH Ur Specific Deeth Urine Protein Urine Glucose (UA) Urine Ketones Urine Blood Urine Nitrite Urine Bilirubin Urine Urobilinogen Ur Leukocyte Esterase Urine WBC (Auto) Urine RBC (Auto) Urine Casts (Auto) U Pathogenic Cast Auto U Epithel Cells (Auto) Urine Crystals (Auto) Urine Bacteria (Auto) Urine Yeast (Auto) Random Vancomycin 03/31/19 03/31/19 03/31/19 00:15 02:20 02:20 WBC RBC Hgb Hct MCV MCH MCHC RDW Plt Count MPV Absolute Neuts (auto) Neutrophils % Neutrophils % (Manual) Band Neutrophils % Lymphocytes % Lymphocytes % (Manual) Monocytes % Monocytes % (Manual) Eosinophils % Eosinophils % (Manual) Basophils % Basophils % (Manual) Myelocytes % (Man) Promyelocytes % (Man) Blast Cells % (Manual) Nucleated RBC % Metamyelocytes Hypochromia Platelet Estimate Platelet Comment Polychromasia Poikilocytosis Anisocytosis Microcytosis Macrocytosis Spherocytes Ovalocytes Kirby Cells Schistocytes Anticoagulation Therapy No Result Required. Puncture Site Right radial ABG pH 7.36 ABG pCO2 at Pt Temp 36.8 ABG pO2 at Pt Temp 74.8 L ABG HCO3 20.4 L ABG O2 Sat (Measured) 92.3 L ABG O2 Content 14.4 ABG Base Excess -4.0 L Jeevan Test Positive O2 Delivery Device Nasal Oxygen Flow Rate 4 l Vent Mode No Result Required. Vent Rate No Result Required. Mechanical Rate No Result Required. Pressure Support Vent No Result Required. Sodium 136 Potassium 4.0 Chloride 95 L Carbon Dioxide 23 Anion Gap 18 H BUN 103.1 H Creatinine 5.1 H Est GFR (CKD-EPI)AfAm 8.18 Est GFR (CKD-EPI)NonAf 7.06 POC Glucometer Random Glucose 195 H Lactic Acid 4.8 H* Calcium 6.5 L* Phosphorus Magnesium Total Bilirubin 1.7 H AST 224 H ALT 87 H Alkaline Phosphatase 137 H Creatine Kinase Creatine Kinase Index CK-MB (CK-2) Troponin I 0.41 H Total Protein 5.9 L Albumin 2.2 L Urine Color Urine Appearance Urine pH Ur Specific Deeth Urine Protein Urine Glucose (UA) Urine Ketones Urine Blood Urine Nitrite Urine Bilirubin Urine Urobilinogen Ur Leukocyte Esterase Urine WBC (Auto) Urine RBC (Auto) Urine Casts (Auto) U Pathogenic Cast Auto U Epithel Cells (Auto) Urine Crystals (Auto) Urine Bacteria (Auto) Urine Yeast (Auto) Random Vancomycin 03/31/19 03/31/19 03/31/19 08:10 08:10 08:10 WBC 21.7 H RBC 2.95 L Hgb 8.7 L Hct 26.1 L D MCV 88.5 MCH 29.5 MCHC 33.4 RDW 14.9 Plt Count 258 D MPV 7.0 L Absolute Neuts (auto) 20.2 H Neutrophils % 93.3 H Neutrophils % (Manual) 65.7 Band Neutrophils % 19.2 Lymphocytes % 2.3 L Lymphocytes % (Manual) 4.0 L D Monocytes % 3.3 L Monocytes % (Manual) 8 Eosinophils % 1.1 Eosinophils % (Manual) 0.0 Basophils % 0.0 Basophils % (Manual) 0.0 Myelocytes % (Man) 3 H D Promyelocytes % (Man) 0 Blast Cells % (Manual) 0 Nucleated RBC % 0 Metamyelocytes 0 Hypochromia 0 Platelet Estimate Normal Platelet Comment Present Polychromasia 0 Poikilocytosis 2+ Anisocytosis 1+ Microcytosis 1+ Macrocytosis 0 Spherocytes 1+ Ovalocytes 1+ Hargill Cells 2+ Schistocytes 1+ Anticoagulation Therapy Puncture Site ABG pH ABG pCO2 at Pt Temp ABG pO2 at Pt Temp ABG HCO3 ABG O2 Sat (Measured) ABG O2 Content ABG Base Excess Jeevan Test O2 Delivery Device Oxygen Flow Rate Vent Mode Vent Rate Mechanical Rate Pressure Support Vent Sodium 137 Potassium 4.0 Chloride 99 Carbon Dioxide 25 Anion Gap 13 BUN 95.3 H Creatinine 4.5 H Est GFR (CKD-EPI)AfAm 9.52 Est GFR (CKD-EPI)NonAf 8.21 POC Glucometer Random Glucose 164 H Lactic Acid Calcium 5.6 L* Phosphorus 8.2 H Magnesium 2.2 Total Bilirubin 1.1 H AST 355 H ALT 130 H Alkaline Phosphatase 121 H Creatine Kinase Creatine Kinase Index CK-MB (CK-2) Troponin I 0.43 H Total Protein 4.6 L Albumin 1.6 L Urine Color Urine Appearance Urine pH Ur Specific Deeth Urine Protein Urine Glucose (UA) Urine Ketones Urine Blood Urine Nitrite Urine Bilirubin Urine Urobilinogen Ur Leukocyte Esterase Urine WBC (Auto) Urine RBC (Auto) Urine Casts (Auto) U Pathogenic Cast Auto U Epithel Cells (Auto) Urine Crystals (Auto) Urine Bacteria (Auto) Urine Yeast (Auto) Random Vancomycin 9.6 L 03/31/19 03/31/19 03/31/19 08:10 14:45 17:18 WBC RBC Hgb Hct MCV MCH MCHC RDW Plt Count MPV Absolute Neuts (auto) Neutrophils % Neutrophils % (Manual) Band Neutrophils % Lymphocytes % Lymphocytes % (Manual) Monocytes % Monocytes % (Manual) Eosinophils % Eosinophils % (Manual) Basophils % Basophils % (Manual) Myelocytes % (Man) Promyelocytes % (Man) Blast Cells % (Manual) Nucleated RBC % Metamyelocytes Hypochromia Platelet Estimate Platelet Comment Polychromasia Poikilocytosis Anisocytosis Microcytosis Macrocytosis Spherocytes Ovalocytes Hargill Cells Schistocytes Anticoagulation Therapy Puncture Site ABG pH ABG pCO2 at Pt Temp ABG pO2 at Pt Temp ABG HCO3 ABG O2 Sat (Measured) ABG O2 Content ABG Base Excess Jeevan Test O2 Delivery Device Oxygen Flow Rate Vent Mode Vent Rate Mechanical Rate Pressure Support Vent Sodium Potassium Chloride Carbon Dioxide Anion Gap BUN Creatinine Est GFR (CKD-EPI)AfAm Est GFR (CKD-EPI)NonAf POC Glucometer 130 Random Glucose Lactic Acid 5.5 H* Calcium Phosphorus Magnesium Total Bilirubin AST ALT Alkaline Phosphatase Creatine Kinase Creatine Kinase Index CK-MB (CK-2) Troponin I Total Protein Albumin Urine Color Brown Urine Appearance Cloudy Urine pH 5.5 Ur Specific Deeth 1.020 Urine Protein 3+ H Urine Glucose (UA) Trace Urine Ketones Trace Urine Blood 3+ H Urine Nitrite Negative Urine Bilirubin 1+ H Urine Urobilinogen 0.2 Ur Leukocyte Esterase Negative Urine WBC (Auto) 7.5 Urine RBC (Auto) 7.4 Urine Casts (Auto) 680.92 U Pathogenic Cast Auto Few U Epithel Cells (Auto) 105.4 Urine Crystals (Auto) Moderate Urine Bacteria (Auto) 8.8 Urine Yeast (Auto) None seen Random Vancomycin Active Medications Generic Name Dose Route Start Last Admin Trade Name Freq PRN Reason Stop Dose Admin Chlorhexidine Gluconate 1 applic 03/30/19 22:00 03/30/19 22:00 Hibiclens For Decolonization - TP 1 applic HS [facility] Administration Fludrocortisone Acetate 0.1 mg 03/31/19 18:00 Florinef - PO DAILY [facility] Hydrocortisone Sodium Succinate 50 mg 03/31/19 18:00 Solu-Cortef - IVPUSH Q6H [facility] Sodium Bicarbonate 150 meq/ 1,150 mls @ 100 mls/hr 03/30/19 20:00 03/31/19 09 :30 Dextrose IV 100 mls/hr Q11H [facility] Administration Piperacillin Sod/Tazobactam 50 mls @ 100 mls/hr 03/31/19 02:00 03/31/19 17:44 Sod 2.25 gm/ Dextrose IVPB 100 mls/hr Q8H-IV [facility] Administration Protocol Norepinephrine Bitartrate 8, 500 mls @ 18.75 mls/hr 03/31/19 14:30 03/31/19 14:30 000 mcg/ Dextrose IV 15 mcg/min TITR [facility] 56.25 mls/hr Titration Protocol 5 MCG/MIN Sodium Chloride 1,000 mls @ 100 mls/hr 03/31/19 15:45 03/31/19 16:00 Normal Saline - IV 100 mls/hr ASDIR [facility] Administration Vasopressin 50 units/ Sodium 100 mls @ 4 mls/hr 03/31/19 16:00 03/31/19 15:30 Chloride IVPB 4 units/hr ASDIR [facility] 8 mls/hr Titration Protocol 2 UNITS/HR Dopamine HCl 400,000 mcg/ 250 mls @ 3.31 mls/hr 03/31/19 18:00 Sodium Chloride IV TITR [facility] Protocol 2 MCG/KG/MIN Levetiracetam 500 mg 03/30/19 22:00 03/31/19 10:16 Keppra Injection - IVPB 500 mg BID [facility] Administration Mupirocin 1 applic 03/30/19 22:00 03/31/19 10:18 Bactroban Ointment (For Decolonization) - NS 04/04/19 21:59 1 applic BID [facility] Administration ASSESSMENT/PLAN: 89F w/ pmh of Right-sided Lung Ca(s/p pneumonectomy), NSTEMI( w/ cardiac arrest in June 2018), Afib(Eliquis), HF(rEF 25-30% in June, but norm in August), AAA, HTN, Left hip fx, rhabdomyolysis, seizures presented to [facility] for complaint of 10 of 10 diffuse abdominal pain w/a nausea and no BM. Has had chronic constipation, last BM was 4d prior. Admitted for severe abd pain and distension , possibly 2/2 to ileus vs perforated diverticulitis. Discussed with pt in the ED, wants to be FULL CODE. As per [id number], Katy, pt would want to be full code. Intubated on 03/31/19 for increased work of breathing. Had cardiac arrest, s/p compressions x3 w/ ROSC. IR consulted for abscess drainage, not a candidate for now. Nephro consulted for HD, dt volume overload; deferring for now # severe sepsis: possibly 2/2 perforated diverticulitis - ED: HR 90-100s, WBC 16.4, lactic 2.3, Cr 5.2 > lactic acid 2.3, 3.3, 4.8, 5.5 > CT A/P(03/30/19): sigmoid diverticulae, pneumoperitoneum vs loop of bowel w/ air-fluid level 4x3cm in Left inferior pelvis, infrarenal aortic aneurysm 6cm, moderate GB overdistention > stool cx --pending > c diff --pending - Surg([facility]) consult: --cw medical mgmt - ABX Regimen: --ED: vanc + zosyn --zosyn --day#2 # Respiratory Distress: possibly 2/2 volume overload vs severe sepsis - intubated - hemodialysis --pending # Ileus - NPO - aggressively replete lytes # troponinemia: likely demand ischemia > troponin: 0.18, 0.21, 0.34, 0.41, 0.43 - cardio consult # CHUY: possibly 2/2 to severe sepsis > baseline Cr ~1.0 > Cr 5.2, 5.1, 4.5 > UA: brown, 3+ blood, 3+ protein, 1+ bilirubin > US renal/bladder -- no hydronephrosis, simple cyst of Right kidney - Nephro([facility]) Consult: --bicarb gtt --US renal/bladder # Anion Gap Metabolic Acidosis: possibly 2/2 acute renal failure > bicarb 15 - Nephro([facility]): --bicarb gtt(D5W + 3amp bicarb) @ 100 # Infrarenal abdominal anuresym > CT A/P: 6 cm AAA - cont monitor # Transaminitis: likely 2/2 sepsis likely > Tbil 1.7 > AST/ALT 162/67 > US RUQ: overdistended GB, w/ sludge, no GB wall thickening, some fluid around GB #chronic A fib - hold AC for possible emergent surgery # Seizures - keppra 500 IV BID # FEN - NPO - bicarb gtt DISPO: - ICU - FULL CODE Visit type - Emergency Visit Emergency Visit: No - New Patient This patient is new to me today: No - Critical Care Critical Care patient: Yes Total Critical Care Time (in minutes): 32 Critical Care Statement: The care of this patient involved high complexity decision making to prevent further life threatening deterioration of the patient 's condition and/or to evaluate & treat vital organ system(s) failure or risk of failure. ATTENDING PHYSICIAN STATEMENT I saw and evaluated the patient. I reviewed the resident's note and discussed the case with the resident. I agree with the resident's findings and plan as documented. SUBJECTIVE: OBJECTIVE: ASSESSMENT AND PLAN:
[2019-03-31] MEDS ORDERED: DOPAMINE 400 MG/D5W - 400,000 MCG/250 ML INFUS.BAG IVPB SCH (19:15)
[2019-03-31] MEDS ORDERED: FLUDROCORTISONE ACETATE 0.1 MG TABLET (FP) PO SCH (19:45)
[2019-03-31] MEDS: CHLORHEXIDINE GLUCONATE 4% CLEANSER FOR DECOLONIZATION TP SCH (21:13)
[2019-03-31] MEDS ORDERED: DEXTROSE 10%-WATER - 1,000 ML IV SCH (23:15)
[2019-03-31] MEDS ORDERED: DEXTROSE 5%-LACTATED RINGERS 1,000 ML IV SCH (23:15)
--- NOTE | 2019-03-31 23:18 | RAPID ---
Physical Examination Vital Signs: Vital Signs Temperature 94.7 F L 03/31/19 18:00 Pulse Rate 100 H 03/31/19 21:46 Respiratory Rate 14 03/31/19 21:46 Blood Pressure 69/47 L 03/31/19 21:46 O2 Sat by Pulse Oximetry (%) 93 L 03/30/19 23:55 Findings/Remarks: Code 99 called in ICU at 10:43pm. ROSC achieved at 11:06 pm. Attempted to contact family multiple times, but no answer. Message left with HCP, Katy Ang. Please refer to code sheet for details. Labs: CBC, BMP 03/31/19 08:10 03/31/19 08:10
[2019-03-31] MEDS ORDERED: EPINEPHrine 1:10,000 (P-F SYR) 1 MG/10 ML DISP.SYRIN ONE (23:32)
[2019-04-01 00:06] LABS: RDW 17.8 % (11.6-15.6)
--- NOTE | 2019-04-01 00:13 | PN ---
Progress Note (short form) - Note Progress Note: NOTE Code 99 called, ROSC was not achieved. Patient had no breath sounds, no heart sounds were audible. Patient had absent pupillary reflexes. Patient had absent bilateral carotid, radial, femoral pules. Patient was pronounced at 12:02 AM 04/01/19. Patient HCP was contacted, no response, message was left for call back.
[2019-04-01 01:06] LABS: BASO % 0.2 % (0-2.0); EOS % 0.8 % (0-4.5); LYMPH % 15.3 % (8-40); MCH 29.6 pg (25.7-33.7); MCHC 25.3 g/dl (32.0-36.0); MEAN CELL VOLUME 116.9 fl (80-96); MEAN PLT VOLUME 7.7 fl (7.5-11.1); MONO % 5.9 % (3.8-10.2); NEUT % 77.8 % (42.8-82.8); PLATELET COUNT 113 K/MM3 (134-434); RBC 1.66 M/mm3 (3.60-5.2); WHITE BLOOD COUNT 13.8 K/mm3 (4.0-10.0)
[2019-04-01 01:10] LABS: HEMOGLOBIN 4.9 GM/dL (10.7-15.3)
[2019-04-01 01:12] LABS: HEMATOCRIT 19.5 % (32.4-45.2)
[2019-04-01] MEDS ORDERED: PIPERACILLIN/TAZOBACTAM 2.25 GM VIAL IVPB ONE (01:39)
[2019-04-01 02:51] VITALS: BP 83/74; PULSE 91; TEMP 97.4
--- NOTE | 2019-04-01 15:23 | DS ---
Physical Exam: SUBJECTIVE: Patient seen and examined OBJECTIVE: Vital Signs Period Temp Pulse Resp BP Sys/Aguirre Pulse Ox Last 24 Hr 94 F-97.4 F 52-163 9-14 32-108/10-90 PHYSICAL EXAM GENERAL: not responding to painful stimuli, not speaking HEAD: Normal with no signs of trauma. EYES: PERRL, not tracking movement, sclera anicteric, conjunctiva clear. No ptosis. ENT: Ears normal, nares patent, moist mucous membranes. NECK: Trachea midline, full range of motion, supple. LUNGS: Breath sounds coarse to auscultation bilaterally, intubated HEART: Regular rate and rhythm, S1, S2 without murmur, rub or gallop. ABDOMEN: distended, tense abdomen, hypoactive bowel sounds, no guarding, no rebound, no hepatosplenomegaly, no masses. EXTREMITIES: cool, mottled-appearing, no edema. SKIN: cool, dry, normal turgor, no rashes or lesions noted LABS Laboratory Results - last 24 hr 03/31/19 03/31/19 03/31/19 14:45 17:18 22:49 WBC RBC Hgb Hct MCV MCH MCHC RDW Plt Count MPV Absolute Neuts (auto) Total Counted Neutrophils % Neutrophils % (Manual) Lymphocytes % Monocytes % Eosinophils % Basophils % Nucleated RBC % POC Glucometer 130 < 10 Urine Color Brown Urine Appearance Cloudy Urine pH 5.5 Ur Specific [place] 1.020 Urine Protein 3+ H Urine Glucose (UA) Trace Urine Ketones Trace Urine Blood 3+ H Urine Nitrite Negative Urine Bilirubin 1+ H Urine Urobilinogen 0.2 Ur Leukocyte Esterase Negative Urine WBC (Auto) 7.5 Urine RBC (Auto) 7.4 Urine Casts (Auto) 680.92 U Pathogenic Cast Auto Few U Epithel Cells (Auto) 105.4 Urine Crystals (Auto) Moderate Urine Bacteria (Auto) 8.8 Urine Yeast (Auto) None seen 03/31/19 03/31/19 03/31/19 22:55 23:02 23:31 WBC RBC Hgb Hct MCV MCH MCHC RDW Plt Count MPV Absolute Neuts (auto) Total Counted Neutrophils % Neutrophils % (Manual) Lymphocytes % Monocytes % Eosinophils % Basophils % Nucleated RBC % POC Glucometer 14 103 10 Urine Color Urine Appearance Urine pH Ur Specific [place] Urine Protein Urine Glucose (UA) Urine Ketones Urine Blood Urine Nitrite Urine Bilirubin Urine Urobilinogen Ur Leukocyte Esterase Urine WBC (Auto) Urine RBC (Auto) Urine Casts (Auto) U Pathogenic Cast Auto U Epithel Cells (Auto) Urine Crystals (Auto) Urine Bacteria (Auto) Urine Yeast (Auto) 03/31/19 03/31/19 03/31/19 23:36 23:45 23:58 WBC 13.8 H RBC 1.66 L Hgb 4.9 L* Hct 19.5 L D MCV 116.9 H D MCH 29.6 MCHC 25.3 L RDW 17.8 H Plt Count 113 L D MPV 7.7 Absolute Neuts (auto) 10.7 H Total Counted 100 Neutrophils % 77.8 Neutrophils % (Manual) No Result Required. Lymphocytes % 15.3 D Monocytes % 5.9 Eosinophils % 0.8 Basophils % 0.2 D Nucleated RBC % 0 POC Glucometer 174 290 Urine Color Urine Appearance Urine pH Ur Specific [place] Urine Protein Urine Glucose (UA) Urine Ketones Urine Blood Urine Nitrite Urine Bilirubin Urine Urobilinogen Ur Leukocyte Esterase Urine WBC (Auto) Urine RBC (Auto) Urine Casts (Auto) U Pathogenic Cast Auto U Epithel Cells (Auto) Urine Crystals (Auto) Urine Bacteria (Auto) Urine Yeast (Auto) HOSPITAL COURSE: Date of Admission:03/30/19 Date of Discharge: 04/01/19 89F w/ pmh of Right-sided Lung Ca(s/p pneumonectomy), NSTEMI( w/ cardiac arrest in June 2018), Afib(Eliquis), HF(rEF 25-30% in June, but norm in August), AAA, HTN, Left hip fx, rhabdomyolysis, seizures presented to [facility] for complaint of 10 of 10 diffuse abdominal pain w/a nausea and no BM. Has had chronic constipation, last BM was 4d prior. Admitted for severe abd pain and distension , possibly 2/2 to ileus vs perforated diverticulitis. Discussed with pt in the ED, wants to be FULL CODE. As per [id number], [place], pt would want to be full code. CT A/P(03/30/19) showed sigmoid diverticulae, pneumoperitoneum vs loop of bowel w/ air-fluid level 4x3cm in Left inferior pelvis, infrarenal aortic aneurysm 6cm, moderate GB overdistention. Surg([facility]) consulted and recommended medical management. Lactate 2.3 on admission and uptrended to 5.5. Anion Gap Acidosis(bicarb 15) prompted Nephro([facility]) consult and admission to ICU for bicarb gtt. Intubated on 03/31/19 for increased work of breathing. Possibly had pulmonary congestion 2/2 kidney failure. Troponin 0.18 and uptrended to 0.43; thought to be demand ischemia 2/2 sepsis. Had cardiac arrest , s/p compressions x3 w/ ROSC on 03/31/19 in AM. IR consulted for abscess drainage, not a candidate for now. Nephro consulted for HD, dt volume overload; deferred dt HD instability. Again had cardiac arrest on 03/31/19 ~ 2042, with ROSC acheived at ~2306. Coded again shortly after. Pronounced at ~0002, . Minutes to complete discharge: 33 Discharge Summary Problems reviewed: Yes Reason For Visit: RENAL FAILURE Condition: Guarded - Instructions Referrals: Magda Diaz MD [Primary Care Provider] - Disposition: - Home Medications Comprehensive Discharge Medication List: Ambulatory Orders Losartan Potassium 50 mg PO DAILY 10/27/15 Bisacodyl Suppository [Dulcolax Suppository -] 10 mg DE PRN PRN supp.rect 01/20 Docusate Sodium [Colace -] 100 mg PO TID capsule 01/20/18 Polyethylene Glycol 3350 [Miralax 119 gm Btl -] 17 gm PO DAILY bottle 01/20/18 Sennosides [Senna -] 2 tab PO HS tablet 01/20/18 Ferrous Sulfate 325 mg PO BID 08/15/18 Apixaban [Eliquis -] 2.5 mg PO BID #0 tablet 08/28/18 levETIRAcetam [Keppra -] 500 mg PO BID #60 tablet 08/28/18 Atorvastatin Ca [Lipitor] 80 mg PO HS 03/30/19 Metoprolol Succinate [Toprol XL -] 25 mg PO DAILY 03/30/19 This patient is new to me today: No Emergency Visit: No Critical Care patient: Yes Total Critical Care Time (in minutes): 33 Critical Care Statement: The care of this patient involved high complexity decision making to prevent further life threatening deterioration of the patient 's condition and/or to evaluate & treat vital organ system(s) failure or risk of failure. - Discharge Referral Referred to [facility] No ATTENDING PHYSICIAN STATEMENT I saw and evaluated the patient. I reviewed the resident's note and discussed the case with the resident. I agree with the resident's findings and plan as documented. SUBJECTIVE: OBJECTIVE: ASSESSMENT AND PLAN:
== END 2019-04-01 02:30 | disposition expired | DRG 871 ==
LOC: JER 10:08 → JERBED 14:44 → JICU 19:10
PROVIDERS: ADMIT Internal Medicine; ATTEND Internal Medicine
PROC: 5A1935Z Respiratory Ventilation, Less than 24 Consecutive Hours (ICD-10-PCS; principal; 2019-03-31)
PROC: 0BH17EZ Insertion of Endotracheal Airway into Trachea, Via Natural or Artificial Opening (ICD-10-PCS; 2019-03-31)
PROC: 05HM33Z Insertion of Infusion Device into Right Internal Jugular Vein, Percutaneous Approach (ICD-10-PCS; 2019-03-31)
PROC: 5A12012 Performance of Cardiac Output, Single, Manual (ICD-10-PCS; 2019-03-31)
DX: A41.9 Sepsis, unspecified organism (principal); J96.01 Acute respiratory failure with hypoxia; K63.1 Perforation of intestine (nontraumatic); R65.21 Severe sepsis with septic shock; N39.0 Urinary tract infection, site not specified; N17.9 Acute kidney failure, unspecified; E87.2 Acidosis; J98.11 Atelectasis; K57.92 Diverticulitis of intestine, part unspecified, without perforation or abscess without bleeding; K56.7 Ileus, unspecified; I48.20 Chronic atrial fibrillation, unspecified; I24.8 Other forms of acute ischemic heart disease; I46.9 Cardiac arrest, cause unspecified; R74.0 Nonspecific elevation of levels of transaminase and lactic acid dehydrogenase [LDH]; R56.9 Unspecified convulsions; I95.9 Hypotension, unspecified; D72.829 Elevated white blood cell count, unspecified; R68.0 Hypothermia, not associated with low environmental temperature
CPT/HCPCS: 31500; 36415; 36600; 71045-TC-FY; 74176-TC; 76705-TC; 76775-TC; 76856-TC; 80053; 81003; 82550; 82553; 82803; 82962; 83605; 83690; 83735; 84100; 84484; 85025; 85610; 85730; 86850; 86900; 86901; 87040; 87086; 87186; 93005; 93010; 93306-TC; 94002; 99284-25; G0480; J0131; J7030